=== PATIENT | male | born 1955 | race Caucasian/White ===

== ENCOUNTER 2017-01-08 21:55 | Emergency (ER) | payer OTHER ==
[~2017-01-08] VITALS: Ht 162.6 cm; Wt 147.4 kg
[~2017-01-08 21:55] MED LIST: ARMO150T4 PO; CITA20TA4 PO; ERGO500037 PO; IBUP-1277 PO; LSXUNK PO; MELO7.5T5 PO; METF500T5 PO; MULT-190 PO
[2017-01-08 22:05] VITALS: TEMP 36.7; Ht 162.6 cm; Wt 147.4 kg
[2017-01-08 22:54] LABS: BASO % 0.3 %; BASO ABS # 0.02 K/uL (0-0.2); COMPLETE YES; EOS % 2.8 %; HEMATOCRIT 41.1 % (42-52); IG% 0.1 %; LYMPH % 20.3 %; LYMPH ABS # 1.54 K/uL (1.2-3.4); MEAN CELL VOLUME 88.6 fL (80-100); MEAN CORPUSCULAR HEMOGLOBIN 29.3 pg (25-34); MEAN CORPUSCULAR HGB CONC 33.1 g/dl (32-36); MONO % 8.9 %; NEUT % 67.6 %; PLATELET COUNT 238 K/uL (130-400); RED BLOOD COUNT 4.64 M/uL (4.7-6.1); WHITE BLOOD COUNT 7.57 K/uL (4.8-10.8)
[2017-01-08] MEDS ORDERED: LISI-461 PO (23:10)
[2017-01-08] MEDS ORDERED: CLN200 PO (23:11)
[2017-01-08 23:13] LABS: BUN/CREATININE RATIO 22.4 (10-20); CALCIUM 8.8 mg/dl (8.5-10.1); POTASSIUM 3.9 mmol/L (3.5-5.1)
[2017-01-08] MEDS ORDERED: ASPI81TA28 PO (23:13)
[2017-01-08] MEDS ORDERED: ATOR-24 PO (23:13)
[2017-01-08] MEDS ORDERED: ERGO500037 PO (23:14)
[2017-01-08] MEDS ORDERED: NAPR-1169 PO (23:16)
[2017-01-08] MEDS ORDERED: PRLSR20 PO (23:17)
[2017-01-08 23:24] LABS: THYROID STIMULATING HORMONE 2.39 uIu/ml (0.300-4.500)
--- NOTE | 2017-01-09 01:29 | EMERGENCY ROOM VISIT NOTE ---
History Report prepared by Fady: Be Lang Under the Supervision of: Dr. Trell Landers M.D. First contact with patient: 22:38 Chief Complaint: MENTAL HEALTH EVALUATION Stated Complaint: MENTAL HEALTH EVALUATION History of Present Illness The patient is a 61 year old male who presents to the Emergency Room with complaints of suicidal ideation beginning yesterday. There is a 302 warrant for the patient. Per graphic pre press trades worker, the patient's a few weeks ago from chronic illnesses and the patient has been experiencing depression and "erratic behavior" ever since. He was the primary caregiver for the patient for many years. The graphic pre press trades worker states that police was called on the patient and had to barricade his car with their cars in order to stop him from driving away. Shes states that they ultimately had to threaten to use a taser on the patient before he would cooperate and go with them. Per son, the patient has no history of similar symptoms. He states that the patient is on an antidepressant, but is not diagnosed with depression. He states that the patient left an message on his daughters that eluded to a suicide attempt. The patient denies any actual attempt to harm herself. He has no history of drug or alcohol use. He denies any recent chest pain. Source of History: patient Onset: Yesterday Quality: other (suicidal ideation) Associated Symptoms: No chest pain Review of Systems See HPI for pertinent positives & negatives. A total of 10 systems reviewed and were otherwise negative. Past Medical & Surgical Medical Problems: (1) Diabetes (2) SCOTT (generalized anxiety disorder) (3) GERD (gastroesophageal reflux disease) (4) HLD (hyperlipidemia) (5) Obesity (6) KAYLEEN (obstructive sleep apnea) (7) Venous stasis Surgical Problems: (1) H/O esophagogastroduodenoscopy (2) H/O hernia repair (3) H/O knee surgery Family History Cancer FHx: lung disease Social History Smoking Status: Never Smoker Alcohol Use: none Marital Status: Housing Status: lives with family Current/Historical Medications Scheduled Armodafinil (Nuvigil), 150 MG PO DAILY Aspirin (Aspirin Ec), 81 MG PO DAILY Atorvastatin (Lipitor), 40 MG PO DAILY Citalopram Hydrobromide (Citalopram Hydrobromide), 20 MG PO DAILY Ergocalciferol (Vitamin D 12151 Unit), 50,000 UNIT PO UD Ergocalciferol (Vitamin D 95214 Unit), 50,000 UNIT PO 3XWK Lisinopril (Zestril), 10 MG PO DAILY Metformin Hcl Er (Glucophage Er), 500 MG PO BID Omeprazole (Prilosec), 20 MG PO DAILY Sulindac (Sulindac), 200 MG PO BIDM Scheduled PRN Furosemide (Lasix Unknown Dose), 40 MG PO QAM PRN for PRN Naproxen (Naprosyn), 500 MG PO DIRECTED PRN for Pain Allergies Coded Allergies: No Known Allergies (Unverified , 01/08/17) Physical Exam Vital Signs Date Time Temp Pulse Resp B/P (MAP) Pulse Ox O2 Delivery O2 Flow Rate FiO2 01/09/17 04:30 71 20 139/71 98 Room Air 01/08/17 22:05 36.7 74 18 145/79 95 Room Air Physical Exam PSYCH: Denies suicidal or homicidal ideation. Admits depression. Crying with sad affect. Depressed mood. GENERAL: Patient is in minimal distress, sad appearing. HEENT: No acute trauma, normocephalic atraumatic, mucous membranes moist, no nasal congestion, no scleral icterus. NECK: No stridor, no adenopathy, no meningismus, trachea is midline. LUNGS: No dyspnea. Clear to auscultation and equal bilaterally. No wheeze, no rhonchi. HEART: Regular rate and rhythm. No murmurs, rubs, gallops appreciated. ABDOMEN: Soft, nontender, bowel sounds positive, no masses appreciated, no peritonitis. BACK: No midline tenderness, no CVA tenderness EXTREMITIES: Normal motion all extremities, no cyanosis, no edema. NEUROLOGIC: Alert and oriented, no acute motor or sensory deficits, no focal weakness, cranial nerves grossly intact. SKIN: No rash, no jaundice, no diaphoresis. Medical Decision & Procedures Laboratory Results 01/08/17 22:40 Red Blood Count 4.64, Mean Corpuscular Volume 88.6, Mean Corpuscular Hemoglobin 29.3, Mean Corpuscular Hemoglobin Concent 33.1, Mean Platelet Volume 9.0, Neutrophils (%) (Auto) 67.6, Lymphocytes (%) (Auto) 20.3, Monocytes (%) (Auto) 8.9, Eosinophils (%) (Auto) 2.8, Basophils (%) (Auto) 0.3, Neutrophils # (Auto) 5.12, Lymphocytes # (Auto) 1.54, Monocytes # (Auto) 0.67, Eosinophils # (Auto) 0.21, Basophils # (Auto) 0.02 01/08/17 22:40 Test 01/08/17 22:40 01/09/17 06:52 White Blood Count 7.57 K/uL (4.8-10.8) Red Blood Count 4.64 M/uL (4.7-6.1) Hemoglobin 13.6 g/dL (14.0-18.0) Hematocrit 41.1 % (42-52) Mean Corpuscular Volume 88.6 fL (80-100) Mean Corpuscular Hemoglobin 29.3 pg (25-34) Mean Corpuscular Hemoglobin Concent 33.1 g/dl (32-36) Platelet Count 238 K/uL (130-400) Mean Platelet Volume 9.0 fL (7.4-10.4) Neutrophils (%) (Auto) 67.6 % Lymphocytes (%) (Auto) 20.3 % Monocytes (%) (Auto) 8.9 % Eosinophils (%) (Auto) 2.8 % Basophils (%) (Auto) 0.3 % Neutrophils # (Auto) 5.12 K/uL (1.4-6.5) Lymphocytes # (Auto) 1.54 K/uL (1.2-3.4) Monocytes # (Auto) 0.67 K/uL (0.11-0.59) Eosinophils # (Auto) 0.21 K/uL (0-0.5) Basophils # (Auto) 0.02 K/uL (0-0.2) RDW Standard Deviation 44.7 fL (36.4-46.3) RDW Coefficient of Variation 13.8 % (11.5-14.5) Immature Granulocyte % (Auto) 0.1 % Immature Granulocyte # (Auto) 0.01 K/uL (0.00-0.02) Anion Gap 8.0 mmol/L (3-11) Est Creatinine Clear Calc Drug Dose 106.3 ml/min Estimated GFR () 95.1 Estimated GFR (Non- 82.0 BUN/Creatinine Ratio 22.4 (10-20) Calcium Level 8.8 mg/dl (8.5-10.1) Total Bilirubin 0.6 mg/dl (0.2-1) Aspartate Amino Transf (AST/SGOT) 19 U/L (15-37) Alanine Aminotransferase (ALT/SGPT) 28 U/L (12-78) Alkaline Phosphatase 108 U/L (45-117) Total Protein 7.3 gm/dl (6.4-8.2) Albumin 3.7 gm/dl (3.4-5.0) Globulin 3.6 gm/dl (2.5-4.0) Albumin/Globulin Ratio 1.0 (0.9-2) Thyroid Stimulating Hormone (TSH) 2.390 uIu/ml (0.300-4.500) Ethyl Alcohol mg/dL < 3.0 mg/dl (0-3) Laboratory results as reviewed by me. ED Course 5: The patient was evaluated in room A8. A complete history and physical exam was performed. 5: The patient was accepted for transfer to the [facility]. 929: The patient was transferred to the [facility]. Medical Decision Differential: Mood Disorder, Overdose, Infectious, Electrolyte Abnormality, Cardiac, Hepatic, Endocrine, Toxicologic, Neurologic, amongst other pathologies entertained. 62 yr old male who over last few weeks with worsening depression. 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 Son notes worsening depression and then making suicidal statements his evening. Patient denies this is suicidal but he is sad, depressed and not willing to cooperate with mental health evaluation. Police were involved and there was brief stand off earlier when he almost crashed his car in to police in attempt to escape. Patient clearly at high risk of harm to self, not willing to be pro-active in his care and is medically clear. I feel inpatient psychiatric treatment required for this patient thus have signed 302 warrant as he is unwilling to participate voluntarily in his care. Patient stable throughout ED stay. Accepted to [facility] for further treatment and evaluation. Patient had morning meds ordered while awaiting transfer. Impression Primary Impression: Depression Additional Impression: suicidal threats Scribe Attestation The scribe's documentation has been prepared under my direction and personally reviewed by me in its entirety. I confirm that the note above accurately reflects all work, treatment, procedures, and medical decision making performed by me. Departure Information Dispostion [facility] ([place]) Referrals No Doctor, Assigned (PCP) Forms HOME CARE DOCUMENTATION FORM, IMPORTANT VISIT INFORMATION Patient Instructions My [facility] Health Problem Qualifiers
[2017-01-09 07:18] LABS: URINE APPEARANCE CLEAR (CLEAR); URINE BILIRUBIN NEG (NEG); URINE COLOR YELLOW; URINE SPECIFIC GRAVITY 1.024 (1.000-1.030); ZZUR CULT IF INDIC CLEAN CATCH NO
[2017-01-09 07:19] LABS: URINE NITRITE NEG (NEG); UROBILINOGEN NEG (NEG)
[2017-01-09 07:22] LABS: MANUAL MICROSCOPIC REQUIRED? NO; REVIEW REQ? NO
[2017-01-09 07:44] LABS: BENZODIAZEPINE, URINE NEG (NEG); COCAINE,URINE NEG (NEG); PHENCYCLIDINE, URINE NEG (NEG)
[2017-01-09] MEDS ORDERED: ATORVASTATIN 40 MG TAB PO SCH (09:00)
[2017-01-09] MEDS ORDERED: SULINDAC 200 MG TAB PO SCH (09:00)
[2017-01-09] MEDS ORDERED: ASPIRIN 81 MG CHEW PO SCH (09:00)
[2017-01-09] MEDS ORDERED: LISINOPRIL 10 MG TAB PO SCH (09:00)
[2017-01-09] MEDS ORDERED: METFORMIN HCL 500 MG TAB PO SCH (09:00)
[2017-01-09] MEDS ORDERED: CITALOPRAM 20 MG TAB PO SCH (09:00)
[2017-01-09] MEDS ORDERED: PANTOprazole SOD 40 MG TAB PO SCH (09:00)
[2017-01-09 09:06] VITALS: BP 142/84; PULSE 75; O2SAT 98
[2017-01-09] MEDS ORDERED: LORAZEPAM 1 MG TAB SL STA (09:13)
== END 2017-01-09 10:17 ==
LOC: C.EDB 21:57 → C.EDA 01-09 10:17
DX: F32.9 Major depressive disorder, single episode, unspecified (principal); R45.851 Suicidal ideations; E78.5 Hyperlipidemia, unspecified; E11.9 Type 2 diabetes mellitus without complications; K21.9 Gastro-esophageal reflux disease without esophagitis; F41.1 Generalized anxiety disorder; G47.33 Obstructive sleep apnea (adult) (pediatric); Z98.890 Other specified postprocedural states; Z79.82 Long term (current) use of aspirin; Z79.84 Long term (current) use of oral hypoglycemic drugs; Z79.899 Other long term (current) drug therapy; Z80.9 Family history of malignant neoplasm, unspecified

== ENCOUNTER 2019-12-24 22:54 | Observation (INO) ==
--- NOTE | 2019-12-24 23:34 | Emergency Department Note ---
History of Present Illness General Chief complaint: Fall Stated complaint: fall Source: patient and RN notes reviewed Mode of arrival: EMS Limitations: no limitations History of Present Illness Provider complaint: Frequent falls, generalized weakness, left arm weakness This patient is a 64-year-old male who presents emergency department after a fall earlier this evening. Patient apparently ambulated to the bathroom with his walker, "nearly fell off of the toilet" and finally fell over when attempting to pull up his pants. The patient states he has suffered frequent falls with increasing severity over the last several weeks. He generally calls EMS with his life alert button and requires assistance to get up. He states he has been using a walker recently which has helped somewhat. Patient states over the last couple of days he has even required his son to help him get up out of bed, which is new. He did call to make an appointment with his primary care physician regarding the weakness but is scheduled in about 10 days. Patient denies any other complaints, chest pain, shortness of breath or recent injury. He states his left arm weakness is "out of the blue." Patient states he feels he will need rehab services prior to going home. Home Medications Home Medications Medication Instructions Recorded Confirmed Type PreserVision AREDS 1 cap PO DAILY 11/29/18 12/24/19 History armodafinil 150 mg PO QAM 11/29/18 12/24/19 History aspirin 81 mg PO QAM 11/29/18 12/24/19 History atorvastatin 20 mg PO QAM 11/29/18 12/24/19 History bupropion HCl 150 mg PO BID 11/29/18 12/24/19 History cetirizine 10 mg PO QAM 11/29/18 12/24/19 History furosemide 40 mg PO QAM 11/29/18 12/24/19 History lisinopril 10 mg PO QAM 11/29/18 12/24/19 History metformin 750 mg PO BID 11/29/18 12/24/19 History mometasone 1 spray INTRANASAL HS 11/29/18 12/24/19 History naproxen 500 mg PO BIDM 11/29/18 12/24/19 History pregabalin [Lyrica] 100 mg PO BID 11/29/18 12/24/19 History cholecalciferol (vitamin D3) 2,000 unit PO QAM 06/17/19 12/24/19 History [Vitamin D3] ketoconazole 1 applic TOPICAL QAM 06/17/19 12/24/19 History halobetasol propionate 1 applic TOPICAL DIRECTED 12/24/19 12/24/19 History Allergies Allergy/AdvReac Type Severity Reaction Status Date / Time No Known Allergies Allergy Verified 12/24/19 23:06 Past Med/Surg History Medical History BPH (benign prostatic hyperplasia) Colon cancer screening Depression Diabetes (Inactive) Diabetes mellitus, type 2 SCOTT (generalized anxiety disorder) (Inactive) GERD (gastroesophageal reflux disease) (Inactive) Hearing loss in right ear History of anesthesia reaction had BP drop during one of his hernia sx---had surgery since then, no issues HLD (hyperlipidemia) (Inactive) Hypertension Morbid obesity with BMI of 50.0-59.9, adult KAYLEEN (obstructive sleep apnea) (Inactive) cpap Osteoarthritis Venous stasis (Inactive) Surgical History H/O esophagogastroduodenoscopy (Inactive) 2007 H/O hernia repair (Inactive) 3 hernia repairs, 2009, 2012 & 2013 History of arthroscopy of right knee meniscus repair History of colonoscopy History of wisdom tooth extraction Hx of vasectomy Status post trigger finger release right ring finger Family History Mother Lung cancer age 57 Father , cancer not sure what kind, age 90 No problems noted. Sister No problems noted. Sister No problems noted. Sister No problems noted. Son No problems noted. Daughter No problems noted. Other No family history of adverse response to anesthesia Social History Preferred Language: Croatian Communication Ability: Effective Tanning Wheel Filler Required: No Beliefs That Will Affect Care: None marital status: / Current Living Situation: Alone current occupation: retired, social security disability, [employer] worker Feels Safe at Home: Yes Smoking Status: Never smoker Second Hand Exposure: Yes (father smoked) ; Hx Alcohol Use: No Hx Substance Use: No Childhood Exposure to Second-Hand Smoke: Yes caffeine: Yes (one cup of tea) Dental Care, Regularly: Yes Review of Systems See HPI for pertinent positives & negatives. and A total of 10 systems reviewed and were otherwise negative Physical Exam Vital Signs Vital Signs - 24 hr 12/24/19 23:01 12/24/19 23:08 12/25/19 01:00 Temperature 37 C Temperature Source Oral Pulse Rate 114 H Respiratory Rate 16 16 Respiratory Effort / Characteristics Non-Labored Respiratory Depth Normal Blood Pressure 144/65 H Blood Pressure [Right Arm] 95/57 L Blood Pressure Mean 91 Blood Pressure Mean [Right Arm] 69 Pulse Oximetry 96 92 92 Oxygen Delivery Method Room Air Room Air Room Air Sepsis Recent Fever Within 48 Hours No Sepsis Action Taken by Nursing No Action Required Vital signs reviewed. General: Somewhat disheveled 64-year-old male, chronically ill-appearing,, in no significant distress. HEENT: No scleral icterus, PERRLA, neck supple. Atraumatic. Cardiovascular: Regular rate and rhythm, no extra sounds. Pulmonary: Clear to auscultation bilaterally, normal work of breathing. Abdomen: Soft, morbidly obese, nontender, nondistended, positive bowel sounds. Musculoskeletal: Atraumatic, no peripheral edema. Neurologic: Patient awake alert and oriented x 3. Cranial nerves 2 through 12 grossly intact. 3/5 strength of the left upper extremity, patient is unable to extend the arm up over his head. 5/5 right upper extremity. 4/5 strength of the bilateral lower extremities however mobility is severely limited by body habitus. Skin: Warm, dry, no rash Course Administered Medications Sodium Chloride (Nss 1000ml) 1,000 mls @ 100 mls/hr IV .Q10H NASIR Stop: 01/24/20 04:06 Last Admin: 12/25/19 05:20 Dose: 100 mls/hr Documented by: [id number] Discontinued Medications Sodium Chloride (Nss) 500 mls @ 500 mls/hr IV .Q1H NASIR Stop: 12/25/19 05:06 Last Infusion: 12/25/19 05:28 Dose: 0 mls/hr Documented by: [id number] Admin: 12/25/19 04:20 Dose: 500 mls/hr Documented by: [id number] Medical Decision Making Differential Diagnosis Differential includes acute coronary syndrome, myocardial infarction, CVA, TIA, anemia, infection, pneumonia, UTI, pyelonephritis, poor nutrition, dehydration, electrolyte disturbance,hypoglycemia. Medical Records Attestation: I reviewed the patient's medical records. Home Medications Current Medication List: was personally reviewed by me Laboratory Data Attestation: I reviewed the patient's lab results. Result diagrams: 12/24/19 23:33 12/24/19 23:33 Lab Results 12/24/19 12/24/19 Range/Units 23:33 23:33 WBC 10.21 (4.8-10.8) K/uL RBC 4.19 L (4.7-6.1) M/uL Hgb 12.7 L (14.0-18.0) g/dL Hct 39.0 L (42-52) % MCV 93.1 (80-100) fL MCH 30.3 (25-34) pg MCHC 32.6 (32-36) g/dL RDW Std Deviation 45.5 (36.4-46.3) fL RDW Coeff of Shanel 13.3 (11.5-14.5) % Plt Count 227 (130-400) K/uL MPV 9.4 (7.4-10.4) fL Immature Gran % (Auto) 0.2 % Neut % (Auto) 74.7 % Lymph % (Auto) 14.4 % [place] % (Auto) 7.7 % Eos % (Auto) 2.8 % Baso % (Auto) 0.2 % Immature Gran # (Auto) 0.02 (0.00-0.02) K/uL Neut # (Auto) 7.62 H (1.4-6.5) K/uL Lymph # (Auto) 1.47 (1.2-3.4) K/uL [place] # (Auto) 0.79 H (0.11-0.59) K/uL Eos # (Auto) 0.29 (0-0.5) K/uL Baso # (Auto) 0.02 (0-0.2) K/uL Sodium 140 (136-145) mmol/L Potassium 4.8 (3.5-5.1) mmol/L Chloride 107 (98-107) mmol/L Carbon Dioxide 27 (21-32) mmol/L Anion Gap 6.0 (3-11) BUN 49 H (7-18) mg/dl Creatinine 1.74 H (0.6-1.4) mg/dl Est Cr Clr Drug Dosing 57.2 ml/min Est GFR ( Amer) 47.6 Est GFR (Non-Af Amer) 41.1 BUN/Creatinine Ratio 28.0 H (10-20) Glucose 97 (70-99) mg/dl Calcium 8.6 (8.5-10.1) mg/dl Total Bilirubin 0.7 (0.2-1) mg/dl AST 13 L (15-37) U/L ALT 22 (12-78) U/L Alkaline Phosphatase 79 (45-117) U/L Troponin I < 0.015 (0-0.045) ng/ml Total Protein 7.2 (6.4-8.2) gm/dl Albumin 3.8 (3.4-5.0) gm/dl Globulin 3.4 (2.5-4.0) gm/dl Albumin/Globulin Ratio 1.1 (0.9-2) Imaging Data Radiologist's Impression: CT head: No hemorrhage, large territory infarct, mass-effect or edema. No fracture. Radiologist Monroe Orozco MD CT C-spine: No fracture. Moderate to severe degenerative disc disease. Intrinsic spinal canal stenosis. Bulky anterior osteophytes. Multilevel uncovertebral and facet hypertrophy. The degree of spinal canal stenosis would be best visualized by MRI, at least moderate at multiple levels. Multilevel moderate to severe foraminal stenosis. Radiologist Mnoroe Orozco MD ECG Data Attestation: I personally reviewed and interpreted this ECG as follows: Indication: + weakness Rate (beats per minute): 65 Rhythm: + normal sinus ECG Intervals/blocks: + Normal QT ECG ST segments: + Nonspecific ST abnormalities ECG Findings: no PACs and no PVCs Blood Pressure Blood Pressure Findings: Elevated blood pressure Blood Pressure Disposition: further management by hospitalist [facility] Narrative This patient was evaluated and appeared to be in no significant distress. An order for cardiac monitoring was placed and the patient is found to be in a normal sinus rhythm at 66 bpm. Chest x-ray was performed and reveals cardiomegaly and mild fluid overload but no focal lung consolidation. EKG was performed and reveals no evidence of acute ischemic change. Laboratory work is fairly reassuring. CT scan of the head reveals no hemorrhage or infarct. CT of the cervical spine is significant for multilevel stenosis, which I believe is likely contributing to his left upper extremity weakness and possibly frequent falls. The patient is morbidly obese with a BMI of 53 and mobility is largely limited. He will require evaluation by the hospitalist and likely spine and possibly inpatient rehab services. Patient is aware of this plan and agrees. Dr[facility]. Impression & Plan Spinal stenosis in cervical region, LUE weakness, Falls frequently Discharge Plan Visit Data *Final* Discharge Date/Time: 12/25/19 03:37 Chief Complaint: Fall Stated Complaint: fall ED Provider: Nancy Quintero Discharge Problem: Spinal stenosis in cervical region, LUE weakness, Falls frequently Patient Disposition: Admitted As Inpatient Discharge Instructions Interventions: ED Discharge Assessment Last Done: 12/25/19 03:37
[2019-12-25 00:09] LABS: Basophils # (auto) 0.02 K/uL (0-0.2); Basophils % (auto) 0.2 %; Eosinophils # (auto) 0.29 K/uL (0-0.5); Eosinophils % (auto) 2.8 %; Hemoglobin 12.7 g/dL (14.0-18.0); Immature Granulocytes # (auto) 0.02 K/uL (0.00-0.02); Immature Granulocytes % (auto) 0.2 %; Lymphocytes # (auto) 1.47 K/uL (1.2-3.4); Lymphocytes % (auto) 14.4 %; Mean Corpuscular Hemoglobin 30.3 pg (25-34); Mean Corpuscular Hgb Conc 32.6 g/dL (32-36); Mean Corpuscular Volume 93.1 fL (80-100); Mean Platelet Volume 9.4 fL (7.4-10.4); Monocytes # (auto) 0.79 K/uL (0.11-0.59); Monocytes % (auto) 7.7 %; Neutrophils # (auto) 7.62 K/uL (1.4-6.5); Neutrophils % (auto) 74.7 %; Platelet Count 227 K/uL (130-400); RDW Coefficient of Variation 13.3 % (11.5-14.5); RDW Standard Deviation 45.5 fL (36.4-46.3); Red Blood Count 4.19 M/uL (4.7-6.1); White Blood Count 10.21 K/uL (4.8-10.8)
[2019-12-25 00:26] LABS: Alanine Aminotransferase 22 U/L (12-78); Albumin Level 3.8 gm/dl (3.4-5.0); Aspartate Aminotransferase 13 U/L (15-37); Blood Urea Nitrogen 49 mg/dl (7-18); Calcium 8.6 mg/dl (8.5-10.1); Carbon Dioxide 27 mmol/L (21-32); Chloride 107 mmol/L (98-107); Creatinine Clr Calc Pharmacy 57.2 ml/min; Est GFR (African American) 47.6; Est GFR (Non-African American) 41.1; Glucose 97 mg/dl (70-99); Potassium 4.8 mmol/L (3.5-5.1); Sodium 140 mmol/L (136-145)
[2019-12-25 00:31] LABS: Albumin Globulin Ratio 1.1 (0.9-2); Alkaline Phosphatase 79 U/L (45-117); Bilirubin,Total 0.7 mg/dl (0.2-1); Globulin 3.4 gm/dl (2.5-4.0); Total Protein 7.2 gm/dl (6.4-8.2); Troponin I < 0.015 ng/ml (0-0.045)
--- NOTE | 2019-12-25 03:53 | History and Physical Report ---
DATE OF ADMISSION: 12/25/2019 CHIEF COMPLAINT: Frequent falls, ambulatory dysfunction and also weakness in the left upper extremity. HISTORY OF PRESENT ILLNESS: This is a 64-year-old male with past medical history significant for type 2 diabetes, hyperlipidemia, obstructive sleep apnea, treated with BiPAP, morbid obesity, GERD, prostate cancer, venous stasis dermatitis, osteoarthritis of both knees, depression, who lives at home alone, presents with frequent falls and also left upper extremity weakness. The patient since last one and a half years is falling frequently, uses walker at home.He has Life Alert and when he fall he presses life alert and EMS come and help him to get up. His son also live close by and this last few weeks his son is helping him to get up from the bed.Last 2 weeks he is having also weakness in his left upper extremity and also has limited range of motion in left shoulder that is the reason he came to the ER today. Denies any headache, no blurred vision, no earache, no runny nose, no sore throat, no difficulty swallowing. No cough, no fever, no chills, no chest pain or shortness of breath. No nausea, no vomiting, no abdominal pain. Normal bowel and bladder movements. No blood in the stools, no burning micturition, has some edema in the lower extremities. Currently resting comfortably, but blood pressure is running on the lower side. ALLERGIES: No known drug allergies. PAST MEDICAL HISTORY: As mentioned above. PAST SURGICAL HISTORY: Colonoscopy, EGDs, knee arthroscopy, repair of inguinal hernia, laparoscopic repair of right hernia with mesh reinforcement. MEDICATIONS: The patient is on armodafinil 150 mg p.o. a.m., aspirin 81 mg p.o. a.m., atorvastatin 20 mg p.o. a.m., bupropion 150 mg p.o. b.i.d., cetirizine 10 mg p.o. a.m., vitamin D 2000 units p.o. a.m., Lasix 40 mg p.o. a.m., halobetasol propionate 1 application topically as directed, ketaconazole 1 application topically a.m., lisinopril 10 mg p.o. a.m., metformin 750 mg p.o. b.i.d., mometasone 1 spray intranasally at bedtime, naproxen 500 mg p.o. b.i.d., Lyrica 100 mg p.o. b.i.d., PreserVision AREDS 1 capsule p.o. daily. FAMILY HISTORY: Significant for son has asthma, father has COPD. Mother had lung cancer. SOCIAL HISTORY: , lives alone. No smoking, no alcohol, no drug use. REVIEW OF SYMPTOMS: As per HPI. Rest of review of symptoms negative. PHYSICAL EXAMINATION: GENERAL: The patient is morbidly obese, not in acute distress. VITAL SIGNS: Temperature 37, pulse 110, respiratory rate 16, blood pressure 95/57, oxygen 92% on room air. HEENT: No pallor, no icterus. Extraocular muscles intact. NECK: Supple. Normal movements of the neck. No neck masses seen. CARDIOVASCULAR: S1, S2 heard, regular rate and rhythm, no murmur, no gallop. RESPIRATORY SYSTEM: Normal AP diameter. No accessory muscle use. No wheezing, no crackles. ABDOMEN: Soft, bowel sounds present, nontender. No distention. CENTRAL NERVOUS SYSTEM: Alert and oriented. Obeys simple commands. Moves extremities. Extremities has Power 4-5/5 in all extremities and 1/5 in left upper extremity. EXTREMITIES: Bilateral lower extremity chronic edema seen, no erythema seen. LABORATORY DATA: WBC 10.2, hemoglobin 12.7, hematocrit 39, platelets 227. Sodium 140, potassium 4.8, chloride 107, bicarbonate 27, BUN 49, creatinine 1.7, serum glucose 97, calcium 8.6, total bilirubin 0.7, AST 13, ALT 22, alkaline phosphatase 79, troponin I less than 0.015. Cervical spine CT, preliminary report, no fracture, moderate to severe degenerative disc disease, multilevel moderate to severe foraminal stenosis. CT of the head, preliminary report, no acute findings. ASSESSMENT AND PLAN: This is a 64-year-old male who presents with frequent falls and also weakness in the left upper extremity. 1. Frequent falls, weakness in left upper extremity, most likely from significant cervical stenosis. We will get MRI of the head and also MRI of the cervical spine, may need PT, OT, Ortho consult. Monitor in the Med/Surg tele for now, may need placement. 2. Hypotension: Blood pressure running on lower side. We will hold his lisinopril, hold his Lasix. We will give fluids and monitor. No signs of sepsis. 3. Morbid obesity, needs counseling. 4. Obstructive sleep apnea, on BiPAP at bedtime. 5. Type 2 diabetes. Hold metformin, place him on insulin sliding scale. Follow his blood sugars. 6. Hyperlipidemia. Continue his Lipitor. 7. Hypertension. Holding his lisinopril for hypotension. We will monitor. 8. History of prostate cancer: Slow growing, currently on active surveillance. 9. Depression. Continue Wellbutrin. 10. Deep venous thrombosis prophylaxis, sequential compression devices for now. If no plan for any procedures, we can start on heparin subQ. DISPOSITION: Admit to med/surg tele. Level 1 full code as per my discussion with the patient. PT and OT prior to discharge. Social Service to help with discharge planning. [facility]
[2019-12-25] MEDS ORDERED: POLYETHYLENE (MIRALAX) 17 GM PACK PO PRN (04:07)
[2019-12-25] MEDS ORDERED: SODIUM CHLORIDE 0.9% 500 ML IV SCH (04:07)
[2019-12-25] MEDS ORDERED: ONDANSETRON INJ 2 MG/ML 2 ML VIAL IV PRN (04:07)
[2019-12-25] MEDS ORDERED: NITROGLYCERIN SL 0.4 MG/TAB TAB SL PRN (04:07)
[2019-12-25] MEDS ORDERED: Nursing to Pharmacy Communication SCH ×2 (04:30→10:15)
[2019-12-25] MEDS ORDERED: GLUCOSE 10 TABS/TUBE PO PRN (04:45)
[2019-12-25] MEDS ORDERED: CARBOHYDRATES FOR HYPOGLYCEMIA PO PRN (04:45)
[2019-12-25] MEDS ORDERED: GLUCOSE 40% GEL 15 GM TUBE PO PRN (04:45)
[2019-12-25] MEDS ORDERED: DEXTROSE 50% 50 ML SYRINGE IV PRN (04:45)
[2019-12-25] MEDS ORDERED: GLUCAGON FOR INJ 1 MG VIAL SQ PRN (04:45)
[2019-12-25] MEDS: SODIUM CHLORIDE 0.9% 1000ML 1,000 ML IV SCH ×2 (05:20→18:00)
[2019-12-25] MEDS ORDERED: INSULIN ASPART 100 UNITS/ML 3 ML PEN SC SCH ×2 (06:00→07:30)
--- NOTE | 2019-12-25 06:47 | CT Scan Report ---
CT cervical spine wo con CT DOSE: 555.90 mGycm CLINICAL HISTORY: 64 years-old Male with R>L upper extremity weakness. Acute right greater than left upper extremity weakness. The patient was reportedly unable to move the left upper extremity. COMPARISON: Head CT of same day TECHNIQUE: Multiple axial CT images of the cervical spine were obtained without contrast. A dose low ering technique was utilized adhering to the principles of ALARA. FINDINGS: Moderate to severe multilevel disc space narrowing with advanced spondylitic spurring and facet arthr osis. Partially calcified pannus is noted posterior to the odontoid process. Posterior disc osteophyt e complex are noted at multiple levels with suggestion of multilevel central canal and foraminal narr owing. Evaluation of the central canal and neuroforamina is better assessed by MRI. Trace left mastoi d effusion. Soft tissues are unremarkable. No prevertebral soft tissue swelling. IMPRESSION: 1. No acute fracture or subluxation identified. 2. Advanced multilevel degenerative changes as detailed above with resultant multilevel foraminal morenita rowing and central canal stenosis. ACT 112: Negative or not required by law. The above report was generated using voice recognition software. It may contain grammatical, syntax o r spelling errors. Electronically signed by: Antoni Ellis M.D. 12/25/2019 6:46 AM
--- NOTE | 2019-12-25 06:55 | CT Scan Report ---
CT head/brain wo con CLINICAL HISTORY: 64 years-old Male with RUE weakness, gait difficulties, falls. Acute right upper e xtremity weakness with recent fall TECHNIQUE: Multiple axial CT images of the head were obtained without contrast. A dose lowering tech nique was utilized adhering to the principles of ALARA. CT DOSE: 994.86 mGycm COMPARISON: CT cervical spine of same day. FINDINGS: No acute intracranial hemorrhage, midline shift, intracranial mass, hydrocephalus, territorial ischem ia or abnormal extra-axial collection. The calvarium is intact. The paranasal sinuses, mastoid air cells, and middle ear cavities are clear . IMPRESSION: No acute intracranial abnormality. ACT 112: Negative or not required by law. The above report was generated using voice recognition software. It may contain grammatical, syntax o r spelling errors. Electronically signed by: Antoni Ellis M.D. 12/25/2019 6:53 AM
[2019-12-25] MEDS ORDERED: GADOBUTROL 65ML VIAL IV PRN (08:02)
[2019-12-25] MEDS: ASPIRIN 81 MG ECTAB PO SCH (08:19)
[2019-12-25] MEDS: [UNRECOGNIZED DRUG - OTHER] SCH ×3 (08:19→22:24)
[2019-12-25] MEDS: CHOLECALCIFEROL 1,000 UNITS 25 MCG TAB PO SCH (08:19)
[2019-12-25] MEDS: CEROVITE ADV FORMULA TAB PO SCH (08:19)
[2019-12-25] MEDS: CETIRIZINE HCL 10 MG TABLET PO SCH (08:19)
[2019-12-25] MEDS: ATORVASTATIN 20 MG TAB PO SCH (08:19)
[2019-12-25] MEDS: BuPROPion SR 150 MG TABCR PO SCH ×2 (08:19→22:16)
[2019-12-25] MEDS: KETOCONAZOLE 2% CR 15 GM TUBE EXT SCH (08:20)
--- NOTE | 2019-12-25 08:20 | Magnetic Resonance Report ---
Brain MRI WITH AND WITHOUT CONTRAST HISTORY: left upper extremity weakness TECHNIQUE: Multiplanar multisequence MRI of the brain was performed both before and after the intrave nous administration of contrast. COMPARISON STUDY: Head CT 12/25/2019. FINDINGS: There is no mass, hematoma, midline shift, or acute infarct. The paranasal sinuses are edgar r. The mastoid air cells are clear. The ventricles and sulci demonstrate mild age-related involutiona l changes. Scattered foci of T2 hyperintensity seen within the periventricular and subcortical white matter are nonspecific but suggestive of mild microvascular ischemic changes. The major vascular flow voids at the skull base are well-maintained. Mild motion artifact. Small retention cyst within the l eft sphenoid sinus and a few opacified left mastoid air cells. 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 No abnormal enhancement. IMPRESSION: 1. Mild motion artifact. No definite acute intracranial abnormality. 2. Scattered foci of T2 hyperintensity seen within the periventricular and subcortical white matter a re nonspecific but favor mild microvascular ischemic change. 3. 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 ACT 112: Negative or not required by law. Electronically signed by: Balta Morse M.D. 12/25/2019 8:19 AM
--- NOTE | 2019-12-25 08:23 | Magnetic Resonance Report ---
MR cervical spine wo/w con CLINICAL HISTORY: Bilateral upper extremity weakness. TECHNIQUE: Sagittal and axial T1, T2 and STIR images were obtained. COMPARISON STUDY: CT scan dated 12/25/2019 There are no suspicious areas of marrow replacement. There is abnormal cervical cord signal at the C3 and C4 levels, likely secondary to a compressive myelopathy. There is also a tiny focus of increased signal within the left hemicord at the C6-7 level. C2-3: There is a circumferential disc bulge. There is no significant spinal stenosis. There is minor bilateral foraminal narrowing C3-4: There is a circumferential disc bulge. There is severe spinal stenosis. There is moderate to se adelina bilateral foraminal stenosis. There is increased cervical cord signal, likely secondary to a com pressive myelopathy C4-5: There is a circumferential disc bulge. There is minor narrowing of the AP diameter of the spina l canal. There is mild bilateral foraminal narrowing C5-6 :There is a circumferential disc bulge and tiny central disc protrusion. There is mild spinal st enosis. There is bilateral foraminal narrowing C6-7: There is a small broad-based central disc protrusion. There is no significant spinal stenosis. There is mild bilateral foraminal narrowing. There is a tiny focus of increased T2 signal within the left cervical hemicord. C7-T1: There is no evidence of disc bulge or focal herniation. There is no evidence of spinal or fora abdoul stenosis. Postcontrast images reveal no pathologically enhancing lesions IMPRESSION: 1. Advanced multilevel spondylytic changes. 2. The study is most significant for severe spinal stenosis at the C3-4 level. There is increased cer vical cord signal at the C3 and C4 level, likely secondary to a compressive myelopathy 3. Multilevel foraminal stenosis 4. Tiny focus of increased T2 signal within the left cervical hemicord at the C5-C6 level of uncertai n etiology. ACT 112: Negative or not required by law. Electronically signed by: Jeramie Washington M.D. 12/25/2019 8:22 AM
[2019-12-25] MEDS: PREGABALIN 100 MG CAP PO SCH ×2 (08:25→22:16)
[2019-12-25] MEDS ORDERED: MICONAZOLE NITRATE POWDER 43 GM EXT PRN (08:27)
[2019-12-25 08:30] LABS: Basophils # (auto) 0.01 K/uL (0-0.2); Basophils % (auto) 0.1 %; Eosinophils # (auto) 0.28 K/uL (0-0.5); Eosinophils % (auto) 3.9 %; Hematocrit (blood only) 40.5 % (42-52); Hemoglobin 12.7 g/dL (14.0-18.0); Lymphocytes # (auto) 1.29 K/uL (1.2-3.4); Lymphocytes % (auto) 18.1 %; Mean Corpuscular Hemoglobin 29.5 pg (25-34); Mean Corpuscular Hgb Conc 31.4 g/dL (32-36); Mean Platelet Volume 9.3 fL (7.4-10.4); Monocytes # (auto) 0.61 K/uL (0.11-0.59); Monocytes % (auto) 8.5 %; Neutrophils # (auto) 4.95 K/uL (1.4-6.5); Neutrophils % (auto) 69.4 %; Platelet Count 221 K/uL (130-400); RDW Coefficient of Variation 13.2 % (11.5-14.5); RDW Standard Deviation 45.4 fL (36.4-46.3); Red Blood Count 4.31 M/uL (4.7-6.1); White Blood Count 7.14 K/uL (4.8-10.8)
[2019-12-25 08:41] LABS: Estimated Average Glucose 126 mg/dl
[2019-12-25 08:59] LABS: BUN Creatinine Ratio 26.6 (10-20); Creatinine Clr Calc Pharmacy 60.7 ml/min; Est GFR (African American) 51.2; Est GFR (Non-African American) 44.2; Magnesium 2.4 mg/dl (1.8-2.4); Potassium 4.8 mmol/L (3.5-5.1)
[2019-12-25] MEDS: INSULIN ASPART 100 UNITS/ML 3 ML PEN SC SCH ×3 (12:47→22:23)
--- NOTE | 2019-12-25 13:44 | Orthopedic Consultation ---
Date of Consultation December 25, 2019 Assessment & Plan (1) Myelopathy concurrent with and due to spinal stenosis of cervical region: I did review with the patient findings on his MRI. He has severe multilevel spinal stenosis most impressive at C3-C4. There is evidence of myelomalacia and cord contour change. Subsequently the patient would be a candidate for surgical intervention. He does have a significant list of medical problems. He is morbidly obese. Any surgical intervention be quite complex and with increased risk. I relayed this to the patient. Surgically he would require an anterior cervical corpectomy and fusion of C4. Present on Admission?: Yes History of Present Illness Reason for Consultation: Arm weakness Attending Physician: Facundo Emanuel MD History of Present Illness This is a 64-year-old male presents with complaints of left arm weakness and lower extremity weakness and subsequent falls. Patient states his symptoms have been progressive over the past several months. He states he began using a walker in July of this year. His left arm weakness was quite progressive over the past several weeks. He has noted several falls at home. He denies significant balance disturbances. Denies difficulty with fine motor skills. Allergies Allergy/AdvReac Type Severity Reaction Status Date / Time No Known Allergies Allergy Verified 12/24/19 23:06 Home Medications Home Medications Medication Instructions Recorded Confirmed Type PreserVision AREDS 1 cap PO DAILY 11/29/18 12/24/19 History armodafinil 150 mg PO QAM 11/29/18 12/24/19 History aspirin 81 mg PO QAM 11/29/18 12/24/19 History atorvastatin 20 mg PO QAM 11/29/18 12/24/19 History bupropion HCl 150 mg PO BID 11/29/18 12/24/19 History cetirizine 10 mg PO QAM 11/29/18 12/24/19 History furosemide 40 mg PO QAM 11/29/18 12/24/19 History lisinopril 10 mg PO QAM 11/29/18 12/24/19 History metformin 750 mg PO BID 11/29/18 12/24/19 History mometasone 1 spray INTRANASAL HS 11/29/18 12/24/19 History naproxen 500 mg PO BIDM 11/29/18 12/24/19 History pregabalin [Lyrica] 100 mg PO BID 11/29/18 12/24/19 History cholecalciferol (vitamin D3) 2,000 unit PO QAM 06/17/19 12/24/19 History [Vitamin D3] ketoconazole 1 applic TOPICAL QAM 06/17/19 12/24/19 History halobetasol propionate 1 applic TOPICAL DIRECTED 12/24/19 12/24/19 History Patient History Medical History BPH (benign prostatic hyperplasia) Colon cancer screening Depression Diabetes (Inactive) Diabetes mellitus, type 2 SCOTT (generalized anxiety disorder) (Inactive) GERD (gastroesophageal reflux disease) (Inactive) Hearing loss in right ear History of anesthesia reaction had BP drop during one of his hernia sx---had surgery since then, no issues HLD (hyperlipidemia) (Inactive) Hypertension Morbid obesity with BMI of 50.0-59.9, adult KAYLEEN (obstructive sleep apnea) (Inactive) cpap Osteoarthritis Venous stasis (Inactive) Surgical History H/O esophagogastroduodenoscopy (Inactive) 2007 H/O hernia repair (Inactive) 3 hernia repairs, 2009, 2011 & 2012 History of arthroscopy of right knee meniscus repair History of colonoscopy History of wisdom tooth extraction Hx of vasectomy Status post trigger finger release right ring finger Family History Mother Lung cancer age 57 Father , cancer not sure what kind, age 90 No problems noted. Sister No problems noted. Sister No problems noted. Sister No problems noted. Son No problems noted. Daughter No problems noted. Other No family history of adverse response to anesthesia Social History Preferred Language: Sammarinese Communication Ability: Effective Restaurant [employer] Person Required: No Beliefs That Will Affect Care: None marital status: / Current Living Situation: Alone current occupation: retired, social security disability, [employer] worker Feels Safe at Home: Yes Smoking Status: Never smoker Second Hand Exposure: Yes (father smoked) ; Hx Alcohol Use: No Hx Substance Use: No Childhood Exposure to Second-Hand Smoke: Yes caffeine: Yes (one cup of tea) Dental Care, Regularly: Yes Physical Exam Physical Exam: On exam he demonstrates significant weakness to testing to the left upper extremity compared to the right. His grasp is diminished his biceps deltoids and triceps are at best a 3+/5. He exhibits a bilateral Nathan sign. He does exhibit clonus to testing the bilateral lower extremity. Is brisk global reflexes. Results & Data ([facility]) Vital Signs (Past 12 Hours) Vital Signs Temp Pulse Pulse Resp BP BP Pulse Ox 12/25/19 13:19 64 16 94 12/25/19 11:21 36.8 C 57 L 18 114/75 94 12/25/19 08:51 36.5 C 62 20 133/81 94 12/25/19 08:00 63 12/25/19 05:30 66 12/25/19 04:00 36.9 C 64 16 147/81 H 94 12/25/19 03:37 61 17 122/72 94 12/25/19 03:00 61 16 122/72 94
--- NOTE | 2019-12-25 14:43 | XRay Report ---
XR chest 1V portable HISTORY: pre-op COMPARISON: Chest 09/15/2015. FINDINGS: There are low lung volumes. Cardiac silhouette remains mildly enlarged. This remains unchan ged and could be accentuated by the low lung volumes. No new focal lung consolidations to suggest pne umonia. No evidence for pulmonary edema. No pleural effusions. No pneumothorax. IMPRESSION: Stable mild cardiomegaly and low lung volumes. ACT 112: Negative or not required by law. Electronically signed by: Balta Morse M.D. 12/25/2019 2:42 PM
[2019-12-25] MEDS ORDERED: PERFLUTREN LIPID MICROSPHERE (DEFINITY) IV ONE (15:06)
--- NOTE | 2019-12-25 16:27 | Hospitalist Progress Note ---
Date of Service December 26, 2019. Assessment & Plan (1) Myelopathy concurrent with and due to spinal stenosis of cervical region: Has been complaining of left upper extremity weakness with left shoulder pain and neck pain for some time MRI did show significant cervical stenosis Appreciate Ortho input and recommendation Possible surgery on Sunday Discussed with the patient in detail about the proposed surgery, risk and benefit. He wanted to go for it Medical clearance for surgery No cardiac history in the chart, no ischemic heart disease, no heart failure, no EKG changes, no CVD, has diabetes but not taking insulin and creatinine is less than 2 Denies any chest pain and/or palpitation or shortness of breath with usual activities Will get EKG and echocardiogram to evaluate LV function prior to surgery Chest x-ray seems to be unremarkable except cardiomegaly Carries more than usual risk given comorbid conditions Echo of the heart showed: The study was technically difficult, it was done with the patient on BiPAP and sitting up, LV size normal, moderate concentric LV hypertrophy, wall motion is normal, EF 70%, grade 1 diastolic dysfunction and there is no significant valvular disease. Will need BiPAP support following surgery and may need pulmonary evaluation (2) LUE weakness: Due to cervical stenosis (3) Falls frequently: History of frequent falls at home Because of fall is multifactorial including morbid obesity with limitation of movement, osteoarthritis, cervical stenosis with left upper extremity weakness. We will get PT and OT evaluation Likely to need rehab and/or skilled care facility placement (4) Diabetes mellitus, type 2: Check hemoglobin A1c We will put him on sliding scale insulin coverage (5) KAYLEEN (obstructive sleep apnea): Uses CPAP at home By history use his own CPAP while in the hospital (6) Hypertension: Seems to be controlled Continue current medications (7) Prostate cancer: No further history We will check PSA CODE STATUS Full DVT prophylaxis Subcu heparin We will communicate with the family members Admission and Anticipated Discharge Date Admission Date: December 25, 2019 Subjective The patient was seen and examined in medical telemetry unit He complains to have left shoulder pain and left upper extremity weakness Denies any chest pain and/or palpitation or shortness of breath, denies any abdominal pain nausea and or vomiting 12/26/2019 Patient is seen and examined in medical telemetry unit He complains today of neck pain and weakness involving the left upper extremity Denies any other significant symptoms He wants to go through the surgery to get better Review of Systems Review of Systems: All systems reviewed and are unremarkable except as noted below Respiratory: no dyspnea Cardiovascular: no chest pain and no palpitations Musculoskeletal: Left shoulder pain on movement, neck pain with radiation to the left arm Neurologic: Has left upper extremity weakness and tingling Physical Exam Physical Exam: Morbidly obese lying in bed without any significant symptoms Constitutional: well developed, well nourished, + acute distress (Due to pain in the left shoulder and weakness involving left upper extremity), + ill appearing and + morbidly obese Eyes: PERRL, conjunctivae normal, anicteric sclerae ENMT: external ear and nose normal, oropharynx normal Neck: trachea midline, no thyromegaly Respiratory: normal respiratory effort Auscultation: + diminished lung sounds (Bilaterally likely secondary to thick body wall) and + crackles (Minimal crackles at the bases) Cardiovascular: Rate/Rhythm: regular rate and regular rhythm Heart Sounds: no murmur Gastrointestinal (Abdomen): Inspection/Auscultation: abdomen normal to inspection and + abdomen distended Percussion/Palpation: abdomen soft; abdomen nontender Musculoskeletal: Left shoulder movement is restricted specially in elevation and left upper extremity is weak Neurologic: moves all extremities and + focal motor deficit (Minimal weakness involving left upper extremity) Lymphatic: no cervical or axillary lymphadenopathy Results & Data Results & Data ([facility]) Vital Signs (Past 12 Hours) Vital Signs Temp Pulse Pulse Resp BP Pulse Ox 12/25/19 15:23 37.2 C 59 L 20 118/78 95 12/25/19 13:19 64 16 94 12/25/19 11:21 36.8 C 57 L 18 114/75 94 12/25/19 08:51 36.5 C 62 20 133/81 94 12/25/19 08:00 63 12/25/19 05:30 66 Laboratory Results Short CBC 12/24/19 12/25/19 Range/Units 23:33 08:16 WBC 10.21 7.14 (4.8-10.8) K/uL Hgb 12.7 L 12.7 L (14.0-18.0) g/dL Hct 39.0 L 40.5 L (42-52) % Plt Count 227 221 (130-400) K/uL BMP 12/24/19 12/25/19 23:33 08:16 Sodium 140 140 Potassium 4.8 4.8 Chloride 107 109 H Carbon Dioxide 27 25 BUN 49 H 44 H Creatinine 1.74 H 1.64 H Glucose 97 96 Calcium 8.6 9.0 Cardiac Enzymes 12/24/19 Range/Units 23:33 Troponin I < 0.015 (0-0.045) ng/ml Liver Function 12/24/19 Range/Units 23:33 Total Bilirubin 0.7 (0.2-1) mg/dl AST 13 L (15-37) U/L ALT 22 (12-78) U/L Alkaline Phosphatase 79 (45-117) U/L Albumin 3.8 (3.4-5.0) gm/dl Medications Administered Current Inpatient Medications Acetaminophen (Tylenol) 650 mg PO Q4H PRN PRN Reason: Pain or Fever Stop: 01/24/20 04:06 Aspirin (Ecotrin Ectab) [facility] [place] Stop: 01/24/20 08:59 Last Admin: 12/25/19 08:19 Dose: 81 mg Documented by: Atorvastatin Calcium (Lipitor) 20 [facility] [place] Stop: 01/24/20 08:59 Last Admin: 12/25/19 08:19 Dose: 20 mg Documented by: Bupropion HCl (Wellbutrin-Sr) 150 mg PO BID [facility] Stop: 01/24/20 08:59 Last Admin: 12/25/19 08:19 Dose: 150 mg Documented by: Cetirizine HCl (Zyrtec) 10 mg PO QAM [facility] Stop: 01/24/20 08:59 Last Admin: 12/25/19 08:19 Dose: 10 mg Documented by: Dextrose (Dextrose 50%) 25 - 50 ml IV UD PRN; Protocol PRN Reason: Hypoglycemia Protocol Stop: 01/24/20 04:44 Fluticasone Propionate (Flonase) 1 sprays NA [facility] Stop: 01/24/20 20:59 Gadobutrol (Gadavist 65ml) 14 ml IV ONCE PRN PRN Reason: Interaction Checking Stop: 12/29/19 08:01 Last Admin: 12/25/19 08:02 Dose: 1 ml Documented by: Glucagon (Glucagen) 1 mg SQ UD PRN; Protocol PRN Reason: Hypoglycemia Protocol Stop: 01/24/20 04:44 Glucose (Glucose 40%) 15 - 30 gm PO UD PRN; Protocol PRN Reason: Hypoglycemia Protocol Stop: 01/24/20 04:44 Glucose (Dex4 Glucose) 4 - 8 tabs PO UD PRN; Protocol PRN Reason: Hypoglycemia Protocol Stop: 01/24/20 04:44 Sodium Chloride (Nss 1000ml) 1,000 mls @ 100 mls/hr IV .Q10H [facility] Stop: 01/24/20 04:06 Last Infusion: 12/25/19 08:20 Dose: 100 mls/hr Documented by: Insulin Aspart (Novolog Flexpen) 0 units SC ACHS [facility] Stop: 01/24/20 11:29 Last Admin: 12/25/19 12:47 Dose: 2 units Documented by: Ketoconazole (Nizoral 2%) 1 appln EXT QAM [facility] Stop: 01/04/20 08:59 Last Admin: 12/25/19 08:20 Dose: Not Given Documented by: Miconazole Nitrate (Desenex) 1 appln EXT PRN PRN PRN Reason: Affected Skin Folds Stop: 01/24/20 08:26 Last Admin: 12/25/19 12:48 Dose: 1 appln Documented by: Miscellaneous (Order Awaiting Action) 1 ea N/A QS [facility] Stop: 01/24/20 07:59 Last Admin: 12/25/19 08:19 Dose: Not Given Documented by: Miscellaneous (Order Awaiting Action) 1 ea N/A QS [facility] Stop: 01/24/20 07:59 Last Admin: 12/25/19 08:19 Dose: Not Given Documented by: Miscellaneous (Carbohydrates For Hypoglycemia) 15 - 30 gm PO UD PRN PRN Reason: Hypoglycemia Treatment Stop: 01/24/20 04:44 Multivitamins/Minerals (Multivitamin W/ Minerals Tab) 1 tab PO DAILY [facility] Stop: 01/24/20 08:59 Last Admin: 12/25/19 08:19 Dose: 1 tab Documented by: Nitroglycerin (Nitrostat) 0.4 mg SL UD PRN PRN Reason: Chest Pain Stop: 01/24/20 04:06 Ondansetron HCl (Zofran) 4 mg IV Q6H PRN PRN Reason: Nausea Stop: 01/24/20 04:06 Polyethylene Glycol (Miralax Powder Packet) 17 gm PO DAILY PRN PRN Reason: Constipation Stop: 07/11/20 04:06 Pregabalin (Lyrica) 100 mg PO BID [facility] Stop: 01/24/20 08:59 Last Admin: 12/25/19 08:25 Dose: 100 mg Documented by: Vitamin D (Vitamin D3) 2,000 units PO [facility] [place] Stop: 01/24/20 08:59 Last Admin: 12/25/19 08:19 Dose: 2,000 units Documented by:
[2019-12-25] MEDS: FLUTICASONE PROPIONATE NA SPR 16 GM BTL SCH (22:16)
--- NOTE | 2019-12-25 22:44 | Electrocardiogram Report ---
Test Reason : Blood Pressure : / mmHG Vent. Rate : 065 BPM Atrial Rate : 065 BPM P-R Int : 166 ms QRS Dur : 096 ms QT Int : 362 ms P-R-T Axes : 052 -07 030 degrees QTc Int : 376 ms Normal sinus rhythm Normal ECG When compared with ECG of 15-SEP-2015 19:24, No significant change was found Confirmed by Ross Avila ([id number]) on 12/25/2019 10:44:34 PM Referred By: REFERRED SELF Confirmed By:Ross Avila
[2019-12-26 02:05] LABS: Appearance Urine Clear (Clear); Bacteria Urine Automated Negative (Negative); Bilirubin Urine Negative (Negative); Blood Urine 3+ (Negative); Color Urine Yellow; Glucose Urine UA Negative (Negative); Ketones Urine Negative (Negative); Leukocyte Esterase Urine Trace (Negative); Nitrite Urine Negative (Negative); Protein Urine Trace (Negative); RBC Urine Automated >30 /hpf (0-4); Specific Gravity Urine 1.014 (1.000-1.030); Urobilinogen Urine Negative (Negative)
[2019-12-26] MEDS: SODIUM CHLORIDE 0.9% 1000ML 1,000 ML IV SCH ×3 (04:31→21:13)
[2019-12-26 07:09] LABS: Basophils # (auto) 0.01 K/uL (0-0.2); Basophils % (auto) 0.1 %; Eosinophils # (auto) 0.22 K/uL (0-0.5); Eosinophils % (auto) 2.7 %; Hematocrit (blood only) 38.6 % (42-52); Hemoglobin 12.5 g/dL (14.0-18.0); Immature Granulocytes # (auto) 0.01 K/uL (0.00-0.02); Immature Granulocytes % (auto) 0.1 %; Lymphocytes # (auto) 1.23 K/uL (1.2-3.4); Mean Corpuscular Hemoglobin 30.8 pg (25-34); Mean Corpuscular Hgb Conc 32.4 g/dL (32-36); Mean Corpuscular Volume 95.1 fL (80-100); Mean Platelet Volume 9.4 fL (7.4-10.4); Monocytes # (auto) 0.74 K/uL (0.11-0.59); Neutrophils # (auto) 5.97 K/uL (1.4-6.5); Neutrophils % (auto) 73.1 %; Platelet Count 185 K/uL (130-400); RDW Coefficient of Variation 13.4 % (11.5-14.5); RDW Standard Deviation 46.7 fL (36.4-46.3); Red Blood Count 4.06 M/uL (4.7-6.1); White Blood Count 8.18 K/uL (4.8-10.8)
[2019-12-26 07:43] LABS: BUN Creatinine Ratio 26.1 (10-20); Calcium 8.7 mg/dl (8.5-10.1); Creatinine Clr Calc Pharmacy 55.3 ml/min; Est GFR (African American) 46.7; Est GFR (Non-African American) 40.3; Magnesium 2.3 mg/dl (1.8-2.4); Phosphorus 3.6 mg/dl (2.5-4.9); Potassium 4.9 mmol/L (3.5-5.1)
[2019-12-26] MEDS: [UNRECOGNIZED DRUG - OTHER] SCH ×2 (07:55→15:38)
[2019-12-26] MEDS: KETOCONAZOLE 2% CR 15 GM TUBE EXT SCH (07:56)
[2019-12-26] MEDS: ASPIRIN 81 MG ECTAB PO SCH (07:56)
[2019-12-26] MEDS: ATORVASTATIN 20 MG TAB PO SCH (07:56)
[2019-12-26] MEDS: CHOLECALCIFEROL 1,000 UNITS 25 MCG TAB PO SCH (07:56)
[2019-12-26] MEDS: BuPROPion SR 150 MG TABCR PO SCH ×2 (07:56→21:15)
[2019-12-26] MEDS: CETIRIZINE HCL 10 MG TABLET PO SCH (07:56)
[2019-12-26] MEDS: CEROVITE ADV FORMULA TAB PO SCH (07:57)
[2019-12-26] MEDS: INSULIN ASPART 100 UNITS/ML 3 ML PEN SC SCH ×4 (08:00→20:52)
[2019-12-26] MEDS: PREGABALIN 100 MG CAP PO SCH ×2 (08:02→21:13)
[2019-12-26] MEDS: ACETAMINOPHEN 325 MG TAB PO PRN (18:46)
[2019-12-26] MEDS: FLUTICASONE PROPIONATE NA SPR 16 GM BTL SCH (21:14)
[2019-12-27] MEDS: [UNRECOGNIZED DRUG - OTHER] SCH ×4 (02:01→23:07)
[2019-12-27] MEDS: BuPROPion SR 150 MG TABCR PO SCH ×2 (08:14→20:23)
[2019-12-27] MEDS: CETIRIZINE HCL 10 MG TABLET PO SCH (08:14)
[2019-12-27] MEDS: CEROVITE ADV FORMULA TAB PO SCH (08:14)
[2019-12-27] MEDS: INSULIN ASPART 100 UNITS/ML 3 ML PEN SC SCH ×4 (08:14→20:23)
[2019-12-27] MEDS: KETOCONAZOLE 2% CR 15 GM TUBE EXT SCH (08:15)
[2019-12-27] MEDS: CHOLECALCIFEROL 1,000 UNITS 25 MCG TAB PO SCH (08:15)
[2019-12-27] MEDS: ATORVASTATIN 20 MG TAB PO SCH (08:15)
[2019-12-27] MEDS: ASPIRIN 81 MG ECTAB PO SCH (08:15)
[2019-12-27] MEDS: PREGABALIN 100 MG CAP PO SCH ×2 (08:18→20:22)
[2019-12-27] MEDS: SODIUM CHLORIDE 0.9% 1000ML 1,000 ML IV SCH ×2 (10:50→19:16)
--- NOTE | 2019-12-27 13:41 | Hospitalist Progress Note ---
Date of Service December 27, 2019 Assessment & Plan (1) Myelopathy concurrent with and due to spinal stenosis of cervical region: Has been complaining of left upper extremity weakness with left shoulder pain and neck pain for some time MRI did show significant cervical stenosis Appreciate Ortho input and recommendation Possible surgery on Sunday Discussed with the patient in detail about the proposed surgery, risk and benefit. He wanted to go for it Remains stable and awaiting surgery Medical clearance for surgery No cardiac history in the chart, no ischemic heart disease, no heart failure, no EKG changes, no CVD, has diabetes but not taking insulin and creatinine is less than 2 Denies any chest pain and/or palpitation or shortness of breath with usual activities Will get EKG and echocardiogram to evaluate LV function prior to surgery Chest x-ray seems to be unremarkable except cardiomegaly Carries more than usual risk given comorbid conditions Echo of the heart showed: The study was technically difficult, it was done with the patient on BiPAP and sitting up, LV size normal, moderate concentric LV hypertrophy, wall motion is normal, EF 70%, grade 1 diastolic dysfunction and there is no significant valvular disease. Will need BiPAP support following surgery and may need intubation and pulmonary evaluation (2) LUE weakness: Due to cervical stenosis (3) Falls frequently: History of frequent falls at home Because of fall is multifactorial including morbid obesity with limitation of movement, osteoarthritis, cervical stenosis with left upper extremity weakness. We will get PT and OT evaluation Likely to need rehab and/or skilled care facility placement (4) Diabetes mellitus, type 2: Check hemoglobin A1c We will put him on sliding scale insulin coverage (5) KAYLEEN (obstructive sleep apnea): Uses CPAP at home By history use his own CPAP while in the hospital (6) Hypertension: Seems to be controlled Continue current medications (7) Prostate cancer: No further history We will check PSA CODE STATUS Full DVT prophylaxis Subcu heparin We will communicate with the family members-discussed with the son and daughter Admission and Anticipated Discharge Date Admission Date: December 25, 2019 Subjective The patient was seen and examined in medical telemetry unit He complains to have left shoulder pain and left upper extremity weakness Denies any chest pain and/or palpitation or shortness of breath, denies any abdominal pain nausea and or vomiting 12/26/2019 Patient is seen and examined in medical telemetry unit He complains today of neck pain and weakness involving the left upper extremity Denies any other significant symptoms He wants to go through the surgery to get better 12/27/2019 The patient was seen and examined in medical telemetry unit He complains to have left shoulder and left upper extremity pain with weakness involving left upper extremity His neck pain remains stable Denies any chest pain, shortness of breath, abdominal pain, nausea and or vomiting Review of Systems Review of Systems: All systems reviewed and are unremarkable except as noted below Musculoskeletal: Left shoulder pain on movement, neck pain with radiation to the left arm Neurologic: Has left upper extremity weakness and tingling Physical Exam 2 Physical Exam: Morbidly obese lying in bed without any significant symptoms Constitutional: well developed, well nourished, + acute distress (Due to pain in the left shoulder and weakness involving left upper extremity), + ill appearing and + morbidly obese Eyes: PERRL, conjunctivae normal, anicteric sclerae ENMT: external ear and nose normal, oropharynx normal Neck: trachea midline, no thyromegaly Respiratory: normal respiratory effort Auscultation: + diminished lung sounds (Bilaterally likely secondary to thick body wall) and + crackles (Minimal crackles at the bases) Cardiovascular: Rate/Rhythm: regular rate and regular rhythm Heart Sounds: no murmur Gastrointestinal (Abdomen): Inspection/Auscultation: abdomen normal to inspection and + abdomen distended Percussion/Palpation: abdomen soft; abdomen nontender Musculoskeletal: Decreased range of motion left shoulder with pain in shoulder joint with movement Neurologic: moves all extremities and + focal motor deficit (Minimal weakness involving left upper extremity) Psychiatric: Orientation: oriented x 3 Insight: good insight Judgement: good judgement Lymphatic: no cervical or axillary lymphadenopathy Results & Data Results & Data ([facility]) Vital Signs (Past 12 Hours) Vital Signs Temp Pulse Pulse Resp BP Pulse Ox 12/27/19 11:39 36.6 C 60 20 151/73 H 96 12/27/19 07:33 36.4 C L 63 20 137/78 96 12/27/19 07:30 54 L 12/27/19 03:56 36.8 C 64 20 131/77 95 12/27/19 03:14 56 L 14 95
[2019-12-27] MEDS: FLUTICASONE PROPIONATE NA SPR 16 GM BTL SCH (20:22)
[2019-12-28] MEDS: SODIUM CHLORIDE 0.9% 1000ML 1,000 ML IV SCH ×3 (05:03→23:18)
[2019-12-28 07:29] LABS: Basophils # (auto) 0.02 K/uL (0-0.2); Basophils % (auto) 0.3 %; Eosinophils # (auto) 0.27 K/uL (0-0.5); Eosinophils % (auto) 4.3 %; Hematocrit (blood only) 37.2 % (42-52); Hemoglobin 11.6 g/dL (14.0-18.0); Immature Granulocytes # (auto) 0.01 K/uL (0.00-0.02); Immature Granulocytes % (auto) 0.2 %; Lymphocytes # (auto) 1.52 K/uL (1.2-3.4); Mean Corpuscular Hemoglobin 29.9 pg (25-34); Mean Corpuscular Hgb Conc 31.2 g/dL (32-36); Mean Corpuscular Volume 95.9 fL (80-100); Mean Platelet Volume 9.6 fL (7.4-10.4); Monocytes % (auto) 11.1 %; Neutrophils # (auto) 3.81 K/uL (1.4-6.5); Neutrophils % (auto) 60.1 %; Platelet Count 165 K/uL (130-400); RDW Coefficient of Variation 13.4 % (11.5-14.5); RDW Standard Deviation 46.7 fL (36.4-46.3); Red Blood Count 3.88 M/uL (4.7-6.1); White Blood Count 6.33 K/uL (4.8-10.8)
[2019-12-28 08:12] LABS: Calcium 8.9 mg/dl (8.5-10.1); Creatinine Clr Calc Pharmacy 89.6 ml/min; Est GFR (African American) 82.9; Est GFR (Non-African American) 71.6
[2019-12-28] MEDS: INSULIN ASPART 100 UNITS/ML 3 ML PEN SC SCH ×4 (08:26→21:04)
[2019-12-28] MEDS: CEROVITE ADV FORMULA TAB PO SCH (08:26)
[2019-12-28] MEDS: CHOLECALCIFEROL 1,000 UNITS 25 MCG TAB PO SCH (08:26)
[2019-12-28] MEDS: BuPROPion SR 150 MG TABCR PO SCH ×2 (08:26→20:15)
[2019-12-28] MEDS: ATORVASTATIN 20 MG TAB PO SCH (08:27)
[2019-12-28] MEDS: [UNRECOGNIZED DRUG - OTHER] SCH ×3 (08:27→23:18)
[2019-12-28] MEDS: ASPIRIN 81 MG ECTAB PO SCH (08:27)
[2019-12-28] MEDS: KETOCONAZOLE 2% CR 15 GM TUBE EXT SCH (08:27)
[2019-12-28] MEDS: CETIRIZINE HCL 10 MG TABLET PO SCH (08:27)
[2019-12-28] MEDS: PREGABALIN 100 MG CAP PO SCH ×2 (08:31→20:14)
--- NOTE | 2019-12-28 11:04 | Hospitalist Progress Note ---
Date of Service December 28, 2019 Assessment & Plan (1) Myelopathy concurrent with and due to spinal stenosis of cervical region: Has been complaining of left upper extremity weakness with left shoulder pain and neck pain for some time MRI did show significant cervical stenosis Appreciate Ortho input and recommendation Possible surgery on Sunday Discussed with the patient in detail about the proposed surgery, risk and benefit. Denies any symptoms and remains stable He is ready for surgery tomorrow Medical clearance for surgery No cardiac history in the chart, no ischemic heart disease, no heart failure, no EKG changes, no CVD, has diabetes but not taking insulin and creatinine is less than 2 Denies any chest pain and/or palpitation or shortness of breath with usual activities Will get EKG and echocardiogram to evaluate LV function prior to surgery Chest x-ray seems to be unremarkable except cardiomegaly Carries more than usual risk given comorbid conditions Echo of the heart showed: The study was technically difficult, it was done with the patient on BiPAP and sitting up, LV size normal, moderate concentric LV hypertrophy, wall motion is normal, EF 70%, grade 1 diastolic dysfunction and there is no significant valvular disease. Will need BiPAP support following surgery and may need intubation and pulmonary evaluation (2) LUE weakness: Due to cervical stenosis (3) Falls frequently: History of frequent falls at home Because of fall is multifactorial including morbid obesity with limitation of movement, osteoarthritis, cervical stenosis with left upper extremity weakness. We will get PT and OT evaluation Likely to need rehab and/or skilled care facility placement (4) Diabetes mellitus, type 2: Check hemoglobin A1c We will put him on sliding scale insulin coverage (5) KAYLEEN (obstructive sleep apnea): Uses CPAP at home By history use his own CPAP while in the hospital Denies any shortness of breath and saturating more than 90% on room air (6) Hypertension: Seems to be controlled Continue current medications (7) Prostate cancer: No further history We will check PSA CODE STATUS Full DVT prophylaxis Subcu heparin We will communicate with the family members-discussed with the son and daughter Admission and Anticipated Discharge Date Admission Date: December 25, 2019 Subjective The patient was seen and examined in medical telemetry unit He complains to have left shoulder pain and left upper extremity weakness Denies any chest pain and/or palpitation or shortness of breath, denies any abdominal pain nausea and or vomiting 12/26/2019 Patient is seen and examined in medical telemetry unit He complains today of neck pain and weakness involving the left upper extremity Denies any other significant symptoms He wants to go through the surgery to get better 12/27/2019 The patient was seen and examined in medical telemetry unit He complains to have left shoulder and left upper extremity pain with weakness involving left upper extremity His neck pain remains stable Denies any chest pain, shortness of breath, abdominal pain, nausea and or vomiting 12/28/2019 The patient was seen and examined in medical telemetry unit He complains to have back pain likely secondary to posturing in bed Denies any chest pain, shortness of breath, palpitation, any abdominal pain nausea and or vomiting Review of Systems Review of Systems: All systems reviewed and are unremarkable except as noted below Cardiovascular: no chest pain, no dyspnea, no orthopnea and no palpitations Musculoskeletal: Left shoulder pain on movement, neck pain with radiation to the left arm Neurologic: Has left upper extremity weakness and tingling Physical Exam Physical Exam: Morbidly obese lying in bed without any significant symptoms Constitutional: well developed, well nourished, + acute distress (Due to pain in the left shoulder and weakness involving left upper extremity), + ill appearing and + morbidly obese Eyes: PERRL, conjunctivae normal, anicteric sclerae ENMT: external ear and nose normal, oropharynx normal Neck: trachea midline, no thyromegaly Respiratory: normal respiratory effort Auscultation: + diminished lung sounds (Bilaterally likely secondary to thick body wall) and + crackles (Minimal crackles at the bases) Cardiovascular: Rate/Rhythm: regular rate and regular rhythm Heart Sounds: no murmur Gastrointestinal (Abdomen): Inspection/Auscultation: abdomen normal to inspection and + abdomen distended Percussion/Palpation: abdomen soft; abdomen nontender Neurologic: moves all extremities and + focal motor deficit (Minimal weakness involving left upper extremity) Psychiatric: Orientation: oriented x 3 Insight: good insight Judgement: good judgement Lymphatic: no cervical or axillary lymphadenopathy Results & Data Results & Data ([facility]) Vital Signs (Past 12 Hours) Vital Signs Temp Pulse Pulse Resp BP Pulse Ox 12/28/19 07:50 36.8 C 53 L 18 144/92 H 97 12/28/19 07:34 52 L 12/28/19 03:33 58 L 19 96 12/28/19 00:25 59 L 12/28/19 00:01 68 20 96 12/27/19 23:51 37.7 C H 59 L 19 133/83 96 Laboratory Results Short CBC 12/28/19 Range/Units 06:56 WBC 6.33 (4.8-10.8) K/uL Hgb 11.6 L (14.0-18.0) g/dL Hct 37.2 L (42-52) % Plt Count 165 (130-400) K/uL BMP 12/28/19 12/28/19 06:56 08:34 Sodium 142 Potassium 4.7 Chloride 112 H Carbon Dioxide 26 BUN 22 H Creatinine 1.10 Glucose 85 Calcium 8.9 Medications Administered Current Inpatient Medications Acetaminophen (Tylenol) 650 mg PO Q4H PRN PRN Reason: Pain or Fever Stop: 01/24/20 04:06 Last Admin: 12/26/19 18:46 Dose: 650 mg Documented by: Aspirin (Ecotrin Ectab) [facility] [place] Stop: 01/24/20 08:59 Last Admin: 12/28/19 08:27 Dose: 81 mg Documented by: Atorvastatin Calcium (Lipitor) 20 mg PO [facility]AJD [facility] [place] Stop: 01/24/20 08:59 Last Admin: 12/28/19 08:27 Dose: 20 mg Documented by: Bupropion HCl (Wellbutrin-Sr) 150 mg PO BID [facility] Stop: 01/24/20 08:59 Last Admin: 12/28/19 08:26 Dose: 150 mg Documented by: Cetirizine HCl (Zyrtec) 10 [facility] [place] Stop: 01/24/20 08:59 Last Admin: 12/28/19 08:27 Dose: 10 mg Documented by: Dextrose (Dextrose 50%) 25 - 50 ml IV UD PRN; Protocol PRN Reason: Hypoglycemia Protocol Stop: 01/24/20 04:44 Fluticasone Propionate (Flonase) 1 sprays NA [facility] Stop: 01/24/20 20:59 Last Admin: 12/27/19 20:22 Dose: 1 sprays Documented by: Gadobutrol (Gadavist 65ml) 14 ml IV ONCE PRN PRN Reason: Interaction Checking Stop: 12/29/19 08:01 Last Admin: 12/25/19 08:02 Dose: 1 ml Documented by: Glucagon (Glucagen) 1 mg SQ UD PRN; Protocol PRN Reason: Hypoglycemia Protocol Stop: 01/24/20 04:44 Glucose (Glucose 40%) 15 - 30 gm PO UD PRN; Protocol PRN Reason: Hypoglycemia Protocol Stop: 01/24/20 04:44 Glucose (Dex4 Glucose) 4 - 8 tabs PO UD PRN; Protocol PRN Reason: Hypoglycemia Protocol Stop: 01/24/20 04:44 Sodium Chloride (Nss 1000ml) 1,000 mls @ 100 mls/hr IV .Q10H [facility] Stop: 01/24/20 04:06 Last Admin: 12/28/19 05:03 Dose: 100 mls/hr Documented by: Insulin Aspart (Novolog Flexpen) 0 units SC ACHS [facility] Stop: 01/24/20 11:29 Last Admin: 12/28/19 08:26 Dose: 4 units Documented by: Ketoconazole (Nizoral 2%) 1 appln EXT QAM [facility] Stop: 01/04/20 08:59 Last Admin: 12/28/19 08:27 Dose: 1 appln Documented by: Miconazole Nitrate (Desenex) 1 appln EXT PRN PRN PRN Reason: Affected Skin Folds Stop: 01/24/20 08:26 Last Admin: 12/25/19 12:48 Dose: 1 appln Documented by: Miscellaneous (Order Awaiting Action) 1 ea N/A QS [facility] Stop: 01/24/20 07:59 Last Admin: 12/28/19 08:27 Dose: Not Given Documented by: Miscellaneous (Order Awaiting Action) 1 ea N/A QS [facility] Stop: 01/24/20 07:59 Last Admin: 12/28/19 08:27 Dose: Not Given Documented by: Miscellaneous (Carbohydrates For Hypoglycemia) 15 - 30 gm PO UD PRN PRN Reason: Hypoglycemia Treatment Stop: 01/24/20 04:44 Multivitamins/Minerals (Multivitamin W/ Minerals Tab) 1 tab PO DAILY [facility] Stop: 01/24/20 08:59 Last Admin: 12/28/19 08:26 Dose: 1 tab Documented by: Nitroglycerin (Nitrostat) 0.4 mg SL UD PRN PRN Reason: Chest Pain Stop: 01/24/20 04:06 Ondansetron HCl (Zofran) 4 mg IV Q6H PRN PRN Reason: Nausea Stop: 01/24/20 04:06 Polyethylene Glycol (Miralax Powder Packet) 17 gm PO DAILY PRN PRN Reason: Constipation Stop: 01/24/20 04:06 Pregabalin (Lyrica) 100 mg PO BID [facility] Stop: 01/24/20 08:59 Last Admin: 12/28/19 08:31 Dose: 100 mg Documented by: Vitamin D (Vitamin D3) 2,000 units PO QAM [facility] Stop: 01/24/20 08:59 Last Admin: 12/28/19 08:26 Dose: 2,000 units Documented by:
[2019-12-28] MEDS: FLUTICASONE PROPIONATE NA SPR 16 GM BTL SCH (20:15)
[2019-12-29] MEDS: [UNRECOGNIZED DRUG - OTHER] SCH ×2 (08:16→16:05)
[2019-12-29] MEDS: CEROVITE ADV FORMULA TAB PO SCH (08:18)
[2019-12-29] MEDS: BuPROPion SR 150 MG TABCR PO SCH ×2 (08:18→20:43)
[2019-12-29] MEDS: PREGABALIN 100 MG CAP PO SCH ×2 (08:18→20:42)
[2019-12-29] MEDS: CHOLECALCIFEROL 1,000 UNITS 25 MCG TAB PO SCH (08:18)
[2019-12-29] MEDS: ASPIRIN 81 MG ECTAB PO SCH (08:18)
[2019-12-29] MEDS: CETIRIZINE HCL 10 MG TABLET PO SCH (08:18)
[2019-12-29] MEDS: ATORVASTATIN 20 MG TAB PO SCH (08:18)
[2019-12-29] MEDS: KETOCONAZOLE 2% CR 15 GM TUBE EXT SCH (08:19)
[2019-12-29] MEDS: INSULIN ASPART 100 UNITS/ML 3 ML PEN SC SCH ×4 (08:20→20:45)
[2019-12-29] MEDS: SODIUM CHLORIDE 0.9% 1000ML 1,000 ML IV SCH ×2 (08:22→17:31)
--- NOTE | 2019-12-29 12:24 | Anesthesiology Consultation ---
Date of Service December 29, 2019 Assessment & Plan Chart Review Chart Review: Acceptable Risk for Surgery rapid covid test pending consider possible difficult AW with reproduction of cervical radic with maximal extension. Does look easily maskable and advised to shave facial hair Consults Requested none ASA ASA3 Proposed Anesthesia Anesthesia Type: General History Surgery Operation Date: 12/30/19 07:45 Proposed Procedures p C4 Cervical Corpectomy, Spinal Cord Monitoring - Francesco Peña, Height/Weight Height: 5 ft 4 in Weight: 137.8 kg Allergies Allergy/AdvReac Type Severity Reaction Status Date / Time No Known Allergies Allergy Verified 12/24/19 23:06 Medications Home Medications Medication Instructions Recorded Confirmed Last Taken PreserVision AREDS 1 cap PO DAILY 11/29/18 12/24/19 06/23/19 20:00 armodafinil 150 mg PO QAM 11/29/18 12/24/19 06/23/19 aspirin 81 mg PO QAM 11/29/18 12/24/19 06/23/19 atorvastatin 20 mg PO QAM 11/29/18 12/24/19 06/23/19 bupropion HCl 150 mg PO BID 11/29/18 12/24/19 06/23/19 20:00 cetirizine 10 mg PO QAM 11/29/18 12/24/19 06/23/19 furosemide 40 mg PO QAM 11/29/18 12/24/19 06/23/19 lisinopril 10 mg PO QAM 11/29/18 12/24/19 06/23/19 metformin 750 mg PO BID 11/29/18 12/24/19 06/23/19 20:00 mometasone 1 spray INTRANASAL HS 11/29/18 12/24/19 06/22/19 naproxen 500 mg PO BIDM 11/29/18 12/24/19 06/23/19 20:00 pregabalin [Lyrica] 100 mg PO BID 11/29/18 12/24/19 06/23/19 20:00 cholecalciferol (vitamin D3) 2,000 unit PO QAM 06/17/19 12/24/19 06/23/19 [Vitamin D3] ketoconazole 1 applic TOPICAL QAM 06/17/19 12/24/19 06/21/19 halobetasol propionate 1 applic TOPICAL DIRECTED 12/24/19 12/24/19 Unknown Active Medications Generic Name Dose Route Start Last Admin Trade Name Freq PRN Reason Stop Dose Admin Acetaminophen 650 mg 12/25/19 04:07 12/26/19 18:46 Tylenol PO 01/24/20 04:06 650 mg Q4H PRN Administration Pain or Fever Aspirin 81 mg 12/25/19 09:00 12/29/19 08:18 Ecotrin Ectab PO 01/24/20 08:59 Not Given QAM NASIR Atorvastatin Calcium 20 mg 12/25/19 09:00 12/29/19 08:18 Lipitor PO 01/24/20 08:59 Not Given QAM NASIR Bupropion HCl 150 mg 12/25/19 09:00 12/29/19 08:18 Wellbutrin-Sr PO 01/24/20 08:59 Not Given BID NASIR Cetirizine HCl 10 mg 12/25/19 09:00 12/29/19 08:18 Zyrtec PO 01/24/20 08:59 Not Given QAM NASIR Fluticasone Propionate 1 sprays 12/25/19 21:00 12/28/19 20:15 Flonase NA 01/24/20 20:59 1 sprays HS NASIR Administration Sodium Chloride 1,000 mls @ 100 mls/hr 12/25/19 04:07 12/29/19 08:22 Nss 1000ml IV 01/24/20 04:06 100 mls/hr .Q10H NASIR Administration Insulin Aspart 0 units 12/25/19 11:30 12/29/19 12:38 Novolog Flexpen SC 01/24/20 11:29 2 units ACHS NASIR Administration Ketoconazole 1 appln 12/25/19 09:00 12/29/19 08:19 Nizoral 2% EXT 01/04/20 08:59 1 appln QAM NASIR Administration Miconazole Nitrate 1 appln 12/25/19 08:27 12/25/19 12:48 Desenex EXT 01/24/20 08:26 1 appln PRN PRN Administration Affected Skin Folds Miscellaneous 1 ea 12/25/19 08:00 12/29/19 08:16 Order Awaiting Action N/A 01/24/20 07:59 Not Given QS NASIR Miscellaneous 1 ea 12/25/19 08:00 12/29/19 08:16 Order Awaiting Action N/A 01/24/20 07:59 Not Given QS NASIR Multivitamins/Minerals 1 tab 12/25/19 09:00 12/29/19 08:18 Multivitamin W/ Minerals Tab PO 01/24/20 08:59 Not Given DAILY NASIR Pregabalin 100 mg 12/25/19 09:00 12/29/19 08:18 Lyrica PO 01/24/20 08:59 Not Given BID NASIR Vitamin D 2,000 units 12/25/19 09:00 12/29/19 08:18 Vitamin D3 PO 01/24/20 08:59 Not Given QAM NASIR NPO Date Last Intake of Fluids: 12/28/19 Time Last Intake of Fluids: 21:00 Date Last Intake of Solids: 12/28/19 Time Last Intake of Solids: 18:00 Past Medical History Medical History (Updated 12/29/19 @ 13:09 by Fior Wade DO) BPH (benign prostatic hyperplasia) Colon cancer screening Depression Diabetes (Inactive) Diabetes mellitus, type 2 SCOTT (generalized anxiety disorder) (Inactive) GERD (gastroesophageal reflux disease) (Inactive) Hearing loss in right ear History of anesthesia reaction had BP drop during one of his hernia sx---had surgery since then, no issues HLD (hyperlipidemia) Hypertension Morbid obesity with BMI of 50.0-59.9, adult KAYLEEN (obstructive sleep apnea) bipap HS x25yrs settings 05/03 Osteoarthritis Prostate cancer (Chronic) 08/04/2019 Venous stasis (Inactive) Venous stasis dermatitis Exercise / Class Metabolic Activity III < 4 Walking/Shop/Light housework can walk 50ft on a flat surface w/o CP/SOB 1month ago, now not able to ambulate 2/2 cervical myelopathy Past Family History Family History Mother Lung cancer age 57 Father , cancer not sure what kind, age 90 No problems noted. Sister No problems noted. Sister No problems noted. Sister No problems noted. Son No problems noted. Daughter No problems noted. Other No family history of adverse response to anesthesia Past Surgical History Surgical History H/O esophagogastroduodenoscopy (Inactive) 2007 H/O hernia repair (Inactive) 3 hernia repairs, 2009, 2012 & 2013 History of arthroscopy of right knee meniscus repair History of colonoscopy History of wisdom tooth extraction Hx of vasectomy Status post trigger finger release right ring finger Past Anesthesia History No Hx of Anesthesia Complications and No Family Hx of Anesthesia Complications History of PONV No Hx of PONV and No Hx of Motion Sickness Social History Smoking Status: Never smoker Hx Alcohol Use: No Hx Substance Use: No substance use type: does not use Physical Exam Vital Signs Last Vital Signs Temp 37.0 C 12/29/19 11:23 Pulse 64 12/29/19 11:23 Resp 20 12/29/19 11:23 BP 125/78 12/29/19 11:23 Pulse Ox 95 12/29/19 11:23 Constitutional + morbidly obese ENMT Mouth: no TMJ abnormality Thyromental Distance: > or= 3.5 Finger Breadths Mallampati Class: IV Neck normal visual inspection, trachea midline, + short neck, + thick neck, + limited neck extension and + facial hair reproduction of cervical radiculopathy sxs with full neck extension Respiratory normal respiratory effort Auscultation: + diminished lung sounds and + wheezes Cardiovascular Rate/Rhythm: regular rate and regular rhythm Heart Sounds: no murmur Musculoskeletal Spine: + limited cervical ROM and + pain with cervical ROM Extremities: + limited ROM of extremities RUE 4=/5 global strength LUE 2+/5 strength worst with delt/bicep RLE 4+/5 strength LLE dorsi/plantar flexion 5/5, 4+/5 gastroc/ant tibalis, 3/5 quad/hamstrings Neurologic + does not move all extremities Psychiatric Orientation: alert and oriented x 3 Testing Laboratory Results 12/28/19 06:56 12/28/19 08:34 Hemoglobin A1c 6.0 % (4.5-5.6) H 12/25/19 08:16 Urine Color Yellow 12/26/19 01:20 Urine Appearance Clear (Clear) 12/26/19 01:20 Urine pH 5.0 (4.5-7.5) 12/26/19 01:20 Ur Specific [place] 1.014 (1.000-1.030) 12/26/19 01:20 Urine Protein Trace (Negative) H 12/26/19 01:20 Urine Glucose (UA) Negative (Negative) 12/26/19 01:20 Urine Ketones Negative (Negative) 12/26/19 01:20 Urine Nitrite Negative (Negative) 12/26/19 01:20 Ur Leukocyte Esterase Trace (Negative) H 12/26/19 01:20 Urine WBC (Auto) 5-10 /hpf (0-5) H 12/26/19 01:20 Urine RBC (Auto) >30 /hpf (0-4) H 12/26/19 01:20 U Hyaline Cast (Auto) 1-5 /lpf (0-5) 12/26/19 01:20 U Epithel Cells (Auto) 10-20 /lpf (0-5) H 12/26/19 01:20 Urine Bacteria (Auto) Negative (Negative) 12/26/19 01:20 12/29/19 12/29/19 11:40 07:48 POC Glucose 142 H 103 H 12/28/19 K 4.7 BUN 22 Creat 1.1 gluc 85 HgbA1c and Rapid Covid pending Electrocardiogram Date: 12/24/19 Findings: + NSR @ (65 bpm) Chest X-Ray Date: 12/25/19 Findings: + NAD and + cardiomegaly (mild) low lung volumes Echocardiogram Date: 12/25/19 EF: >70% LV Function: normal RWMA: + none Valvular Disease: + no significant valvular disease mod concentric LVH study performed on BIPAP Cervical Spine Date: 12/25/19 Cspine MRI shows compressive myelopathy at C3-4 with severe spinal stenosis Other Testing Brain MRI 12/25/19 shows 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
--- NOTE | 2019-12-29 13:01 | Orthopedic Progress Note ---
Date of Service December 29, 2019 Assessment & Plan (1) Myelopathy concurrent with and due to spinal stenosis of cervical region: At this time we are planning for a C4 corpectomy hopefully in the a.m. Unfortunately, insurance has not approved his procedure despite MRI evidence of cord myelomalacia and compression. On physical exam he has significant motor deficits and evidence of upper tract signs. He clearly is a urgent surgical candidate. Hopefully he will be approved and we we will to proceed as soon as possible. Present on Admission?: Yes Admission and Anticipated Discharge Date Admission Date: December 25, 2019 Subjective Patient continues to have inability to ambulate and use his left upper extremity. Physical Exam Physical Exam: On exam he has significant weakness affecting left upper extremity more and to a moderate degree the right upper extremity. He has bilateral lower extremity weakness. Results & Data ([facility]) Vital Signs (Past 12 Hours) Vital Signs Temp Pulse Pulse Resp BP Pulse Ox 12/29/19 11:23 37.0 C 64 20 125/78 95 12/29/19 07:48 64 12/29/19 07:35 37.2 C 64 20 126/77 95 12/29/19 02:30 67
--- NOTE | 2019-12-29 13:40 | Hospitalist Progress Note ---
Date of Service December 29, 2019 Assessment & Plan (1) Myelopathy concurrent with and due to spinal stenosis of cervical region: Has been complaining of left upper extremity weakness with left shoulder pain and neck pain for some time MRI did show significant cervical stenosis Appreciate Ortho input and recommendation Possible surgery on Sunday Discussed with the patient in detail about the proposed surgery, risk and benefit. Denies any symptoms and remains stable Awaiting insurance approval for the proposed surgery Surgery is scheduled for tomorrow COVID-19 test has been sent Medical clearance for surgery No cardiac history in the chart, no ischemic heart disease, no heart failure, no EKG changes, no CVD, has diabetes but not taking insulin and creatinine is less than 2 Denies any chest pain and/or palpitation or shortness of breath with usual activities Will get EKG and echocardiogram to evaluate LV function prior to surgery Chest x-ray seems to be unremarkable except cardiomegaly Carries more than usual risk given comorbid conditions Echo of the heart showed: The study was technically difficult, it was done with the patient on BiPAP and sitting up, LV size normal, moderate concentric LV hypertrophy, wall motion is normal, EF 70%, grade 1 diastolic dysfunction and there is no significant valvular disease. Will need BiPAP support following surgery and may need intubation and pulmonary evaluation (2) LUE weakness: Due to cervical stenosis (3) Falls frequently: History of frequent falls at home Because of fall is multifactorial including morbid obesity with limitation of movement, osteoarthritis, cervical stenosis with left upper extremity weakness. We will get PT and OT evaluation Likely to need rehab and/or skilled care facility placement (4) Diabetes mellitus, type 2: Check hemoglobin A1c We will put him on sliding scale insulin coverage (5) KAYLEEN (obstructive sleep apnea): Uses CPAP at home By history use his own CPAP while in the hospital Denies any shortness of breath and saturating more than 90% on room air (6) Hypertension: Seems to be controlled Continue current medications (7) Prostate cancer: No further history We will check PSA CODE STATUS Full DVT prophylaxis Subcu heparin We will communicate with the family members-discussed with the son and daughter Discussed with the daughter and the son Admission and Anticipated Discharge Date Admission Date: December 25, 2019 Subjective The patient was seen and examined in medical telemetry unit He complains to have left shoulder pain and left upper extremity weakness Denies any chest pain and/or palpitation or shortness of breath, denies any abdominal pain nausea and or vomiting 12/26/2019 Patient is seen and examined in medical telemetry unit He complains today of neck pain and weakness involving the left upper extremity Denies any other significant symptoms He wants to go through the surgery to get better 12/27/2019 The patient was seen and examined in medical telemetry unit He complains to have left shoulder and left upper extremity pain with weakness involving left upper extremity His neck pain remains stable Denies any chest pain, shortness of breath, abdominal pain, nausea and or vomiting 12/28/2019 The patient was seen and examined in medical telemetry unit He complains to have back pain likely secondary to posturing in bed Denies any chest pain, shortness of breath, palpitation, any abdominal pain nausea and or vomiting 12/29/2019 The patient was seen and examined in medical telemetry unit He complains to have some back pain secondary to posturing in bed Denies any chest pain, shortness of breath or palpitation Still complains to have left upper extremity weakness with Review of Systems Review of Systems: All systems reviewed and are unremarkable except as noted below Musculoskeletal: Left shoulder pain on movement, neck pain with radiation to the left arm Neurologic: Has left upper extremity weakness and tingling Physical Exam Physical Exam: Morbidly obese lying in bed without any significant symptoms Constitutional: well developed, well nourished, + acute distress (Due to pain in the left shoulder and weakness involving left upper extremity), + ill appearing and + morbidly obese Eyes: PERRL, conjunctivae normal, anicteric sclerae ENMT: external ear and nose normal, oropharynx normal Neck: trachea midline, no thyromegaly Respiratory: normal respiratory effort Auscultation: + diminished lung sounds (Bilaterally likely secondary to thick body wall) and + crackles (Minimal crackles at the bases) Cardiovascular: Rate/Rhythm: regular rate and regular rhythm Heart Sounds: no murmur Gastrointestinal (Abdomen): Inspection/Auscultation: abdomen normal to inspection and + abdomen distended Percussion/Palpation: abdomen soft; abdomen nontender Musculoskeletal: Left shoulder movement is restricted and painful Neurologic: moves all extremities (Weakness in the left upper extremity) and + focal motor deficit (Minimal weakness involving left upper extremity) Psychiatric: Orientation: oriented x 3 Insight: good insight Judgement: good judgement Lymphatic: no cervical or axillary lymphadenopathy Results & Data Results & Data ([facility]) Vital Signs (Past 12 Hours) Vital Signs Temp Pulse Pulse Resp BP Pulse Ox 12/29/19 11:23 37.0 C 64 20 125/78 95 12/29/19 07:48 64 12/29/19 07:35 37.2 C 64 20 126/77 95 12/29/19 02:30 67 Medications Administered Current Inpatient Medications Acetaminophen (Tylenol) 650 mg PO Q4H PRN PRN Reason: Pain or Fever Stop: 01/24/20 04:06 Last Admin: 12/26/19 18:46 Dose: 650 mg Documented by: Albuterol (Duoneb) 3 ml INH NOW ONE Stop: 12/30/19 09:01 Aspirin (Ecotrin Ectab) 81 mg PO [facility] Stop: 01/24/20 08:59 Last Admin: 12/29/19 08:18 Dose: Not Given Documented by: Atorvastatin Calcium (Lipitor) 20 mg PO [facility] Stop: 01/24/20 08:59 Last Admin: 12/29/19 08:18 Dose: Not Given Documented by: Bupropion HCl (Wellbutrin-Sr) 150 mg PO BID [facility] Stop: 01/24/20 08:59 Last Admin: 12/29/19 08:18 Dose: Not Given Documented by: Cetirizine [facility] (Zyrtec) [facility] Stop: 01/24/20 08:59 Last Admin: 12/29/19 08:18 Dose: Not Given Documented by: Dextrose (Dextrose 50%) 25 - 50 ml IV UD PRN; Protocol PRN Reason: Hypoglycemia Protocol Stop: 01/24/20 04:44 Fluticasone Propionate (Flonase) 1 sprays NA [facility] Stop: 01/24/20 20:59 Last Admin: 12/28/19 20:15 Dose: 1 sprays Documented by: Glucagon (Glucagen) 1 mg SQ UD PRN; Protocol PRN Reason: Hypoglycemia Protocol Stop: 01/24/20 04:44 Glucose (Glucose 40%) 15 - 30 gm PO UD PRN; Protocol PRN Reason: Hypoglycemia Protocol Stop: 01/24/20 04:44 Glucose (Dex4 Glucose) 4 - 8 tabs PO UD PRN; Protocol PRN Reason: Hypoglycemia Protocol Stop: 01/24/20 04:44 Sodium Chloride (Nss 1000ml) 1,000 mls @ 100 mls/hr IV .Q10H [facility] Stop: 01/24/20 04:06 Last Admin: 12/29/19 08:22 Dose: 100 mls/hr Documented by: Insulin Aspart (Novolog Flexpen) 0 units SC ACHS [facility] Stop: 01/24/20 11:29 Last Admin: 12/29/19 12:38 Dose: 2 units Documented by: Ketoconazole (Nizoral 2%) 1 appln EXT QAM [facility] Stop: 01/04/20 08:59 Last Admin: 12/29/19 08:19 Dose: 1 appln Documented by: Miconazole Nitrate (Desenex) 1 appln EXT PRN PRN PRN Reason: Affected Skin Folds Stop: 01/24/20 08:26 Last Admin: 12/25/19 12:48 Dose: 1 appln Documented by: Miscellaneous (Order Awaiting Action) 1 ea N/A QS [facility] Stop: 01/24/20 07:59 Last Admin: 12/29/19 08:16 Dose: Not Given Documented by: Miscellaneous (Order Awaiting Action) 1 ea N/A QS [facility] Stop: 01/24/20 07:59 Last Admin: 12/29/19 08:16 Dose: Not Given Documented by: Miscellaneous (Carbohydrates For Hypoglycemia) 15 - 30 gm PO UD PRN PRN Reason: Hypoglycemia Treatment Stop: 01/24/20 04:44 Multivitamins/Minerals (Multivitamin W/ Minerals Tab) 1 tab PO DAILY [facility] Stop: 01/24/20 08:59 Last Admin: 12/29/19 08:18 Dose: Not Given Documented by: Nitroglycerin (Nitrostat) 0.4 mg SL UD PRN PRN Reason: Chest Pain Stop: 01/24/20 04:06 Ondansetron HCl (Zofran) 4 mg IV Q6H PRN PRN Reason: Nausea Stop: 01/24/20 04:06 Polyethylene Glycol (Miralax Powder Packet) 17 gm PO DAILY PRN PRN Reason: Constipation Stop: 01/24/20 04:06 Pregabalin (Lyrica) 100 mg PO BID [facility] Stop: 01/24/20 08:59 Last Admin: 12/29/19 08:18 Dose: Not Given Documented by: Vitamin D (Vitamin D3) 2,000 units PO QAM [facility] Stop: 01/24/20 08:59 Last Admin: 12/29/19 08:18 Dose: Not Given Documented by:
[2019-12-29] MEDS: FLUTICASONE PROPIONATE NA SPR 16 GM BTL SCH (20:42)
[2019-12-30] MEDS: ACETAMINOPHEN 325 MG TAB PO PRN (00:15)
[2019-12-30] MEDS: [UNRECOGNIZED DRUG - OTHER] SCH ×3 (00:30→17:02)
[2019-12-30] MEDS: SODIUM CHLORIDE 0.9% 1000ML 1,000 ML IV SCH ×3 (03:09→22:54)
[2019-12-30] MEDS ORDERED: PROPOFOL IV EMULSION 10 MG/ML 100 ML VIAL IV ONE (07:03)
[2019-12-30] MEDS: INSULIN ASPART 100 UNITS/ML 3 ML PEN SC SCH ×4 (08:12→21:10)
[2019-12-30] MEDS: BuPROPion SR 150 MG TABCR PO SCH ×2 (08:14→21:00)
[2019-12-30] MEDS: CHOLECALCIFEROL 1,000 UNITS 25 MCG TAB PO SCH (08:14)
[2019-12-30] MEDS: KETOCONAZOLE 2% CR 15 GM TUBE EXT SCH (08:14)
[2019-12-30] MEDS: ATORVASTATIN 20 MG TAB PO SCH (08:14)
[2019-12-30] MEDS: ASPIRIN 81 MG ECTAB PO SCH (08:14)
[2019-12-30] MEDS: CEROVITE ADV FORMULA TAB PO SCH (08:14)
[2019-12-30] MEDS: PREGABALIN 100 MG CAP PO SCH ×2 (08:14→21:00)
[2019-12-30] MEDS: CETIRIZINE HCL 10 MG TABLET PO SCH (08:14)
[2019-12-30] MEDS ORDERED: ALBUT/IPRATROP 3MG/0.5MG NEB 3 ML VIAL INH ONE (09:00)
[2019-12-30] MEDS: MoRPHine SULFATE 4 MG/ML 1 ML CARP\\VIAL IV PRN ×2 (13:14→21:04)
--- NOTE | 2019-12-30 14:02 | Hospitalist Progress Note ---
Date of Service December 30, 2019 Assessment & Plan (1) Myelopathy concurrent with and due to spinal stenosis of cervical region: Has been complaining of left upper extremity weakness with left shoulder pain and neck pain for some time MRI did show significant cervical stenosis Appreciate Ortho input and recommendation Possible surgery on Sunday Discussed with the patient in detail about the proposed surgery, risk and benefit. Denies any symptoms and remains stable Awaiting insurance approval for the proposed surgery COVID-19 test has been sent-results pending Complaining of more pain involving the left shoulder and more weakness No pain is going to the right upper extremity as well Medical clearance for surgery No cardiac history in the chart, no ischemic heart disease, no heart failure, no EKG changes, no CVD, has diabetes but not taking insulin and creatinine is less than 2 Denies any chest pain and/or palpitation or shortness of breath with usual activities Will get EKG and echocardiogram to evaluate LV function prior to surgery Chest x-ray seems to be unremarkable except cardiomegaly Carries more than usual risk given comorbid conditions Echo of the heart showed: The study was technically difficult, it was done with the patient on BiPAP and sitting up, LV size normal, moderate concentric LV hypertrophy, wall motion is normal, EF 70%, grade 1 diastolic dysfunction and there is no significant valvular disease. Will need BiPAP support following surgery and may need intubation and pulmonary evaluation Insurance authorization for surgery Talk to the insurance company They were asking about CPT code Discussed with Dr. Peña who will talk to the insurance company tomorrow morning We will continue current management (2) LUE weakness: Due to cervical stenosis Left upper extremity has been getting weaker (3) Falls frequently: History of frequent falls at home Because of fall is multifactorial including morbid obesity with limitation of movement, osteoarthritis, cervical stenosis with left upper extremity weakness. We will get PT and OT evaluation Likely to need rehab and/or skilled care facility placement Ongoing PT and OT (4) Diabetes mellitus, type 2: Check hemoglobin A1c We will put him on sliding scale insulin coverage (5) KAYLEEN (obstructive sleep apnea): Uses CPAP at home By history use his own CPAP while in the hospital Denies any shortness of breath and saturating more than 90% on room air (6) Hypertension: Seems to be controlled Continue current medications (7) Prostate cancer: No further history We will check PSA CODE STATUS Full DVT prophylaxis Subcu heparin We will communicate with the family members-discussed with the son and daughter Discussed with the daughter and the son in detail on 12/30/2019 Admission and Anticipated Discharge Date Admission Date: December 25, 2019 Subjective The patient was seen and examined in medical telemetry unit He complains to have left shoulder pain and left upper extremity weakness Denies any chest pain and/or palpitation or shortness of breath, denies any abdominal pain nausea and or vomiting 12/26/2019 Patient is seen and examined in medical telemetry unit He complains today of neck pain and weakness involving the left upper extremity Denies any other significant symptoms He wants to go through the surgery to get better 12/27/2019 The patient was seen and examined in medical telemetry unit He complains to have left shoulder and left upper extremity pain with weakness involving left upper extremity His neck pain remains stable Denies any chest pain, shortness of breath, abdominal pain, nausea and or vomiting 12/28/2019 The patient was seen and examined in medical telemetry unit He complains to have back pain likely secondary to posturing in bed Denies any chest pain, shortness of breath, palpitation, any abdominal pain nausea and or vomiting 12/29/2019 The patient was seen and examined in medical telemetry unit He complains to have some back pain secondary to posturing in bed Denies any chest pain, shortness of breath or palpitation Still complains to have left upper extremity weakness with 12/30/2019 The patient was seen and examined in medical telemetry unit in presence of the son and the daughter He has been complaining of more pain in the left shoulder and more weakness involving the left upper extremity Also complains to have pain in the right shoulder as well and back pain He has been getting frustrated and wants to have his symptoms resolved Review of Systems Review of Systems: All systems reviewed and are unremarkable except as noted below Musculoskeletal: Left shoulder pain on movement, neck pain with radiation to the left arm Neurologic: Has left upper extremity weakness and tingling Physical Exam Physical Exam: Morbidly obese lying in bed without any significant symptoms Constitutional: well developed, well nourished, + acute distress (Due to pain in the left shoulder and weakness involving left upper extremity), + ill appearing and + morbidly obese Eyes: PERRL, conjunctivae normal, anicteric sclerae ENMT: external ear and nose normal, oropharynx normal Neck: trachea midline, no thyromegaly Respiratory: normal respiratory effort Auscultation: + diminished lung sounds (Bilaterally likely secondary to thick body wall) and + crackles (Minimal crackles at the bases) Cardiovascular: Rate/Rhythm: regular rate and regular rhythm Heart Sounds: no murmur Gastrointestinal (Abdomen): Inspection/Auscultation: abdomen normal to inspection and + abdomen distended Percussion/Palpation: abdomen soft; abdomen nontender Musculoskeletal: Left shoulder movement is restricted and painful Neurologic: moves all extremities (Weakness in the left upper extremity) and + focal motor deficit (Minimal weakness involving left upper extremity) Left upper extremity is weaker than right Psychiatric: Orientation: oriented x 3 Insight: good insight Judgement: good judgement Lymphatic: no cervical or axillary lymphadenopathy Results & Data Results & Data ([facility]) Vital Signs (Past 12 Hours) Vital Signs Temp Pulse Pulse Resp BP Pulse Ox 12/30/19 12:07 36.6 C 68 18 145/79 H 92 12/30/19 07:39 36.9 C 57 L 18 144/73 H 96 12/30/19 07:30 51 L 12/30/19 04:50 36.9 C 56 L 20 129/68 94 12/30/19 02:33 60 19 95 Medications Administered Current Inpatient Medications Acetaminophen (Tylenol) 650 mg PO Q4H PRN PRN Reason: Pain or Fever Stop: 01/24/20 04:06 Last Admin: 12/30/19 00:15 Dose: 650 mg Documented by: Aspirin ([facility]rin [facility]ctab) [facility] Stop: 01/24/20 08:59 Last Admin: 12/30/19 08:14 Dose: Not Given Documented by: Atorvastatin Calcium (Lipitor) 20 mg PO [facility] Stop: 01/24/20 08:59 Last Admin: 12/30/19 08:14 Dose: Not Given Documented by: Bupropion HCl (Wellbutrin-Sr) 150 mg PO BID [facility] Stop: 01/24/20 08:59 Last Admin: 12/30/19 08:14 Dose: Not Given Documented by: Cetirizine HCl (Zyrtec) 10 mg PO QAM [facility] Stop: 01/24/20 08:59 Last Admin: 12/30/19 08:14 Dose: Not Given Documented by: Dextrose (Dextrose 50%) 25 - 50 ml IV UD PRN; Protocol PRN Reason: Hypoglycemia Protocol Stop: 01/24/20 04:44 Fluticasone Propionate (Flonase) 1 sprays NA [facility] Stop: 01/24/20 20:59 Last Admin: 12/29/19 20:42 Dose: 1 sprays Documented by: Glucagon (Glucagen) 1 mg SQ UD PRN; Protocol PRN Reason: Hypoglycemia Protocol Stop: 01/24/20 04:44 Glucose (Glucose 40%) 15 - 30 gm PO UD PRN; Protocol PRN Reason: Hypoglycemia Protocol Stop: 01/24/20 04:44 Glucose (Dex4 Glucose) 4 - 8 tabs PO UD PRN; Protocol PRN Reason: Hypoglycemia Protocol Stop: 01/24/20 04:44 Sodium Chloride (Nss 1000ml) 1,000 mls @ 100 mls/hr IV .Q10H [facility] Stop: 01/24/20 04:06 Last Admin: 12/30/19 12:54 Dose: 100 mls/hr Documented by: Insulin Aspart (Novolog Flexpen) 0 units SC ACHS [facility] Stop: 01/24/20 11:29 Last Admin: 12/30/19 12:57 Dose: Not Given Documented by: Ketoconazole (Nizoral 2%) 1 appln EXT QAM [facility] Stop: 01/04/20 08:59 Last Admin: 12/30/19 08:14 Dose: 1 appln Documented by: Miconazole Nitrate (Desenex) 1 appln EXT PRN PRN PRN Reason: Affected Skin Folds Stop: 01/24/20 08:26 Last Admin: 12/25/19 12:48 Dose: 1 appln Documented by: Miscellaneous (Order Awaiting Action) 1 ea N/A QS [facility] Stop: 01/24/20 07:59 Last Admin: 12/30/19 08:13 Dose: Not Given Documented by: Miscellaneous (Order Awaiting Action) 1 ea N/A QS [facility] Stop: 01/24/20 07:59 Last Admin: 12/30/19 08:13 Dose: Not Given Documented by: Miscellaneous (Carbohydrates For Hypoglycemia) 15 - 30 gm PO UD PRN PRN Reason: Hypoglycemia Treatment Stop: 01/24/20 04:44 Morphine Sulfate (Morphine Sulfate) 3 mg IV Q4H PRN PRN Reason: Pain Stop: 01/13/20 00:33 Last Admin: 12/30/19 13:14 Dose: 3 mg Documented by: Multivitamins/Minerals (Multivitamin W/ Minerals Tab) 1 tab PO DAILY [facility] Stop: 01/24/20 08:59 Last Admin: 12/30/19 08:14 Dose: Not Given Documented by: Nitroglycerin (Nitrostat) 0.4 mg SL UD PRN PRN Reason: Chest Pain Stop: 01/24/20 04:06 Ondansetron HCl (Zofran) 4 mg IV Q6H PRN PRN Reason: Nausea Stop: 01/24/20 04:06 Polyethylene Glycol (Miralax Powder Packet) 17 gm PO DAILY PRN PRN Reason: Constipation Stop: 01/24/20 04:06 Pregabalin (Lyrica) 100 mg PO BID [facility] Stop: 01/24/20 08:59 Last Admin: 12/30/19 08:14 Dose: Not Given Documented by: Vitamin D (Vitamin D3) 2,000 units PO QAM [facility] Stop: 01/24/20 08:59 Last Admin: 12/30/19 08:14 Dose: Not Given Documented by:
[2019-12-30] MEDS: FLUTICASONE PROPIONATE NA SPR 16 GM BTL SCH (21:01)
[2019-12-31] MEDS: [UNRECOGNIZED DRUG - OTHER] SCH ×3 (00:18→15:58)
[2019-12-31] MEDS: MoRPHine SULFATE 4 MG/ML 1 ML CARP\\VIAL IV PRN ×3 (01:27→20:40)
[2019-12-31] MEDS: INSULIN ASPART 100 UNITS/ML 3 ML PEN SC SCH ×4 (08:02→20:29)
[2019-12-31] MEDS: SODIUM CHLORIDE 0.9% 1000ML 1,000 ML IV SCH ×2 (08:05→17:34)
[2019-12-31] MEDS: KETOCONAZOLE 2% CR 15 GM TUBE EXT SCH (12:23)
[2019-12-31] MEDS: ATORVASTATIN 20 MG TAB PO SCH (12:23)
[2019-12-31] MEDS: ASPIRIN 81 MG ECTAB PO SCH (12:23)
[2019-12-31] MEDS: CEROVITE ADV FORMULA TAB PO SCH (12:23)
[2019-12-31] MEDS: PREGABALIN 100 MG CAP PO SCH ×2 (12:23→20:28)
[2019-12-31] MEDS: CETIRIZINE HCL 10 MG TABLET PO SCH (12:24)
[2019-12-31] MEDS: CHOLECALCIFEROL 1,000 UNITS 25 MCG TAB PO SCH (12:24)
[2019-12-31] MEDS: BuPROPion SR 150 MG TABCR PO SCH ×2 (12:24→20:29)
--- NOTE | 2019-12-31 16:52 | Hospitalist Progress Note ---
Date of Service December 31, 2019 Assessment & Plan (1) Myelopathy concurrent with and due to spinal stenosis of cervical region: Has been complaining of left upper extremity weakness with left shoulder pain and neck pain for some time MRI did show significant cervical stenosis Appreciate Ortho input and recommendation Possible surgery on Sunday Discussed with the patient in detail about the proposed surgery, risk and benefit. Denies any symptoms and remains stable Awaiting insurance approval for the proposed surgery COVID-19 test (12/28) - negative Complaining of more pain and stiffness involving the left shoulder and more weakness pain and stiffness also in right upper extremity Per previous hospitalist, Dr. Emanuel Medical clearance for surgery No cardiac history in the chart, no ischemic heart disease, no heart failure, no EKG changes, no CVD, has diabetes but not taking insulin and creatinine is less than 2 Denies any chest pain and/or palpitation or shortness of breath with usual activities Chest x-ray seems to be unremarkable except cardiomegaly Carries more than usual risk given comorbid conditions Echo of the heart showed: The study was technically difficult, it was done with the patient on BiPAP and sitting up, LV size normal, moderate concentric LV hypertrophy, wall motion is normal, EF 70%, grade 1 diastolic dysfunction and there is no significant valvular disease. Will need BiPAP support following surgery and may need intubation and pulmonary evaluation Insurance authorization for surgery Discussed with Dr. Peña who will discuss with insurance further We will continue current management (2) LUE weakness: Due to cervical stenosis Left upper extremity has been getting weaker (3) Falls frequently: History of frequent falls at home Because of fall is multifactorial including morbid obesity with limitation of movement, osteoarthritis, cervical stenosis with left upper extremity weakness. We will get PT and OT evaluation Likely to need rehab and/or skilled care facility placement Ongoing PT and OT (4) Diabetes mellitus, type 2: Current hemoglobin A1c 6.0% We will put him on sliding scale insulin coverage (5) KAYLEEN (obstructive sleep apnea): Uses CPAP at home By history use his own CPAP while in the hospital Denies any shortness of breath and saturating more than 90% on room air (6) Hypertension: Seems to be controlled Continue current medications (7) Prostate cancer: No further history CODE STATUS Full DVT prophylaxis Subcu heparin Dr. Emanuel discussed with the daughter and the son in detail on 12/30/2019 Admission and Anticipated Discharge Date Admission Date: December 25, 2019 Subjective No acute events overnight. Patient is lying in bed, in no acute distress. Patient is frustrated as he has difficulty moving, says that his extremities are very stiff, and he did not get much relief while being in the hospital yet. Denies any fevers, chills, chest pain, shortness of breath, abdominal pain, nausea or vomiting. Per Dr. Peña, surgery planned for Sunday. Review of Systems Review of Systems: All systems reviewed & are unremarkable except as noted in HPI & below All systems reviewed and are unremarkable except as noted below Constitutional: no fever and no chills Respiratory: no cough and no dyspnea Cardiovascular: no chest pain and no palpitations Gastrointestinal: no abdominal pain, no nausea and no vomiting Musculoskeletal: Left shoulder pain on movement, neck pain with radiation to the left arm Neurologic: Has left upper extremity weakness and tingling Physical Exam Physical Exam: Physical Exam: Morbidly obese male lying in bed, in in some distress Constitutional: well developed, well nourished, + acute distress (Due to pain in the left shoulder and weakness involving left upper extremity), + ill appearing and + morbidly obese Eyes: PERRL, EOMI, conjunctivae normal, anicteric sclerae ENMT: external ear and nose normal, oropharynx normal Neck: trachea midline, no thyromegaly Respiratory: normal respiratory effort Auscultation: + diminished lung sounds (Bilaterally likely secondary to thick body wall), no wheezing, rhonchi or crackles noted Cardiovascular: Rate/Rhythm: regular rate and regular rhythm Heart Sounds: no murmur Gastrointestinal (Abdomen): Inspection/Auscultation: abdomen normal to inspection, obese, + abdomen mildly distended Percussion/Palpation: abdomen soft; abdomen nontender Musculoskeletal: Left shoulder movement is restricted and painful Neurologic: moves all extremities (Weakness in the left upper extremity) and + focal motor deficit, Left upper extremity is weaker than right Psychiatric: Orientation: oriented x 3 Insight: good insight Judgement: good judgement Results & Data Results & Data ([facility]) Vital Signs (Past 12 Hours) Vital Signs Temp Pulse Pulse Resp BP Pulse Ox 12/31/19 16:00 36.5 C 61 18 117/73 95 12/31/19 15:10 62 12/31/19 11:42 36.5 C 59 L 18 128/71 97 12/31/19 07:32 55 L 12/31/19 07:24 36.4 C L 58 L 18 137/78 95
[2019-12-31] MEDS: FLUTICASONE PROPIONATE NA SPR 16 GM BTL SCH (20:28)
[2020-01-01] MEDS: [UNRECOGNIZED DRUG - OTHER] SCH ×2 (00:13→07:15)
[2020-01-01] MEDS: SODIUM CHLORIDE 0.9% 1000ML 1,000 ML IV SCH (03:34)
[2020-01-01] MEDS: MoRPHine SULFATE 4 MG/ML 1 ML CARP\\VIAL IV PRN ×2 (04:41→11:39)
[2020-01-01] MEDS: KETOCONAZOLE 2% CR 15 GM TUBE EXT SCH (07:49)
[2020-01-01] MEDS: CETIRIZINE HCL 10 MG TABLET PO SCH (07:49)
[2020-01-01] MEDS: ATORVASTATIN 20 MG TAB PO SCH (07:49)
[2020-01-01] MEDS: CHOLECALCIFEROL 1,000 UNITS 25 MCG TAB PO SCH (07:49)
[2020-01-01] MEDS: BuPROPion SR 150 MG TABCR PO SCH (07:49)
[2020-01-01] MEDS: ASPIRIN 81 MG ECTAB PO SCH (07:49)
[2020-01-01] MEDS: PREGABALIN 100 MG CAP PO SCH (07:49)
[2020-01-01] MEDS: CEROVITE ADV FORMULA TAB PO SCH (07:49)
[2020-01-01] MEDS: INSULIN ASPART 100 UNITS/ML 3 ML PEN SC SCH ×2 (07:58→12:47)
--- NOTE | 2020-01-01 08:52 | Discharge Summary ---
Date of Service January 01, 2020 Admission HPI Per Admitting Provider This is a 64-year-old male with past medical history significant for type 2 diabetes, hyperlipidemia, obstructive sleep apnea, treated with BiPAP, morbid obesity, GERD, prostate cancer, venous stasis dermatitis, osteoarthritis of both knees, depression, who lives at home alone, presents with frequent falls and also left upper extremity weakness. The patient since last one and a half years is falling frequently, uses walker at home.He has Life Alert and when he fall he presses life alert and EMS come and help him to get up. His son also live close by and this last few weeks his son is helping him to get up from the bed.Last 2 weeks he is having also weakness in his left upper extremity and also has limited range of motion in left shoulder that is the reason he came to the ER today. Denies any headache, no blurred vision, no earache, no runny nose, no sore throat, no difficulty swallowing. No cough, no fever, no chills, no chest pain or shortness of breath. No nausea, no vomiting, no abdominal pain. Normal bowel and bladder movements. No blood in the stools, no burning micturition, has some edema in the lower extremities. Currently resting comfortably, but blood pressure is running on the lower side. Admission Exam Per Admitting Provider GENERAL: The patient is morbidly obese, not in acute distress. VITAL SIGNS: Temperature 37, pulse 110, respiratory rate 16, blood pressure 95/57, oxygen 92% on room air. HEENT: No pallor, no icterus. Extraocular muscles intact. NECK: Supple. Normal movements of the neck. No neck masses seen. CARDIOVASCULAR: S1, S2 heard, regular rate and rhythm, no murmur, no gallop. RESPIRATORY SYSTEM: Normal AP diameter. No accessory muscle use. No wheezing, no crackles. ABDOMEN: Soft, bowel sounds present, nontender. No distention. CENTRAL NERVOUS SYSTEM: Alert and oriented. Obeys simple commands. Moves extremities. Extremities has Power 4-5/5 in all extremities and 1/5 in left upper extremity. EXTREMITIES: Bilateral lower extremity chronic edema seen, no erythema seen. Principal Diagnosis Myelopathy secondary to cervical spinal stenosis Discharge Exam Physical Exam: Morbidly obese male lying in bed, in in some distress Constitutional: well developed, well nourished, + some acute distress (Due to pain in the left shoulder and weakness involving left upper extremity), + ill appearing and + morbidly obese Eyes: PERRL, EOMI, conjunctivae normal, anicteric sclerae ENMT: external ear and nose normal, oropharynx normal Neck: trachea midline, no thyromegaly Respiratory: normal respiratory effort Auscultation: + diminished lung sounds (Bilaterally likely secondary to thick body wall), no wheezing, rhonchi or crackles noted Cardiovascular: Rate/Rhythm: regular rate and regular rhythm Heart Sounds: no murmur Gastrointestinal (Abdomen): Inspection/Auscultation: abdomen normal to inspection, obese, + abdomen mildly distended Percussion/Palpation: abdomen soft; abdomen nontender Musculoskeletal: Left shoulder movement is restricted and painful Neurologic: moves all extremities (Weakness in the left upper extremity) and + focal motor deficit, Left upper extremity is weaker than right Psychiatric: Orientation: oriented x 3 Insight: good insight Judgement: good judgement Discharge Data Allergies Allergy/AdvReac Type Severity Reaction Status Date / Time No Known Allergies Allergy Verified 12/24/19 23:06 Consultations 12/25/19 02:12 ED Decision to Admit Stat 12/25/19 04:07 Consult Case Management - Discharge Planning Routine 12/25/19 08:00 Consult Orthopedic Surgery Routine Procedures Performed Operation Date: 01/02/20 07:45 <No data on this case meets the specified criteria> Ordered Studies 12/24/19 23:08 CT cervical spine wo con Urgent 12/24/19 23:13 CT head/brain wo con Urgent 12/25/19 04:07 MR brain wo/w con Urgent MR cervical spine wo/w con Urgent Hospital Course (1) Myelopathy concurrent with and due to spinal stenosis of cervical region: Has been complaining of left upper extremity weakness with left shoulder pain and neck pain for some time MRI did show significant cervical stenosis Appreciate Ortho input and recommendation Possible surgery on Sunday Discussed with the patient in detail about the proposed surgery, risk and benefit. Denies any symptoms and remains stable Awaiting insurance approval for the proposed surgery COVID-19 test (12/28) - negative Complaining of more pain and stiffness involving the left shoulder and more weakness pain and stiffness also in right upper extremity Per previous hospitalist, Dr. Emanuel Medical clearance for surgery No cardiac history in the chart, no ischemic heart disease, no heart failure, no EKG changes, no CVD, has diabetes but not taking insulin and creatinine is less than 2 Denies any chest pain and/or palpitation or shortness of breath with usual activities Chest x-ray seems to be unremarkable except cardiomegaly Carries more than usual risk given comorbid conditions Echo of the heart showed: The study was technically difficult, it was done with the patient on BiPAP and sitting up, LV size normal, moderate concentric LV hypertrophy, wall motion is normal, EF 70%, grade 1 diastolic dysfunction and there is no significant valvular disease. Will need BiPAP support following surgery and may need intubation and pulmonary evaluation Insurance authorization for surgery Discussed with Dr. Peña who will discuss with insurance further Plan for surgical intervention, likely on SundayJanuary 01 (2) LUE weakness: Due to cervical stenosis Left upper extremity has been getting weaker (3) Falls frequently: History of frequent falls at home Because of fall is multifactorial including morbid obesity with limitation of movement, osteoarthritis, cervical stenosis with left upper extremity weakness. We will get PT and OT evaluation Likely to need rehab and/or skilled care facility placement Ongoing PT and OT Plan for surgical intervention first, then PT OT (4) Diabetes mellitus, type 2: Current hemoglobin A1c 6.0% sliding scale insulin coverage while inpt (5) KAYLEEN (obstructive sleep apnea): Uses CPAP at home By history use his own CPAP while in the hospital Denies any shortness of breath and saturating more than 90% on room air (6) Hypertension: Seems to be controlled Continue current medications Furosemide and lisinopril held during this admission, may restart as outpatient (7) Prostate cancer: No further history Total Time Total Time Spent Total Time Spent (In Minutes): 25 Total Time Includes: Examination of the Patient, Discharge Planning, Medication Reconciliation and Communication With Other Providers Discharge Plan Discharge Items Patient Disposition: Transfer Acute Care Hospital Reason For Visit: [place] Discharge Diagnosis: Myelopathy secondary to cervical spinal stenosis Activity: Per Instructions section Non-emergency contact: Primary Care Provider and Surgeon Call non-emergency contact if: you have any medication questions Follow-up/Referrals: Ana Iglesias DO [Primary Care Provider] - Diet: Carb Consistent or DM2 Addtl Attending Provider Instructions: Patient evaluated by Dr. Peña, from orthopedic spine surgery. Plan for surgical intervention, likely on January 01. Pending Studies at Discharge: No Stand-Alone Forms: [employer] Skilled Items Patient informed of condition?: Yes DNR: No Discharge Level of Care: Other Communicable Disease: No Discharge Prognosis: Other Lines: Peripheral IV Urinary Catheter: No Medications and DC Order Prescriptions: Continued cholecalciferol (vitamin D3) [Vitamin D3] 2,000 unit Tablet 2,000 unit PO QAM RF: 0 ketoconazole 2 % Cream 1 applic TOPICAL QAM RF: 0 halobetasol propionate 0.05 % Ointment 1 applic TOPICAL DIRECTED RF: 0 furosemide 40 mg tablet 40 mg PO QAM RF: 0 bupropion HCl 150 mg tablet sustained-release 12 hr 150 mg PO BID RF: 0 atorvastatin 20 mg tablet 20 mg PO QAM RF: 0 cetirizine 10 mg tablet 10 mg PO QAM RF: 0 aspirin 81 mg tablet,delayed release (DR/EC) 81 mg PO QAM RF: 0 mometasone 50 mcg/actuation spray,non-aerosol 1 spray intranasal HS RF: 0 metformin 750 mg tablet extended release 24 hr 750 mg PO BID RF: 0 pregabalin [Lyrica] 100 mg capsule 100 mg PO BID RF: 0 PreserVision AREDS [id number] Capsule 1 cap PO DAILY RF: 0 armodafinil 150 mg tablet 150 mg PO QAM RF: 0 lisinopril 10 mg tablet 10 mg PO QAM RF: 0 Discontinued naproxen 500 mg tablet 500 mg PO BIDM RF: 0 Discharge Orders: Discharge Order (Routine); Ordered 01/01/20 Ordered By: Erickson Bettencourt Admission Data Admit Date/Time: 12/25/19 02:42 Attending Provider: Erickson Bettencourt Admit Provider: Simone Post Primary Care Provider: Ana Iglesias Other Providers: Simone Post ; Francesco Peña ; [facility] ; [facility] ; Facundo Emanuel
[2020-01-02] MEDS ORDERED: CEFAZOLIN 3000MG/72.5 ML BAG IV ONE (07:30)
[2020-01-02] MEDS ORDERED: ATROPINE SULFATE 0.1 MG/ML 10ML SYR IV PRN (07:32)
[2020-01-02] MEDS ORDERED: METOCLOPRAMIDE HCL INJ 5 MG/ML 2 ML VIAL IV PRN (07:32)
[2020-01-02] MEDS ORDERED: HYDROmorphone INJ 2 MG/ML SYR/VIAL IV PRN (07:32)
[2020-01-02] MEDS ORDERED: PROMETHAZINE HCL 12.5 MG in SODIUM CHLORIDE 0.9% 50 ML IV PRN (07:32)
[2020-01-02] MEDS ORDERED: ePHEDrine sulfate 50 MG/ML AMP IV PRN (07:32)
[2020-01-02] MEDS ORDERED: ONDANSETRON INJ 2 MG/ML 2 ML VIAL IV PRN (07:32)
[2020-01-02] MEDS ORDERED: CEFAZOLIN 3000MG 72.5 ML IV ONE (07:34)
[2020-01-02] MEDS ORDERED: FLOSEAL HEMOSTATIC MATRIX 10ML TOP ONE (09:09)
[2020-01-02] MEDS ORDERED: BACITRACIN INJ 50,000 UNIT VIAL IR ONE (10:07)
--- NOTE | 2020-01-02 10:18 | Operative Report ---
Post Operative Report Pre & Post Diagnosis Operation Date: 01/02/20 07:45 Pre-Op Diagnosis: Myelopathy concurrent with and due to spinal stenosis of cervical region Morbid obesity Post-Op Diagnosis: Myelopathy concurrent with and due to spinal stenosis of cervical region Morbid obesity I identified the patient and participated in the time-out.: Yes Procedure Operation Date: 01/02/20 07:45 Actual Procedures 1 anterior cervical corpectomy with bilateral foraminotomies C4. #2 anterior cervical arthrodesis C3-C5. #3 placement of 25 mm peek cage filled with locally harvested morselized autograft and DBM. #4 application of 5 complete and screws from C3-C5. Surgeon Francesco Peña, DO [place] Clifford Nava Estimated Blood Loss 25 Findings See Below Patient is 5 foot 4 inches tall weighing over 141 kg with a BMI in excess of 53. The patient's body habitus did add significant technical difficulty from patient positioning through exposure and actual procedure itself and at least 50% increase in operative time. To also require additional postoperative management. Specimens None Indications This is a 64-year-old male that presents with severe cervical spinal stenosis with myelopathy and advanced neurologic decline subsequently he underwent urgent decompression and fusion. Description of Procedure Patient was met with preoperatively case discussed all questions addressed. At that point patient was taken to the operative suite underwent intubation placed in supine position on the Rigo table with the head Bruno waiter/waitress head. All bony prominences well-padded eyes inspected to ensure no external pressure placed upon the. This point the anterior cervical spine was prepped and draped in normal sterile fashion. With assistance of fluoroscopy identified the C4 vertebral body a transverse incision was placed on the right anterior aspect of the cervical spine overlying his region. Sharp dissection with the assistance of bipolar electrocautery was performed down to and exposing the anterior cervical spine from C3-C5. A self-retaining retractor was placed. Informed complete corpectomy of C4 including removal of all posterior annular fibers longitudinal ligament and bilateral foraminotomies addressing severe stenosis. Endplates were then burred to subcortical bleeding bone and a 25 mm peek cage filled with locally harvested morselized autograft and DBM tapped in position. Distracting apparatus was removed and a 5 complete and screws applied with the assistance of fluoroscopy. Incision was then copiously irrigated explored to ensure no damage to surrounding structures or remaining bleeding. 10 round SERGIO drain was then inserted. Incision was closed with 2 Vicryl in a fashion of 4 Monocryl for final skin closure. Steri-Strip sterile dressing was placed. Patient waken taken PACU stable condition. Please note spinal cord monitoring was utilized that the procedure and improvement in signals did occur throughout the decompression. Lastly Clifford record was present at the entire procedure involved the patient positioning complex portions of the surgery and final skin closure. I attest to the content of the Intraoperative Record and any orders documented therein. Any exceptions are noted below.
[2020-01-02] MEDS: fentaNYL citrate 100 MCG/2 ML VIAL IV PRN ×2 (11:05→11:10)
--- NOTE | 2020-01-02 11:11 | Fluoroscopy Report ---
FL cervical 2-3V CLINICAL HISTORY: C4 CORPECTOMY COMPARISON STUDY: MRI of the cervical spine December 25, 2019. FLUOROSCOPY TIME: 11.1 seconds. FLUOROSCOPIC IMAGES: 2. FINDINGS: These images demonstrate a C5 corpectomy. Anterior fusion from C3 through C5 is noted. The hardware is intact. IMPRESSION: Fluoroscopy provided for C4 corpectomy and C3-C5 anterior fusion. ACT 112: Negative or not required by law. Electronically signed by: Joesph Hawkins M.D. 01/02/2020 11:10 AM
--- NOTE | 2020-01-02 12:06 | Anesthesiology Progress Note ---
Date of Service January 02, 2020 Anesthesia Post Procedure Vital Signs Vital Signs: Temp Pulse Pulse Resp BP Pulse Ox 01/02/20 11:55 65 16 152/71 H 95 01/02/20 11:40 36.7 C 76 17 158/85 H 96 01/02/20 11:20 66 16 150/73 H 96 01/02/20 11:10 73 18 150/64 H 93 01/02/20 11:00 67 21 152/93 H 95 01/02/20 10:50 65 18 162/72 H 99 01/02/20 10:40 64 20 157/82 H 99 01/02/20 10:34 36.2 C L 68 16 162/78 H 97 01/02/20 07:31 36.8 C 63 20 141/76 H 93 Pain Intensity Neck: Pain Intensity: 5 Transfer of Care Handoff Completed per policy Notes Mental Status: alert / awake / arousable and participated in evaluation Patient Amnestic to Procedure: Yes Nausea / Vomiting: adequately controlled Pain: adequately controlled Airway Patency, RR, SpO2: stable & adequate BP & HR: stable & adequate Hydration State: stable & adequate Anesthetic Complications: no major complications apparent
== END 2020-01-01 10:00 | disposition home or self-care (01) | DRG 454 ==
LOC: ED 22:54 → 2N 12-25 02:42 → SUATTDRO 12-25 02:42 → INTOOBSV 12-25 02:42 → 2N 12-25 03:37

== ENCOUNTER 2020-01-01 15:42 | Inpatient (IN) ==
[2020-01-01] MEDS ORDERED: HYDROmorphone INJ 1 MG/ML SYRINGE IV PRN (15:47)
[2020-01-01] MEDS ORDERED: HYDROmorphone INJ 0.5 MG/0.5 ML SYR IV PRN (15:47)
[2020-01-01] MEDS ORDERED: ONDANSETRON 4 MG OD TAB PO PRN (15:47)
[2020-01-01] MEDS ORDERED: METOCLOPRAMIDE HCL INJ 5 MG/ML 2 ML VIAL IV PRN (15:47)
[2020-01-01] MEDS ORDERED: LORazepam 1 MG/2 ML VIAL IV PRN (15:47)
[2020-01-01] MEDS ORDERED: PROMETHAZINE HCL 12.5 MG in SODIUM CHLORIDE 0.9% 50 ML IV PRN (15:47)
[2020-01-01] MEDS ORDERED: ONDANSETRON INJ 2 MG/ML 2 ML VIAL IV PRN (15:47)
[2020-01-01] MEDS ORDERED: ACETAMINOPHEN 500 MG TAB PO PRN (15:47)
[2020-01-01] MEDS ORDERED: OXYCODONE HCL IR 5 MG TAB (IMMEDIATE RELEASE) PO PRN (15:47)
--- NOTE | 2020-01-01 19:11 | Hospitalist Consultation ---
Date of Consultation January 01, 2020 Assessment & Plan (1) Myelopathy concurrent with and due to spinal stenosis of cervical region: This is a 64yo M with a PMH of DM II, KAYLEEN on bipap, morbid obesity, HLD, venous stasis dermatitis and cervical spine stenosis who presents with ongoing LUE weakness. -Has been awaiting surgery on cervical spine for one week. Now admitted by Dr. Peña with plans for surgical intervention, likely on SundayJanuary 01 -Per previous hospitalist, Dr. Emanuel, "no cardiac history in the chart, no ischemic heart disease, no heart failure, no EKG changes, no CVD, has diabetes but not taking insulin and creatinine is less than 2" -Denies any chest pain and/or palpitation or shortness of breath with usual activities -Echo from last week: study was technically difficult, done with the patient on BiPAP and sitting up, LV size normal, mod concentric LVH, wall motion is normal, EF 70%, grade 1 diastolic dysfunction and no significant valvular disease -Carries more than usual risk given comorbid conditions -Repeat CXR to assess for need for pre-op diuretics. Has not been receiving them during previous admission. Pro-op EKG in AM as well -Will need BiPAP support following surgery and may need intubation and pulmonary evaluation -Per ortho for pain control, wound care, anticoagulation and activities -Monitor H&H, continue incentive spirometry, PT/OT when appropriate (2) Morbid obesity with BMI of 50.0-59.9, adult: (3) KAYLEEN (obstructive sleep apnea): Bipap HS. Monitor closely post-operatively for respiratory support (4) Diabetes mellitus, type 2: Hold home agents. SSI while in-patient. BSG AC HS (5) Hypertension: Hold preoperative lisinopril tomorrow (6) Depression: Continue bupropion PCP: [facility] Dispo: Per primary service Patient seen in collaboration with Dr. Bates. Please see addendum. Supervising Physician Co-Signing Physician Notes Patient is a 64-year-old male with history of cervical spinal stenosis, morbid obesity, diabetes mellitus, hypertension, depression obstructive sleep apnea and other medical problems was consulted for medical management. Patient complains of left upper extremity weakness, decreased range of movement, shoulder pain, history of multiple falls. Patient had MRI of his neck suggestive of severe spinal stenosis at C3-4 level. There is also increased cervical cord signal likely secondary to compressive myelopathy. Multilevel foraminal stenosis. Patient is admitted under orthopedics for cervical surgery tomorrow. Currently he denies any chest pain, shortness of breath, dizziness, nausea, abdominal pain. On exam he is morbidly obese, no apparent distress, normocephalic atraumatic, lungs are clear to auscultation, S1-S2, no murmur, abdomen soft, nontender, obese, left upper extremity weakness 1/5, decreased ROM, normal sensation. Patient is consulted for medical management. Severe spinal stenosis C3-C4 level. Plan for for surgery by Dr. Peña tomorrow. Will get chest x-ray and EKG. Will resume his home diuretics if chest x-ray suggestive of congestion. He recently had echo which was reviewed. Continue bowel regimen to prevent constipation. PT OT eval when appropriate. DM II: Last HbA1C:6.0. Hold PO meds. Continue insulin sliding scale while hospitalized. Monitor BGs. I personally reviewed the record. Patient is interviewed and examined at bedside. Patient's care is coordinated with Caren Galvan PA-C. Please refer to the documentation above for details of patient's presentation and for discussion of other issues. History of Present Illness Reason for Consultation: medical mgmt Attending Physician: Francesco Peña, DO History of Present Illness This is a 64yo M with a PMH of DM II, KAYLEEN on bipap, morbid obesity, HLD, venous stasis dermatitis and cervical spine stenosis who presents with ongoing LUE weakness. Was recently admitted for a week for this LUE weakness and shoulder pain with MRI demonstrating significant cervical stenosis and was awaiting insurance approval for the proposed surgery. Planning for surgery with Dr. Peña tomorrow. Has been experiencing shoulder stiffness and worsening weakness in LUE. Pre-operative COVID-19 test negative as of 12/29/19. Denies fever, chills, headache, lightheadedness, visual changes, cough, chest pain, palpitations, shortness of breath, abdominal pain, nausea, vomiting, dysuria or diarrhea. Last had a small bowel movement yesterday. Allergies Allergy/AdvReac Type Severity Reaction Status Date / Time No Known Allergies Allergy Verified 12/24/19 23:06 Home Medications Home Medications Medication Instructions Recorded Confirmed Type PreserVision AREDS 1 cap PO DAILY 11/29/18 01/01/20 History armodafinil 150 mg PO QAM 11/29/18 01/01/20 History aspirin 81 mg PO QAM 11/29/18 01/01/20 History atorvastatin 20 mg PO QAM 11/29/18 01/01/20 History bupropion HCl 150 mg PO BID 11/29/18 01/01/20 History cetirizine 10 mg PO QAM 11/29/18 01/01/20 History furosemide 40 mg PO QAM 11/29/18 01/01/20 History lisinopril 10 mg PO QAM 11/29/18 01/01/20 History metformin 750 mg PO BID 11/29/18 01/01/20 History mometasone 1 spray INTRANASAL HS 11/29/18 01/01/20 History pregabalin [Lyrica] 100 mg PO BID 11/29/18 01/01/20 History cholecalciferol (vitamin D3) 2,000 unit PO QAM 06/17/19 01/01/20 History [Vitamin D3] ketoconazole 1 applic TOPICAL QAM 06/17/19 01/01/20 History halobetasol propionate 1 applic TOPICAL DIRECTED 12/24/19 01/01/20 History Patient History Medical History BPH (benign prostatic hyperplasia) Colon cancer screening Depression Diabetes (Inactive) Diabetes mellitus, type 2 SCOTT (generalized anxiety disorder) (Inactive) GERD (gastroesophageal reflux disease) (Inactive) Hearing loss in right ear History of anesthesia reaction had BP drop during one of his hernia sx---had surgery since then, no issues HLD (hyperlipidemia) Hypertension Morbid obesity with BMI of 50.0-59.9, adult KAYLEEN (obstructive sleep apnea) bipap HS x25yrs settings 05/03 Osteoarthritis Prostate cancer (Chronic) 08/04/2019 Venous stasis (Inactive) Venous stasis dermatitis Surgical History H/O esophagogastroduodenoscopy (Inactive) 2007 H/O hernia repair (Inactive) 3 hernia repairs, 2009, 2011 & 2012 History of arthroscopy of right knee meniscus repair History of colonoscopy History of wisdom tooth extraction Hx of vasectomy Status post trigger finger release right ring finger Family History Mother Lung cancer age 57 Father , cancer not sure what kind, age 90 No problems noted. Sister No problems noted. Sister No problems noted. Sister No problems noted. Son No problems noted. Daughter No problems noted. 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 Beliefs That Will Affect Care: None marital status: / Current Living Situation: Alone current occupation: retired, social security disability, [employer] worker Other Information That Helps Us Care for You: No Feels Safe at Home: Yes Safety Concerns: Feels Safe At This Time Smoking Status: Never smoker Do You Dip or Chew Tobacco: No ; Second Hand Exposure: Yes (father smoked) ; Hx Alcohol Use: No Hx Substance Use: No Childhood Exposure to Second-Hand Smoke: Yes caffeine: Yes (one cup of tea) Dental Care, Regularly: Yes Review of Systems Review of Systems: At least ten systems reviewed and negative except as noted in the HPI. Physical Exam Physical Exam: General Appearance: WD/WN, vitals as above, morbidly obese, pleasant, conversing easily Head: normocephalic, atraumatic Eyes: normal inspection, PERRL, conjunctivae normal, anicteric sclerae ENT: external ear and nose normal, oropharynx normal Neck: trachea midline, no thyromegaly, normal visual inspection Respiratory: normal respiratory effort, lungs clear to auscultation Cardiovascular: regular rate, rhythm, no murmur appreciated Abdomen/GI: normal bowel sounds, soft, nontender, no hepatosplenomegaly Extremities/Musculoskeletal: no cyanosis or clubbing, LUE 1/5 strength with reduced ROM. RUE 5/5 strengh and full ROM. BLE strength intact. Trace edema of extremities Neurologic: PERRL, EOMI, accommodation nl, no face palsy, no dysarthria, CN's II-XI intact bilaterally Psychiatric: A+Ox3, euthymic affect Skin: no rashes, normal color, warm/dry Results & Data Results & Data ([facility]) Vital Signs (Past 12 Hours) Vital Signs Temp Pulse Resp BP Pulse Ox 01/01/20 17:41 37 C 63 15 136/71 96 01/01/20 16:00 36.6 C 65 18 128/76 93
[2020-01-01] MEDS ORDERED: GLUCOSE 40% GEL 15 GM TUBE PO PRN (20:02)
[2020-01-01] MEDS ORDERED: CARBOHYDRATES FOR HYPOGLYCEMIA PO PRN (20:02)
[2020-01-01] MEDS ORDERED: GLUCOSE 10 TABS/TUBE PO PRN (20:02)
[2020-01-01] MEDS ORDERED: GLUCAGON FOR INJ 1 MG VIAL SQ PRN (20:02)
[2020-01-01] MEDS ORDERED: DEXTROSE 50% 50 ML SYRINGE IV PRN (20:02)
[2020-01-01] MEDS: FLUTICASONE PROPIONATE NA SPR 16 GM BTL SCH (20:30)
[2020-01-01] MEDS: BuPROPion SR 150 MG TABCR PO SCH (20:30)
[2020-01-01] MEDS: PREGABALIN 100 MG CAP PO SCH (20:31)
--- NOTE | 2020-01-01 20:36 | XRay Report ---
XR chest 1V portable CLINICAL HISTORY: pre-op preoperative evaluation COMPARISON STUDY: 12/25/2019 FINDINGS: Chronic parenchymal changes left lung base. Lungs otherwise are clear. No acute infiltrate. Moderate stable cardiomegaly. IMPRESSION: Moderate stable cardiomegaly. No acute process. ACT 112: Negative or not required by law. The above report was generated using voice recognition software. It may contain grammatical, syntax or spelling errors. Electronically signed by: Saul Ga M.D. 01/01/2020 8:34 PM
[2020-01-01] MEDS ORDERED: INSULIN ASPART 100 UNITS/ML 3 ML PEN SC SCH (21:00)
[2020-01-01] MEDS ORDERED: POLYETHYLENE (MIRALAX) 17 GM PACK PO PRN (21:32)
[2020-01-01] MEDS ORDERED: Nursing to Pharmacy Communication SCH (22:45)
[2020-01-02] MEDS: INSULIN ASPART 100 UNITS/ML 3 ML PEN SC SCH ×5 (00:21→22:02)
[2020-01-02] MEDS ORDERED: CEFAZOLIN 3000MG 65 ML IV SCH (06:00)
[2020-01-02] MEDS ORDERED: MIDAZOLAM HCL 1 MG/ML 2ML VIAL ONE (06:33)
[2020-01-02] MEDS ORDERED: HYDROmorphone INJ 2 MG/ML SYR/VIAL ONE (06:33)
[2020-01-02] MEDS ORDERED: fentaNYL citrate 100 MCG/2 ML VIAL ONE ×2 (06:33→11:03)
[2020-01-02 06:39] LABS: Hemoglobin 12.8 g/dL (14.0-18.0); Mean Corpuscular Hemoglobin 30.1 pg (25-34); Mean Corpuscular Hgb Conc 32.8 g/dL (32-36); Mean Corpuscular Volume 91.8 fL (80-100); Mean Platelet Volume 9.2 fL (7.4-10.4); Platelet Count 160 K/uL (130-400); RDW Coefficient of Variation 13.2 % (11.5-14.5); RDW Standard Deviation 43.9 fL (36.4-46.3); Red Blood Count 4.25 M/uL (4.7-6.1); White Blood Count 6.34 K/uL (4.8-10.8)
[2020-01-02] MEDS ORDERED: REMIFENTANIL HCL 1 MG VIAL ONE (06:40)
[2020-01-02 07:07] LABS: BUN Creatinine Ratio 15.8 (10-20); Calcium 9.1 mg/dl (8.5-10.1); Creatinine Clr Calc Pharmacy 92.2 ml/min; Est GFR (African American) 84.8; Est GFR (Non-African American) 73.2; Potassium 4.1 mmol/L (3.5-5.1)
[2020-01-02] MEDS ORDERED: BACITRACIN INJ 50,000 UNIT VIAL ONE (07:10)
--- NOTE | 2020-01-02 07:24 | History & Physical Report ---
Date of Service January 02, 2020 Assessment & Plan (1) Myelopathy concurrent with and due to spinal stenosis of cervical region: C4 corpectomy Present on Admission?: Yes History of Present Illness Chief Complaint: Bilateral arm weakness severe on the left with decreased ability to ambulate Primary Care Provider: Ana Iglesias DO This is a 64-year-old male known to me that presents with marked decline in neurologic function vertically involving left upper extremity. He is noted changes over the past several weeks but now presents with almost a flaccid left arm. Allergies Allergy/AdvReac Type Severity Reaction Status Date / Time No Known Allergies Allergy Verified 12/24/19 23:06 Home Medications Home Medications Medication Instructions Recorded Confirmed Type PreserVision AREDS 1 cap PO DAILY 11/29/18 01/01/20 History armodafinil 150 mg PO QAM 11/29/18 01/01/20 History aspirin 81 mg PO QAM 11/29/18 01/01/20 History atorvastatin 20 mg PO QAM 11/29/18 01/01/20 History bupropion HCl 150 mg PO BID 11/29/18 01/01/20 History cetirizine 10 mg PO QAM 11/29/18 01/01/20 History furosemide 40 mg PO QAM 11/29/18 01/01/20 History lisinopril 10 mg PO QAM 11/29/18 01/01/20 History metformin 750 mg PO BID 11/29/18 01/01/20 History mometasone 1 spray INTRANASAL HS 11/29/18 01/01/20 History pregabalin [Lyrica] 100 mg PO BID 11/29/18 01/01/20 History cholecalciferol (vitamin D3) 2,000 unit PO QAM 06/17/19 01/01/20 History [Vitamin D3] ketoconazole 1 applic TOPICAL QAM 06/17/19 01/01/20 History halobetasol propionate 1 applic TOPICAL DIRECTED 12/24/19 01/01/20 History Past Med/Surg History Medical History BPH (benign prostatic hyperplasia) Colon cancer screening Depression Diabetes (Inactive) Diabetes mellitus, type 2 SCOTT (generalized anxiety disorder) (Inactive) GERD (gastroesophageal reflux disease) (Inactive) Hearing loss in right ear History of anesthesia reaction had BP drop during one of his hernia sx---had surgery since then, no issues HLD (hyperlipidemia) Hypertension Morbid obesity with BMI of 50.0-59.9, adult KAYLEEN (obstructive sleep apnea) bipap HS x25yrs settings 05/03 Osteoarthritis Prostate cancer (Chronic) 08/04/2019 Venous stasis (Inactive) Venous stasis dermatitis Surgical History H/O esophagogastroduodenoscopy (Inactive) 2007 H/O hernia repair (Inactive) 3 hernia repairs, 2009, 2011 & 2012 History of arthroscopy of right knee meniscus repair History of colonoscopy History of wisdom tooth extraction Hx of vasectomy Status post trigger finger release right ring finger Family History Mother Lung cancer age 57 Father , cancer not sure what kind, age 90 No problems noted. Sister No problems noted. Sister No problems noted. Sister No problems noted. Son No problems noted. Daughter No problems noted. Other No family history of adverse response to anesthesia Social History Preferred Language: Thai Communication Ability: Effective Manager Oncology Required: No Beliefs That Will Affect Care: None marital status: / Current Living Situation: Alone current occupation: retired, social security disability, [employer] worker Other Information That Helps Us Care for You: No Feels Safe at Home: Yes Safety Concerns: Feels Safe At This Time Smoking Status: Never smoker Do You Dip or Chew Tobacco: No ; Second Hand Exposure: Yes (father smoked) ; Hx Alcohol Use: No Hx Substance Use: No Childhood Exposure to Second-Hand Smoke: Yes caffeine: Yes (one cup of tea) Dental Care, Regularly: Yes Physical Exam Physical Exam: On exam the patient is alert and oriented Neurologically his left upper extremity has absence of the deltoids biceps triceps chromium plater strength is a 3/5 on the left. His right upper extremity demonstrates a 4/5 the detailed testing. He has no gross Lhermitte's phenomenon today. He exhibits sustained clonus bilateral lower extremities. Heart is regular in rhythm Lungs clear to auscultation Results & Data Vital Signs (Past 12 Hours) Vital Signs Temp Pulse Pulse Resp BP Pulse Ox 01/02/20 06:39 36.8 C 65 20 131/77 94 01/02/20 02:15 63 28 H 95 01/01/20 23:46 37.5 C 62 18 146/79 H 96 01/01/20 21:18 70 21 95 Code Status & VTE Plan VTE Prophylaxis Plan VTE Prophylaxis will be ordered: Yes
[2020-01-02] MEDS ORDERED: PROPOFOL IV EMULSION 10 MG/ML 20 ML VIAL IV ONE (09:09)
[2020-01-02] MEDS ORDERED: GLYCOPYRROLATE 0.2 MG/ML VIAL ONE (09:09)
[2020-01-02] MEDS ORDERED: LIDOCAINE HCL 2% 2 ML VIAL/AMP(20MG/ML) INFIL ONE (09:09)
[2020-01-02] MEDS ORDERED: SUCCINYLCHOLINE CHLORIDE 20 MG/ML 10 ML VIAL IV ONE (09:09)
[2020-01-02] MEDS ORDERED: DEXAMETHASONE SOD INJ 4 MG/ML VIAL ONE (09:09)
[2020-01-02] MEDS ORDERED: NEOSTIGMINE METHYLSULFATE 5 MG/5 ML SYR ONE (09:09)
[2020-01-02] MEDS ORDERED: ROCURONIUM BROMIDE 10 MG/ML 5 ML VIAL IV ONE (09:09)
[2020-01-02] MEDS ORDERED: ONDANSETRON INJ 2 MG/ML 2 ML VIAL ONE (09:09)
[2020-01-02] MEDS ORDERED: LORazepam 0.5 MG TAB PO PRN (13:00)
[2020-01-02] MEDS ORDERED: ACETAMINOPHEN 500 MG TAB PO PRN (13:00)
[2020-01-02] MEDS ORDERED: ALUMINUM/MAGNESIUM SUSP 30 ML UDC PO PRN (13:00)
[2020-01-02] MEDS ORDERED: LORazepam 0.5 MG/1 ML VIAL IV PRN (13:00)
[2020-01-02] MEDS ORDERED: MAGNESIUM HYDROXIDE SUSP 30 ML UDC PO PRN (13:00)
[2020-01-02] MEDS ORDERED: ONDANSETRON 4 MG OD TAB PO PRN (13:00)
[2020-01-02] MEDS ORDERED: PROMETHAZINE HCL 12.5 MG in SODIUM CHLORIDE 0.9% 50 ML IV PRN (13:00)
[2020-01-02] MEDS ORDERED: TRAMADOL HCL 50 MG TABLET PO PRN (13:00)
[2020-01-02] MEDS ORDERED: DO NOT ADMINISTER FLU VACCINE PRN (13:00)
[2020-01-02] MEDS ORDERED: NALOXONE HCL 0.4 MG/1 ML VIAL/CARP IV PRN (13:00)
[2020-01-02] MEDS ORDERED: RACEPINEPHRINE 2.25% NEBU SOLN 0.5 ML VIAL INH PRN (13:00)
[2020-01-02] MEDS ORDERED: DO NOT ADMINISTER PNEUMOCOCCAL VACCINE PRN (13:00)
[2020-01-02] MEDS ORDERED: METOCLOPRAMIDE HCL INJ 5 MG/ML 2 ML VIAL IV PRN (13:00)
[2020-01-02] MEDS ORDERED: FAMOTIDINE 20 MG TAB PO PRN (13:00)
[2020-01-02] MEDS ORDERED: SOD PHOSPHATE/SOD BIPHOSPHATE ENEMA 132 ML BTL PR PRN (13:00)
[2020-01-02] MEDS ORDERED: ACETAMINOPHEN 1,000 MG/100 ML VIAL IV PRN (13:00)
[2020-01-02] MEDS ORDERED: DEXAMETHASONE SOD PHOSPHATE 8 MG in SYRINGE 0 ML IV PRN (13:00)
[2020-01-02] MEDS ORDERED: ONDANSETRON INJ 2 MG/ML 2 ML VIAL IV PRN (13:00)
[2020-01-02] MEDS: ASPIRIN 81 MG ECTAB PO SCH (13:06)
[2020-01-02] MEDS: ATORVASTATIN 20 MG TAB PO SCH (13:06)
[2020-01-02] MEDS: PREGABALIN 100 MG CAP PO SCH ×2 (13:06→22:02)
[2020-01-02] MEDS: CHOLECALCIFEROL 1,000 UNITS 25 MCG TAB PO SCH (13:07)
[2020-01-02] MEDS: CETIRIZINE HCL 10 MG TABLET PO SCH (13:07)
[2020-01-02] MEDS: CEROVITE ADV FORMULA TAB PO SCH (13:07)
[2020-01-02] MEDS: BuPROPion SR 150 MG TABCR PO SCH ×2 (13:09→21:59)
[2020-01-02] MEDS: SODIUM CHLORIDE 0.9% 1000ML 1,000 ML IV SCH (14:25)
[2020-01-02] MEDS: OXYCODONE HCL IR 5 MG TAB (IMMEDIATE RELEASE) PO PRN ×2 (15:11→19:35)
[2020-01-02] MEDS: CEFAZOLIN 2000MG 2,000 MG/15 ML SYR IV SCH ×2 (15:12→22:03)
[2020-01-02] MEDS ORDERED: Nursing to Pharmacy Communication SCH (15:15)
--- NOTE | 2020-01-02 18:29 | Hospitalist Progress Note ---
Date of Service January 02, 2020 Assessment & Plan (1) Myelopathy concurrent with and due to spinal stenosis of cervical region: This is a 64yo M with a PMH of DM II, KAYLEEN on bipap, morbid obesity, HLD, venous stasis dermatitis and cervical spine stenosis who presents with ongoing LUE weakness. -Now s/p anterior cervical corpectomy with bilateral foraminotomies C4, by Dr. Peña (January 01) -Patient tolerated procedure well -Continues to have weakness and numbness in upper extremities, no sensory was noted -Pre-op eval - no cardiac history in the chart, no ischemic heart disease, no heart failure, no EKG changes, no CVD, has diabetes but not taking insulin and creatinine is less than 2 - Pt denied any chest pain and/or palpitation or shortness of breath with usual activities - Echo from last week: study was technically difficult, done with the patient on BiPAP and sitting up, LV size normal, mod concentric LVH, wall motion is normal, EF 70%, grade 1 diastolic dysfunction and no significant valvular disease -Carries more than usual risk given comorbid conditions -EKG and CXR obtained prior to surgery -Will need BiPAP support following surgery and may need intubation and pulmonary evaluation -Per ortho for pain control, wound care, anticoagulation and activities -Monitor H&H, continue incentive spirometry, PT/OT when appropriate -Current hemoglobin stable and unchanged prior to surgery (2) Morbid obesity with BMI of 50.0-59.9, adult: (3) KAYLEEN (obstructive sleep apnea): Bipap HS. Monitor closely post-operatively for respiratory support (4) Diabetes mellitus, type 2: A1c 6.0% Hold home agents. SSI while in-patient. BSG AC HS (5) Hypertension: At home on lisinopril and furosemide - plan to restart prior to discharge (6) Depression: Continue bupropion PCP: [facility] Dispo: Per primary service Admission and Anticipated Discharge Date Admission Date: January 01, 2020 Subjective Patient is lying in bed, status post surgical procedure with Dr. Peña, anterior cervical corpectomy with bilateral foraminotomies C4. Patient tolerated procedure well, currently has no complaints. Denies any fevers, chills, chest pain, shortness of breath, abdominal pain nausea or vomiting. Review of Systems Review of Systems: All systems reviewed & are unremarkable except as noted in HPI & below Constitutional: no fever and no chills Respiratory: no cough and no dyspnea Cardiovascular: no chest pain and no palpitations Gastrointestinal: no abdominal pain, no nausea and no vomiting Physical Exam Physical Exam: Physical Exam: Morbidly obese male lying in bed, in NAD Constitutional: well developed, well nourished, + morbidly obese Eyes: PERRL, EOMI, conjunctivae normal, anicteric sclerae ENMT: external ear and nose normal Neck: Dressings applied over anterior neck surgical incision Respiratory: normal respiratory effort Auscultation: + diminished lung sounds (Bilaterally likely secondary to thick body wall), no wheezing, rhonchi or crackles noted Cardiovascular: Rate/Rhythm: regular rate and regular rhythm Heart Sounds: no murmur Gastrointestinal (Abdomen): abdomen normal to inspection, bowel sounds present, obese, + abdomen mildly distended, soft, nontender Musculoskeletal: Left shoulder movement is restricted and painful, no sensory loss noted Neurologic: moves all extremities (Weakness in the left upper extremity) and + focal motor deficit, Left upper extremity is weaker than right Psychiatric: Orientation: oriented x 3 Insight: good insight Judgement: good judgement Results & Data Results & Data ([facility]) Vital Signs (Past 12 Hours) Vital Signs Temp Pulse Pulse Resp BP Pulse Ox Pulse Ox 01/02/20 15:03 37.1 C 73 16 149/83 H 92 01/02/20 14:00 36.9 C 74 16 153/84 H 92 01/02/20 13:30 37.0 C 71 16 161/87 H 94 01/02/20 13:22 37.1 C 67 16 153/83 H 94 94 01/02/20 13:14 67 16 95 01/02/20 11:20 66 16 150/73 H 96 01/02/20 11:10 73 18 150/64 H 93 01/02/20 11:00 67 21 152/93 H 95 01/02/20 10:50 65 18 162/72 H 99 01/02/20 10:40 64 20 157/82 H 99 01/02/20 10:34 36.2 C L 68 16 162/78 H 97 01/02/20 06:39 36.8 C 65 20 131/77 94 Laboratory Results 01/02/20 01/02/20 01/02/20 Range/Units 17:05 13:20 10:39 WBC (4.8-10.8) K/uL RBC (4.7-6.1) M/uL Hgb (14.0-18.0) g/dL Hct (42-52) % MCV (80-100) fL MCH (25-34) pg MCHC (32-36) g/dL RDW Std Deviation (36.4-46.3) fL RDW Coeff of Shanel (11.5-14.5) % Plt Count (130-400) K/uL MPV (7.4-10.4) fL Sodium (136-145) mmol/L Potassium (3.5-5.1) mmol/L Chloride (98-107) mmol/L Carbon Dioxide (21-32) mmol/L Anion Gap (3-11) BUN (7-18) mg/dl Creatinine (0.6-1.4) mg/dl Est Cr Clr Drug Dosing ml/min Est GFR ( Amer) Est GFR (Non-Af Amer) BUN/Creatinine Ratio (10-20) Glucose (70-99) mg/dl POC Glucose 147 H 141 H 116 H (70-99) mg/dl Calcium (8.5-10.1) mg/dl 01/02/20 01/02/20 01/02/20 Range/Units 06:23 06:23 05:38 WBC 6.34 (4.8-10.8) K/uL RBC 4.25 L (4.7-6.1) M/uL Hgb 12.8 L (14.0-18.0) g/dL Hct 39.0 L (42-52) % MCV 91.8 (80-100) fL MCH 30.1 (25-34) pg MCHC 32.8 (32-36) g/dL RDW Std Deviation 43.9 (36.4-46.3) fL RDW Coeff of Shanel 13.2 (11.5-14.5) % Plt Count 160 (130-400) K/uL MPV 9.2 (7.4-10.4) fL Sodium 141 (136-145) mmol/L Potassium 4.1 (3.5-5.1) mmol/L Chloride 110 H (98-107) mmol/L Carbon Dioxide 26 (21-32) mmol/L Anion Gap 5.0 (3-11) BUN 17 (7-18) mg/dl Creatinine 1.08 (0.6-1.4) mg/dl Est Cr Clr Drug Dosing 92.2 ml/min Est GFR ( Amer) 84.8 Est GFR (Non-Af Amer) 73.2 BUN/Creatinine Ratio 15.8 (10-20) Glucose 98 (70-99) mg/dl POC Glucose 103 H (70-99) mg/dl Calcium 9.1 (8.5-10.1) mg/dl 01/02/20 01/01/20 Range/Units 00:06 20:39 WBC (4.8-10.8) K/uL RBC (4.7-6.1) M/uL Hgb (14.0-18.0) g/dL Hct (42-52) % MCV (80-100) fL MCH (25-34) pg MCHC (32-36) g/dL RDW Std Deviation (36.4-46.3) fL RDW Coeff of Shanel (11.5-14.5) % Plt Count (130-400) K/uL MPV (7.4-10.4) fL Sodium (136-145) mmol/L Potassium (3.5-5.1) mmol/L Chloride (98-107) mmol/L Carbon Dioxide (21-32) mmol/L Anion Gap (3-11) BUN (7-18) mg/dl Creatinine (0.6-1.4) mg/dl Est Cr Clr Drug Dosing ml/min Est GFR ( Amer) Est GFR (Non-Af Amer) BUN/Creatinine Ratio (10-20) Glucose (70-99) mg/dl POC Glucose 94 122 H (70-99) mg/dl Calcium (8.5-10.1) mg/dl Medications Administered Current Inpatient Medications Acetaminophen (Tylenol) 1,000 mg PO Q8H PRN PRN Reason: MILD Pain Scale 1,2,3 & Pre PT Stop: 02/01/20 12:59 Al Hydrox/Mg Hydrox/Simethicone (Maalox) 30 ml PO Q6H PRN PRN Reason: Dyspepsia Stop: 02/01/20 12:59 Aspirin (Ecotrin Ectab) 81 mg PO QAM [facility] Stop: 02/01/20 08:59 Last Admin: 01/02/20 13:06 Dose: Not Given Documented by: Atorvastatin Calcium (Lipitor) 20 mg PO QAM [facility] Stop: 02/01/20 08:59 Last Admin: 01/02/20 13:06 Dose: Not Given Documented by: Bisacodyl (Dulcolax) 10 mg OK DAILY PRN PRN Reason: Constipation Stop: 02/03/20 12:15 Bupropion HCl (Wellbutrin-Sr) 150 mg PO BID [facility] Stop: 01/31/20 20:59 Last Admin: 01/02/20 13:09 Dose: Not Given Documented by: Cetirizine HCl (Zyrtec) 10 mg PO QAM [facility] Stop: 02/01/20 08:59 Last Admin: 01/02/20 13:07 Dose: Not Given Documented by: Dextrose (Dextrose 50%) 25 - 50 ml IV UD PRN; Protocol PRN Reason: Hypoglycemia Protocol Stop: 01/31/20 20:01 Diphenhydramine HCl (Benadryl Capsule) 25 mg PO Q6H PRN PRN Reason: Allergic Rhinitis/Insomnia Stop: 02/01/20 12:59 Epinephrine (Raccemic Epinephrine 2.25% 0.5ml) 0.5 ml INH NOW PRN PRN Reason: if stridor present Stop: 02/01/20 12:59 Famotidine (Pepcid) 20 mg PO Q12H PRN PRN Reason: Dyspepsia Stop: 02/01/20 12:59 Fluticasone Propionate (Flonase) 1 sprays NA [facility] Stop: 01/31/20 20:59 Last Admin: 01/01/20 20:30 Dose: 1 sprays Documented by: Furosemide (Lasix) 40 mg PO QAM [facility] Stop: 02/02/20 08:59 Glucagon (Glucagen) 1 mg SQ UD PRN; Protocol PRN Reason: Hypoglycemia Protocol Stop: 01/31/20 20:01 Glucose (Dex4 Glucose) 4 - 8 tabs PO UD PRN; Protocol PRN Reason: Hypoglycemia Protocol Stop: 01/31/20 20:01 Glucose (Glucose 40%) 15 - 30 gm PO UD PRN; Protocol PRN Reason: Hypoglycemia Protocol Stop: 01/31/20 20:01 Hydromorphone HCl (Dilaudid) 0.5 mg IV Q3H PRN PRN Reason: MOD pain (scale 4-6) & Pre PT Stop: 01/16/20 12:59 Hydromorphone HCl (Dilaudid) 1 mg IV Q3H PRN PRN Reason: severe pain (scale 7-10) Stop: 01/16/20 12:59 Hydroxyzine HCl (Vistaril) 25 mg PO Q8H PRN PRN Reason: Anxiety Stop: 02/01/20 12:59 Lorazepam (Ativan) 1 mg in 2 mls @ 2 mls/min IV Q6H PRN PRN Reason: Anxiety/Spasms Stop: 01/31/20 15:46 Dexamethasone Sodium Phosphate (8 mg/ Syringe) 2 mls @ 1 mls/min IV NOW PRN PRN Reason: stridor Stop: 02/01/20 12:59 Lorazepam (Ativan) 0.5 mg in 1 mls @ 1 mls/min IV Q8H PRN PRN Reason: Sedation/Anxiety Stop: 02/01/20 12:59 Sodium Chloride (Nss 1000ml) 1,000 mls @ 100 mls/hr IV .Q10H NASIR Stop: 02/01/20 12:59 Last Admin: 01/02/20 14:25 Dose: 100 mls/hr Documented by: Promethazine HCl 12.5 mg/ (Sodium Chloride) 50.5 mls @ 202 mls/hr IV Q6H PRN PRN Reason: Nausea &/or Vomiting Stop: 02/01/20 12:59 Acetaminophen (Ofirmev) 1,000 mg in 100 mls @ 400 mls/hr IV Q8H PRN PRN Reason: Pain Rating 1-3 & Pre PT Stop: 01/03/20 12:17 Cefazolin Sodium (Ancef 2000mg) 2,000 mg in 15 mls @ 3.75 mls/min IV Q8H NASIR; Protocol Stop: 01/02/20 23:03 Last Admin: 01/02/20 15:12 Dose: 3.75 mls/min Documented by: Influenza Virus Vaccine Quadrival (Flu Vaccine, Do Not Administer) 1 ea N/A PRN PRN PRN Reason: Notification Stop: 02/01/20 12:59 Insulin Aspart (Novolog Flexpen) 0 units SC ACHS NASIR Stop: 02/01/20 16:29 Last Admin: 01/02/20 18:16 Dose: 9 units Documented by: Ketoconazole (Nizoral 2%) [facility] Stop: 01/13/20 08:59 Lisinopril (Zestril) 10 mg PO QAM [facility] Stop: 02/02/20 08:59 Lorazepam (Ativan) 1 mg PO Q6H PRN PRN Reason: Anxiety/spasms Stop: 01/31/20 15:46 Lorazepam (Ativan) 0.5 mg PO Q8H PRN PRN Reason: sedation/anxiety Stop: 02/01/20 12:59 Magnesium Hydroxide (Milk Of Magnesia) 30 ml PO Q24H PRN PRN Reason: Constipation Stop: 02/01/20 12:59 Metoclopramide HCl (Reglan) 10 mg IV Q6H PRN PRN Reason: Nausea &/or Vomiting Stop: 02/01/20 12:59 Miscellaneous (Order Awaiting Action) 1 ea N/A QS [facility] Stop: 02/01/20 00:00 Last Admin: 01/02/20 15:12 Dose: Not Given Documented by: Miscellaneous (Carbohydrates For Hypoglycemia) 15 - 30 gm PO UD PRN PRN Reason: Hypoglycemia Protocol Stop: 01/31/20 20:01 Miscellaneous (Order Awaiting Action) 1 ea N/A QS [facility] Stop: 02/01/20 00:00 Last Admin: 01/02/20 15:12 Dose: Not Given Documented by: Multivitamins/Minerals (Multivitamin W/ Minerals Tab) 1 tab PO DAILY [facility] Stop: 02/01/20 08:59 Last Admin: 01/02/20 13:07 Dose: Not Given Documented by: Naloxone HCl (Narcan) 0.1 mg IV Q5M PRN PRN Reason: Oversedation/respiratory dep Stop: 02/01/20 12:59 Ondansetron HCl (Zofran) 4 mg IV Q6H PRN PRN Reason: Nausea &/or Vomiting Stop: 02/01/20 12:59 Ondansetron HCl (Zofran Odt) 4 mg PO Q6H PRN PRN Reason: Nausea Stop: 02/01/20 12:59 Oxycodone HCl (Roxicodone Immediate Rel) 5 - 10 mg PO Q4H PRN PRN Reason: Pain & Pre PT Stop: 01/16/20 12:59 Last Admin: 01/02/20 15:11 Dose: 10 mg Documented by: Pneumococcal Polyvalent Vaccine (Pneumococcal Vacc, Do Not Administer) 1 ea N/A PRN PRN PRN Reason: Notification Stop: 02/01/20 12:59 Polyethylene Glycol (Miralax Powder Packet) 17 gm PO DAILY PRN PRN Reason: Constipation Stop: 01/31/20 21:31 Polyethylene Glycol (Miralax Powder Packet) 17 gm PO Q6 [facility] Stop: 02/02/20 11:59 Pregabalin (Lyrica) 100 mg PO BID [facility] Stop: 01/31/20 20:59 Last Admin: 01/02/20 13:06 Dose: Not Given Documented by: Senna/Docusate Sodium (Senokot S) 2 tab PO HS [facility] Stop: 02/01/20 20:59 Sodium Biphosphate/Sodium Phosphate (Fleet Enema) 132 ml OK ONE PRN PRN Reason: Constipation Stop: 02/01/20 12:59 Tramadol HCl (Ultram) 50 - 100 mg PO Q4H PRN PRN Reason: Moderate-Severe pain & Pre PT Stop: 02/01/20 12:59 Vitamin D (Vitamin D3) 2,000 units PO QAM [facility] Stop: 02/01/20 08:59 Last Admin: 01/02/20 13:07 Dose: Not Given Documented by:
--- NOTE | 2020-01-02 19:17 | Electrocardiogram Report ---
Test Reason : Blood Pressure : / mmHG Vent. Rate : 064 BPM Atrial Rate : 064 BPM P-R Int : 164 ms QRS Dur : 092 ms QT Int : 374 ms P-R-T Axes : 059 011 056 degrees QTc Int : 385 ms Normal sinus rhythm Normal ECG When compared with ECG of 25-DEC-2019 00:18, No significant change was found Confirmed by Ferny Villatoro ([id number]) on 01/02/2020 7:17:15 PM Referred By: Francesco Peña Confirmed By:Jairo Villatoro
[2020-01-02] MEDS: FLUTICASONE PROPIONATE NA SPR 16 GM BTL SCH (21:59)
[2020-01-02] MEDS: DOCUSATE SODIUM/SENNA 50/8.6MG TAB PO SCH (22:00)
[2020-01-03] MEDS: SODIUM CHLORIDE 0.9% 1000ML 1,000 ML IV SCH ×2 (00:47→09:47)
[2020-01-03 08:09] LABS: Basophils # (auto) 0.01 K/uL (0-0.2); Basophils % (auto) 0.1 %; Eosinophils % (auto) 1.4 %; Hematocrit (blood only) 37.6 % (42-52); Hemoglobin 12.4 g/dL (14.0-18.0); Immature Granulocytes # (auto) 0.01 K/uL (0.00-0.02); Immature Granulocytes % (auto) 0.1 %; Lymphocytes % (auto) 13.9 %; Mean Corpuscular Hemoglobin 30.2 pg (25-34); Mean Corpuscular Volume 91.5 fL (80-100); Mean Platelet Volume 9.4 fL (7.4-10.4); Monocytes # (auto) 0.83 K/uL (0.11-0.59); Monocytes % (auto) 11.5 %; Neutrophils # (auto) 5.24 K/uL (1.4-6.5); Platelet Count 177 K/uL (130-400); RDW Standard Deviation 43.2 fL (36.4-46.3); Red Blood Count 4.11 M/uL (4.7-6.1); White Blood Count 7.19 K/uL (4.8-10.8)
[2020-01-03 08:47] LABS: BUN Creatinine Ratio 14.9 (10-20); Calcium 9.2 mg/dl (8.5-10.1); Creatinine Clr Calc Pharmacy 91.4 ml/min; Est GFR (African American) 83.9; Est GFR (Non-African American) 72.4
--- NOTE | 2020-01-03 09:31 | Hospitalist Progress Note ---
Date of Service January 03, 2020 Assessment & Plan (1) Myelopathy concurrent with and due to spinal stenosis of cervical region: This is a 64yo M with a PMH of DM II, KAYLEEN on bipap, morbid obesity, HLD, venous stasis dermatitis and cervical spine stenosis who presents with ongoing LUE weakness. -Now s/p anterior cervical corpectomy with bilateral foraminotomies C4, by Dr. Peña (January 01) -Patient tolerated procedure well -Continues to have weakness and numbness in upper extremities, no sensory was noted -Pre-op eval - no cardiac history in the chart, no ischemic heart disease, no heart failure, no EKG changes, no CVD, has diabetes but not taking insulin and creatinine is less than 2 - Pt denied any chest pain and/or palpitation or shortness of breath with usual activities - Echo from last week: study was technically difficult, done with the patient on BiPAP and sitting up, LV size normal, mod concentric LVH, wall motion is normal, EF 70%, grade 1 diastolic dysfunction and no significant valvular disease -Carries more than usual risk given comorbid conditions -EKG and CXR obtained prior to surgery -Will need BiPAP support following surgery and may need intubation and pulmonary evaluation -Per ortho for pain control, wound care, anticoagulation and activities -Monitor H&H, continue incentive spirometry, PT/OT when appropriate -Current hemoglobin stable and unchanged prior to surgery -Patient hypoxic with repositioning, then recovered quickly after repositioning again. Recommended BiPAP received 20 IV Lasix (2) Morbid obesity with BMI of 50.0-59.9, adult: (3) KAYLEEN (obstructive sleep apnea): Bipap HS. Monitor closely post-operatively for respiratory support (4) Diabetes mellitus, type 2: A1c 6.0% Hold home agents. SSI while in-patient. BSG AC HS (5) Hypertension: At home on lisinopril and furosemide - cont. while inpt (6) Depression: Continue bupropion PCP: [facility] Dispo: Per primary service Admission and Anticipated Discharge Date Admission Date: January 01, 2020 Subjective No acute events overnight. However reported by nursing staff that after positioning patient was hypoxic, when repositioned back saturations came back immediately. Recommended to place on BiPAP. Also patient received 20 IV Lasix. Currently patient is lying in bed, in no acute distress. Complains of constipation. Received stool softeners. Patient denies any fevers, chills, chest pain, increased shortness of breath, abdominal pain, nausea or vomiting. Review of Systems Review of Systems: All systems reviewed & are unremarkable except as noted in HPI & below Constitutional: no fever and no chills Respiratory: + cough and + dyspnea (limited, when repositioned) Cardiovascular: no chest pain and no palpitations Gastrointestinal: + constipation; no abdominal pain, no nausea and no vomiting Physical Exam Physical Exam: Physical Exam: Morbidly obese male lying in bed, in NAD Constitutional: well developed, well nourished, + morbidly obese Eyes: PERRL, EOMI, conjunctivae normal, anicteric sclerae ENMT: external ear and nose normal Neck: Dressings applied over anterior neck surgical incision Respiratory: normal respiratory effort Auscultation: + diminished lung sounds (Bilaterally likely secondary to thick body wall), no wheezing, rhonchi or crackles noted Cardiovascular: Rate/Rhythm: regular rate and regular rhythm Heart Sounds: no murmur Gastrointestinal (Abdomen): abdomen normal to inspection, bowel sounds present, obese, + abdomen mildly distended, soft, nontender Musculoskeletal: Left shoulder movement is restricted and painful, no sensory loss noted Neurologic: moves all extremities (Weakness in the left upper extremity) and + focal motor deficit, Left upper extremity is weaker than right Psychiatric: Orientation: oriented x 3 Insight: good insight Judgement: good judgement Results & Data Results & Data ([facility]) Vital Signs (Past 12 Hours) Vital Signs Temp Pulse Pulse Pulse Resp BP BP 01/03/20 09:00 69 16 142/82 H 01/03/20 07:42 56 L 16 153/84 H 01/03/20 07:37 80 20 01/03/20 07:36 80 20 01/03/20 05:30 37 C 61 18 145/85 H 01/03/20 05:19 59 L 18 01/03/20 03:10 37.0 C 66 18 158/81 H 01/03/20 01:08 63 63 20 01/03/20 01:00 37.1 C 70 18 162/89 H 01/02/20 23:08 37.6 C H 70 18 144/83 H 01/02/20 22:58 81 81 16 Pulse Ox 01/03/20 09:00 92 01/03/20 07:42 100 01/03/20 07:37 96 01/03/20 07:36 99 01/03/20 05:30 95 01/03/20 05:19 97 01/03/20 03:10 93 01/03/20 01:08 93 01/03/20 01:00 95 01/02/20 23:08 94 01/02/20 22:58 93
[2020-01-03] MEDS: INSULIN ASPART 100 UNITS/ML 3 ML PEN SC SCH ×4 (09:37→21:13)
[2020-01-03] MEDS: BuPROPion SR 150 MG TABCR PO SCH ×2 (09:38→20:55)
[2020-01-03] MEDS: ASPIRIN 81 MG ECTAB PO SCH (09:39)
[2020-01-03] MEDS: lisinopriL 10 MG TAB PO SCH (09:39)
[2020-01-03] MEDS: ATORVASTATIN 20 MG TAB PO SCH (09:39)
[2020-01-03] MEDS: FUROSEMIDE 40 MG TAB PO SCH (09:39)
[2020-01-03] MEDS: CEROVITE ADV FORMULA TAB PO SCH (09:40)
[2020-01-03] MEDS: CETIRIZINE HCL 10 MG TABLET PO SCH (09:40)
[2020-01-03] MEDS: CHOLECALCIFEROL 1,000 UNITS 25 MCG TAB PO SCH (09:40)
[2020-01-03] MEDS: KETOCONAZOLE 2% CR 15 GM TUBE EXT SCH (09:41)
[2020-01-03] MEDS: PREGABALIN 100 MG CAP PO SCH ×2 (09:47→20:55)
--- NOTE | 2020-01-03 10:02 | Orthopedic Progress Note ---
Date of Service January 03, 2020 Assessment & Plan (1) Myelopathy concurrent with and due to spinal stenosis of cervical region: This time will initiate physical therapy occupational therapy hope for rehab placement early next week. Present on Admission?: Yes Admission and Anticipated Discharge Date Admission Date: January 01, 2020 Subjective Patient is swallowing well and tolerating fluids. No hoarseness. Physical Exam Physical Exam: On exam he is sitting up at the bedside. He does have more spontaneous motion of left upper extremity compared to his preoperative status. Results & Data ([facility]) Vital Signs (Past 12 Hours) Vital Signs Temp Pulse Pulse Pulse Resp BP BP 01/03/20 09:00 69 16 142/82 H 01/03/20 07:42 56 L 16 153/84 H 01/03/20 07:37 80 20 01/03/20 07:36 80 20 01/03/20 05:30 37 C 61 18 145/85 H 01/03/20 05:19 59 L 18 01/03/20 03:10 37.0 C 66 18 158/81 H 01/03/20 01:08 63 63 20 01/03/20 01:00 37.1 C 70 18 162/89 H 01/02/20 23:08 37.6 C H 70 18 144/83 H 01/02/20 22:58 81 81 16 Pulse Ox 01/03/20 09:00 92 01/03/20 07:42 100 01/03/20 07:37 96 01/03/20 07:36 99 01/03/20 05:30 95 01/03/20 05:19 97 01/03/20 03:10 93 01/03/20 01:08 93 01/03/20 01:00 95 01/02/20 23:08 94 01/02/20 22:58 93
[2020-01-03] MEDS: DEXAMETHASONE SOD PHOSPHATE 8 MG in SYRINGE 0 ML IV SCH ×2 (13:42→20:12)
[2020-01-03] MEDS: POLYETHYLENE (MIRALAX) 17 GM PACK PO SCH ×3 (13:42→23:27)
[2020-01-03] MEDS ORDERED: FUROSEMIDE 20 MG in SYRINGE 0 ML IV ONE (15:30)
[2020-01-03] MEDS: DOCUSATE SODIUM/SENNA 50/8.6MG TAB PO SCH (20:55)
[2020-01-03] MEDS: FLUTICASONE PROPIONATE NA SPR 16 GM BTL SCH (20:56)
[2020-01-04] MEDS: DEXAMETHASONE SOD PHOSPHATE 8 MG in SYRINGE 0 ML IV SCH ×3 (03:23→20:34)
[2020-01-04] MEDS: POLYETHYLENE (MIRALAX) 17 GM PACK PO SCH ×4 (03:24→23:48)
[2020-01-04 06:36] LABS: Hematocrit (blood only) 38.4 % (42-52); Hemoglobin 12.4 g/dL (14.0-18.0); Mean Corpuscular Hemoglobin 29.6 pg (25-34); Mean Corpuscular Hgb Conc 32.3 g/dL (32-36); Mean Corpuscular Volume 91.6 fL (80-100); Mean Platelet Volume 9.5 fL (7.4-10.4); Platelet Count 216 K/uL (130-400); RDW Standard Deviation 43.7 fL (36.4-46.3); Red Blood Count 4.19 M/uL (4.7-6.1); White Blood Count 7.39 K/uL (4.8-10.8)
[2020-01-04 07:06] LABS: BUN Creatinine Ratio 20.8 (10-20); Calcium 9.7 mg/dl (8.5-10.1); Creatinine Clr Calc Pharmacy 115.8 ml/min; Est GFR (African American) 107.7; Est GFR (Non-African American) 92.9; Potassium 4.2 mmol/L (3.5-5.1)
--- NOTE | 2020-01-04 07:30 | Hospitalist Progress Note ---
Date of Service January 04, 2020 Assessment & Plan (1) Myelopathy concurrent with and due to spinal stenosis of cervical region: This is a 64yo M with a PMH of DM II, KAYLEEN on bipap, morbid obesity, HLD, venous stasis dermatitis and cervical spine stenosis who presents with ongoing LUE weakness. -Now s/p anterior cervical corpectomy with bilateral foraminotomies C4, by Dr. Peña (January 01) -Patient tolerated procedure well -Continues to have weakness and numbness in upper extremities, no sensory was noted -Pre-op eval - no cardiac history in the chart, no ischemic heart disease, no heart failure, no EKG changes, no CVD, has diabetes but not taking insulin and creatinine is less than 2 - Pt denied any chest pain and/or palpitation or shortness of breath with usual activities - Echo from last week: study was technically difficult, done with the patient on BiPAP and sitting up, LV size normal, mod concentric LVH, wall motion is normal, EF 70%, grade 1 diastolic dysfunction and no significant valvular disease -Carries more than usual risk given comorbid conditions -EKG and CXR obtained prior to surgery -Will need BiPAP support following surgery and may need intubation and pulmonary evaluation -Per ortho for pain control, wound care, anticoagulation and activities -Monitor H&H, continue incentive spirometry, PT/OT when appropriate -Current hemoglobin remains stable and unchanged prior to surgery -Patient hypoxic with repositioning yesterday, then recovered quickly after repositioning again. Recommended BiPAP received 20 IV Lasix -Currently patient is lying down breathing comfortably on room air (2) Morbid obesity with BMI of 50.0-59.9, adult: (3) KAYLEEN (obstructive sleep apnea): Bipap HS. Monitor closely post-operatively for respiratory support (4) Diabetes mellitus, type 2: A1c 6.0% Hold home agents. SSI while in-patient. BSG AC HS (5) Hypertension: At home on lisinopril and furosemide - cont. while inpt (6) Depression: Continue bupropion PCP: Harris Dispo: Per primary service Admission and Anticipated Discharge Date Admission Date: January 01, 2020 Subjective No acute events overnight. Patient is lying in bed, in no acute distress. Still did not have a bowel movement. However he is passing gas and getting stool softeners. Per nursing staff, patient requires braces for his legs, his son is supposed to bring those to the hospital. Neck pain is controlled pt feels his arm symptoms are improving. He is not yet ambulating. Denies any fevers, chills, chest pain, shortness of breath , abdominal pain, nausea or vomiting. Review of Systems Review of Systems: All systems reviewed & are unremarkable except as noted in HPI & below Constitutional: no fever and no chills Respiratory: no cough and no dyspnea Cardiovascular: no chest pain and no palpitations Gastrointestinal: + constipation; no abdominal pain, no nausea and no vomiting Physical Exam Physical Exam: Physical Exam: Morbidly obese male lying in bed, in NAD Constitutional: well developed, well nourished, + morbidly obese Eyes: PERRL, EOMI, conjunctivae normal, anicteric sclerae ENMT: external ear and nose normal Neck: Dressings applied over anterior neck surgical incision Respiratory: normal respiratory effort Auscultation: + diminished lung sounds (Bilaterally likely secondary to thick body wall), no wheezing, rhonchi or crackles noted Cardiovascular: Rate/Rhythm: regular rate and regular rhythm Heart Sounds: no murmur Gastrointestinal (Abdomen): abdomen normal to inspection, bowel sounds present, obese, + abdomen mildly distended, soft, nontender Musculoskeletal: Left shoulder movement is restricted and painful, no sensory loss noted Neurologic: moves all extremities (Weakness in the left upper extremity) and + focal motor deficit, Left upper extremity is weaker than right (but improving in strength) Psychiatric: Orientation: oriented x 3 Insight: good insight Judgement: good judgement Results & Data Results & Data ([facility]) Vital Signs (Past 12 Hours) Vital Signs Temp Pulse Pulse Pulse Resp BP BP 01/04/20 07:12 37.0 C 67 22 139/75 01/04/20 07:10 80 20 01/04/20 07:09 80 20 01/04/20 03:00 60 60 18 01/03/20 23:25 36.8 C 62 16 142/83 H 01/03/20 23:20 73 16 01/03/20 23:15 73 16 01/03/20 20:45 61 61 16 Pulse Ox Pulse Ox 01/04/20 07:12 94 01/04/20 07:10 95 01/04/20 07:09 95 01/04/20 03:00 94 01/03/20 23:25 95 01/03/20 23:20 93 01/03/20 23:15 93 95 01/03/20 20:45 95 Laboratory Results 01/04/20 01/04/20 01/03/20 Range/Units 06:06 06:06 20:23 WBC 7.39 (4.8-10.8) K/uL RBC 4.19 L (4.7-6.1) M/uL Hgb 12.4 L (14.0-18.0) g/dL Hct 38.4 L (42-52) % MCV 91.6 (80-100) fL MCH 29.6 (25-34) pg MCHC 32.3 (32-36) g/dL RDW Std Deviation 43.7 (36.4-46.3) fL RDW Coeff of Shanel 13.0 (11.5-14.5) % Plt Count 216 (130-400) K/uL MPV 9.5 (7.4-10.4) fL Immature Gran % (Auto) % Neut % (Auto) % Lymph % (Auto) % Dorado % (Auto) % Eos % (Auto) % Baso % (Auto) % Immature Gran # (Auto) (0.00-0.02) K/uL Neut # (Auto) (1.4-6.5) K/uL Lymph # (Auto) (1.2-3.4) K/uL Dorado # (Auto) (0.11-0.59) K/uL Eos # (Auto) (0-0.5) K/uL Baso # (Auto) (0-0.2) K/uL Sodium 139 (136-145) mmol/L Potassium 4.2 (3.5-5.1) mmol/L Chloride 105 (98-107) mmol/L Carbon Dioxide 27 (21-32) mmol/L Anion Gap 6.0 (3-11) BUN 18 (7-18) mg/dl Creatinine 0.86 (0.6-1.4) mg/dl Est Cr Clr Drug Dosing 115.8 ml/min Est GFR ( Amer) 107.7 Est GFR (Non-Af Amer) 92.9 BUN/Creatinine Ratio 20.8 H (10-20) Glucose 131 H (70-99) mg/dl POC Glucose 158 H (70-99) mg/dl Calcium 9.7 (8.5-10.1) mg/dl 01/03/20 01/03/20 01/03/20 Range/Units 17:17 12:09 08:50 WBC (4.8-10.8) K/uL RBC (4.7-6.1) M/uL Hgb (14.0-18.0) g/dL Hct (42-52) % MCV (80-100) fL MCH (25-34) pg MCHC (32-36) g/dL RDW Std Deviation (36.4-46.3) fL RDW Coeff of Shanel (11.5-14.5) % Plt Count (130-400) K/uL MPV (7.4-10.4) fL Immature Gran % (Auto) % Neut % (Auto) % Lymph % (Auto) % Dorado % (Auto) % Eos % (Auto) % Baso % (Auto) % Immature Gran # (Auto) (0.00-0.02) K/uL Neut # (Auto) (1.4-6.5) K/uL Lymph # (Auto) (1.2-3.4) K/uL Dorado # (Auto) (0.11-0.59) K/uL Eos # (Auto) (0-0.5) K/uL Baso # (Auto) (0-0.2) K/uL Sodium (136-145) mmol/L Potassium 4.0 (3.5-5.1) mmol/L Chloride (98-107) mmol/L Carbon Dioxide (21-32) mmol/L Anion Gap (3-11) BUN (7-18) mg/dl Creatinine (0.6-1.4) mg/dl Est Cr Clr Drug Dosing ml/min Est GFR ( Amer) Est GFR (Non-Af Amer) BUN/Creatinine Ratio (10-20) Glucose (70-99) mg/dl POC Glucose 138 H 111 H (70-99) mg/dl Calcium (8.5-10.1) mg/dl 01/03/20 01/03/20 01/03/20 Range/Units 08:18 07:34 07:34 WBC 7.19 (4.8-10.8) K/uL RBC 4.11 L (4.7-6.1) M/uL Hgb 12.4 L (14.0-18.0) g/dL Hct 37.6 L (42-52) % MCV 91.5 (80-100) fL MCH 30.2 (25-34) pg MCHC 33.0 (32-36) g/dL RDW Std Deviation 43.2 (36.4-46.3) fL RDW Coeff of Shanel 13.0 (11.5-14.5) % Plt Count 177 (130-400) K/uL MPV 9.4 (7.4-10.4) fL Immature Gran % (Auto) 0.1 % Neut % (Auto) 73.0 % Lymph % (Auto) 13.9 % Dorado % (Auto) 11.5 % Eos % (Auto) 1.4 % Baso % (Auto) 0.1 % Immature Gran # (Auto) 0.01 (0.00-0.02) K/uL Neut # (Auto) 5.24 (1.4-6.5) K/uL Lymph # (Auto) 1.00 L (1.2-3.4) K/uL Dorado # (Auto) 0.83 H (0.11-0.59) K/uL Eos # (Auto) 0.10 (0-0.5) K/uL Baso # (Auto) 0.01 (0-0.2) K/uL Sodium 139 (136-145) mmol/L Potassium (3.5-5.1) mmol/L Chloride 109 H (98-107) mmol/L Carbon Dioxide 26 (21-32) mmol/L Anion Gap 5.0 (3-11) BUN 16 (7-18) mg/dl Creatinine 1.09 (0.6-1.4) mg/dl Est Cr Clr Drug Dosing 91.4 ml/min Est GFR ( Amer) 83.9 Est GFR (Non-Af Amer) 72.4 BUN/Creatinine Ratio 14.9 (10-20) Glucose 111 H (70-99) mg/dl POC Glucose 108 H (70-99) mg/dl Calcium 9.2 (8.5-10.1) mg/dl Medications Administered Current Inpatient Medications Acetaminophen (Tylenol) 1,000 mg PO Q8H PRN PRN Reason: MILD Pain Scale 1,2,3 & Pre PT Stop: 02/01/20 12:59 Al Hydrox/Mg Hydrox/Simethicone (Maalox) 30 ml PO Q6H PRN PRN Reason: Dyspepsia Stop: 02/01/20 12:59 Aspirin (Ecotrin Ectab) 81 mg PO [facility] Stop: 02/01/20 08:59 Last Admin: 01/03/20 09:39 Dose: 81 mg Documented by: Atorvastatin Calcium (Lipitor) 20 mg PO [facility] Stop: 02/01/20 08:59 Last Admin: 01/03/20 09:39 Dose: 20 mg Documented by: Bisacodyl (Dulcolax) 10 mg MS DAILY PRN PRN Reason: Constipation Stop: 02/03/20 12:15 Bupropion HCl (Wellbutrin-Sr) 150 mg PO BID [facility] Stop: 01/31/20 20:59 Last Admin: 01/03/20 20:55 Dose: 150 mg Documented by: Cetirizine HCl (Zyrtec) 10 mg PO [facility] Stop: 02/01/20 08:59 Last Admin: 01/03/20 09:40 Dose: 10 mg Documented by: Dextrose (Dextrose 50%) 25 - 50 ml IV UD PRN; Protocol PRN Reason: Hypoglycemia Protocol Stop: 01/31/20 20:01 Diphenhydramine HCl (Benadryl Capsule) 25 mg PO Q6H PRN PRN Reason: Allergic Rhinitis/Insomnia Stop: 02/01/20 12:59 Epinephrine (Raccemic Epinephrine 2.25% 0.5ml) 0.5 ml INH NOW PRN PRN Reason: if stridor present Stop: 02/01/20 12:59 Famotidine (Pepcid) 20 mg PO Q12H PRN PRN Reason: Dyspepsia Stop: 02/01/20 12:59 Fluticasone Propionate (Flonase) 1 sprays NA [facility] Stop: 01/31/20 20:59 Last Admin: 01/03/20 20:56 Dose: 1 sprays Documented by: Furosemide (Lasix) 40 mg PO [facility] Stop: 02/02/20 08:59 Last Admin: 01/03/20 09:39 Dose: 40 mg Documented by: Glucagon (Glucagen) 1 mg SQ UD PRN; Protocol PRN Reason: Hypoglycemia Protocol Stop: 01/31/20 20:01 Glucose (Dex4 Glucose) 4 - 8 tabs PO UD PRN; Protocol PRN Reason: Hypoglycemia Protocol Stop: 01/31/20 20:01 Glucose (Glucose 40%) 15 - 30 gm PO UD PRN; Protocol PRN Reason: Hypoglycemia Protocol Stop: 01/31/20 20:01 Hydromorphone HCl (Dilaudid) 0.5 mg IV Q3H PRN PRN Reason: MOD pain (scale 4-6) & Pre PT Stop: 01/16/20 12:59 Hydromorphone HCl (Dilaudid) 1 mg IV Q3H PRN PRN Reason: severe pain (scale 7-10) Stop: 01/16/20 12:59 Hydroxyzine HCl (Vistaril) 25 mg PO Q8H PRN PRN Reason: Anxiety Stop: 02/01/20 12:59 Lorazepam (Ativan) 1 mg in 2 mls @ 2 mls/min IV Q6H PRN PRN Reason: Anxiety/Spasms Stop: 01/31/20 15:46 Dexamethasone Sodium Phosphate (8 mg/ Syringe) 2 mls @ 1 mls/min IV NOW PRN PRN Reason: stridor Stop: 02/01/20 12:59 Lorazepam (Ativan) 0.5 mg in 1 mls @ 1 mls/min IV Q8H PRN PRN Reason: Sedation/Anxiety Stop: 02/01/20 12:59 Promethazine HCl 12.5 mg/ (Sodium Chloride) 50.5 mls @ 202 mls/hr IV Q6H PRN PRN Reason: Nausea &/or Vomiting Stop: 02/01/20 12:59 Dexamethasone Sodium Phosphate (8 mg/ Syringe) 2 mls @ 1 mls/min IV Q8H NASIR Stop: 02/02/20 11:59 Last Admin: 01/04/20 03:23 Dose: 1 mls/min Documented by: Influenza Virus Vaccine Quadrival (Flu Vaccine, Do Not Administer) 1 ea N/A PRN PRN PRN Reason: Notification Stop: 02/01/20 12:59 Insulin Aspart (Novolog Flexpen) 0 units SC ACHS NASIR Stop: 02/01/20 16:29 Last Admin: 01/03/20 21:13 Dose: Not Given Documented by: Ketoconazole (Nizoral 2%) 1 appln EXT QAM [facility] Stop: 01/13/20 08:59 Last Admin: 01/03/20 09:41 Dose: 1 appln Documented by: Lisinopril (Zestril) 10 mg PO QAM [facility] Stop: 02/02/20 08:59 Last Admin: 01/03/20 09:39 Dose: 10 mg Documented by: Lorazepam (Ativan) 1 mg PO Q6H PRN PRN Reason: Anxiety/spasms Stop: 01/31/20 15:46 Lorazepam (Ativan) 0.5 mg PO Q8H PRN PRN Reason: sedation/anxiety Stop: 02/01/20 12:59 Magnesium Hydroxide (Milk Of Magnesia) 30 ml PO Q24H PRN PRN Reason: Constipation Stop: 02/01/20 12:59 Metoclopramide HCl (Reglan) 10 mg IV Q6H PRN PRN Reason: Nausea &/or Vomiting Stop: 02/01/20 12:59 Miscellaneous (Order Awaiting Action) 1 ea N/A [facility] Stop: 02/01/20 00:00 Last Admin: 01/03/20 23:28 Dose: Not Given Documented by: Miscellaneous (Carbohydrates For Hypoglycemia) 15 - 30 gm PO UD PRN PRN Reason: Hypoglycemia Protocol Stop: 01/31/20 20:01 Miscellaneous (Order Awaiting Action) 1 ea N/A QS [facility] Stop: 02/01/20 00:00 Last Admin: 01/03/20 23:28 Dose: Not Given Documented by: Multivitamins/Minerals (Multivitamin W/ Minerals Tab) 1 tab PO DAILY [facility] Stop: 02/01/20 08:59 Last Admin: 01/03/20 09:40 Dose: 1 tab Documented by: Naloxone HCl (Narcan) 0.1 mg IV Q5M PRN PRN Reason: Oversedation/respiratory dep Stop: 02/01/20 12:59 Ondansetron HCl (Zofran) 4 mg IV Q6H PRN PRN Reason: Nausea &/or Vomiting Stop: 02/01/20 12:59 Ondansetron HCl (Zofran Odt) 4 mg PO Q6H PRN PRN Reason: Nausea Stop: 02/01/20 12:59 Oxycodone HCl (Roxicodone Immediate Rel) 5 - 10 mg PO Q4H PRN PRN Reason: Pain & Pre PT Stop: 01/16/20 12:59 Last Admin: 01/02/20 19:35 Dose: 10 mg Documented by: Pneumococcal Polyvalent Vaccine (Pneumococcal Vacc, Do Not Administer) 1 ea N/A PRN PRN PRN Reason: Notification Stop: 02/01/20 12:59 Polyethylene Glycol (Miralax Powder Packet) 17 gm PO DAILY PRN PRN Reason: Constipation Stop: 01/31/20 21:31 Polyethylene Glycol (Miralax Powder Packet) 17 gm PO Q6 NASIR Stop: 02/02/20 11:59 Last Admin: 01/04/20 03:24 Dose: Not Given Documented by: Pregabalin (Lyrica) 100 mg PO BID [facility] Stop: 01/31/20 20:59 Last Admin: 01/03/20 20:55 Dose: 100 mg Documented by: Senna/Docusate Sodium (Senokot S) 2 tab PO HS NASIR Stop: 02/01/20 20:59 Last Admin: 01/03/20 20:55 Dose: 2 tab Documented by: Sodium Biphosphate/Sodium Phosphate (Fleet Enema) 132 ml MS ONE PRN PRN Reason: Constipation Stop: 02/01/20 12:59 Tramadol HCl (Ultram) 50 - 100 mg PO Q4H PRN PRN Reason: Moderate-Severe pain & Pre PT Stop: 02/01/20 12:59 Vitamin D (Vitamin D3) 2,000 units PO QAM NASIR Stop: 02/01/20 08:59 Last Admin: 01/03/20 09:40 Dose: 2,000 units Documented by:
[2020-01-04] MEDS: CEROVITE ADV FORMULA TAB PO SCH (08:49)
[2020-01-04] MEDS: ATORVASTATIN 20 MG TAB PO SCH (08:49)
[2020-01-04] MEDS: ASPIRIN 81 MG ECTAB PO SCH (08:49)
[2020-01-04] MEDS: lisinopriL 10 MG TAB PO SCH (08:49)
[2020-01-04] MEDS: CHOLECALCIFEROL 1,000 UNITS 25 MCG TAB PO SCH (08:49)
[2020-01-04] MEDS: BuPROPion SR 150 MG TABCR PO SCH ×2 (08:50→20:37)
[2020-01-04] MEDS: FUROSEMIDE 40 MG TAB PO SCH (08:50)
[2020-01-04] MEDS: CETIRIZINE HCL 10 MG TABLET PO SCH (08:50)
[2020-01-04] MEDS: KETOCONAZOLE 2% CR 15 GM TUBE EXT SCH (08:50)
[2020-01-04] MEDS: INSULIN ASPART 100 UNITS/ML 3 ML PEN SC SCH ×4 (08:51→21:23)
[2020-01-04] MEDS: PREGABALIN 100 MG CAP PO SCH ×2 (08:53→20:34)
--- NOTE | 2020-01-04 10:55 | Orthopedic Progress Note ---
Date of Service January 04, 2020 Assessment & Plan (1) Myelopathy concurrent with and due to spinal stenosis of cervical region: At this time we will continue physical therapy occupational therapy and begin process for rehab placement next week Present on Admission?: Yes Admission and Anticipated Discharge Date Admission Date: January 01, 2020 Subjective Neck pain is controlled he feels his arm symptoms are improving. He is not yet ambulating secondary to knee pain. Physical Exam Physical Exam: Patient is in a chair at the bedside. He does demonstrate some increased motion of the left upper extremity and increased grasp. Results & Data ([facility]) Vital Signs (Past 12 Hours) Vital Signs Temp Pulse Pulse Pulse Resp BP BP 01/04/20 07:12 37.0 C 67 22 139/75 01/04/20 07:10 80 20 01/04/20 07:09 80 20 01/04/20 03:00 60 60 18 01/03/20 23:25 36.8 C 62 16 142/83 H 01/03/20 23:20 73 16 01/03/20 23:15 73 16 Pulse Ox Pulse Ox 01/04/20 07:12 94 01/04/20 07:10 95 01/04/20 07:09 95 01/04/20 03:00 94 01/03/20 23:25 95 01/03/20 23:20 93 01/03/20 23:15 93 95
[2020-01-04] MEDS ORDERED: bisacodyL 10 MG SUPP PR PRN (12:16)
[2020-01-04] MEDS: FLUTICASONE PROPIONATE NA SPR 16 GM BTL SCH (20:36)
[2020-01-04] MEDS: DOCUSATE SODIUM/SENNA 50/8.6MG TAB PO SCH (20:37)
[2020-01-05] MEDS: DEXAMETHASONE SOD PHOSPHATE 8 MG in SYRINGE 0 ML IV SCH ×3 (04:52→19:32)
[2020-01-05 05:25] LABS: Hematocrit (blood only) 40.4 % (42-52); Hemoglobin 13.3 g/dL (14.0-18.0); Mean Corpuscular Hemoglobin 29.8 pg (25-34); Mean Corpuscular Hgb Conc 32.9 g/dL (32-36); Mean Corpuscular Volume 90.6 fL (80-100); Mean Platelet Volume 9.6 fL (7.4-10.4); Platelet Count 249 K/uL (130-400); RDW Coefficient of Variation 12.9 % (11.5-14.5); RDW Standard Deviation 42.5 fL (36.4-46.3); Red Blood Count 4.46 M/uL (4.7-6.1); White Blood Count 8.38 K/uL (4.8-10.8)
[2020-01-05] MEDS: POLYETHYLENE (MIRALAX) 17 GM PACK PO SCH ×3 (05:30→17:59)
[2020-01-05 05:55] LABS: BUN Creatinine Ratio 27.6 (10-20); Calcium 9.4 mg/dl (8.5-10.1); Creatinine Clr Calc Pharmacy 105.9 ml/min; Est GFR (African American) 100.3; Est GFR (Non-African American) 86.5; Magnesium 2.1 mg/dl (1.8-2.4); Phosphorus 3.4 mg/dl (2.5-4.9); Potassium 3.9 mmol/L (3.5-5.1)
--- NOTE | 2020-01-05 08:35 | Hospitalist Progress Note ---
Date of Service January 05, 2020 Assessment & Plan (1) Myelopathy concurrent with and due to spinal stenosis of cervical region: This is a 64yo M with a PMH of DM II, KAYLEEN on bipap, morbid obesity, HLD, venous stasis dermatitis and cervical spine stenosis who presents with ongoing LUE weakness. -Now s/p anterior cervical corpectomy with bilateral foraminotomies C4, by Dr. Peña (January 01) -Patient tolerated procedure well -Continues to have weakness and numbness in upper extremities, no sensory was noted -Pre-op eval - no cardiac history in the chart, no ischemic heart disease, no heart failure, no EKG changes, no CVD, has diabetes but not taking insulin and creatinine is less than 2 - Pt denied any chest pain and/or palpitation or shortness of breath with usual activities - Echo from last week: study was technically difficult, done with the patient on BiPAP and sitting up, LV size normal, mod concentric LVH, wall motion is normal, EF 70%, grade 1 diastolic dysfunction and no significant valvular disease -Carries more than usual risk given comorbid conditions -EKG and CXR obtained prior to surgery -Will need BiPAP support following surgery and may need intubation and pulmonary evaluation -Per ortho for pain control, wound care, anticoagulation and activities -Monitor H&H, continue incentive spirometry, PT/OT when appropriate -Current hemoglobin remains stable and unchanged prior to surgery -Patient hypoxic with repositioning, then recovered quickly after repositioning again. Recommended BiPAP received 20 IV Lasix -Currently patient is sitting up in a chair, breathing comfortably on room air, however has some occasional cough, and complains of occasional shortness of breath, his weight seems to be higher than on days of previous admission, however not sure if there was change in scale, will give an additional 20 IV Lasix monitor, and also start guaifenesin (2) Morbid obesity with BMI of 50.0-59.9, adult: (3) KAYLEEN (obstructive sleep apnea): Bipap HS. Monitor closely post-operatively for respiratory support (4) Diabetes mellitus, type 2: A1c 6.0% Hold home agents. SSI while in-patient. BSG AC HS (5) Hypertension: At home on lisinopril and furosemide - cont. while inpt (6) Depression: Continue bupropion PCP: Harris Dispo: Per primary service Admission and Anticipated Discharge Date Admission Date: January 01, 2020 Subjective No acute events overnight. Patient is currently sitting up in the chair. Says that he was working with physical therapist and was able to stand up for few minutes. Neck pain controlled. Denies any numbness or tingling in the upper extremities. Denies any fevers, chills, chest pain, abdominal pain, nausea or vomiting. Occasionally he has some difficulty breathing, using BiPAP. Currently he is sitting in the chair comfortable, speaking in full sentences. Review of Systems Review of Systems: All systems reviewed & are unremarkable except as noted in HPI & below Constitutional: no fever and no chills Respiratory: + cough (Occasional) and + dyspnea (Occasional) Cardiovascular: no chest pain and no palpitations Gastrointestinal: no abdominal pain, no nausea and no vomiting Physical Exam Physical Exam: Physical Exam: Morbidly obese male lying in bed, in NAD Constitutional: well developed, well nourished, + morbidly obese Eyes: PERRL, EOMI, conjunctivae normal, anicteric sclerae ENMT: external ear and nose normal Neck: Dressings applied over anterior neck surgical incision Respiratory: normal respiratory effort Auscultation: + diminished lung sounds (Bilaterally likely secondary to thick body wall), no wheezing, rhonchi or crackles noted Cardiovascular: Rate/Rhythm: regular rate and regular rhythm Heart Sounds: no murmur Gastrointestinal (Abdomen): abdomen normal to inspection, bowel sounds present, obese, + abdomen mildly distended, soft, nontender Musculoskeletal: Left shoulder movement is restricted and painful, no sensory loss noted Neurologic: moves all extremities (Weakness in the left upper extremity) and + focal motor deficit, Left upper extremity is weaker than right (but improving in strength) Psychiatric: Orientation: oriented x 3 Insight: good insight Judgement: good judgement Results & Data Results & Data ([facility]) Vital Signs (Past 12 Hours) Vital Signs Temp Pulse Pulse Pulse Resp BP BP 01/05/20 07:18 36.6 C 58 L 16 138/76 01/05/20 07:15 64 17 01/05/20 07:13 64 17 01/05/20 03:16 20 01/05/20 03:15 54 L 20 01/05/20 00:22 54 L 16 01/04/20 23:29 36.8 C 54 L 16 153/90 H 01/04/20 22:00 80 20 Pulse Ox 06/22/20 07:18 95 01/05/20 07:15 96 01/05/20 07:13 96 01/05/20 03:16 92 01/05/20 03:15 92 01/05/20 00:22 92 01/04/20 23:29 94 01/04/20 22:00 94 Laboratory Results 01/05/20 01/05/20 01/05/20 Range/Units 08:11 05:00 05:00 WBC 8.38 (4.8-10.8) K/uL RBC 4.46 L (4.7-6.1) M/uL Hgb 13.3 L (14.0-18.0) g/dL Hct 40.4 L (42-52) % MCV 90.6 (80-100) fL MCH 29.8 (25-34) pg MCHC 32.9 (32-36) g/dL RDW Std Deviation 42.5 (36.4-46.3) fL RDW Coeff of Shanel 12.9 (11.5-14.5) % Plt Count 249 (130-400) K/uL MPV 9.6 (7.4-10.4) fL Sodium 140 (136-145) mmol/L Potassium 3.9 (3.5-5.1) mmol/L Chloride 106 (98-107) mmol/L Carbon Dioxide 28 (21-32) mmol/L Anion Gap 6.0 (3-11) BUN 26 H (7-18) mg/dl Creatinine 0.94 (0.6-1.4) mg/dl Est Cr Clr Drug Dosing 105.9 ml/min Est GFR ( Amer) 100.3 Est GFR (Non-Af Amer) 86.5 BUN/Creatinine Ratio 27.6 H (10-20) Glucose 131 H (70-99) mg/dl POC Glucose 136 H (70-99) mg/dl Calcium 9.4 (8.5-10.1) mg/dl Phosphorus 3.4 (2.5-4.9) mg/dl Magnesium 2.1 (1.8-2.4) mg/dl 01/04/20 01/04/20 01/04/20 Range/Units 20:29 17:20 12:15 WBC (4.8-10.8) K/uL RBC (4.7-6.1) M/uL Hgb (14.0-18.0) g/dL Hct (42-52) % MCV (80-100) fL MCH (25-34) pg MCHC (32-36) g/dL RDW Std Deviation (36.4-46.3) fL RDW Coeff of Shanel (11.5-14.5) % Plt Count (130-400) K/uL MPV (7.4-10.4) fL Sodium (136-145) mmol/L Potassium (3.5-5.1) mmol/L Chloride (98-107) mmol/L Carbon Dioxide (21-32) mmol/L Anion Gap (3-11) BUN (7-18) mg/dl Creatinine (0.6-1.4) mg/dl Est Cr Clr Drug Dosing ml/min Est GFR ( Amer) Est GFR (Non-Af Amer) BUN/Creatinine Ratio (10-20) Glucose (70-99) mg/dl POC Glucose 145 H 128 H 142 H (70-99) mg/dl Calcium (8.5-10.1) mg/dl Phosphorus (2.5-4.9) mg/dl Magnesium (1.8-2.4) mg/dl Medications Administered Current Inpatient Medications Acetaminophen (Tylenol) 1,000 mg PO Q8H PRN PRN Reason: MILD Pain Scale 1,2,3 & Pre PT Stop: 02/01/20 12:59 Al Hydrox/Mg Hydrox/Simethicone (Maalox) 30 ml PO Q6H PRN PRN Reason: Dyspepsia Stop: 02/01/20 12:59 Aspirin (Ecotrin Ectab) [address] [facility] [place] [facility]: 02/01/20 08:59 Last Admin: 01/04/20 08:49 Dose: 81 mg Documented by: Atorvastatin Calcium (Lipitor) 20 mg PO QAM [facility] Stop: 02/01/20 08:59 Last Admin: 01/04/20 08:49 Dose: 20 mg Documented by: Bisacodyl (Dulcolax) 10 mg MS DAILY PRN PRN Reason: Constipation Stop: 02/03/20 12:15 Bupropion HCl (Wellbutrin-Sr) 150 mg PO BID [facility] Stop: 01/31/20 20:59 Last Admin: 01/04/20 20:37 Dose: 150 mg Documented by: Cetirizine HCl (Zyrtec) 10 mg PO QAM [facility] Stop: 02/01/20 08:59 Last Admin: 01/04/20 08:50 Dose: 10 mg Documented by: Dextrose (Dextrose 50%) 25 - 50 ml IV UD PRN; Protocol PRN Reason: Hypoglycemia Protocol Stop: 01/31/20 20:01 Diphenhydramine HCl (Benadryl Capsule) 25 mg PO Q6H PRN PRN Reason: Allergic Rhinitis/Insomnia Stop: 02/01/20 12:59 Epinephrine (Raccemic Epinephrine 2.25% 0.5ml) 0.5 ml INH NOW PRN PRN Reason: if stridor present Stop: 02/01/20 12:59 Famotidine (Pepcid) 20 mg PO Q12H PRN PRN Reason: Dyspepsia Stop: 02/01/20 12:59 Fluticasone Propionate (Flonase) [address] [facility] Stop: 01/31/20 20:59 Last Admin: 01/04/20 20:36 Dose: 1 sprays Documented by: Furosemide (Lasix) 40 mg PO QAM [facility] Stop: 02/02/20 08:59 Last Admin: 01/04/20 08:50 Dose: 40 mg Documented by: Glucagon (Glucagen) 1 mg SQ UD PRN; Protocol PRN Reason: Hypoglycemia Protocol Stop: 01/31/20 20:01 Glucose (Dex4 Glucose) 4 - 8 tabs PO UD PRN; Protocol PRN Reason: Hypoglycemia Protocol Stop: 01/31/20 20:01 Glucose (Glucose 40%) 15 - 30 gm PO UD PRN; Protocol PRN Reason: Hypoglycemia Protocol Stop: 01/31/20 20:01 Hydromorphone HCl (Dilaudid) 0.5 mg IV Q3H PRN PRN Reason: MOD pain (scale 4-6) & Pre PT Stop: 01/16/20 12:59 Hydromorphone HCl (Dilaudid) 1 mg IV Q3H PRN PRN Reason: severe pain (scale 7-10) Stop: 01/16/20 12:59 Hydroxyzine HCl (Vistaril) 25 mg PO Q8H PRN PRN Reason: Anxiety Stop: 02/01/20 12:59 Lorazepam (Ativan) 1 mg in 2 mls @ 2 mls/min IV Q6H PRN PRN Reason: Anxiety/Spasms Stop: 01/31/20 15:46 Dexamethasone Sodium Phosphate (8 mg/ Syringe) 2 mls @ 1 mls/min IV NOW PRN PRN Reason: stridor Stop: 02/01/20 12:59 Lorazepam (Ativan) 0.5 mg in 1 mls @ 1 mls/min IV Q8H PRN PRN Reason: Sedation/Anxiety Stop: 02/01/20 12:59 Promethazine HCl 12.5 mg/ (Sodium Chloride) 50.5 mls @ 202 mls/hr IV Q6H PRN PRN Reason: Nausea &/or Vomiting Stop: 02/01/20 12:59 Dexamethasone Sodium Phosphate (8 mg/ Syringe) 2 mls @ 1 mls/min IV Q8H [facility] Stop: 02/02/20 11:59 Last Admin: 01/05/20 04:52 Dose: 1 mls/min Documented by: Influenza Virus Vaccine Quadrival (Flu Vaccine, Do Not Administer) 1 ea N/A PRN PRN PRN Reason: Notification Stop: 02/01/20 12:59 Insulin Aspart (Novolog Flexpen) 0 units SC [facility] Stop: 02/01/20 16:29 Last Admin: 01/04/20 21:23 Dose: Not Given Documented by: Ketoconazole (Nizoral 2%) 1 appln EXT [facility] Stop: 01/13/20 08:59 Last Admin: 01/04/20 08:50 Dose: 1 appln Documented by: Lisinopril (Zestril) 10 mg PO QAM [facility] Stop: 02/02/20 08:59 Last Admin: 01/04/20 08:49 Dose: 10 mg Documented by: Lorazepam (Ativan) 1 mg PO Q6H PRN PRN Reason: Anxiety/spasms Stop: 01/31/20 15:46 Lorazepam (Ativan) 0.5 mg PO Q8H PRN PRN Reason: sedation/anxiety Stop: 02/01/20 12:59 Magnesium Hydroxide (Milk Of Magnesia) 30 ml PO Q24H PRN PRN Reason: Constipation Stop: 02/01/20 12:59 Metoclopramide HCl (Reglan) 10 mg IV Q6H PRN PRN Reason: Nausea &/or Vomiting Stop: 02/01/20 12:59 Miscellaneous (Order Awaiting Action) 1 ea N/A QS [facility] Stop: 02/01/20 00:00 Last Admin: 01/04/20 23:48 Dose: Not Given Documented by: Miscellaneous (Carbohydrates For Hypoglycemia) 15 - 30 gm PO UD PRN PRN Reason: Hypoglycemia Protocol Stop: 01/31/20 20:01 Miscellaneous (Order Awaiting Action) 1 ea N/A QS [facility] Stop: 02/01/20 00:00 Last Admin: 01/04/20 23:48 Dose: Not Given Documented by: Multivitamins/Minerals (Multivitamin W/ Minerals Tab) 1 tab PO DAILY [facility] Stop: 02/01/20 08:59 Last Admin: 01/04/20 08:49 Dose: 1 tab Documented by: Naloxone HCl (Narcan) 0.1 mg IV Q5M PRN PRN Reason: Oversedation/respiratory dep Stop: 02/01/20 12:59 Ondansetron HCl (Zofran) 4 mg IV Q6H PRN PRN Reason: Nausea &/or Vomiting Stop: 02/01/20 12:59 Ondansetron HCl (Zofran Odt) 4 mg PO Q6H PRN PRN Reason: Nausea Stop: 02/01/20 12:59 Oxycodone HCl (Roxicodone Immediate Rel) 5 - 10 mg PO Q4H PRN PRN Reason: Pain & Pre PT Stop: 01/16/20 12:59 Last Admin: 01/02/20 19:35 Dose: 10 mg Documented by: Pneumococcal Polyvalent Vaccine (Pneumococcal Vacc, Do Not Administer) 1 ea N/A PRN PRN PRN Reason: Notification Stop: 02/01/20 12:59 Polyethylene Glycol (Miralax Powder Packet) 17 gm PO DAILY PRN PRN Reason: Constipation Stop: 01/31/20 21:31 Polyethylene Glycol (Miralax Powder Packet) 17 gm PO Q6 [facility] Stop: 02/02/20 11:59 Last Admin: 01/05/20 05:30 Dose: Not Given Documented by: Pregabalin (Lyrica) 100 mg PO BID [facility] Stop: 01/31/20 20:59 Last Admin: 01/04/20 20:34 Dose: 100 mg Documented by: Senna/Docusate Sodium (Senokot S) 2 tab PO HS [facility] Stop: 02/01/20 20:59 Last Admin: 01/04/20 20:37 Dose: Not Given Documented by: Sodium Biphosphate/Sodium Phosphate (Fleet Enema) 132 ml MS ONE PRN PRN Reason: Constipation Stop: 02/01/20 12:59 Tramadol HCl (Ultram) 50 - 100 mg PO Q4H PRN PRN Reason: Moderate-Severe pain & Pre PT Stop: 02/01/20 12:59 Vitamin D (Vitamin D3) 2,000 units PO QAM [facility] Stop: 02/01/20 08:59 Last Admin: 01/04/20 08:49 Dose: 2,000 units Documented by:
[2020-01-05] MEDS: BuPROPion SR 150 MG TABCR PO SCH ×2 (09:26→20:06)
[2020-01-05] MEDS: CETIRIZINE HCL 10 MG TABLET PO SCH (09:26)
[2020-01-05] MEDS: ATORVASTATIN 20 MG TAB PO SCH (09:26)
[2020-01-05] MEDS: CHOLECALCIFEROL 1,000 UNITS 25 MCG TAB PO SCH (09:26)
[2020-01-05] MEDS: FUROSEMIDE 40 MG TAB PO SCH (09:26)
[2020-01-05] MEDS: CEROVITE ADV FORMULA TAB PO SCH (09:26)
[2020-01-05] MEDS: ASPIRIN 81 MG ECTAB PO SCH (09:26)
[2020-01-05] MEDS: KETOCONAZOLE 2% CR 15 GM TUBE EXT SCH (09:26)
[2020-01-05] MEDS: lisinopriL 10 MG TAB PO SCH (09:26)
[2020-01-05] MEDS: INSULIN ASPART 100 UNITS/ML 3 ML PEN SC SCH ×4 (09:28→20:54)
[2020-01-05] MEDS: PREGABALIN 100 MG CAP PO SCH ×2 (09:32→20:06)
--- NOTE | 2020-01-05 09:56 | Orthopedic Progress Note ---
Date of Service January 05, 2020 Assessment & Plan (1) Myelopathy concurrent with and due to spinal stenosis of cervical region: At this time we will continue occupational therapy and physical therapy. He clearly requires professional rehabilitation. He is markedly obese struggles with severe osteoarthropathy of the knees and has myelopathy affecting his gait as well as paralysis to the left upper extremity. Anything short of a professional facility with the appropriate apparatus and trained personnel would be considered neglect and denial of appropriate care. Present on Admission?: Yes Admission and Anticipated Discharge Date Admission Date: January 01, 2020 Subjective Neck pain controlled. Denies any numbness or tingling in the upper extremities. He is noting some modest improvement of left upper extremity. He is struggling significant with ambulation secondary to knee pain and coordination deficits. Physical Exam Physical Exam: Patient is in a chair at the bedside. He has had a having some increased in grasp over the past few days. Still marked deficits with biceps triceps and deltoids on the left. Results & Data ([facility]) Vital Signs (Past 12 Hours) Vital Signs Temp Pulse Pulse Pulse Resp BP BP 01/05/20 07:18 36.6 C 58 L 16 138/76 01/05/20 07:15 64 17 01/05/20 07:13 64 17 01/05/20 03:16 20 01/05/20 03:15 54 L 20 01/05/20 00:22 54 L 16 01/04/20 23:29 36.8 C 54 L 16 153/90 H 01/04/20 22:00 80 20 Pulse Ox 01/05/20 07:18 95 01/05/20 07:15 96 01/05/20 07:13 96 01/05/20 03:16 92 01/05/20 03:15 92 01/05/20 00:22 92 01/04/20 23:29 94 01/04/20 22:00 94
[2020-01-05] MEDS ORDERED: FUROSEMIDE 20 MG in SYRINGE 0 ML IV ONE (13:45)
[2020-01-05] MEDS: guaiFENesin SUGAR FREE 200 MG/10 ML UDC PO SCH ×4 (14:09→23:41)
[2020-01-05] MEDS: DOCUSATE SODIUM/SENNA 50/8.6MG TAB PO SCH (20:05)
[2020-01-05] MEDS: FLUTICASONE PROPIONATE NA SPR 16 GM BTL SCH (20:06)
[2020-01-06] MEDS: DEXAMETHASONE SOD PHOSPHATE 8 MG in SYRINGE 0 ML IV SCH (04:12)
[2020-01-06] MEDS: guaiFENesin SUGAR FREE 200 MG/10 ML UDC PO SCH ×6 (04:13→23:27)
[2020-01-06 06:43] LABS: Hematocrit (blood only) 41.2 % (42-52); Hemoglobin 13.6 g/dL (14.0-18.0); Mean Corpuscular Hemoglobin 30.2 pg (25-34); Mean Corpuscular Volume 91.4 fL (80-100); Mean Platelet Volume 9.5 fL (7.4-10.4); Platelet Count 254 K/uL (130-400); RDW Coefficient of Variation 13.1 % (11.5-14.5); RDW Standard Deviation 43.6 fL (36.4-46.3); Red Blood Count 4.51 M/uL (4.7-6.1); White Blood Count 10.65 K/uL (4.8-10.8)
[2020-01-06 07:21] LABS: BUN Creatinine Ratio 28.6 (10-20); Calcium 9.3 mg/dl (8.5-10.1); Creatinine Clr Calc Pharmacy 91.4 ml/min; Est GFR (African American) 83.9; Est GFR (Non-African American) 72.4
--- NOTE | 2020-01-06 07:27 | Hospitalist Progress Note ---
Date of Service January 06, 2020 Assessment & Plan (1) Myelopathy concurrent with and due to spinal stenosis of cervical region: This is a 64yo M with a PMH of DM II, KAYLEEN on bipap, morbid obesity, HLD, venous stasis dermatitis and cervical spine stenosis who presents with ongoing LUE weakness. -Now s/p anterior cervical corpectomy with bilateral foraminotomies C4, by Dr. Peña (January 01) -Patient tolerated procedure well -Continues to have weakness and numbness in upper extremities, he is making mild improvements in his strength/movement -Pre-op eval - no cardiac history in the chart, no ischemic heart disease, no heart failure, no EKG changes, no CVD, has diabetes but not taking insulin and creatinine is less than 2 - Pt denied any chest pain and/or palpitation or shortness of breath with usual activities - Echo from last week: study was technically difficult, done with the patient on BiPAP and sitting up, LV size normal, mod concentric LVH, wall motion is normal, EF 70%, grade 1 diastolic dysfunction and no significant valvular disease -Carries more than usual risk given comorbid conditions -EKG and CXR obtained prior to surgery -Will need BiPAP support following surgery and may need intubation and pulmonary evaluation -Per ortho for pain control, wound care, anticoagulation and activities -Monitor H&H, continue incentive spirometry, PT/OT when appropriate -Current hemoglobin remains stable and unchanged prior to surgery -Patient hypoxic with repositioning, then recovered quickly after repositioning again. Recommended BiPAP received 20 IV Lasix -Currently patient is sitting up in a chair, breathing comfortably on room air, however has some occasional cough, and complains of occasional shortness of breath, obtain chest x-ray, discussed with nursing staff more frequent secretion clearance/suctioning, DuoNeb ordered (2) Morbid obesity with BMI of 50.0-59.9, adult: (3) KAYLEEN (obstructive sleep apnea): Bipap HS. Monitor closely post-operatively for respiratory support (4) Diabetes mellitus, type 2: A1c 6.0% Hold home agents. SSI while in-patient. BSG AC HS (5) Hypertension: At home on lisinopril and furosemide - cont. while inpt (6) Depression: Continue bupropion PCP: Harris Dispo: Per primary service Admission and Anticipated Discharge Date Admission Date: January 01, 2020 Subjective Patient sitting up in a chair, in no acute distress. Eating. Breathing currently on room air comfortably. Occasionally continues to have upper respiratory sounds, says that he has trouble clearing secretions, cannot blow his nose and he gets secretions when using CPAP. Communicated with nursing staff, to try to clear secretions. Also will obtain a chest x-ray to check for any worsening pulmonary status. Patient denies any fevers, chills, chest pain, abdominal pain, nausea or vomiting. Still is having quite difficulty moving. He said he was standing for couple of minutes today. He is also able to move his upper arms but with significant limitations. Review of Systems Review of Systems: All systems reviewed & are unremarkable except as noted in HPI & below At least ten systems reviewed and negative except as noted in the HPI. Constitutional: no fever and no chills Respiratory: + cough (Occasional) and + dyspnea (Occasional) Cardiovascular: no chest pain and no palpitations Gastrointestinal: no abdominal pain, no nausea and no vomiting Physical Exam Physical Exam: Physical Exam: Morbidly obese male sitting up in the chair, in NAD, on room air Constitutional: well developed, well nourished, + morbidly obese Eyes: PERRL, EOMI, conjunctivae normal, anicteric sclerae ENMT: external ear and nose normal Neck: Dressings applied over anterior neck surgical incision Respiratory: normal respiratory effort Auscultation: + diminished lung sounds (Bilaterally likely secondary to thick body wall), no wheezing, rhonchi or crackles noted Cardiovascular: Rate/Rhythm: regular rate and regular rhythm Heart Sounds: no murmur Gastrointestinal (Abdomen): abdomen normal to inspection, bowel sounds present, obese, + abdomen mildly distended, soft, nontender Musculoskeletal: Left shoulder movement is restricted and painful (making mild improvement since surgery) Neuro/Psych: Alert and oriented x3, answers questions appropriately, no facial asymmetry, moves all extremities (Weakness in the left upper extremity) and + focal motor deficit, Left upper extremity is weaker than right (but improving in strength) Results & Data Results & Data ([facility]) Vital Signs (Past 12 Hours) Vital Signs Temp Pulse Pulse Pulse Resp BP Pulse Ox 01/06/20 07:27 81 18 96 01/06/20 04:12 36.6 C 62 18 139/89 93 01/06/20 03:18 68 68 14 91 01/05/20 23:26 68 68 18 92 01/05/20 23:17 36.5 C 63 18 147/90 H 92 Laboratory Results 01/06/20 01/06/20 01/06/20 Range/Units 17:07 14:02 12:15 WBC (4.8-10.8) K/uL RBC (4.7-6.1) M/uL Hgb (14.0-18.0) g/dL Hct (42-52) % MCV (80-100) fL MCH (25-34) pg MCHC (32-36) g/dL RDW Std Deviation (36.4-46.3) fL RDW Coeff of Shanel (11.5-14.5) % Plt Count (130-400) K/uL MPV (7.4-10.4) fL Sodium (136-145) mmol/L Potassium (3.5-5.1) mmol/L Chloride (98-107) mmol/L Carbon Dioxide (21-32) mmol/L Anion Gap (3-11) BUN (7-18) mg/dl Creatinine (0.6-1.4) mg/dl Est Cr Clr Drug Dosing ml/min Est GFR ( Amer) Est GFR (Non-Af Amer) BUN/Creatinine Ratio (10-20) Glucose (70-99) mg/dl POC Glucose 108 H 122 H (70-99) mg/dl Calcium (8.5-10.1) mg/dl Procalcitonin 0.07 (0-0.5) ng/ml 01/06/20 01/06/20 01/06/20 Range/Units 08:28 06:32 06:32 WBC 10.65 (4.8-10.8) K/uL RBC 4.51 L (4.7-6.1) M/uL Hgb 13.6 L (14.0-18.0) g/dL Hct 41.2 L (42-52) % MCV 91.4 (80-100) fL MCH 30.2 (25-34) pg MCHC 33.0 (32-36) g/dL RDW Std Deviation 43.6 (36.4-46.3) fL RDW Coeff of Shanel 13.1 (11.5-14.5) % Plt Count 254 (130-400) K/uL MPV 9.5 (7.4-10.4) fL Sodium 139 (136-145) mmol/L Potassium (3.5-5.1) mmol/L Chloride 104 (98-107) mmol/L Carbon Dioxide 31 (21-32) mmol/L Anion Gap 4.0 (3-11) BUN 31 H (7-18) mg/dl Creatinine 1.09 (0.6-1.4) mg/dl Est Cr Clr Drug Dosing 91.4 ml/min Est GFR ( Amer) 83.9 Est GFR (Non-Af Amer) 72.4 BUN/Creatinine Ratio 28.6 H (10-20) Glucose 129 H (70-99) mg/dl POC Glucose 133 H (70-99) mg/dl Calcium 9.3 (8.5-10.1) mg/dl Procalcitonin (0-0.5) ng/ml 01/05/20 Range/Units 20:48 WBC (4.8-10.8) K/uL RBC (4.7-6.1) M/uL Hgb (14.0-18.0) g/dL Hct (42-52) % MCV (80-100) fL MCH (25-34) pg MCHC (32-36) g/dL RDW Std Deviation (36.4-46.3) fL RDW Coeff of Shanel (11.5-14.5) % Plt Count (130-400) K/uL MPV (7.4-10.4) fL Sodium (136-145) mmol/L Potassium (3.5-5.1) mmol/L Chloride (98-107) mmol/L Carbon Dioxide (21-32) mmol/L Anion Gap (3-11) BUN (7-18) mg/dl Creatinine (0.6-1.4) mg/dl Est Cr Clr Drug Dosing ml/min Est GFR ( Amer) Est GFR (Non-Af Amer) BUN/Creatinine Ratio (10-20) Glucose (70-99) mg/dl POC Glucose 140 H (70-99) mg/dl Calcium (8.5-10.1) mg/dl Procalcitonin (0-0.5) ng/ml Medications Administered Current Inpatient Medications Acetaminophen (Tylenol) 1,000 mg PO Q8H PRN PRN Reason: MILD Pain Scale 1,2,3 & Pre PT Stop: 02/01/20 12:59 Al Hydrox/Mg Hydrox/Simethicone (Maalox) 30 ml PO Q6H PRN PRN Reason: Dyspepsia Stop: 02/01/20 12:59 Albuterol (Duoneb) 3 ml NEB Q4R NASIR Stop: 02/05/20 18:59 Aspirin (Ecotrin Ectab) [facility] Stop: 02/01/20 08:59 Last Admin: 01/06/20 08:43 Dose: 81 mg Documented by: Atorvastatin Calcium (Lipitor) [facility] Stop: 02/01/20 08:59 Last Admin: 01/06/20 08:42 Dose: 20 mg Documented by: Bisacodyl (Dulcolax) 10 mg MT DAILY PRN PRN Reason: Constipation Stop: 02/03/20 12:15 Bupropion HCl (Wellbutrin-Sr) 150 mg PO BID [facility] Stop: 01/31/20 20:59 Last Admin: 01/06/20 08:43 Dose: 150 mg Documented by: Cetirizine HCl (Zyrtec) [facility] Stop: 02/01/20 08:59 Last Admin: 01/06/20 08:44 Dose: 10 mg Documented by: Dextrose (Dextrose 50%) 25 - 50 ml IV UD PRN; Protocol PRN Reason: Hypoglycemia Protocol Stop: 01/31/20 20:01 Diphenhydramine HCl (Benadryl Capsule) 25 mg PO Q6H PRN PRN Reason: Allergic Rhinitis/Insomnia Stop: 02/01/20 12:59 Epinephrine (Raccemic Epinephrine 2.25% 0.5ml) 0.5 ml INH NOW PRN PRN Reason: if stridor present Stop: 02/01/20 12:59 Famotidine (Pepcid) 20 mg PO Q12H PRN PRN Reason: Dyspepsia Stop: 02/01/20 12:59 Fluticasone Propionate (Flonase) 1 sprays NA [facility] Stop: 01/31/20 20:59 Last Admin: 01/05/20 20:06 Dose: 1 sprays Documented by: Furosemide (Lasix) 40 mg PO QAM [facility] Stop: 02/02/20 08:59 Last Admin: 01/06/20 08:43 Dose: 40 mg Documented by: Glucagon (Glucagen) 1 mg SQ UD PRN; Protocol PRN Reason: Hypoglycemia Protocol Stop: 01/31/20 20:01 Glucose (Dex4 Glucose) 4 - 8 tabs PO UD PRN; Protocol PRN Reason: Hypoglycemia Protocol Stop: 01/31/20 20:01 Glucose (Glucose 40%) 15 - 30 gm PO UD PRN; Protocol PRN Reason: Hypoglycemia Protocol Stop: 01/31/20 20:01 Guaifenesin (Robitussin Sugar Free) 200 mg PO Q4 NASIR Stop: 02/04/20 13:44 Last Admin: 01/06/20 16:33 Dose: 200 mg Documented by: Hydromorphone HCl (Dilaudid) 0.5 mg IV Q3H PRN PRN Reason: MOD pain (scale 4-6) & Pre PT Stop: 01/16/20 12:59 Hydromorphone HCl (Dilaudid) 1 mg IV Q3H PRN PRN Reason: severe pain (scale 7-10) Stop: 01/16/20 12:59 Hydroxyzine HCl (Vistaril) 25 mg PO Q8H PRN PRN Reason: Anxiety Stop: 02/01/20 12:59 Lorazepam (Ativan) 1 mg in 2 mls @ 2 mls/min IV Q6H PRN PRN Reason: Anxiety/Spasms Stop: 01/31/20 15:46 Dexamethasone Sodium Phosphate (8 mg/ Syringe) 2 mls @ 1 mls/min IV NOW PRN PRN Reason: stridor Stop: 02/01/20 12:59 Lorazepam (Ativan) 0.5 mg in 1 mls @ 1 mls/min IV Q8H PRN PRN Reason: Sedation/Anxiety Stop: 02/01/20 12:59 Promethazine HCl 12.5 mg/ (Sodium Chloride) 50.5 mls @ 202 mls/hr IV Q6H PRN PRN Reason: Nausea &/or Vomiting Stop: 02/01/20 12:59 Dexamethasone Sodium Phosphate (8 mg/ Syringe) 2 mls @ 1 mls/min IV DAILY NASIR Stop: 02/06/20 08:59 Influenza Virus Vaccine Quadrival (Flu Vaccine, Do Not Administer) 1 ea N/A PRN PRN PRN Reason: Notification Stop: 02/01/20 12:59 Insulin Aspart (Novolog Flexpen) 0 units SC ACHS [facility] Stop: 02/01/20 16:29 Last Admin: 01/06/20 17:59 Dose: 5 units Documented by: Ketoconazole (Nizoral 2%) 1 appln EXT QAM [facility] Stop: 01/13/20 08:59 Last Admin: 01/06/20 08:45 Dose: 1 appln Documented by: Lisinopril (Zestril) 10 mg PO QAM NASIR Stop: 02/02/20 08:59 Last Admin: 01/06/20 08:44 Dose: 10 mg Documented by: Lorazepam (Ativan) 1 mg PO Q6H PRN PRN Reason: Anxiety/spasms Stop: 01/31/20 15:46 Lorazepam (Ativan) 0.5 mg PO Q8H PRN PRN Reason: sedation/anxiety Stop: 02/01/20 12:59 Magnesium Hydroxide (Milk Of Magnesia) 30 ml PO Q24H PRN PRN Reason: Constipation Stop: 02/01/20 12:59 Metoclopramide HCl (Reglan) 10 mg IV Q6H PRN PRN Reason: Nausea &/or Vomiting Stop: 02/01/20 12:59 Miscellaneous (Order Awaiting Action) 1 ea N/A QS [facility] Stop: 02/01/20 00:00 Last Admin: 01/06/20 17:35 Dose: Not Given Documented by: Miscellaneous (Carbohydrates For Hypoglycemia) 15 - 30 gm PO UD PRN PRN Reason: Hypoglycemia Protocol Stop: 01/31/20 20:01 Miscellaneous (Order Awaiting Action) 1 ea N/A QS [facility] Stop: 02/01/20 00:00 Last Admin: 01/06/20 08:42 Dose: Not Given Documented by: Modafinil (Provigil) 200 mg PO DAILY [facility] Stop: 02/05/20 08:59 Last Admin: 01/06/20 08:48 Dose: 200 mg Documented by: Multivitamins/Minerals (Multivitamin W/ Minerals Tab) 1 tab PO DAILY NASIR Stop: 02/01/20 08:59 Last Admin: 01/06/20 08:43 Dose: 1 tab Documented by: Naloxone HCl (Narcan) 0.1 mg IV Q5M PRN PRN Reason: Oversedation/respiratory dep Stop: 02/01/20 12:59 Ondansetron HCl (Zofran) 4 mg IV Q6H PRN PRN Reason: Nausea &/or Vomiting Stop: 02/01/20 12:59 Ondansetron HCl (Zofran Odt) 4 mg PO Q6H PRN PRN Reason: Nausea Stop: 02/01/20 12:59 Oxycodone HCl (Roxicodone Immediate Rel) 5 - 10 mg PO Q4H PRN PRN Reason: Pain & Pre PT Stop: 01/16/20 12:59 Last Admin: 01/02/20 19:35 Dose: 10 mg Documented by: Pneumococcal Polyvalent Vaccine (Pneumococcal Vacc, Do Not Administer) 1 ea N/A PRN PRN PRN Reason: Notification Stop: 02/01/20 12:59 Polyethylene Glycol (Miralax Powder Packet) 17 gm PO DAILY PRN PRN Reason: Constipation Stop: 01/31/20 21:31 Pregabalin (Lyrica) 100 mg PO BID [facility] Stop: 01/31/20 20:59 Last Admin: 01/06/20 08:42 Dose: 100 mg Documented by: Senna/Docusate Sodium (Senokot S) 2 tab PO HS [facility] Stop: 02/01/20 20:59 Last Admin: 01/05/20 20:05 Dose: Not Given Documented by: Sodium Biphosphate/Sodium Phosphate (Fleet Enema) 132 ml MT ONE PRN PRN Reason: Constipation Stop: 02/01/20 12:59 Tramadol HCl (Ultram) 50 - 100 mg PO Q4H PRN PRN Reason: Moderate-Severe pain & Pre PT Stop: 02/01/20 12:59 Last Admin: 01/06/20 16:39 Dose: 50 mg Documented by: Vitamin D (Vitamin D3) 2,000 units PO QAM NASIR Stop: 02/01/20 08:59 Last Admin: 01/06/20 08:44 Dose: 2,000 units Documented by:
[2020-01-06] MEDS: PREGABALIN 100 MG CAP PO SCH ×2 (08:42→20:56)
[2020-01-06] MEDS: ATORVASTATIN 20 MG TAB PO SCH (08:42)
[2020-01-06] MEDS: FUROSEMIDE 40 MG TAB PO SCH (08:43)
[2020-01-06] MEDS: CEROVITE ADV FORMULA TAB PO SCH (08:43)
[2020-01-06] MEDS: BuPROPion SR 150 MG TABCR PO SCH ×2 (08:43→20:56)
[2020-01-06] MEDS: ASPIRIN 81 MG ECTAB PO SCH (08:43)
[2020-01-06] MEDS: CETIRIZINE HCL 10 MG TABLET PO SCH (08:44)
[2020-01-06] MEDS: CHOLECALCIFEROL 1,000 UNITS 25 MCG TAB PO SCH (08:44)
[2020-01-06] MEDS: lisinopriL 10 MG TAB PO SCH (08:44)
[2020-01-06] MEDS: KETOCONAZOLE 2% CR 15 GM TUBE EXT SCH (08:45)
[2020-01-06] MEDS: modafiniL 100 MG TAB PO SCH (08:48)
[2020-01-06] MEDS: INSULIN ASPART 100 UNITS/ML 3 ML PEN SC SCH ×4 (08:50→21:35)
--- NOTE | 2020-01-06 10:47 | Orthopedic Progress Note ---
Date of Service January 06, 2020 Assessment & Plan (1) Myelopathy concurrent with and due to spinal stenosis of cervical region: This time we will continue occupational physical therapy as tolerated. Again he is a excellent candidate for acute rehab as he will require skilled personnel to assist in his recovery. Otherwise I am concerned he will never become independent. Present on Admission?: Yes Admission and Anticipated Discharge Date Admission Date: January 01, 2020 Subjective Patient denies any neck pain still struggles with neck pain prickly with activity. He is noting very modest improvement in the function of his left upper extremity. Physical Exam Physical Exam: Patient is in the chair at the bedside. Incision is clean dry and tract. He is exhibits grasp of the left upper extremity some modest ability to elevate his left arm but overall this severe weakness to the biceps triceps and deltoid on the left. Results & Data ([facility]) Vital Signs (Past 12 Hours) Vital Signs Temp Pulse Pulse Pulse Resp BP BP 01/06/20 07:59 36.7 C 67 16 159/97 H 01/06/20 07:27 81 18 01/06/20 04:12 36.6 C 62 18 139/89 01/06/20 03:18 68 68 14 01/05/20 23:26 68 68 18 01/05/20 23:17 36.5 C 63 18 147/90 H Pulse Ox 01/06/20 07:59 95 01/06/20 07:27 96 01/06/20 04:12 93 01/06/20 03:18 91 01/05/20 23:26 92 01/05/20 23:17 92
--- NOTE | 2020-01-06 17:26 | XRay Report ---
XR chest 1V portable CLINICAL HISTORY: Cough COMPARISON STUDY: 01/01/2020 FINDINGS: The heart is enlarged. There is no lobar consolidation. There is an unusual lucency at the right lung base. While likely secondary to fluid tracking into the minor fissure, one cannot with cer tainty exclude free air beneath an elevated right hemidiaphragm. This is not felt unlikely as there i s no evidence for diaphragmatic elevation on a study performed just 5 days prior. There are linear op acities the left lung base, likely atelectatic. If the patient has abdominal symptoms, an abdominal s eries including decubitus views are recommended in follow-up.[ IMPRESSION: 1. Unusual appearance of the right lung base, likely secondary to fluid tracking into the minor fissu re although free air beneath an elevated right hemidiaphragm cannot be excluded with certainty. 2. Minor left basilar atelectasis 3. If the patient has abdominal symptoms, an abdominal series to include decubitus views are recommen ded ACT 112: Negative or not required by law. Electronically signed by: Jeramie Washington M.D. 01/06/2020 5:25 PM
[2020-01-06] MEDS: ALBUT/IPRATROP 3MG/0.5MG NEB 3 ML VIAL NEB SCH ×2 (18:51→22:48)
[2020-01-06] MEDS: DOCUSATE SODIUM/SENNA 50/8.6MG TAB PO SCH (20:56)
[2020-01-06] MEDS: FLUTICASONE PROPIONATE NA SPR 16 GM BTL SCH (20:57)
[2020-01-06] MEDS: HYDROmorphone INJ 1 MG/ML SYRINGE IV PRN (23:27)
[2020-01-07] MEDS: ALBUT/IPRATROP 3MG/0.5MG NEB 3 ML VIAL NEB SCH ×6 (03:18→23:04)
[2020-01-07] MEDS: guaiFENesin SUGAR FREE 200 MG/10 ML UDC PO SCH ×5 (03:36→22:17)
[2020-01-07 07:12] LABS: Hematocrit (blood only) 41.1 % (42-52); Hemoglobin 13.4 g/dL (14.0-18.0); Mean Corpuscular Hemoglobin 29.8 pg (25-34); Mean Corpuscular Hgb Conc 32.6 g/dL (32-36); Mean Corpuscular Volume 91.3 fL (80-100); Mean Platelet Volume 9.8 fL (7.4-10.4); Platelet Count 250 K/uL (130-400); RDW Coefficient of Variation 13.1 % (11.5-14.5); RDW Standard Deviation 43.4 fL (36.4-46.3); White Blood Count 9.32 K/uL (4.8-10.8)
[2020-01-07 07:44] LABS: BUN Creatinine Ratio 40.2 (10-20); Creatinine Clr Calc Pharmacy 89.7 ml/min; Est GFR (Non-African American) 70.8; Potassium 3.5 mmol/L (3.5-5.1)
[2020-01-07] MEDS: KETOCONAZOLE 2% CR 15 GM TUBE EXT SCH (08:58)
[2020-01-07] MEDS: CEROVITE ADV FORMULA TAB PO SCH (08:58)
[2020-01-07] MEDS: DEXAMETHASONE SOD PHOSPHATE 8 MG in SYRINGE 0 ML IV SCH (08:58)
[2020-01-07] MEDS: CHOLECALCIFEROL 1,000 UNITS 25 MCG TAB PO SCH (08:59)
[2020-01-07] MEDS: lisinopriL 10 MG TAB PO SCH (08:59)
[2020-01-07] MEDS: BuPROPion SR 150 MG TABCR PO SCH ×2 (08:59→22:17)
[2020-01-07] MEDS: CETIRIZINE HCL 10 MG TABLET PO SCH (08:59)
[2020-01-07] MEDS: ATORVASTATIN 20 MG TAB PO SCH (08:59)
[2020-01-07] MEDS: FUROSEMIDE 40 MG TAB PO SCH (09:00)
[2020-01-07] MEDS: ASPIRIN 81 MG ECTAB PO SCH (09:00)
[2020-01-07] MEDS: modafiniL 100 MG TAB PO SCH (09:05)
[2020-01-07] MEDS: OXYCODONE HCL IR 5 MG TAB (IMMEDIATE RELEASE) PO PRN (09:05)
[2020-01-07] MEDS: PREGABALIN 100 MG CAP PO SCH ×2 (09:05→22:17)
--- NOTE | 2020-01-07 09:09 | Hospitalist Progress Note ---
Date of Service January 07, 2020 Assessment & Plan (1) Myelopathy concurrent with and due to spinal stenosis of cervical region: -POD# 5anterior cervical corpectomy with bilateral foraminotomies C4, by Dr. Peña -Continues to have weakness and numbness in upper extremities, however is making mild improvements in his strength/movement -activity and wound care orders as per ortho -pain control with bowel regimen -PT/OT -monitor H/H for acute blood loss anemia and transfuse blood products PRN -EBL 25cc, hgb remains stable (2) Cough: (3) Hypoxia: -developed moist cough yesterday, CXR without focal infiltrate -hypoxic on room air this morning 89%, now on 2L -concern for possible aspiration, will have speech evaluate -repeat CXR today (4) KAYLEEN (obstructive sleep apnea): -BiPap HS (5) Diabetes mellitus, type 2: -hgb a1c 6.0 -Hold home agents and utilize NovoLog protocol while hospitalized (6) Hypertension: -BP controlled, continue lisinopril and furosemide (7) Depression: -Continue bupropion (8) Morbid obesity with BMI of 50.0-59.9, adult: (9) DVT prophylaxis: -Teds/SCDs as per spine orthopedics Thank you for this consultation. We will follow the patient with you during their hospital stay. You can reach a member of the [facility] Hospitalist Team 05/02 via pager @ [phone]. Admission and Anticipated Discharge Date Admission Date: January 01, 2020 Supervising Physician Co-Signing Physician Notes Attending addendum The patient is seen and examined in the medical floor He is a status post C4 cervical corpectomy with spinal cord monitoring on of this month Has been recovering well from the surgery and has had some chest pressure last night Noted to be stable this morning but chest x-ray did show air under diaphragm He denies any significant abdominal symptoms On examination Mild short of breath at rest Hemodynamically stable Chest-decreased breath sounds at the bases Heart-S1-S2, regular Abdomen-distended, soft, nontender and bowel sounds present Extremities 1+ edema bilaterally- His labs and imaging studies reviewed Has significant intraperitoneal air of unknown etiology Surgery consulted Reviewed assessment and plan as outlined above by Jordyn burger Subjective Patient seen and examined. Sitting up in the chair. Reports pain is well controlled. Upper extremity weakness continues to improve. Moist cough present since yesterday. Denies shortness of breath and chest pain. No abdominal pain, nausea. Denies lightheadedness and dizziness. Physical Exam Constitutional: no acute distress sitting up in the chair Neck: steristrips in place to anterior neck incision, no surrounding erythema or drainage Respiratory: normal respiratory effort; no respiratory distress Auscultation: + diminished lung sounds (BL) Cardiovascular: Rate/Rhythm: regular rate and regular rhythm Musculoskeletal: upper extremity weakness, L > R Psychiatric: Orientation: alert and oriented x 3 Results & Data Results & Data ([facility]) Vital Signs (Past 12 Hours) Vital Signs Temp Pulse Pulse Pulse Resp BP Pulse Ox 01/07/20 07:58 37 C 95 H 20 119/72 95 01/07/20 07:40 75 18 96 01/07/20 06:02 96 01/07/20 06:00 89 L 01/07/20 03:22 55 L 15 94 01/07/20 03:20 55 L 14 94 01/07/20 03:19 58 L 16 93 01/06/20 23:17 36.7 C 78 18 122/75 97 01/06/20 22:53 67 27 H 97 01/06/20 22:51 71 27 H 97 01/06/20 22:50 70 27 H 96 Laboratory Results Short CBC 01/07/20 Range/Units 06:58 WBC 9.32 (4.8-10.8) K/uL Hgb 13.4 L (14.0-18.0) g/dL Hct 41.1 L (42-52) % Plt Count 250 (130-400) K/uL BMP 01/07/20 06:58 Sodium 139 Potassium 3.5 Chloride 105 Carbon Dioxide 28 BUN 45 H Creatinine 1.11 Glucose 102 H Calcium 9.0
[2020-01-07] MEDS: INSULIN ASPART 100 UNITS/ML 3 ML PEN SC SCH ×5 (09:11→22:17)
--- NOTE | 2020-01-07 09:42 | XRay Report ---
XR chest 1V portable CLINICAL HISTORY: hypoxia COMPARISON STUDY: 01/06/2020 FINDINGS: There is free intraperitoneal air. The heart is enlarged. There is no focal pulmonary conso lidation. There are no significant pleural effusions. There is minor basilar atelectasis.[ IMPRESSION: 1. Unexplained free intraperitoneal air. This finding will be called to the referring clinician. ACT 112: Negative or not required by law. Electronically signed by: Jeramie Washington M.D. 01/07/2020 9:41 AM
--- NOTE | 2020-01-07 10:03 | Orthopedic Progress Note ---
Date of Service January 07, 2020 Assessment & Plan (1) Myelopathy concurrent with and due to spinal stenosis of cervical region: At this time he is scheduled for rehab placement most likely tomorrow. He is going to undergo us speech eval today. Present on Admission?: Yes Admission and Anticipated Discharge Date Admission Date: January 01, 2020 Subjective Patient is comfortable at this time. He is noticing some modest improvement of his left hand function. Physical Exam Physical Exam: On exam incision is intact and clean. He has increased strength testing left grasp. Results & Data ([facility]) Vital Signs (Past 12 Hours) Vital Signs Temp Pulse Pulse Pulse Resp BP Pulse Ox 01/07/20 07:58 37 C 95 H 20 119/72 95 01/07/20 07:40 75 18 96 01/07/20 06:02 96 01/07/20 06:00 89 L 01/07/20 03:22 55 L 15 94 01/07/20 03:20 55 L 14 94 01/07/20 03:19 58 L 16 93 01/06/20 23:17 36.7 C 78 18 122/75 97 01/06/20 22:53 67 27 H 97 01/06/20 22:51 71 27 H 97 01/06/20 22:50 70 27 H 96
--- NOTE | 2020-01-07 12:11 | CT Scan Report ---
CT chest wo con CT DOSE: 3302.29 mGy.cm HISTORY: Free air. Pain. Nausea. eval for free air TECHNIQUE: Multiaxial CT images of the chest were performed without contrast. A dose lowering techni que was utilized adhering to the principles of ALARA. COMPARISON: None. FINDINGS: Mild to moderate segmental atelectasis right base. Slight interstitial basilar prominence b ilaterally. Minimal lungs are clear. No significant mediastinal or hilar adenopathy. Subdiaphragmatic free intraperitoneal air IMPRESSION: 1. Free intraperitoneal air. 2. Segmental atelectasis right lung base. ACT 112: Negative or not required by law. The above report was generated using voice recognition software. It may contain grammatical, syntax or spelling errors. Electronically signed by: Saul Ga M.D. 01/07/2020 12:10 PM
--- NOTE | 2020-01-07 12:15 | CT Scan Report ---
CT SCAN OF THE ABDOMEN AND PELVIS WITHOUT CONTRAST CLINICAL HISTORY: Abnormal chest x-ray. Free intraperitoneal air. COMPARISON STUDY: CT scan dated 09/16/2015, chest x-ray dated 01/07/2020 TECHNIQUE: CT scan of the abdomen and pelvis was performed from the lung bases to the proximal femurs . Images are reviewed in the axial, sagittal, and coronal planes. IV contrast was not administered fo r this examination. A dose lowering technique was utilized adhering to the principles of ALARA. CT DOSE: FINDINGS: Lower chest: There is right lower lobe atelectasis/consolidation with air bronchograms. There are min or left basilar atelectatic changes. Liver: The unenhanced liver is normal in size, contour, and attenuation. There is no intrahepatic andrew iary ductal dilatation. Gallbladder: Unremarkable. Spleen: Normal in size and attenuation. Pancreas: Unremarkable. Adrenal glands: Unremarkable. Kidneys: There is an 8 mm right renal calculus. There is no hydronephrosis. No ureteral or bladder ca lculi are visualized. There is a 26 mm left renal cyst. Bowel: There are no transition zones to indicate bowel obstruction. There is no evidence of acute div erticulitis. There are scattered colonic diverticula present. The appendix appears normal. Peritoneum: There is a large volume of free intraperitoneal air. The etiology of this free air is unc lear from the CT scan. Vasculature: The abdominal aorta is normal in course and caliber. Adenopathy: None. Pelvic viscera: There is an indwelling Hatch catheter. The prostate is enlarged. Skeletal structures: No destructive osseous lesions are seen. IMPRESSION: 1. Large volume of free intraperitoneal air, etiology of which is unclear 2. No evidence of bowel obstruction. 3. Right-sided nephrolithiasis. No evidence of hydronephrosis 4. Normal appendix. 5. No evidence of acute diverticulitis. 6. Prostatomegaly ACT 112: Negative or not required by law. Electronically signed by: Jeramie Washington M.D. 01/07/2020 12:14 PM
[2020-01-07] MEDS: HYDROmorphone INJ 0.5 MG/0.5 ML SYR IV PRN ×2 (13:08→18:58)
--- NOTE | 2020-01-07 15:16 | Surgery Consultation ---
Date of Consultation January 07, 2020 Assessment & Plan (1) Free intraperitoneal air: pt is a 64 year-old male who had C 4 cervical corpectomy on 01/02/20, pt had CXR, CT scan today finding intraperitoneal free air, pt denies any abdominal pain, no fever, IMP: intraperitoneal free air, I recommend to do po contrast CT scan abd + pelvic state to R/O bowel perforation, will F/U ,pt agrees with the CT scan, Supervising Physician Co-Signing Physician Notes Patient is a 64-year-old male with history of cervical spinal stenosis, morbid obesity, diabetes mellitus, hypertension, depression obstructive sleep apnea and other medical problems was consulted for medical management. Patient complains of left upper extremity weakness, decreased range of movement, shoulder pain, history of multiple falls. Patient had MRI of his neck suggestive of severe spinal stenosis at C3-4 level. There is also increased cervical cord signal likely secondary to compressive myelopathy. Multilevel foraminal stenosis. Patient is admitted under orthopedics for cervical surgery tomorrow. Currently he denies any chest pain, shortness of breath, dizziness, nausea, abdominal pain. On exam he is morbidly obese, no apparent distress, normocephalic atraumatic, lungs are clear to auscultation, S1-S2, no murmur, abdomen soft, nontender, obese, left upper extremity weakness 1/5, decreased ROM, normal sensation. Patient is consulted for medical management. Severe spinal stenosis C3-C4 level. Plan for for surgery by Dr. Peña tomorrow. Will get chest x-ray and EKG. Will resume his home diuretics if chest x-ray suggestive of congestion. He recently had echo which was reviewed. Continue bowel regimen to prevent constipation. PT OT eval when appropriate. DM II: Last HbA1C:6.0. Hold PO meds. Continue insulin sliding scale while hospitalized. Monitor BGs. I personally reviewed the record. Patient is interviewed and examined at bedside. Patient's care is coordinated with Caren Galvan PA-C. Please refer to the documentation above for details of patient's presentation and for discussion of other issues. History of Present Illness Attending Physician: Francesco Peña DO History of Present Illness Chief Complaint: Bilateral arm weakness severe on the left with decreased ability to ambulate Primary Care Provider: Ana Iglesias DO This is a 64-year-old male known to me that presents with marked decline in neurologic function vertically involving left upper extremity. He is noted changes over the past several weeks but now presents with almost a flaccid left arm. I got a call for consult intraperitoneal free air. I reviewed pt's H/P, labs, CT scan CXR with pt, pt had C4 cervical corpectomy with spinal cord monitoring on 01/02/2020. pt had CXR and CT scan today, finding- intraperitoneal free air, pt denies abdominal pain, no nausea, no vomiting, Allergies Allergy/AdvReac Type Severity Reaction Status Date / Time No Known Allergies Allergy Verified 12/24/19 23:06 Home Medications Home Medications Medication Instructions Recorded Confirmed Type PreserVision AREDS 1 cap PO DAILY 11/29/18 01/01/20 History armodafinil 150 mg PO QAM 11/29/18 01/01/20 History aspirin 81 mg PO QAM 11/29/18 01/01/20 History atorvastatin 20 mg PO QAM 11/29/18 01/01/20 History bupropion HCl 150 mg PO BID 11/29/18 01/01/20 History cetirizine 10 mg PO QAM 11/29/18 01/01/20 History furosemide 40 mg PO QAM 11/29/18 01/01/20 History lisinopril 10 mg PO QAM 11/29/18 01/01/20 History metformin 750 mg PO BID 11/29/18 01/01/20 History mometasone 1 spray INTRANASAL HS 11/29/18 01/01/20 History pregabalin [Lyrica] 100 mg PO BID 11/29/18 01/01/20 History cholecalciferol (vitamin D3) 2,000 unit PO QAM 06/17/19 01/01/20 History [Vitamin D3] ketoconazole 1 applic TOPICAL QAM 06/17/19 01/01/20 History halobetasol propionate 1 applic TOPICAL DIRECTED 12/24/19 01/01/20 History Past Med/Surg History Medical History BPH (benign prostatic hyperplasia) Colon cancer screening Depression Diabetes (Inactive) Diabetes mellitus, type 2 SCOTT (generalized anxiety disorder) (Inactive) GERD (gastroesophageal reflux disease) (Inactive) Hearing loss in right ear History of anesthesia reaction had BP drop during one of his hernia sx---had surgery since then, no issues HLD (hyperlipidemia) Hypertension Morbid obesity with BMI of 50.0-59.9, adult KAYLEEN (obstructive sleep apnea) bipap HS x25yrs settings 05/03 Osteoarthritis Prostate cancer (Chronic) 08/04/2019 Venous stasis (Inactive) Venous stasis dermatitis Surgical History H/O esophagogastroduodenoscopy (Inactive) 2007 H/O hernia repair (Inactive) 3 hernia repairs, 2009, 2011 & 2012 History of arthroscopy of right knee meniscus repair History of colonoscopy History of wisdom tooth extraction Hx of vasectomy Status post trigger finger release right ring finger Family History Mother Lung cancer age 57 Father , cancer not sure what kind, age 90 No problems noted. Sister No problems noted. Sister No problems noted. Sister No problems noted. Son No problems noted. Daughter No problems noted. Other No family history of adverse response to anesthesia Social History Preferred Language: Austrian Communication Ability: Effective Row Boss Hoeing Required: No Beliefs That Will Affect Care: None marital status: / Current Living Situation: Alone current occupation: retired, social security disability, [employer] worker Other Information That Helps Us Care for You: No Feels Safe at Home: Yes Safety Concerns: Feels Safe At This Time Smoking Status: Never smoker Do You Dip or Chew Tobacco: No ; Second Hand Exposure: Yes (father smoked) ; Hx Alcohol Use: No Hx Substance Use: No Childhood Exposure to Second-Hand Smoke: Yes caffeine: Yes (one cup of tea) Dental Care, Regularly: Yes Allergies Allergy/AdvReac Type Severity Reaction Status Date / Time No Known Allergies Allergy Verified 12/24/19 23:06 Home Medications Home Medications Medication Instructions Recorded Confirmed Type PreserVision AREDS 1 cap PO DAILY 11/29/18 01/01/20 History armodafinil 150 mg PO QAM 11/29/18 01/01/20 History aspirin 81 mg PO QAM 11/29/18 01/01/20 History atorvastatin 20 mg PO QAM 11/29/18 01/01/20 History bupropion HCl 150 mg PO BID 11/29/18 01/01/20 History cetirizine 10 mg PO QAM 11/29/18 01/01/20 History furosemide 40 mg PO QAM 11/29/18 01/01/20 History lisinopril 10 mg PO QAM 11/29/18 01/01/20 History metformin 750 mg PO BID 11/29/18 01/01/20 History mometasone 1 spray INTRANASAL HS 11/29/18 01/01/20 History pregabalin [Lyrica] 100 mg PO BID 11/29/18 01/01/20 History cholecalciferol (vitamin D3) 2,000 unit PO QAM 06/17/19 01/01/20 History [Vitamin D3] ketoconazole 1 applic TOPICAL QAM 06/17/19 01/01/20 History halobetasol propionate 1 applic TOPICAL DIRECTED 12/24/19 01/01/20 History tramadol 50 mg PO Q6H PRN #30 tab 01/06/20 Rx Patient History Medical History BPH (benign prostatic hyperplasia) Colon cancer screening Depression Diabetes (Inactive) Diabetes mellitus, type 2 SCOTT (generalized anxiety disorder) (Inactive) GERD (gastroesophageal reflux disease) (Inactive) Hearing loss in right ear History of anesthesia reaction had BP drop during one of his hernia sx---had surgery since then, no issues HLD (hyperlipidemia) Hypertension Morbid obesity with BMI of 50.0-59.9, adult KAYLEEN (obstructive sleep apnea) bipap HS x25yrs settings 05/03 Osteoarthritis Prostate cancer (Chronic) 08/04/2019 Venous stasis (Inactive) Venous stasis dermatitis Surgical History H/O esophagogastroduodenoscopy (Inactive) 2007 H/O hernia repair (Inactive) 3 hernia repairs, 2009, 2011 & 2012 History of arthroscopy of right knee meniscus repair History of colonoscopy History of wisdom tooth extraction Hx of vasectomy Status post trigger finger release right ring finger Family History Mother Lung cancer age 57 Father , cancer not sure what kind, age 90 No problems noted. Sister No problems noted. Sister No problems noted. Sister No problems noted. Son No problems noted. Daughter No problems noted. Other No family history of adverse response to anesthesia Social History Preferred Language: Austrian Communication Ability: Effective Row Boss Hoeing Required: No Beliefs That Will Affect Care: None marital status: / Current Living Situation: Alone current occupation: retired, social security disability, [employer] worker Feels Safe at Home: Yes Smoking Status: Never smoker Second Hand Exposure: Yes (father smoked) ; Hx Alcohol Use: No Hx Substance Use: No Childhood Exposure to Second-Hand Smoke: Yes caffeine: Yes (one cup of tea) Dental Care, Regularly: Yes Review of Systems Review of Systems: All systems reviewed & are unremarkable except as noted in HPI & below Constitutional: as per Subjective / HPI obesity Eyes: as per Subjective / HPI Ear, Nose, Mouth, Throat: as per Subjective / HPI Respiratory: as per Subjective / HPI cough Cardiovascular: as per Subjective / HPI Additional Comments: HLD, HTN Gastrointestinal: as per Subjective / HPI Genitourinary: + as per Subjective / HPI Musculoskeletal: spinal stenosis, myelopathy Integumentary: as per Subjective / HPI Neurologic: as per Subjective / HPI Psychiatric: depression Endocrine: DM Hematologic / Lymphatic: as per Subjective / HPI Physical Exam Constitutional: WD/WN, vitals as above well developed and well nourished obesity Eyes: PERRL, conjunctivae normal, anicteric sclerae ENMT: external ear and nose normal, oropharynx normal Neck: trachea midline, no thyromegaly Respiratory: normal respiratory effort, lungs clear to auscultation Cardiovascular: RRR, no murmur, no edema Rate/Rhythm: regular rate and regular rhythm Heart Sounds: normal S1 and normal S2 Gastrointestinal (Abdomen): normal bowel sounds, soft, nontender, no hepatosplenomegaly soft, NT, ND, BS + Musculoskeletal: Head/Neck/Chest: + limited ROM of neck Skin: no rashes, warm and dry Neurologic: patellar DTR's 2+ bilat, sensation intact Psychiatric: Orientation: alert and oriented x 3 Results & Data Vital Signs (Past 12 Hours) Vital Signs Temp Pulse Pulse Pulse Resp BP Pulse Ox 01/07/20 15:07 36.9 C 88 18 133/70 93 01/07/20 13:52 95 06/24/20 11:35 75 18 94 01/07/20 07:58 37 C 95 H 20 119/72 95 01/07/20 07:40 75 18 96 01/07/20 06:02 96 01/07/20 06:00 89 L 01/07/20 03:22 55 L 15 94 01/07/20 03:20 55 L 14 94 01/07/20 03:19 58 L 16 93 Laboratory Results Abnormal lab results 01/06/20 01/06/20 01/07/20 Range/Units 17:07 20:36 06:58 RBC 4.50 L (4.7-6.1) M/uL Hgb 13.4 L (14.0-18.0) g/dL Hct 41.1 L (42-52) % BUN (7-18) mg/dl BUN/Creatinine Ratio (10-20) Glucose (70-99) mg/dl POC Glucose 108 H 107 H (70-99) mg/dl 01/07/20 01/07/20 01/07/20 Range/Units 06:58 08:01 12:10 RBC (4.7-6.1) M/uL Hgb (14.0-18.0) g/dL Hct (42-52) % BUN 45 H (7-18) mg/dl BUN/Creatinine Ratio 40.2 H (10-20) Glucose 102 H (70-99) mg/dl POC Glucose 117 H 155 H (70-99) mg/dl Diagnostic Findings T SCAN OF THE ABDOMEN AND PELVIS WITHOUT CONTRAST CLINICAL HISTORY: Abnormal chest x-ray. Free intraperitoneal air. COMPARISON STUDY: CT scan dated 09/16/2015, chest x-ray dated 01/07/2020 TECHNIQUE: CT scan of the abdomen and pelvis was performed from the lung bases to the proximal femurs. Images are reviewed in the axial, sagittal, and coronal planes. IV contrast was not administered for this examination. A dose lowering technique was utilized adhering to the principles of ALARA. CT DOSE: FINDINGS: Lower chest: There is right lower lobe atelectasis/consolidation with air bronchograms. There are minor left basilar atelectatic changes. Liver: The unenhanced liver is normal in size, contour, and attenuation. There is no intrahepatic biliary ductal dilatation. Gallbladder: Unremarkable. Spleen: Normal in size and attenuation. Pancreas: Unremarkable. Adrenal glands: Unremarkable. Kidneys: There is an 8 mm right renal calculus. There is no hydronephrosis. No ureteral or bladder calculi are visualized. There is a 26 mm left renal cyst. Bowel: There are no transition zones to indicate bowel obstruction. There is no evidence of acute diverticulitis. There are scattered colonic diverticula present. The appendix appears normal. Peritoneum: There is a large volume of free intraperitoneal air. The etiology of this free air is unclear from the CT scan. Vasculature: The abdominal aorta is normal in course and caliber. Adenopathy: None. Pelvic viscera: There is an indwelling Hatch catheter. The prostate is enlarged. Skeletal structures: No destructive osseous lesions are seen. IMPRESSION: 1. Large volume of free intraperitoneal air, etiology of which is unclear 2. No evidence of bowel obstruction. 3. Right-sided nephrolithiasis. No evidence of hydronephrosis 4. Normal appendix. 5. No evidence of acute diverticulitis. 6. Prostatomegaly ACT 112: Negative or not required by law. XR chest 1V portable CLINICAL HISTORY: hypoxia COMPARISON STUDY: 01/06/2020 FINDINGS: There is free intraperitoneal air. The heart is enlarged. There is no focal pulmonary consolidation. There are no significant pleural effusions. There is minor basilar atelectasis.[ IMPRESSION: 1. Unexplained free intraperitoneal air. This finding will be called to the referring clinician.
--- NOTE | 2020-01-07 19:26 | CT Scan Report ---
CT SCAN OF THE ABDOMEN AND PELVIS WITHOUT IV CONTRAST CLINICAL HISTORY: Intraperitoneal free air. COMPARISON STUDY: Abdominal CT performed over the same day 01/07/2020. TECHNIQUE: CT scan of the abdomen and pelvis is performed from the lung bases to the proximal femora. Images are reviewed in the axial, sagittal, and coronal planes. IV contrast was not administered for this examination. Note that the examination is suboptimal without IV contrast. Oral contrast was uti lized for the repeat examination. A dose lowering technique was utilized adhering to the principles o f ALARA. The examination is degraded by streak artifact from the body wall abutting the CT gantry, as well as the arms which could not be elevated above the abdomen. CT DOSE: 2354.93 mGy.cm FINDINGS: Lung bases: The heart is top normal in size and without pericardial effusion. There is elevation of t he right hemidiaphragm with segmental atelectasis/consolidation at the right lung base. Dependent con solidation is also seen at the left lung base. Liver: The unenhanced liver is normal in size, contour, and attenuation. There is no intrahepatic andrew iary ductal dilatation. Gallbladder: Unremarkable. Spleen: Normal in size and attenuation. Pancreas: Unremarkable. Adrenal glands: Unremarkable. Kidneys: The unenhanced kidneys demonstrate cortical atrophy and are without hydronephrosis. A 6 mm n onobstructing calculus is seen in the right upper pole. No left renal calculi are identified a 2.6 cm cyst is noted in the left. Abdominal vasculature: The abdominal aorta is normal in course and caliber noting mild atheroscleroti c calcification. Bowel: There is no bowel obstruction. Enteric contrast reaches the distal small bowel. No extralumina l contrast is identified. The appendix is well-visualized and normal. Peritoneum: There a large volume of intraperitoneal free air is again seen. There is no abdominal asc ites. Lymphadenopathy: None. Pelvic viscera: The prostate gland is enlarged and heterogeneous measuring 6.4 cm in diameter. There is median lobe hypertrophy. A Hatch catheter is in place, and is inflated within the prostate gland a s seen on image #[id number]. There is evidence of previous TURP. The bladder is distended. Intraluminal gas is likely related to instrumentation. Thickening and trabeculation of the bladder wall indicate chron ic outlet obstruction. There is evidence of previous right inguinal herniorrhaphy. The skeletal struc tures are osteopenic. Skeletal structures: The skeletal structures are osteopenic. Mild to moderate lumbosacral spondylosis is observed. Degenerative change and partial fusion is noted in the sacroiliac joints. No lytic or b lastic lesions are seen. IMPRESSION: 1. A large volume of intraperitoneal free air is unchanged and strongly suggests visceral perforation . 2. The site of perforation cannot be delineated on this examination. 3. Enteric contrast reaches the distal small bowel. No extraluminal contrast is identified. 4. A Hatch catheter balloon is inflated within the prostate gland. Repositioning is indicated. 5. Right-sided nephrolithiasis. 6. There is bibasilar consolidation. The majority of this likely represents atelectasis. Correlate cl inically for evidence of a superimposed pneumonia/aspiration pneumonitis. 7. Additional findings as above. ACT 112: Negative or not required by law. Electronically signed by: Jono Cruz M.D. 01/07/2020 7:24 PM
--- NOTE | 2020-01-07 20:32 | Post Operative Brief Note ---
Immediate Post Op Note v1 Date of Surgery January 07, 2020 Pre & Post Diagnosis Operation Date: 01/02/20 07:45 pre-op diagnosis: acute appendicitis post-op diagnosis: acute appendicitis I identified the patient and participated in the time-out.: Yes Procedure Operation Date: 01/02/20 07:45 laparoscopic appendectomy Surgeon Felix Eli MD Consulting Intern rn neurosurgical Estimated Blood Loss 5 Findings Consistent with Post-Op Diagnosis Fluids 1000ml Specimens appendix Anesthesia Type General Complications none Disposition Accompanied Patient To Recovery: Yes Disposition: Recovery Room Overlapping Procedure I was immediately available: during the entire case.
--- NOTE | 2020-01-07 21:06 | Surgery Progress Note ---
Date of Service F/U CT scan- IMPRESSION: 1. A large volume of intraperitoneal free air is unchanged and strongly suggests visceral perforation. 2. The site of perforation cannot be delineated on this examination. 3. Enteric contrast reaches the distal small bowel. No extraluminal contrast is identified. 4. A Hatch catheter balloon is inflated within the prostate gland. Repositioning is indicated. 5. Right-sided nephrolithiasis. 6. There is bibasilar consolidation. The majority of this likely represents atelectasis. Correlate clinically for evidence of a superimposed pneumonia/aspiration pneumonitis. pt is still have no abdominal pain, no distend on abdomen, pt denies nausea, no vomiting, no fever, pt is comfortable on bed. January 07, 2020 Assessment & Plan (1) Free intraperitoneal air: pt is a 64 year-old male who had C 4 cervical corpectomy on 01/02/20, pt had CXR, CT scan today finding intraperitoneal free air, pt denies any abdominal pain, no fever, IMP: intraperitoneal free air, I recommend to do po contrast CT scan abd + pelvic state to R/O bowel perforation, will F/U ,pt agrees with the CT scan, 01/07/2020 9:09PM base on CT scan finding, D/W pt about CT scan finding, no emergent surgery indication now, conservative treatment, INV antibiotic, repeat labs in am, repeat KUB in am, will F/U, pt agrees with the plan, I answered all questions, Supervising Physician Co-Signing Physician Notes Attending addendum The patient is seen and examined in the medical floor He is a status post C4 cervical corpectomy with spinal cord monitoring on of this month Has been recovering well from the surgery and has had some chest pressure last night Noted to be stable this morning but chest x-ray did show air under diaphragm He denies any significant abdominal symptoms On examination Mild short of breath at rest Hemodynamically stable Chest-decreased breath sounds at the bases Heart-S1-S2, regular Abdomen-distended, soft, nontender and bowel sounds present Extremities 1+ edema bilaterally- His labs and imaging studies reviewed Has significant intraperitoneal air of unknown etiology Surgery consulted Reviewed assessment and plan as outlined above by Jordyn burger Subjective Patient is comfortable at this time. He is noticing some modest improvement of his left hand function. Review of Systems Constitutional: as per Subjective / HPI obesity Eyes: as per Subjective / HPI Ear, Nose, Mouth, Throat: as per Subjective / HPI Respiratory: as per Subjective / HPI cough Cardiovascular: as per Subjective / HPI Additional Comments: HLD, HTN Gastrointestinal: as per Subjective / HPI Genitourinary: + as per Subjective / HPI Musculoskeletal: spinal stenosis, myelopathy Integumentary: as per Subjective / HPI Neurologic: as per Subjective / HPI Psychiatric: depression Endocrine: DM Hematologic / Lymphatic: as per Subjective / HPI Physical Exam Constitutional: WD/WN, vitals as above well developed and well nourished Eyes: PERRL, conjunctivae normal, anicteric sclerae ENMT: external ear and nose normal, oropharynx normal Neck: trachea midline, no thyromegaly Respiratory: normal respiratory effort, lungs clear to auscultation Cardiovascular: RRR, no murmur, no edema Rate/Rhythm: regular rate and regular rhythm Heart Sounds: normal S1 and normal S2 Gastrointestinal (Abdomen): normal bowel sounds, soft, nontender, no hepatosplenomegaly soft, NT, ND, BS + Musculoskeletal: Head/Neck/Chest: + limited ROM of neck Skin: no rashes, warm and dry Neurologic: patellar DTR's 2+ bilat, sensation intact Psychiatric: Orientation: alert and oriented x 3 Results & Data Vital Signs (Past 12 Hours) Vital Signs Temp Pulse Pulse Resp BP Pulse Ox 01/07/20 19:11 79 18 92 01/07/20 19:07 81 22 92 01/07/20 15:14 93 H 18 94 01/07/20 15:07 36.9 C 88 18 133/70 93 01/07/20 13:52 95 01/07/20 11:35 75 18 94
[2020-01-07] MEDS: DOCUSATE SODIUM/SENNA 50/8.6MG TAB PO SCH (22:17)
[2020-01-07] MEDS: FLUTICASONE PROPIONATE NA SPR 16 GM BTL SCH (22:17)
[2020-01-08] MEDS: guaiFENesin SUGAR FREE 200 MG/10 ML UDC PO SCH ×7 (00:05→23:42)
[2020-01-08] MEDS: ALBUT/IPRATROP 3MG/0.5MG NEB 3 ML VIAL NEB SCH ×6 (03:01→23:51)
[2020-01-08] MEDS: HYDROmorphone INJ 1 MG/ML SYRINGE IV PRN ×2 (05:14→23:59)
[2020-01-08 06:33] LABS: Basophils # (auto) 0.01 K/uL (0-0.2); Basophils % (auto) 0.1 %; Eosinophils # (auto) 0.19 K/uL (0-0.5); Eosinophils % (auto) 1.8 %; Hematocrit (blood only) 39.4 % (42-52); Hemoglobin 12.8 g/dL (14.0-18.0); Immature Granulocytes # (auto) 0.01 K/uL (0.00-0.02); Immature Granulocytes % (auto) 0.1 %; Lymphocytes # (auto) 1.14 K/uL (1.2-3.4); Lymphocytes % (auto) 10.6 %; Mean Corpuscular Hemoglobin 29.8 pg (25-34); Mean Corpuscular Hgb Conc 32.5 g/dL (32-36); Mean Corpuscular Volume 91.6 fL (80-100); Mean Platelet Volume 9.6 fL (7.4-10.4); Monocytes % (auto) 12.1 %; Neutrophils # (auto) 8.12 K/uL (1.4-6.5); Neutrophils % (auto) 75.3 %; Platelet Count 252 K/uL (130-400); RDW Coefficient of Variation 13.3 % (11.5-14.5); RDW Standard Deviation 44.3 fL (36.4-46.3); White Blood Count 10.77 K/uL (4.8-10.8)
[2020-01-08 07:11] LABS: BUN Creatinine Ratio 41.1 (10-20); Calcium 9.1 mg/dl (8.5-10.1); Creatinine Clr Calc Pharmacy 95.8 ml/min; Est GFR (African American) 88.8; Est GFR (Non-African American) 76.6; Magnesium 2.3 mg/dl (1.8-2.4); Potassium 3.7 mmol/L (3.5-5.1)
--- NOTE | 2020-01-08 09:27 | Hospitalist Progress Note ---
Date of Service January 08, 2020 Assessment & Plan (1) Myelopathy concurrent with and due to spinal stenosis of cervical region: POD# 6 anterior cervical corpectomy with bilateral foraminotomies C4, by Dr. Peña EBL 5 ml continues to have weakness and today complaining of stiffness to upper ext Is feeling depressed because lack of progress he is making and less mobility activity and wound care orders as per ortho pain control with bowel regimen PT/OT monitor H/H for acute blood loss anemia and transfuse blood products PRN EBL 25cc, hgb remains stable 12.8 and 39.4 (2) Cough: (3) Hypoxia: developed moist cough 2 days ago, CXR without focal infiltrate CT scan revealing dependent consolidation b/l atelectasis vs infectious O2 sats on room air 88-91% ST evaled pt yesterday, asp precautions ordered Consider initiate IV antibiotics if persists - defer to Dr. Emanuel (4) Pneumoperitoneum of unknown etiology: surgery on board, appreciate recommendations conservative management for now repeat KUB, CT reviewed (5) KAYLEEN (obstructive sleep apnea): BiPap HS (6) Diabetes mellitus, type 2: hgb a1c 6.0 Hold home agents and utilize NovoLog protocol while hospitalized controlled bsg 112, 119 this a.m. (7) Hypertension: BP controlled, continue lisinopril and furosemide monitor renal function, BUN starting to trend up If continues reduce lasix (8) Depression: Continue bupropion pt very tearful and depressed due to current situation monitor (9) Morbid obesity with BMI of 50.0-59.9, adult: BMI 53.4 encourage lifestyle modifications (10) DVT prophylaxis: Teds/SCDs as per spine orthopedics Pt was seen and examined in collaboration with Dr. Emanuel, please see addendum Thank you for this consultation. We will follow the patient with you during their hospital stay. You can [facility] a [facility] via pager @ [phone]. Admission and Anticipated Discharge Date Admission Date: January 01, 2020 Supervising Physician Co-Signing Physician Notes Attending addendum Patient was seen and examined in medical floor He complains to have minimal shortness of breath at rest and remains on BiPAP with room air Denies any abdominal pain, nausea and/or vomiting On examination Mild shortness of breath at rest Hemodynamically stable Abdomen-slightly distended, nontender, no guarding and no rigidity, bowel sounds present Chest-decreased breath sounds right base without crackles and clear on left side Imaging studies and labs noted Case discussed with metabolic specialist Dr. Banks Advised to discuss with radiologist to find out possible source of pneumoperitoneum If there is any fever and worsening of the condition the patient will need to be transferred to tertiary care center Reviewed assessment plan as outlined above by BRYAN Vazquez Dr Subjective Pt seen and examined in room 319-1. Follow up C4 Cervical corpectomy by Dr. Peña POD #6. "I'm miserable." Pt is tearful during conversation. "I've been bed bound for 8 days and now I can't even move I am so stiff." Complains of b/l shoulder stiffness. Complains of difficulty taking deep breath and moist cough. Denies f/c/s, chest pain, hemopytsis, n/v/d, abdominal pain. He has randle cath in place. Last BM 2 days ago. Passing Flatus. CT abd/pelvis showed large amount of intraperitoneal free air. He was frustrated with all the tests he had yesterday. Review of Systems Review of Systems: All systems reviewed & are unremarkable except as noted in HPI & below Physical Exam Physical Exam: Gen: WD/WN, morbidly obese, very tearful and depressed, +pain to b/l shoulders, A&O x3 HEENT: Normocephalic, atraumatic, conjunctivae moist, sclerae anicteric, mucous membranes moist. Neck: Dressing CDI Lung: pt refused to let me auscultate to his posterior thorax, anteriorly Clear to Auscultation bilaterally but at bases from what I could appreciate, no wheezes/rales/rhonchi Heart: Regular rate, regular rhythm, no murmurs, rubs, or gallops Abdomen: obese abd, Soft, NT, ND +BS x 4 Extremities: No edema b/l SCD/TEDS in place Skin: Warm, no rash, negative turgor. Results & Data Results & Data ([facility]) Vital Signs (Past 12 Hours) Vital Signs Temp Pulse Pulse Pulse Resp BP Pulse Ox 01/08/20 07:24 37.1 C 67 20 121/77 95 01/08/20 07:00 60 18 95 06/25/20 06:59 60 18 95 01/08/20 06:58 60 18 95 01/08/20 03:01 64 64 18 95 01/07/20 23:25 36.9 C 74 18 138/74 94 01/07/20 23:04 74 74 18 93 Laboratory Results Short CBC 01/02/20 01/03/20 01/04/20 Range/Units 06:23 07:34 06:06 WBC (4.8-10.8) K/uL Hgb (14.0-18.0) g/dL Hct (42-52) % Plt Count (130-400) K/uL BUN 17 16 18 (7-18) mg/dl Creatinine 1.08 1.09 0.86 (0.6-1.4) mg/dl 01/05/20 01/06/20 01/07/20 Range/Units 05:00 06:32 06:58 WBC (4.8-10.8) K/uL Hgb (14.0-18.0) g/dL Hct (42-52) % Plt Count (130-400) K/uL BUN 26 H 31 H 45 H (7-18) mg/dl Creatinine 0.94 1.09 1.11 (0.6-1.4) mg/dl 01/08/20 01/08/20 Range/Units 06:21 06:21 WBC 10.77 (4.8-10.8) K/uL Hgb 12.8 L (14.0-18.0) g/dL Hct 39.4 L (42-52) % Plt Count 252 (130-400) K/uL BUN 43 H (7-18) mg/dl Creatinine 1.04 (0.6-1.4) mg/dl BMP 01/08/20 06:21 Sodium 140 Potassium 3.7 Chloride 105 Carbon Dioxide 29 BUN 43 H Creatinine 1.04 Glucose 112 H Calcium 9.[address] Abd/Pelvis w contrast: Lung bases: The heart is top normal in size and without pericardial effusion. There is elevation of the right hemidiaphragm with segmental atelectasis/consolidation at the right lung base. Dependent consolidation is a lso seen at the left lung base. Liver: The unenhanced liver is normal in size, contour, and attenuation. There is no intrahepatic biliary ductal dilatation. Gallbladder: Unremarkable. Spleen: Normal in size and attenuation. Pancreas: Unremarkable. Adrenal glands: Unremarkable. Kidneys: The unenhanced kidneys demonstrate cortical atrophy and are without hydronephrosis. A 6 mm nonobstructing calculus is seen in the right upper pole. No left renal calculi are identified a 2.6 cm cyst is noted in the left. Abdominal vasculature: The abdominal aorta is normal in course and caliber noting mild atherosclerotic calcification. Bowel: There is no bowel obstruction. Enteric contrast reaches the distal small bowel. No extraluminal contrast is identified. The appendix is well-visualized and normal. Peritoneum: There a large volume of intraperitoneal free air is again seen. There is no abdominal ascites. Lymphadenopathy: None. Pelvic viscera: The prostate gland is enlarged and heterogeneous measuring 6.4 cm in diameter. There is median lobe hypertrophy. A Randle catheter is in place, and is inflated within the prostate gland as seen on image #[id number]. There is evidence of previous TURP. The bladder is distended. Intraluminal gas is likely related to instrumentation. Thickening and trabeculation of the bladder wall indicate chronic outlet obstruction. There is evidence of previous right inguinal herniorrhaphy. The skeletal structures are osteopenic. Skeletal structures: The skeletal structures are osteopenic. Mild to moderate lumbosacral spondylosis is observed. Degenerative change and partial fusion is noted in the sacroiliac joints. No lytic or blastic lesions are seen. IMPRESSION: 1. A large volume of intraperitoneal free air is unchanged and strongly suggests visceral perforation. 2. The site of perforation cannot be delineated on this examination. 3. Enteric contrast reaches the distal small bowel. No extraluminal contrast is identified. 4. A Randle catheter balloon is inflated within the prostate gland. Repositioning is indicated. 5. Right-sided nephrolithiasis. 6. There is bibasilar consolidation. The majority of this likely represents atelectasis. Correlate clinically for evidence of a superimposed pneumonia/aspiration pneumonitis. 7. Additional findings as above. KUB: 1. Oral contrast is seen throughout the colon.. There is no oral contrast within the small bowel. 2. No evidence for bowel obstruction. 3. Lucency within the upper abdomen likely corresponds the patient's known pneumoperitoneum Medications Administered Albuterol (Duoneb) 3 ml NEB Q4R [facility] Stop: 02/05/20 18:59 Last Admin: 01/08/20 06:58 Dose: 3 ml Documented by: [id number] Admin: 01/08/20 03:01 Dose: 3 ml Documented by: [id number] Admin: 01/07/20 23:04 Dose: 3 ml Documented by: [id number] Admin: 01/07/20 19:10 Dose: 3 ml Documented by: [id number] Admin: 01/07/20 15:14 Dose: 3 ml Documented by: [id number] Admin: 01/07/20 11:35 Dose: 3 ml Documented by: [id number] Admin: 01/07/20 07:40 Dose: 3 ml Documented by: [id number] Admin: 01/07/20 03:18 Dose: 3 ml Documented by: [id number] Admin: 01/06/20 22:48 Dose: 3 ml Documented by: [id number] Admin: 01/06/20 18:51 Dose: 3 ml Documented by: [id number] Aspirin (Ecotrin Ectab) 81 mg PO [facility] Stop: 02/01/20 08:59 Last Admin: 01/07/20 09:00 Dose: 81 mg Documented by: [id number] Admin: 01/06/20 08:43 Dose: 81 mg Documented by: [id number] Admin: 01/05/20 09:26 Dose: 81 mg Documented by: [id number] Admin: 01/04/20 08:49 Dose: 81 mg Documented by: [id number] Admin: 01/03/20 09:39 Dose: 81 mg Documented by: [id number] Admin: 01/02/20 13:06 Dose: Not Given Documented by: [id number] Atorvastatin Calcium (Lipitor) 20 mg PO [facility] Stop: 02/01/20 08:59 Last Admin: 01/07/20 08:59 Dose: 20 mg Documented by: [id number] Admin: 01/06/20 08:42 Dose: 20 mg Documented by: [id number] Admin: 01/05/20 09:26 Dose: 20 mg Documented by: [id number] Admin: 01/04/20 08:49 Dose: 20 mg Documented by: [id number] Admin: 01/03/20 09:39 Dose: 20 mg Documented by: [id number] Admin: 01/02/20 13:06 Dose: Not Given Documented by: [id number] Bupropion HCl (Wellbutrin-Sr) 150 mg PO BID [facility] Stop: 01/31/20 20:59 Last Admin: 01/07/20 22:17 Dose: Not Given Documented by: [id number] Admin: 01/07/20 08:59 Dose: 150 mg Documented by: [id number] Admin: 01/06/20 20:56 Dose: Not Given Documented by: [id number] Admin: 01/06/20 08:43 Dose: 150 mg Documented by: [id number] Admin: 01/05/20 20:06 Dose: 150 mg Documented by: [id number] Admin: 01/05/20 09:26 Dose: 150 mg Documented by: [id number] Admin: 01/04/20 20:37 Dose: 150 mg Documented by: [id number] Admin: 01/04/20 08:50 Dose: 150 mg Documented by: [id number] Admin: 01/03/20 20:55 Dose: 150 mg Documented by: [id number] Admin: 01/03/20 09:38 Dose: 150 mg Documented by: [id number] Admin: 01/02/20 21:59 Dose: 150 mg Documented by: [id number] Admin: 01/02/20 13:09 Dose: Not Given Documented by: [id number] Admin: 01/01/20 20:30 Dose: 150 mg Documented by: [id number] [facility]) [facility] Stop: 02/01/20 08:59 Last Admin: 01/07/20 08:59 Dose: 10 mg Documented by: [id number] Admin: 01/06/20 08:44 Dose: 10 mg Documented by: [id number] Admin: 01/05/20 09:26 Dose: 10 mg Documented by: [id number] Admin: 01/04/20 08:50 Dose: 10 mg Documented by: [id number] Admin: 01/03/20 09:40 Dose: 10 mg Documented by: [id number] Admin: 01/02/20 13:07 Dose: Not Given Documented by: [id number] Fluticasone Propionate (Flonase) 1 sprays [facility] Stop: 01/31/20 20:59 Last Admin: 01/07/20 22:17 Dose: Not Given Documented by: [id number] Admin: 01/06/20 20:57 Dose: 1 sprays Documented by: [id number] Admin: 01/05/20 20:06 Dose: 1 sprays Documented by: [id number] Admin: 01/04/20 20:36 Dose: 1 sprays Documented by: [id number] Admin: 01/03/20 20:56 Dose: 1 sprays Documented by: [id number] Admin: 01/02/20 21:59 Dose: 1 sprays Documented by: [id number] Admin: 01/01/20 20:30 Dose: 1 sprays Documented by: [id number] Furosemide (Lasix) 40 mg PO QAM [facility] Stop: 02/02/20 08:59 Last Admin: 01/07/20 09:00 Dose: 40 mg Documented by: [id number] Admin: 01/06/20 08:43 Dose: 40 mg Documented by: [id number] Admin: 01/05/20 09:26 Dose: 40 mg Documented by: [id number] Admin: 01/04/20 08:50 Dose: 40 mg Documented by: [id number] Admin: 01/03/20 09:39 Dose: 40 mg Documented by: [id number] Guaifenesin (Robitussin Sugar Free) 200 mg PO Q4 [facility] Stop: 02/04/20 13:44 Last Admin: 01/08/20 04:53 Dose: 200 mg Documented by: [id number] Admin: 01/08/20 00:05 Dose: Not Given Documented by: [id number] Admin: 01/07/20 22:17 Dose: Not Given Documented by: [id number] Admin: 01/07/20 16:55 Dose: 200 mg Documented by: [id number] Admin: 01/07/20 12:56 Dose: Not Given Documented by: [id number] Admin: 01/07/20 08:57 Dose: 200 mg Documented by: [id number] Admin: 01/07/20 03:36 Dose: Not Given Documented by: [id number] Admin: 01/06/20 23:27 Dose: Not Given Documented by: [id number] Admin: 01/06/20 20:56 Dose: 200 mg Documented by: [id number] Admin: 01/06/20 16:33 Dose: 200 mg Documented by: [id number] Admin: 01/06/20 13:05 Dose: 200 mg Documented by: [id number] Admin: 01/06/20 08:44 Dose: 200 mg Documented by: [id number] Admin: 01/06/20 04:13 Dose: 200 mg Documented by: [id number] Admin: 01/05/20 23:41 Dose: Not Given Documented by: [id number] Admin: 01/05/20 19:32 Dose: 200 mg Documented by: [id number] Admin: 01/05/20 15:44 Dose: Not Given Documented by: [id number] Admin: 01/05/20 14:09 Dose: 200 mg Documented by: [id number] Hydromorphone HCl (Dilaudid) 0.5 mg IV Q3H PRN PRN Reason: MOD pain (scale 4-6) & Pre PT Stop: 01/16/20 12:59 Last Admin: 01/07/20 18:58 Dose: 0.5 mg Documented by: [id number] Admin: 01/07/20 13:08 Dose: 0.5 mg Documented by: [id number] Hydromorphone HCl (Dilaudid) 1 mg IV Q3H PRN PRN Reason: severe pain (scale 7-10) Stop: 01/16/20 12:59 Last Admin: 01/08/20 05:14 Dose: 1 mg Documented by: [id number] Admin: 01/06/20 23:27 Dose: 1 mg Documented by: [id number] Dexamethasone Sodium Phosphate (8 mg/ Syringe) 2 mls @ 1 mls/min IV DAILY [facility] Stop: 02/06/20 08:59 Last Admin: 01/07/20 08:58 Dose: 1 mls/min Documented by: [id number] Insulin Aspart (Novolog Flexpen) 0 units SC ACHS [facility] Stop: 02/01/20 16:29 Last Admin: 01/07/20 22:17 Dose: Not Given Documented by: [id number] Cosigned by: [id number] Admin: 01/07/20 17:59 Dose: 4 units Documented by: [id number] Cosigned by: [id number] Admin: 01/07/20 13:56 Dose: 5 units Documented by: [id number] Cosigned by: [id number] Admin: 01/07/20 13:10 Dose: Not Given Documented by: [id number] Admin: 01/07/20 09:11 Dose: 7 units Documented by: [id number] Cosigned by: [id number] Admin: 01/06/20 21:35 Dose: Not Given Documented by: [id number] Cosigned by: [id number] Admin: 01/06/20 17:59 Dose: 5 units Documented by: [id number] Cosigned by: [id number] Admin: 01/06/20 13:04 Dose: 11 units Documented by: [id number] Cosigned by: [id number] Admin: 01/06/20 08:50 Dose: 5 units Documented by: [id number] Cosigned by: [id number] Admin: 01/05/20 20:54 Dose: Not Given Documented by: [id number] Cosigned by: [id number] Admin: 01/05/20 18:01 Dose: 5 units Documented by: [id number] Cosigned by: [id number] Admin: 01/05/20 14:01 Dose: 4 units Documented by: [id number] Cosigned by: [id number] Admin: 01/05/20 09:28 Dose: 5 units Documented by: [id number] Cosigned by: [id number] Admin: 01/04/20 21:23 Dose: Not Given Documented by: [id number] Cosigned by: [id number] Admin: 01/04/20 17:34 Dose: 5 units Documented by: [id number] Cosigned by: [id number] Admin: 01/04/20 12:51 Dose: 10 units Documented by: [id number] Cosigned by: [id number] Admin: 01/04/20 08:51 Dose: 5 units Documented by: [id number] Cosigned by: [id number] Admin: 01/03/20 21:13 Dose: Not Given Documented by: [id number] Cosigned by: [id number] Admin: 01/03/20 18:27 Dose: Not Given Documented by: [id number] Cosigned by: [id number] Admin: 01/03/20 13:42 Dose: 9 units Documented by: [id number] Cosigned by: [id number] Admin: 01/03/20 09:37 Dose: Not Given Documented by: [id number] Admin: 01/02/20 22:02 Dose: 1 units Documented by: [id number] Cosigned by: [id number] Admin: 01/02/20 18:16 Dose: 9 units Documented by: [id number] Cosigned by: [id number] Ketoconazole (Nizoral 2%) 1 appln EXT QAM [facility] Stop: 01/13/20 08:59 Last Admin: 01/07/20 08:58 Dose: 1 appln Documented by: [id number] Admin: 01/06/20 08:45 Dose: 1 appln Documented by: [id number] Admin: 01/05/20 09:26 Dose: 1 appln Documented by: [id number] Admin: 01/04/20 08:50 Dose: 1 appln Documented by: [id number] Admin: 01/03/20 09:41 Dose: 1 appln Documented by: [id number] Lisinopril (Zestril) 10 mg PO QAM [facility] Stop: 02/02/20 08:59 Last Admin: 01/07/20 08:59 Dose: 10 mg Documented by: [id number] Admin: 01/06/20 08:44 Dose: 10 mg Documented by: [id number] Admin: 01/05/20 09:26 Dose: 10 mg Documented by: [id number] Admin: 01/04/20 08:49 Dose: 10 mg Documented by: [id number] Admin: 01/03/20 09:39 Dose: 10 mg Documented by: [id number] Miscellaneous (Order Awaiting Action) 1 ea N/A QS [facility] Stop: 02/01/20 00:00 Last Admin: 01/08/20 00:04 Dose: Not Given Documented by: [id number] Admin: 01/07/20 16:55 Dose: Not Given Documented by: [id number] Admin: 01/07/20 08:57 Dose: Not Given Documented by: [id number] Admin: 01/06/20 23:22 Dose: Not Given Documented by: [id number] Admin: 01/06/20 17:35 Dose: Not Given Documented by: [id number] Admin: 01/06/20 08:42 Dose: Not Given Documented by: [id number] Admin: 01/05/20 23:41 Dose: Not Given Documented by: [id number] Admin: 01/05/20 15:04 Dose: Not Given Documented by: [id number] Admin: 01/05/20 09:24 Dose: Not Given Documented by: [id number] Admin: 01/04/20 23:48 Dose: Not Given Documented by: [id number] Admin: 01/04/20 15:47 Dose: Not Given Documented by: [id number] Admin: 01/04/20 08:50 Dose: Not Given Documented by: [id number] Admin: 01/03/20 23:28 Dose: Not Given Documented by: [id number] Admin: 01/03/20 16:39 Dose: Not Given Documented by: [id number] Admin: 01/03/20 09:38 Dose: Not Given Documented by: [id number] Admin: 01/03/20 00:00 Dose: Not Given Documented by: [id number] Admin: 01/02/20 15:12 Dose: Not Given Documented by: [id number] Admin: 01/02/20 13:06 Dose: Not Given Documented by: [id number] Admin: 01/02/20 00:06 Dose: Not Given Documented by: [id number] Miscellaneous (Order Awaiting Action) 1 ea N/A QS [facility] Stop: 02/01/20 00:00 Last Admin: 01/08/20 00:03 Dose: Not Given Documented by: [id number] Admin: 01/07/20 16:56 Dose: Not Given Documented by: [id number] Admin: 01/07/20 08:57 Dose: Not Given Documented by: [id number] Admin: 01/06/20 23:22 Dose: Not Given Documented by: [id number] Admin: 01/06/20 20:57 Dose: Not Given Documented by: [id number] Admin: 01/06/20 08:42 Dose: Not Given Documented by: [id number] Admin: 01/05/20 23:41 Dose: Not Given Documented by: [id number] Admin: 01/05/20 15:04 Dose: Not Given Documented by: [id number] Admin: 01/05/20 09:23 Dose: Not Given Documented by: [id number] Admin: 01/04/20 23:48 Dose: Not Given Documented by: [id number] Admin: 01/04/20 15:47 Dose: Not Given Documented by: [id number] Admin: 01/04/20 08:50 Dose: Not Given Documented by: [id number] Admin: 01/03/20 23:28 Dose: Not Given Documented by: [id number] Admin: 01/03/20 16:39 Dose: Not Given Documented by: [id number] Admin: 01/03/20 09:36 Dose: Not Given Documented by: [id number] Admin: 01/03/20 00:00 Dose: Not Given Documented by: [id number] Admin: 01/02/20 15:12 Dose: Not Given Documented by: [id number] Admin: 01/02/20 13:06 Dose: Not Given Documented by: [id number] Admin: 01/02/20 00:07 Dose: Not Given Documented by: [id number] Modafinil (Provigil) 200 mg PO DAILY [facility] Stop: 02/05/20 08:59 Last Admin: 01/07/20 09:05 Dose: 200 mg Documented by: [id number] Admin: 01/06/20 08:48 Dose: 200 mg Documented by: [id number] Multivitamins/Minerals (Multivitamin W/ Minerals Tab) 1 tab PO DAILY [facility] Stop: 02/01/20 08:59 Last Admin: 01/07/20 08:58 Dose: 1 tab Documented by: [id number] Admin: 01/06/20 08:43 Dose: 1 tab Documented by: [id number] Admin: 01/05/20 09:26 Dose: 1 tab Documented by: [id number] Admin: 01/04/20 08:49 Dose: 1 tab Documented by: [id number] Admin: 01/03/20 09:40 Dose: 1 tab Documented by: [id number] Admin: 01/02/20 13:07 Dose: Not Given Documented by: [id number] Oxycodone HCl (Roxicodone Immediate Rel) 5 - 10 mg PO Q4H PRN PRN Reason: Pain & Pre PT Stop: 01/16/20 12:59 Last Admin: 01/07/20 09:05 Dose: 10 mg Documented by: [id number] Admin: 01/02/20 19:35 Dose: 10 mg Documented by: [id number] Admin: 01/02/20 15:11 Dose: 10 mg Documented by: [id number] Pregabalin (Lyrica) 100 mg PO BID [facility] Stop: 01/31/20 20:59 Last Admin: 01/07/20 22:17 Dose: Not Given Documented by: [id number] Admin: 01/07/20 09:05 Dose: 100 mg Documented by: [id number] Admin: 01/06/20 20:56 Dose: Not Given Documented by: [id number] Admin: 01/06/20 08:42 Dose: 100 mg Documented by: [id number] Admin: 01/05/20 20:06 Dose: 100 mg Documented by: [id number] Admin: 01/05/20 09:32 Dose: 100 mg Documented by: [id number] Admin: 01/04/20 20:34 Dose: 100 mg Documented by: [id number] Admin: 01/04/20 08:53 Dose: 100 mg Documented by: [id number] Admin: 01/03/20 20:55 Dose: 100 mg Documented by: [id number] Admin: 01/03/20 09:47 Dose: 100 mg Documented by: [id number] Admin: 01/02/20 22:02 Dose: 100 mg Documented by: [id number] Admin: 01/02/20 13:06 Dose: Not Given Documented by: [id number] Admin: 01/01/20 20:31 Dose: 100 mg Documented by: [id number] Senna/Docusate Sodium (Senokot S) 2 tab PO HS [facility] Stop: 02/01/20 20:59 Last Admin: 01/07/20 22:17 Dose: Not Given Documented by: [id number] Admin: 01/06/20 20:56 Dose: Not Given Documented by: [id number] Admin: 01/05/20 20:05 Dose: Not Given Documented by: [id number] Admin: 01/04/20 20:37 Dose: Not Given Documented by: [id number] Admin: 01/03/20 20:55 Dose: 2 tab Documented by: [id number] Admin: 01/02/20 22:00 Dose: 2 tab Documented by: [id number] Tramadol HCl (Ultram) 50 - 100 mg PO Q4H PRN PRN Reason: Moderate-Severe pain & Pre PT Stop: 02/01/20 12:59 Last Admin: 01/06/20 16:39 Dose: 50 mg Documented by: [id number] Vitamin D (Vitamin D3) 2,000 units PO QAM [facility] Stop: 02/01/20 08:59 Last Admin: 01/07/20 08:59 Dose: 2,000 units Documented by: [id number] Admin: 01/06/20 08:44 Dose: 2,000 units Documented by: [id number] Admin: 01/05/20 09:26 Dose: 2,000 units Documented by: [id number] Admin: 01/04/20 08:49 Dose: 2,000 units Documented by: [id number] Admin: 01/03/20 09:40 Dose: 2,000 units Documented by: [id number] Admin: 01/02/20 13:07 Dose: Not Given Documented by: [id number] Discontinued Medications Bacitracin (Bacitracin) Confirm Administered Dose 50,000 units .ROUTE .STK-MED ONE Stop: 01/02/20 07:11 Last Admin: 01/02/20 13:06 Dose: Not Given Documented by: [id number] Fentanyl Citrate (Fentanyl Citrate) Confirm Administered Dose 100 mcg .ROUTE .STK-MED ONE Stop: 01/02/20 11:04 Last Admin: 01/02/20 13:07 Dose: Not Given Documented by: [id number] Cefazolin Sodium (Ancef 3000mg) 65 mls @ 130 mls/hr IV PREOP NASIR; Protocol Stop: 01/02/20 18:00 Last Admin: 01/02/20 13:05 Dose: Not Given Documented by: [id number] Sodium Chloride (Nss 1000ml) 1,000 mls @ 100 mls/hr IV .Q10H [facility] Stop: 02/01/20 12:59 Last Admin: 01/03/20 09:47 Dose: Not Given Documented by: [id number] Infusion: 01/03/20 06:47 Dose: 0 mls/hr Documented by: [id number] Admin: 01/03/20 00:47 Dose: 100 mls/hr Documented by: [id number] Infusion: 01/03/20 00:41 Dose: 100 mls/hr Documented by: [id number] Infusion: 01/02/20 19:51 Dose: 100 mls/hr Documented by: [id number] Infusion: 01/02/20 19:36 Dose: 0 mls/hr Documented by: [id number] Admin: 01/02/20 14:25 Dose: 100 mls/hr Documented by: [id number] Acetaminophen (Ofirmev) 1,000 mg in 100 mls @ 400 mls/hr IV Q8H PRN PRN Reason: Pain Rating 1-3 & Pre PT Stop: 01/03/20 12:17 Last Infusion: 01/02/20 19:51 Dose: 0 mls/hr Documented by: [id number] Admin: 01/02/20 19:36 Dose: 400 mls/hr Documented by: [id number] Cefazolin Sodium (Ancef 2000mg) 2,000 mg in 15 mls @ 3.75 mls/min IV Q8H NASIR; Protocol Stop: 01/02/20 23:03 Last Admin: 01/02/20 22:03 Dose: 3.75 mls/min Documented by: [id number] Admin: 01/02/20 15:12 Dose: 3.75 mls/min Documented by: [id number] Dexamethasone Sodium Phosphate (8 mg/ Syringe) 2 mls @ 1 mls/min IV Q8H [facility] Stop: 02/02/20 11:59 Last Admin: 01/06/20 04:12 Dose: 1 mls/min Documented by: [id number] Admin: 01/05/20 19:32 Dose: 1 mls/min Documented by: [id number] Admin: 01/05/20 14:01 Dose: 1 mls/min Documented by: [id number] Admin: 01/05/20 04:52 Dose: 1 mls/min Documented by: [id number] Admin: 01/04/20 20:34 Dose: 1 mls/min Documented by: [id number] Admin: 01/04/20 12:49 Dose: 1 mls/min Documented by: [id number] Admin: 01/04/20 03:23 Dose: 1 mls/min Documented by: [id number] Admin: 01/03/20 20:12 Dose: 1 mls/min Documented by: [id number] Admin: 01/03/20 13:42 Dose: 1 mls/min Documented by: [id number] Furosemide 20 mg/ Syringe 2 mls @ 4 mls/min IV 1530 ONE Stop: 01/03/20 15:31 Last Admin: 01/03/20 14:32 Dose: 4 mls/min Documented by: [id number] Furosemide 20 mg/ Syringe 2 mls @ 4 mls/min IV ONE ONE Stop: 01/05/20 13:46 Last Admin: 01/05/20 14:09 Dose: 4 mls/min Documented by: [id number] Insulin Aspart (Novolog Flexpen) 0 units SC ACHS [facility] Stop: 01/31/20 20:59 Last Admin: 01/01/20 22:16 Dose: Not Given Documented by: [id number] Cosigned by: [id number] Insulin Aspart (Novolog Flexpen) 0 units SC Q6 NASIR Stop: 02/01/20 00:00 Last Admin: 01/02/20 14:35 Dose: Not Given Documented by: [id number] Cosigned by: [id number] Admin: 01/02/20 05:41 Dose: Not Given Documented by: [id number] Cosigned by: [id number] Admin: 01/02/20 00:21 Dose: Not Given Documented by: [id number] Cosigned by: [id number] Polyethylene Glycol (Miralax Powder Packet) 17 gm PO Q6 NASIR Stop: 02/02/20 11:59 Last Admin: 01/05/20 17:59 Dose: Not Given Documented by: [id number] Admin: 01/05/20 14:00 Dose: Not Given Documented by: [id number] Admin: 01/05/20 05:30 Dose: Not Given Documented by: [id number] Admin: 01/04/20 23:48 Dose: Not Given Documented by: [id number] Admin: 01/04/20 17:36 Dose: 17 gm Documented by: [id number] Admin: 01/04/20 12:49 Dose: 17 gm Documented by: [id number] Admin: 01/04/20 03:24 Dose: Not Given Documented by: [id number] Admin: 01/03/20 23:27 Dose: Not Given Documented by: [id number] Admin: 01/03/20 18:23 Dose: Not Given Documented by: [id number] Admin: 01/03/20 13:42 Dose: 17 gm Documented by: [id number]
--- NOTE | 2020-01-08 09:36 | XRay Report ---
KUB HISTORY: f/u CT, pneumoperitoneum, eval contrast in colon COMPARISON: Abdomen and pelvis CT 01/07/2020. FINDINGS: All of the oral contrast is seen throughout the colon. No dilated loops of small bowel to s uggest an obstruction. No renal calculi. No ureteral calculi. Lucency within the upper abdomen likel y corresponds to patient's known pneumoperitoneum. IMPRESSION: 1. Oral contrast is seen throughout the colon.. There is no oral contrast within the small bowel. 2. No evidence for bowel obstruction. 3. Lucency within the upper abdomen likely corresponds the patient's known pneumoperitoneum. ACT 112: Negative or not required by law. Electronically signed by: Balta Morse M.D. 01/08/2020 9:35 AM
[2020-01-08] MEDS: INSULIN ASPART 100 UNITS/ML 3 ML PEN SC SCH ×4 (09:46→21:57)
[2020-01-08] MEDS: DEXAMETHASONE SOD PHOSPHATE 8 MG in SYRINGE 0 ML IV SCH (09:48)
[2020-01-08] MEDS: CHOLECALCIFEROL 1,000 UNITS 25 MCG TAB PO SCH (09:49)
[2020-01-08] MEDS: CETIRIZINE HCL 10 MG TABLET PO SCH (09:49)
[2020-01-08] MEDS: ATORVASTATIN 20 MG TAB PO SCH (09:49)
[2020-01-08] MEDS: ASPIRIN 81 MG ECTAB PO SCH (09:50)
[2020-01-08] MEDS: lisinopriL 10 MG TAB PO SCH (09:50)
[2020-01-08] MEDS: CEROVITE ADV FORMULA TAB PO SCH (09:50)
[2020-01-08] MEDS: FUROSEMIDE 40 MG TAB PO SCH (09:50)
[2020-01-08] MEDS: BuPROPion SR 150 MG TABCR PO SCH ×2 (09:50→21:02)
[2020-01-08] MEDS: KETOCONAZOLE 2% CR 15 GM TUBE EXT SCH (09:51)
[2020-01-08] MEDS: PREGABALIN 100 MG CAP PO SCH ×2 (10:16→21:02)
[2020-01-08] MEDS: modafiniL 100 MG TAB PO SCH (10:16)
--- NOTE | 2020-01-08 11:36 | Orthopedic Progress Note ---
Date of Service January 08, 2020 Assessment & Plan (1) Myelopathy concurrent with and due to spinal stenosis of cervical region: At this time he is being followed by general surgery regarding free air in the abdomen. From orthopedic standpoint is stable and ready for rehab when cleared. Present on Admission?: Yes Admission and Anticipated Discharge Date Admission Date: January 01, 2020 Subjective Patient is in the chair at the bedside. Is swallowing well. No significant change in neuro function. He is undergoing work-up for free air in the abdomen. Physical Exam Physical Exam: On exam he does appear comfortable. He has grasp of the left wrist but still marked limitations with biceps and deltoids. Results & Data ([facility]) Vital Signs (Past 12 Hours) Vital Signs Temp Pulse Pulse Pulse Resp BP Pulse Ox 01/08/20 11:14 60 20 95 01/08/20 10:12 20 95 01/08/20 07:24 37.1 C 67 20 121/77 95 01/08/20 07:00 60 18 95 01/08/20 06:59 60 18 95 01/08/20 06:58 60 18 95 01/08/20 03:01 64 64 18 95
--- NOTE | 2020-01-08 12:29 | Surgery Progress Note ---
Date of Service F/U free air, pt is doing fine, no abdominal pain, he tolerated diet, no nausea, no vomiting, January 08, 2020 Assessment & Plan (1) Free intraperitoneal air: pt is a 64 year-old male who had C 4 cervical corpectomy on 01/02/20, pt had CXR, CT scan today finding intraperitoneal free air, pt denies any abdominal pain, no fever, IMP: intraperitoneal free air, I recommend to do po contrast CT scan abd + pelvic state to R/O bowel perforation, will F/U ,pt agrees with the CT scan, 01/07/2020 9:09PM base on CT scan finding, D/W pt about CT scan finding, no emergent surgery indication now, conservative treatment, INV antibiotic, repeat labs in am, repeat KUB in am, will F/U, pt agrees with the plan, I answered all questions 01/08/2020: KUB showing contrast in colon no extravasation of contrast, pneumoperitoneum persists completely benign abdomen on exam, asymptomatic vitals stable, no leukocytosis, afebrile Plan: No surgical intervention recommended at this time continue diet continue medical management Dr. Eli has seen and examined pt, agrees with above. 01/09/2020 10:55AM no surgical indication now, continue conservative treatment, completion manager surgeon will cover this weekend Subjective denies of any abdominal pain denies of nausea or vomiting tolerated DM diet for breakfast this morning only complaint is shortness of breath when lying flat Physical Exam Constitutional: + morbidly obese; no acute distress and not ill appearing currently has bipap on Eyes: PERRL, conjunctivae normal, anicteric sclerae ENMT: external ear and nose normal, oropharynx normal Neck: trachea midline, no thyromegaly Respiratory: normal respiratory effort, lungs clear to auscultation Cardiovascular: RRR, no murmur, no edema Rate/Rhythm: regular rate and regular rhythm Heart Sounds: normal S1 and normal S2 Gastrointestinal (Abdomen): normal bowel sounds, soft, nontender, no hepatosplenomegaly Inspection/Auscultation: abdomen normal to inspection; abdomen not distended Percussion/Palpation: abdomen soft; abdomen nontender, no guarding and abdomen not rigid Musculoskeletal: Head/Neck/Chest: + limited ROM of neck Skin: no rashes, warm and dry Neurologic: patellar DTR's 2+ bilat, sensation intact Psychiatric: Orientation: alert and oriented x 3 Results & Data Vital Signs (Past 12 Hours) Vital Signs Temp Pulse Pulse Pulse Resp BP Pulse Ox 01/08/20 11:14 60 20 95 01/08/20 10:12 20 95 01/08/20 07:24 37.1 C 67 20 121/77 95 01/08/20 07:00 60 18 95 01/08/20 06:59 60 18 95 01/08/20 06:58 60 18 95 01/08/20 03:01 64 64 18 95 Laboratory Results 01/08/20 01/08/20 01/08/20 Range/Units 12:13 08:21 06:21 WBC (4.8-10.8) K/uL RBC (4.7-6.1) M/uL Hgb (14.0-18.0) g/dL Hct (42-52) % MCV (80-100) fL MCH (25-34) pg MCHC (32-36) g/dL RDW Std Deviation (36.4-46.3) fL RDW Coeff of Shanel (11.5-14.5) % Plt Count (130-400) K/uL MPV (7.4-10.4) fL Immature Gran % (Auto) % Neut % (Auto) % Lymph % (Auto) % [place] % (Auto) % Eos % (Auto) % Baso % (Auto) % Neut # (Auto) (1.4-6.5) K/uL Lymph # (Auto) (1.2-3.4) K/uL [place]atte # (Auto) (0.11-0.59) K/uL Eos # (Auto) (0-0.5) K/uL Baso # (Auto) (0-0.2) K/uL Immature Gran # (Auto) (0.00-0.02) K/uL Sodium 140 (136-145) mmol/L Potassium 3.7 (3.5-5.1) mmol/L Chloride 105 (98-107) mmol/L Carbon Dioxide 29 (21-32) mmol/L Anion Gap 7.0 (3-11) BUN 43 H (7-18) mg/dl Creatinine 1.04 (0.6-1.4) mg/dl Est Cr Clr Drug Dosing 95.8 ml/min Est GFR ( Amer) 88.8 Est GFR (Non-Af Amer) 76.6 BUN/Creatinine Ratio 41.1 H (10-20) Glucose 112 H (70-99) mg/dl POC Glucose 217 H 119 H (70-99) mg/dl Calcium 9.1 (8.5-10.1) mg/dl Magnesium 2.3 (1.8-2.4) mg/dl 01/08/20 01/07/20 01/07/20 Range/Units 06:21 21:05 17:03 WBC 10.77 (4.8-10.8) K/uL RBC 4.30 L (4.7-6.1) M/uL Hgb 12.8 L (14.0-18.0) g/dL Hct 39.4 L (42-52) % MCV 91.6 (80-100) fL MCH 29.8 (25-34) pg MCHC 32.5 (32-36) g/dL RDW Std Deviation 44.3 (36.4-46.3) fL RDW Coeff of Shanel 13.3 (11.5-14.5) % Plt Count 252 (130-400) K/uL MPV 9.6 (7.4-10.4) fL Immature Gran % (Auto) 0.1 % Neut % (Auto) 75.3 % Lymph % (Auto) 10.6 % [place]atte % (Auto) 12.1 % Eos % (Auto) 1.8 % Baso % (Auto) 0.1 % Neut # (Auto) 8.12 H (1.4-6.5) K/uL Lymph # (Auto) 1.14 L (1.2-3.4) K/uL Platte # (Auto) 1.30 H (0.11-0.59) K/uL Eos # (Auto) 0.19 (0-0.5) K/uL Baso # (Auto) 0.01 (0-0.2) K/uL Immature Gran # (Auto) 0.01 (0.00-0.02) K/uL Sodium (136-145) mmol/L Potassium (3.5-5.1) mmol/L Chloride (98-107) mmol/L Carbon Dioxide (21-32) mmol/L Anion Gap (3-11) BUN (7-18) mg/dl Creatinine (0.6-1.4) mg/dl Est Cr Clr Drug Dosing ml/min Est GFR ( Amer) Est GFR (Non-Af Amer) BUN/Creatinine Ratio (10-20) Glucose (70-99) mg/dl POC Glucose 132 H 212 H (70-99) mg/dl Calcium (8.5-10.1) mg/dl Magnesium (1.8-2.4) mg/dl Diagnostic Findings KUB HISTORY: f/u CT, pneumoperitoneum, eval contrast in colon COMPARISON: Abdomen and pelvis CT 01/07/2020. FINDINGS: All of the oral contrast is seen throughout the colon. No dilated loops of small bowel to suggest an obstruction. No renal calculi. No ureteral calculi. Lucency within the upper abdomen likely corresponds to patient's known pneumoperitoneum. IMPRESSION: 1. Oral contrast is seen throughout the colon.. There is no oral contrast within the small bowel. 2. No evidence for bowel obstruction. 3. Lucency within the upper abdomen likely corresponds the patient's known pneumoperitoneum.
[2020-01-08] MEDS: FLUTICASONE PROPIONATE NA SPR 16 GM BTL SCH (21:02)
[2020-01-08] MEDS: DOCUSATE SODIUM/SENNA 50/8.6MG TAB PO SCH (21:02)
[2020-01-09] MEDS: guaiFENesin SUGAR FREE 200 MG/10 ML UDC PO SCH ×6 (03:12→19:50)
[2020-01-09] MEDS: ALBUT/IPRATROP 3MG/0.5MG NEB 3 ML VIAL NEB SCH ×6 (03:23→23:37)
[2020-01-09 08:38] LABS: Eosinophils % (auto) 2.6 %; Hemoglobin 13.4 g/dL (14.0-18.0); Immature Granulocytes # (auto) 0.03 K/uL (0.00-0.02); Immature Granulocytes % (auto) 0.3 %; Lymphocytes # (auto) 1.34 K/uL (1.2-3.4); Lymphocytes % (auto) 11.8 %; Mean Corpuscular Hemoglobin 30.2 pg (25-34); Mean Corpuscular Hgb Conc 32.7 g/dL (32-36); Mean Corpuscular Volume 92.3 fL (80-100); Mean Platelet Volume 9.6 fL (7.4-10.4); Monocytes % (auto) 9.7 %; Neutrophils # (auto) 8.61 K/uL (1.4-6.5); Neutrophils % (auto) 75.6 %; Platelet Count 255 K/uL (130-400); RDW Coefficient of Variation 13.2 % (11.5-14.5); RDW Standard Deviation 44.6 fL (36.4-46.3); Red Blood Count 4.44 M/uL (4.7-6.1); White Blood Count 11.38 K/uL (4.8-10.8)
[2020-01-09 09:15] LABS: BUN Creatinine Ratio 39.6 (10-20); Calcium 9.3 mg/dl (8.5-10.1); Creatinine Clr Calc Pharmacy 100.6 ml/min; Est GFR (African American) 94.2; Est GFR (Non-African American) 81.3
[2020-01-09] MEDS: CEROVITE ADV FORMULA TAB PO SCH (09:42)
[2020-01-09] MEDS: FUROSEMIDE 40 MG TAB PO SCH (09:42)
[2020-01-09] MEDS: DEXAMETHASONE SOD PHOSPHATE 8 MG in SYRINGE 0 ML IV SCH (09:42)
[2020-01-09] MEDS: lisinopriL 10 MG TAB PO SCH (09:43)
[2020-01-09] MEDS: ATORVASTATIN 20 MG TAB PO SCH (09:43)
[2020-01-09] MEDS: ASPIRIN 81 MG ECTAB PO SCH (09:43)
[2020-01-09] MEDS: CETIRIZINE HCL 10 MG TABLET PO SCH (09:43)
[2020-01-09] MEDS: BuPROPion SR 150 MG TABCR PO SCH ×2 (09:44→19:54)
[2020-01-09] MEDS: CHOLECALCIFEROL 1,000 UNITS 25 MCG TAB PO SCH (09:44)
[2020-01-09] MEDS: KETOCONAZOLE 2% CR 15 GM TUBE EXT SCH (09:45)
[2020-01-09] MEDS: INSULIN ASPART 100 UNITS/ML 3 ML PEN SC SCH ×4 (10:02→22:16)
[2020-01-09] MEDS: modafiniL 100 MG TAB PO SCH (10:14)
[2020-01-09] MEDS: PREGABALIN 100 MG CAP PO SCH ×2 (10:14→19:55)
--- NOTE | 2020-01-09 12:08 | Surgery Progress Note ---
Date of Service F/U intraperitoneal free air, pt is doing fine, no abdominal pain, he tolerated diet, no nausea, no vomiting, no fever, January 09, 2020 Assessment & Plan (1) Free intraperitoneal air: pt is a 64 year-old male who had C 4 cervical corpectomy on 01/02/20, pt had CXR, CT scan today finding intraperitoneal free air, pt denies any abdominal pain, no fever, IMP: intraperitoneal free air, I recommend to do po contrast CT scan abd + pelvic state to R/O bowel perforation, will F/U ,pt agrees with the CT scan, 01/07/2020 9:09PM base on CT scan finding, D/W pt about CT scan finding, no emergent surgery indication now, conservative treatment, INV antibiotic, repeat labs in am, repeat KUB in am, will F/U, pt agrees with the plan, I answered all questions 01/08/2020: KUB showing contrast in colon no extravasation of contrast, pneumoperitoneum persists completely benign abdomen on exam, asymptomatic vitals stable, no leukocytosis, afebrile Plan: No surgical intervention recommended at this time continue diet continue medical management Dr. Eli has seen and examined pt, agrees with above. 01/09/2020 10:55AM no surgical indication now, continue conservative treatment, police communications dispatcher surgeon will cover this weekend Supervising Physician Co-Signing Physician Notes Attending addendum Patient was seen and examined in medical floor He complains to have minimal shortness of breath at rest and remains on BiPAP with room air Denies any abdominal pain, nausea and/or vomiting On examination Mild shortness of breath at rest Hemodynamically stable Abdomen-slightly distended, nontender, no guarding and no rigidity, bowel sounds present Chest-decreased breath sounds right base without crackles and clear on left side Imaging studies and labs noted Case discussed with accounts receivable specialist Dr. Banks Advised to discuss with radiologist to find out possible source of pneumoperitoneum If there is any fever and worsening of the condition the patient will need to be transferred to tertiary care center Reviewed assessment plan as outlined above by BRYAN Vazquez Dr Subjective Patient is in the chair at the bedside. Is swallowing well. No significant change in neuro function. He is undergoing work-up for free air in the abdomen. Review of Systems Constitutional: as per Subjective / HPI obesity Eyes: as per Subjective / HPI Ear, Nose, Mouth, Throat: as per Subjective / HPI Respiratory: as per Subjective / HPI cough Cardiovascular: as per Subjective / HPI Additional Comments: HLD, HTN Gastrointestinal: as per Subjective / HPI Genitourinary: + as per Subjective / HPI Musculoskeletal: spinal stenosis, myelopathy Integumentary: as per Subjective / HPI Neurologic: as per Subjective / HPI Psychiatric: depression Endocrine: DM Hematologic / Lymphatic: as per Subjective / HPI Physical Exam Constitutional: WD/WN, vitals as above well developed and well nourished Eyes: PERRL, conjunctivae normal, anicteric sclerae ENMT: external ear and nose normal, oropharynx normal Neck: trachea midline, no thyromegaly Respiratory: normal respiratory effort, lungs clear to auscultation Cardiovascular: RRR, no murmur, no edema Rate/Rhythm: regular rate and regular rhythm Heart Sounds: normal S1 and normal S2 Gastrointestinal (Abdomen): normal bowel sounds, soft, nontender, no hepatosplenomegaly Inspection/Auscultation: abdomen normal to inspection; abdomen not distended Percussion/Palpation: abdomen soft; abdomen nontender, no guarding and abdomen not rigid Musculoskeletal: Head/Neck/Chest: + limited ROM of neck Skin: no rashes, warm and dry Neurologic: patellar DTR's 2+ bilat, sensation intact Psychiatric: Orientation: alert and oriented x 3 Results & Data Vital Signs (Past 12 Hours) Vital Signs Temp Pulse Pulse Pulse Resp BP Pulse Ox 01/09/20 11:34 76 18 90 01/09/20 09:26 37.1 C 72 18 128/72 93 01/09/20 07:37 64 18 95 01/09/20 07:36 64 18 95 01/09/20 03:23 71 71 18 96
--- NOTE | 2020-01-09 14:30 | Orthopedic Progress Note ---
Date of Service January 09, 2020 Assessment & Plan (1) Myelopathy concurrent with and due to spinal stenosis of cervical region: This time we are waiting placement for rehab. Will discharge when they are able to take the patient. Present on Admission?: Yes Admission and Anticipated Discharge Date Admission Date: January 01, 2020 Subjective Patient's pain is well controlled. Neurologically stable Physical Exam Physical Exam: Neurologically stable and unchanged. Results & Data ([facility]) Vital Signs (Past 12 Hours) Vital Signs Temp Pulse Pulse Pulse Resp BP Pulse Ox 01/09/20 12:30 93 01/09/20 12:29 88 L 01/09/20 11:34 76 18 90 01/09/20 09:26 37.1 C 72 18 128/72 93 01/09/20 07:37 64 18 95 01/09/20 07:36 64 18 95 01/09/20 03:23 71 71 18 96
--- NOTE | 2020-01-09 16:30 | Hospitalist Progress Note ---
Date of Service January 09, 2020 Assessment & Plan (1) Myelopathy concurrent with and due to spinal stenosis of cervical region: POD# 7 anterior cervical corpectomy with bilateral foraminotomies C4, by Dr. Mariana CALLAHAN 5 ml Management will be as per Ortho Pain control with bowel regimen PT/OT-will likely need placement (2) Cough: (3) Hypoxia: developed moist cough 2 days ago, CXR without focal infiltrate CT scan revealing dependent consolidation b/l atelectasis vs infectious O2 sats on room air 88-91% ST evaled pt yesterday, asp precautions ordered Consider initiate IV antibiotics if persists - defer to Dr. Emanuel No fever and/or chills and white count remains within normal range Will not put any antibiotic for now (4) Pneumoperitoneum of unknown etiology: Surgery on board, appreciate recommendations conservative management for now repeat KUB, CT reviewed Denies any acute symptoms from pneumoperitoneum-denies any abdominal pain, nausea and/or vomiting or distention Denies any chest pain and/or palpitation Is mildly short of breath which is typical of his baseline He denied to have any kind of repeat x-ray today there is 01/09/2020 (5) KAYLEEN (obstructive sleep apnea): BiPap HS (6) Diabetes mellitus, type 2: hgb a1c 6.0 Hold home agents and utilize NovoLog protocol while hospitalized controlled bsg 112, 119 this a.m. (7) Hypertension: BP controlled, continue lisinopril and furosemide monitor renal function, BUN starting to trend up If continues reduce lasix (8) Depression: Continue bupropion pt very tearful and depressed due to current situation monitor (9) Morbid obesity with BMI of 50.0-59.9, adult: BMI 53.4 encourage lifestyle modifications (10) DVT prophylaxis: Teds/SCDs as per spine orthopedics Pt was seen and examined in collaboration with Dr. Emanuel, please see addendum The case discussed with the daughter and the son yesterday and will try to talk to them today as well that is 01/09/2020 Thank you for this consultation. We will follow the patient with you during their hospital stay. You can reach a member of the [facility] Hospitalist Team 05/02 via pager @ [phone]. Admission and Anticipated Discharge Date Admission Date: January 01, 2020 Subjective 01/09/2020 The patient was seen and examined in medical floor He is a status post C4 cervical corpectomy on of this month He is recovering pretty well but noted to have pneumoperitoneum of unknown etiol ogy Remains very tired and lethargic and does not want to have any further test given x-ray of the chest today Denies any significant symptoms otherwise Review of Systems Review of Systems: At least ten systems reviewed and negative except as noted in the HPI. Respiratory: + cough (Occasional) and + dyspnea (Occasional) Physical Exam Physical Exam: Lying in bed with minimal shortness of breath and discomfort Constitutional: well developed, well nourished, + ill appearing and + morbidly obese; no acute distress (Minimal shortness of breath) Eyes: PERRL, conjunctivae normal, anicteric sclerae ENMT: external ear and nose normal, oropharynx normal Neck: trachea midline, no thyromegaly Respiratory: normal respiratory effort; no respiratory distress Auscultation: + diminished lung sounds (Mostly right lower lung. No crackles) Cardiovascular: Rate/Rhythm: regular rate and regular rhythm Heart Sounds: no murmur Gastrointestinal (Abdomen): Inspection/Auscultation: + abdomen distended and normal bowel sounds Percussion/Palpation: abdomen soft; abdomen nontender, no guarding and abdomen not rigid Musculoskeletal: No acute arthritis in any joints Neurologic: moves all extremities; no focal motor deficits Psychiatric: Orientation: alert and oriented x 3 Lymphatic: no cervical or axillary lymphadenopathy Results & Data Results & Data ([facility]) Vital Signs (Past 12 Hours) Vital Signs Temp Pulse Pulse Resp BP Pulse Ox 01/09/20 15:02 88 18 94 01/09/20 12:30 93 01/09/20 12:29 88 L 01/09/20 11:34 76 18 90 01/09/20 09:26 37.1 C 72 18 128/72 93 01/09/20 07:37 64 18 95 01/09/20 07:36 64 18 95 Laboratory Results Short CBC 01/09/20 Range/Units 08:21 WBC 11.38 H (4.8-10.8) K/uL Hgb 13.4 L (14.0-18.0) g/dL Hct 41.0 L (42-52) % Plt Count 255 (130-400) K/uL [facility] 06/26/20 08:21 Sodium 140 Potassium 4.0 Chloride 104 Carbon Dioxide 29 BUN 39 H Creatinine 0.99 Glucose 117 H Calcium 9.3 Medications Administered Current Inpatient Medications Acetaminophen (Tylenol) 1,000 mg PO Q8H PRN PRN Reason: MILD Pain Scale 1,2,3 & Pre PT Stop: 02/01/20 12:59 Al Hydrox/Mg Hydrox/Simethicone (Maalox) 30 ml PO Q6H PRN PRN Reason: Dyspepsia Stop: 02/01/20 12:59 Albuterol (Duoneb) 3 ml NEB Q4R [facility] Stop: 02/05/20 18:59 Last Admin: 01/09/20 15:01 Dose: 3 ml Documented by: Aspir[facility] ([facility]rin [facility]ab) [facility] [place] Stop: 02/01/20 08:59 Last Admin: 01/09/20 09:43 Dose: 81 mg Documented by: Atorvastatin Calcium (Lipitor) 20 mg PO QAM [facility] Stop: 02/01/20 08:59 Last Admin: 01/09/20 09:43 Dose: 20 mg Documented by: Bisacodyl (Dulcolax) 10 mg KS DAILY PRN PRN Reason: Constipation Stop: 02/03/20 12:15 Bupropion HCl (Wellbutrin-Sr) 150 mg PO BID [facility] Stop: 01/31/20 20:59 Last Admin: 01/09/20 09:44 Dose: 150 mg Documented by: Cetirizine HCl (Zyrtec) 10 mg PO QAM [facility] Stop: 02/01/20 08:59 Last Admin: 01/09/20 09:43 Dose: 10 mg Documented by: Dextrose (Dextrose 50%) 25 - 50 ml IV UD PRN; Protocol PRN Reason: Hypoglycemia Protocol Stop: 01/31/20 20:01 Diphenhydramine HCl (Benadryl Capsule) 25 mg PO Q6H PRN PRN Reason: Allergic Rhinitis/Insomnia Stop: 02/01/20 12:59 Epinephrine (Raccemic Epinephrine 2.25% 0.5ml) 0.5 ml INH NOW PRN PRN Reason: if stridor present Stop: 02/01/20 12:59 Famotidine (Pepcid) 20 mg PO Q12H PRN PRN Reason: Dyspepsia Stop: 02/01/20 12:59 Fluticasone Propionate (Flonase) 1 sprays NA HS NASIR Stop: 01/31/20 20:59 Last Admin: 01/08/20 21:02 Dose: Not Given Documented by: Furosemide (Lasix) 40 mg PO QAM NASIR Stop: 02/02/20 08:59 Last Admin: 01/09/20 09:42 Dose: 40 mg Documented by: Glucagon (Glucagen) 1 mg SQ UD PRN; Protocol PRN Reason: Hypoglycemia Protocol Stop: 01/31/20 20:01 Glucose (Dex4 Glucose) 4 - 8 tabs PO UD PRN; Protocol PRN Reason: Hypoglycemia Protocol Stop: 01/31/20 20:01 Glucose (Glucose 40%) 15 - 30 gm PO UD PRN; Protocol PRN Reason: Hypoglycemia Protocol Stop: 01/31/20 20:01 Guaifenesin (Robitussin Sugar Free) 200 mg PO Q4 NASIR Stop: 02/04/20 13:44 Last Admin: 01/09/20 16:24 Dose: 200 mg Documented by: Hydromorphone HCl (Dilaudid) 0.5 mg IV Q3H PRN PRN Reason: MOD pain (scale 4-6) & Pre PT Stop: 01/16/20 12:59 Last Admin: 01/07/20 18:58 Dose: 0.5 mg Documented by: Hydromorphone HCl (Dilaudid) 1 mg IV Q3H PRN PRN Reason: severe pain (scale 7-10) Stop: 01/16/20 12:59 Last Admin: 01/08/20 23:59 Dose: 1 mg Documented by: Hydroxyzine HCl (Vistaril) 25 mg PO Q8H PRN PRN Reason: Anxiety Stop: 02/01/20 12:59 Lorazepam (Ativan) 1 mg in 2 mls @ 2 mls/min IV Q6H PRN PRN Reason: Anxiety/Spasms Stop: 01/31/20 15:46 Dexamethasone Sodium Phosphate (8 mg/ Syringe) 2 mls @ 1 mls/min IV NOW PRN PRN Reason: stridor Stop: 02/01/20 12:59 Lorazepam (Ativan) 0.5 mg in 1 mls @ 1 mls/min IV Q8H PRN PRN Reason: Sedation/Anxiety Stop: 07/19/20 12:59 Last Admin: 01/09/20 13:20 Dose: 1 mls/min Documented by: Promethazine HCl 12.5 mg/ (Sodium Chloride) 50.5 mls @ 202 mls/hr IV Q6H PRN PRN Reason: Nausea &/or Vomiting Stop: 02/01/20 12:59 Dexamethasone Sodium Phosphate (8 mg/ Syringe) 2 mls @ 1 mls/min IV DAILY NASIR Stop: 02/06/20 08:59 Last Admin: 01/09/20 09:42 Dose: 1 mls/min Documented by: Influenza Virus Vaccine Quadrival (Flu Vaccine, Do Not Administer) 1 ea N/A PRN PRN PRN Reason: Notification Stop: 02/01/20 12:59 Insulin Aspart (Novolog Flexpen) 0 units SC ACHS [facility] Stop: 02/01/20 16:29 Last Admin: 01/09/20 13:35 Dose: Not Given Documented by: Ketoconazole (Nizoral 2%) 1 appln EXT QAM [facility] Stop: 01/13/20 08:59 Last Admin: 01/09/20 09:45 Dose: 1 appln Documented by: Lisinopril (Zestril) 10 mg PO QAM NASIR Stop: 02/02/20 08:59 Last Admin: 01/09/20 09:43 Dose: 10 mg Documented by: Lorazepam (Ativan) 1 mg PO Q6H PRN PRN Reason: Anxiety/spasms Stop: 01/31/20 15:46 Lorazepam (Ativan) 0.5 mg PO Q8H PRN PRN Reason: sedation/anxiety Stop: 02/01/20 12:59 Magnesium Hydroxide (Milk Of Magnesia) 30 ml PO Q24H PRN PRN Reason: Constipation Stop: 02/01/20 12:59 Metoclopramide HCl (Reglan) 10 mg IV Q6H PRN PRN Reason: Nausea &/or Vomiting Stop: 02/01/20 12:59 Miscellaneous (Order Awaiting Action) 1 ea N/A QS [facility] Stop: 02/01/20 00:00 Last Admin: 01/09/20 16:05 Dose: Not Given Documented by: Miscellaneous (Carbohydrates For Hypoglycemia) 15 - 30 gm PO UD PRN PRN Reason: Hypoglycemia Protocol Stop: 01/31/20 20:01 Miscellaneous (Order Awaiting Action) 1 ea N/A QS [facility] Stop: 02/01/20 00:00 Last Admin: 01/09/20 16:04 Dose: Not Given Documented by: Modafinil (Provigil) 200 mg PO DAILY [facility] Stop: 02/05/20 08:59 Last Admin: 01/09/20 10:14 Dose: 200 mg Documented by: Multivitamins/Minerals (Multivitamin W/ Minerals Tab) 1 tab PO DAILY [facility] Stop: 02/01/20 08:59 Last Admin: 01/09/20 09:42 Dose: 1 tab Documented by: Naloxone HCl (Narcan) 0.1 mg IV Q5M PRN PRN Reason: Oversedation/respiratory dep Stop: 02/01/20 12:59 Ondansetron HCl (Zofran) 4 mg IV Q6H PRN PRN Reason: Nausea &/or Vomiting Stop: 02/01/20 12:59 Ondansetron HCl (Zofran Odt) 4 mg PO Q6H PRN PRN Reason: Nausea Stop: 02/01/20 12:59 Oxycodone HCl (Roxicodone Immediate Rel) 5 - 10 mg PO Q4H PRN PRN Reason: Pain & Pre PT Stop: 01/16/20 12:59 Last Admin: 01/07/20 09:05 Dose: 10 mg Documented by: Pneumococcal Polyvalent Vaccine (Pneumococcal Vacc, Do Not Administer) 1 ea N/A PRN PRN PRN Reason: Notification Stop: 02/01/20 12:59 Polyethylene Glycol (Miralax Powder Packet) 17 gm PO DAILY PRN PRN Reason: Constipation Stop: 01/31/20 21:31 Pregabalin (Lyrica) 100 mg PO BID [facility] Stop: 01/31/20 20:59 Last Admin: 01/09/20 10:14 Dose: 100 mg Documented by: Senna/Docusate Sodium (Senokot S) 2 tab PO HS [facility] Stop: 02/01/20 20:59 Last Admin: 01/08/20 21:02 Dose: Not Given Documented by: Sodium Biphosphate/Sodium Phosphate (Fleet Enema) 132 ml KS ONE PRN PRN Reason: Constipation Stop: 02/01/20 12:59 Tramadol HCl (Ultram) 50 - 100 mg PO Q4H PRN PRN Reason: Moderate-Severe pain & Pre PT Stop: 02/01/20 12:59 Last Admin: 01/06/20 16:39 Dose: 50 mg Documented by: Vitamin D (Vitamin D3) 2,000 units PO QAM [facility] Stop: 02/01/20 08:59 Last Admin: 01/09/20 09:44 Dose: 2,000 units Documented by:
[2020-01-09] MEDS: FLUTICASONE PROPIONATE NA SPR 16 GM BTL SCH (19:52)
[2020-01-09] MEDS: DOCUSATE SODIUM/SENNA 50/8.6MG TAB PO SCH (19:53)
[2020-01-10] MEDS: guaiFENesin SUGAR FREE 200 MG/10 ML UDC PO SCH ×7 (00:41→23:24)
[2020-01-10] MEDS: ALBUT/IPRATROP 3MG/0.5MG NEB 3 ML VIAL NEB SCH ×2 (03:29→07:48)
[2020-01-10] MEDS: HYDROmorphone INJ 1 MG/ML SYRINGE IV PRN ×3 (03:44→15:04)
[2020-01-10 07:12] LABS: Basophils # (auto) 0.01 K/uL (0-0.2); Eosinophils # (auto) 0.16 K/uL (0-0.5); Eosinophils % (auto) 0.7 %; Hematocrit (blood only) 42.9 % (42-52); Hemoglobin 14.1 g/dL (14.0-18.0); Immature Granulocytes # (auto) 0.12 K/uL (0.00-0.02); Immature Granulocytes % (auto) 0.6 %; Lymphocytes % (auto) 3.7 %; Mean Corpuscular Hemoglobin 30.2 pg (25-34); Mean Corpuscular Hgb Conc 32.9 g/dL (32-36); Mean Corpuscular Volume 91.9 fL (80-100); Mean Platelet Volume 10.2 fL (7.4-10.4); Monocytes # (auto) 2.12 K/uL (0.11-0.59); Monocytes % (auto) 9.8 %; Neutrophils # (auto) 18.33 K/uL (1.4-6.5); Neutrophils % (auto) 85.2 %; Platelet Count 316 K/uL (130-400); RDW Coefficient of Variation 13.4 % (11.5-14.5); RDW Standard Deviation 44.3 fL (36.4-46.3); Red Blood Count 4.67 M/uL (4.7-6.1); White Blood Count 21.54 K/uL (4.8-10.8)
[2020-01-10 07:27] LABS: BUN Creatinine Ratio 34.4 (10-20); Calcium 9.7 mg/dl (8.5-10.1); Creatinine Clr Calc Pharmacy 69.7 ml/min; Est GFR (Non-African American) 52.6
[2020-01-10] MEDS ORDERED: PIPERACILL/TAZOBAC CONSULT ACTIVE PRN (08:36)
[2020-01-10] MEDS: ASPIRIN 81 MG ECTAB PO SCH (09:01)
[2020-01-10] MEDS ORDERED: PIPERACILLIN/TAZOBACTAM 4.5 GM in DEXTROSE 5% 100 ML IV STA (09:01)
[2020-01-10] MEDS: FUROSEMIDE 40 MG TAB PO SCH (09:02)
[2020-01-10] MEDS: CEROVITE ADV FORMULA TAB PO SCH (09:03)
[2020-01-10] MEDS: ATORVASTATIN 20 MG TAB PO SCH (09:03)
[2020-01-10] MEDS: PREGABALIN 100 MG CAP PO SCH ×2 (09:03→20:30)
[2020-01-10] MEDS: KETOCONAZOLE 2% CR 15 GM TUBE EXT SCH (09:04)
[2020-01-10] MEDS: CHOLECALCIFEROL 1,000 UNITS 25 MCG TAB PO SCH (09:05)
[2020-01-10] MEDS: BuPROPion SR 150 MG TABCR PO SCH ×2 (09:05→20:31)
[2020-01-10] MEDS: lisinopriL 10 MG TAB PO SCH (09:05)
[2020-01-10] MEDS: CETIRIZINE HCL 10 MG TABLET PO SCH (09:06)
--- NOTE | 2020-01-10 09:21 | Surgery Progress Note ---
Date of Service January 10, 2020 Assessment & Plan (1) Pneumoperitoneum of unknown etiology: exam benign WBC increased, afebrile cont Zosyn seen by Dr. Rodriguez Subjective tolerating diet, had BM Physical Exam Gastrointestinal (Abdomen): Percussion/Palpation: abdomen soft; abdomen nontender Results & Data Vital Signs (Past 12 Hours) Vital Signs Temp Pulse Pulse Resp BP Pulse Ox 01/10/20 07:51 93 H 18 93 01/10/20 07:50 93 H 18 93 01/10/20 07:23 36.5 C 91 H 18 92/63 L 96 01/10/20 04:34 82 16 96 01/10/20 03:30 97 H 18 99 01/10/20 00:30 36.8 C 86 20 144/82 H 96 01/09/20 23:39 99 H 20 95 PG Care Time/CCT Total # of Minutes Spent Total Time Spent with Patient: Total time spent is greater than 50% in coordination of care (as documented) at patient's floor/unit and/or counseling patient: Coding Level of Care Code 78635 Inpt Consult Level 1 Diagnoses Pneumoperitoneum of unknown etiology K66.8
[2020-01-10] MEDS: INSULIN ASPART 100 UNITS/ML 3 ML PEN SC SCH ×4 (09:37→21:25)
--- NOTE | 2020-01-10 09:49 | Orthopedic Progress Note ---
Date of Service January 10, 2020 Assessment & Plan (1) Myelopathy concurrent with and due to spinal stenosis of cervical region: At this time he will continue with physical therapy occupational therapy. We are awaiting safe placement to rehab. In light of his intraperitoneal free air he will be placed on antibiotics per medicine. We will transfer the patient to the medical service at this time. Present on Admission?: Yes Admission and Anticipated Discharge Date Admission Date: January 01, 2020 Subjective Patient's left arm symptoms are steadily improving. He denies any abdominal pain swallowing deficits or hoarseness. Physical Exam Physical Exam: On exam he is in the bed. He sitting up. He does have increased function of the left arm compared to yesterday. Results & Data ([facility]) Vital Signs (Past 12 Hours) Vital Signs Temp Pulse Pulse Resp BP Pulse Ox 01/10/20 07:51 93 H 18 93 01/10/20 07:50 93 H 18 93 01/10/20 07:23 36.5 C 91 H 18 92/63 L 96 01/10/20 04:34 82 16 96 01/10/20 03:30 97 H 18 99 01/10/20 00:30 36.8 C 86 20 144/82 H 96 01/09/20 23:39 99 H 20 95
[2020-01-10] MEDS: DEXAMETHASONE SOD PHOSPHATE 8 MG in SYRINGE 0 ML IV SCH (10:26)
[2020-01-10] MEDS: modafiniL 100 MG TAB PO SCH (12:43)
--- NOTE | 2020-01-10 13:01 | XRay Report ---
XR chest 1V portable CLINICAL HISTORY: pneumonia dyspnea COMPARISON STUDY: 01/07/2020 FINDINGS: Subdiaphragmatic free air is again noted. There are mildly progressive right basilar atelec tatic changes. A slightly progressive left basilar infiltrative changes. IMPRESSION: 1. Subdiaphragmatic free air. 2. This is unchanged from the prior study. 3. Slightly progressive compressive atelectasis right base. 4. Slightly progressive infiltrative change medial aspect left base. ACT 112: Negative or not required by law. The above report was generated using voice recognition software. It may contain grammatical, syntax or spelling errors. Electronically signed by: Saul Ga M.D. 01/10/2020 1:00 PM
[2020-01-10] MEDS: PIPERACILLIN/TAZOBACTAM 4.5 GM in DEXTROSE 5% 100 ML IV SCH ×2 (14:06→21:56)
--- NOTE | 2020-01-10 14:23 | Hospitalist Progress Note ---
Date of Service January 10, 2020 Assessment & Plan (1) Myelopathy concurrent with and due to spinal stenosis of cervical region: POD# 8 anterior cervical corpectomy with bilateral foraminotomies C4, by Dr. Mariana CALLAHAN 5 ml Management will be as per Ortho Pain control with bowel regimen PT/OT-will likely need placement The patient is ready to be discharged for rehab as per Ortho Medically not stable to go and will be transferred to medical service (2) Cough: (3) Hypoxia: developed moist cough 2 days ago, CXR without focal infiltrate CT scan revealing dependent consolidation b/l atelectasis vs infectious O2 sats on room air 88-91% ST evaled pt yesterday, asp precautions ordered Consider initiate IV antibiotics if persists - defer to Dr. Emanuel No fever and/or chills and white count remains within normal range Remains afebrile but white count went up to 21,000 Zosyn has been started following blood cultures Repeat chest x-ray do show improvement of pneumoperitoneum (4) Pneumoperitoneum of unknown etiology: Surgery on board, appreciate recommendations conservative management for now repeat KUB, CT reviewed Denies any acute symptoms from pneumoperitoneum-denies any abdominal pain, nause a and/or vomiting or distention Denies any chest pain and/or palpitation Is mildly short of breath which is typical of his baseline He denied to have any kind of repeat x-ray today there is 01/09/2020 Repeat chest x-ray did show improvement of pneumoperitoneum No signs in the abdomen and her symptoms of nausea vomiting We will continue antibiotic with Zosyn for now (5) KAYLEEN (obstructive sleep apnea): BiPap HS (6) Diabetes mellitus, type 2: hgb a1c 6.0 Hold home agents and utilize NovoLog protocol while hospitalized controlled bsg 112, 119 this a.m. (7) Hypertension: BP controlled, continue lisinopril and furosemide monitor renal function, BUN starting to trend up If continues reduce lasix (8) Depression: Continue bupropion pt very tearful and depressed due to current situation monitor (9) Morbid obesity with BMI of 50.0-59.9, adult: BMI 53.4 encourage lifestyle modifications (10) DVT prophylaxis: Teds/SCDs as per spine orthopedics Pt was seen and examined in collaboration with Dr. Emanuel, please see addendum The case discussed with the daughter and the son yesterday and will try to talk to them today as well that is 01/09/2020 Thank you for this consultation. We will follow the patient with you during their hospital stay. You can reach a member of the [place] Hospitalist Team 05/02 via pager @ [phone]. Admission and Anticipated Discharge Date Admission Date: January 01, 2020 Subjective 01/09/2020 The patient was seen and examined in medical floor He is a status post C4 cervical corpectomy on of this month He is recovering pretty well but noted to have pneumoperitoneum of unknown etiology Remains very tired and lethargic and does not want to have any further test given x-ray of the chest today Denies any significant symptoms otherwise 01/10/2020 The patient was seen and examined in medical floor He is he is negative for COVID-19 with history of recent exposure on 12/30 He has been improving Denies any significant shortness of breath and does not have any pain in the abdomen No fever and no chills Review of Systems Review of Systems: At least ten systems reviewed and negative except as noted in the HPI. Respiratory: + cough (Occasional) and + dyspnea (Occasional) Physical Exam Physical Exam: Lying in bed with minimal shortness of breath and discomfort Constitutional: well developed, well nourished, + ill appearing and + morbidly obese; no acute distress (Minimal shortness of breath) Eyes: PERRL, conjunctivae normal, anicteric sclerae ENMT: external ear and nose normal, oropharynx normal Neck: trachea midline, no thyromegaly Respiratory: normal respiratory effort; no respiratory distress Auscultation: + diminished lung sounds (Mostly right lower lung. No crackles) Cardiovascular: Rate/Rhythm: regular rate and regular rhythm Heart Sounds: no murmur Gastrointestinal (Abdomen): Inspection/Auscultation: normal bowel sounds; abdomen not distended Percussion/Palpation: abdomen soft; abdomen nontender, no guarding and abdomen not rigid Musculoskeletal: No acute arthritis involving any joints Neurologic: moves all extremities; no focal motor deficits Alert, awake and oriented x3 Psychiatric: Orientation: alert and oriented x 3 Lymphatic: no cervical or axillary lymphadenopathy Results & Data Results & Data ([facility]) Vital Signs (Past 12 Hours) Vital Signs Temp Pulse Pulse Resp BP Pulse Ox 01/10/20 11:09 97 H 18 91 01/10/20 07:51 93 H 18 93 01/10/20 07:50 93 H 18 93 01/10/20 07:23 36.5 C 91 H 18 92/63 L 96 01/10/20 04:34 82 16 96 01/10/20 03:30 97 H 18 99 Laboratory Results Short CBC 01/10/20 Range/Units 06:13 WBC 21.54 H D (4.8-10.8) K/uL Hgb 14.1 (14.0-18.0) g/dL Hct 42.9 (42-52) % Plt Count 316 (130-400) K/uL BMP 01/10/20 01/10/20 06:13 09:41 Sodium 138 Potassium 4.1 Chloride 101 Carbon Dioxide 30 BUN 49 H Creatinine 1.41 H D Glucose 120 H Calcium 9.7 Medications Administered Current Inpatient Medications Acetaminophen (Tylenol) 1,000 mg PO Q8H PRN PRN Reason: MILD Pain Scale 1,2,3 & Pre PT Stop: 02/01/20 12:59 Al Hydrox/Mg Hydrox/Simethicone (Maalox) 30 ml PO Q6H PRN PRN Reason: Dyspepsia Stop: 02/01/20 12:59 Aspirin (Ecotrin Ectab) 81 mg PO [facility] Stop: 02/01/20 08:59 Last Admin: 01/10/20 09:01 Dose: 81 mg Documented by: Atorvastatin Calcium (Lipitor) [facility] Stop: 02/01/20 08:59 Last Admin: 01/10/20 09:03 Dose: 20 mg Documented by: Bisacodyl (Dulcolax) 10 mg NJ DAILY PRN PRN Reason: Constipation Stop: 02/03/20 12:15 Bupropion HCl (Wellbutrin-Sr) 150 mg PO BID [facility] Stop: 01/31/20 20:59 Last Admin: 01/10/20 09:05 Dose: 150 mg Documented by: Cetirizine HCl (Zyrtec) 10 mg PO QAM [facility] Stop: 02/01/20 08:59 Last Admin: 01/10/20 09:06 Dose: 10 mg Documented by: Dextrose (Dextrose 50%) 25 - 50 ml IV UD PRN; Protocol PRN Reason: Hypoglycemia Protocol Stop: 01/31/20 20:01 Diphenhydramine HCl (Benadryl Capsule) 25 mg PO Q6H PRN PRN Reason: Allergic Rhinitis/Insomnia Stop: 02/01/20 12:59 Epinephrine (Raccemic Epinephrine 2.25% 0.5ml) 0.5 ml INH NOW PRN PRN Reason: if stridor present Stop: 02/01/20 12:59 Famotidine (Pepcid) 20 mg PO Q12H PRN PRN Reason: Dyspepsia Stop: 02/01/20 12:59 Fluticasone Propionate (Flonase) 1 sprays NA HS [facility] Stop: 01/31/20 20:59 Last Admin: 01/09/20 19:52 Dose: 1 sprays Documented by: Furosemide (Lasix) 40 mg PO QAM [facility] Stop: 02/02/20 08:59 Last Admin: 01/10/20 09:02 Dose: 40 mg Documented by: Glucagon (Glucagen) 1 mg SQ UD PRN; Protocol PRN Reason: Hypoglycemia Protocol Stop: 01/31/20 20:01 Glucose (Dex4 Glucose) 4 - 8 tabs PO UD PRN; Protocol PRN Reason: Hypoglycemia Protocol Stop: 01/31/20 20:01 Glucose (Glucose 40%) 15 - 30 gm PO UD PRN; Protocol PRN Reason: Hypoglycemia Protocol Stop: 01/31/20 20:01 Guaifenesin (Robitussin Sugar Free) 200 mg PO Q4 [facility] Stop: 02/04/20 13:44 Last Admin: 01/10/20 12:48 Dose: Not Given Documented by: Hydromorphone HCl (Dilaudid) 0.5 mg IV Q3H PRN PRN Reason: MOD pain (scale 4-6) & Pre PT Stop: 01/16/20 12:59 Last Admin: 01/07/20 18:58 Dose: 0.5 mg Documented by: Hydromorphone HCl (Dilaudid) 1 mg IV Q3H PRN PRN Reason: severe pain (scale 7-10) Stop: 01/16/20 12:59 Last Admin: 01/10/20 08:54 Dose: 1 mg Documented by: Hydroxyzine HCl (Vistaril) 25 mg PO Q8H PRN PRN Reason: Anxiety Stop: 02/01/20 12:59 Lorazepam (Ativan) 1 mg in 2 mls @ 2 mls/min IV Q6H PRN PRN Reason: Anxiety/Spasms Stop: 01/31/20 15:46 Dexamethasone Sodium Phosphate (8 mg/ Syringe) 2 mls @ 1 mls/min IV NOW PRN PRN Reason: stridor Stop: 02/01/20 12:59 Lorazepam (Ativan) 0.5 mg in 1 mls @ 1 mls/min IV Q8H PRN PRN Reason: Sedation/Anxiety Stop: 02/01/20 12:59 Last Admin: 01/09/20 13:20 Dose: 1 mls/min Documented by: Promethazine HCl 12.5 mg/ (Sodium Chloride) 50.5 mls @ 202 mls/hr IV Q6H PRN PRN Reason: Nausea &/or Vomiting Stop: 02/01/20 12:59 Piperacillin Sod/Tazobactam (Sod 4.5 gm/ Dextrose) 120 mls @ 30 mls/hr IV Q8H [facility]; Protocol Stop: 01/20/20 13:59 Last Admin: 01/10/20 14:06 Dose: 30 mls/hr Documented by: Influenza Virus Vaccine Quadrival (Flu Vaccine, Do Not Administer) 1 ea N/A PRN PRN PRN Reason: Notification Stop: 02/01/20 12:59 Insulin Aspart (Novolog Flexpen) 0 units SC [facility] Stop: 02/01/20 16:29 Last Admin: 01/10/20 12:51 Dose: 1 units Documented by: Ketoconazole (Nizoral 2%) 1 appln EXT [facility] Stop: 01/13/20 08:59 Last Admin: 01/10/20 09:04 Dose: 1 appln Documented by: Lisinopril (Zestril) 10 mg PO QAM [facility] Stop: 02/02/20 08:59 Last Admin: 01/10/20 09:05 Dose: 10 mg Documented by: Lorazepam (Ativan) 1 mg PO Q6H PRN PRN Reason: Anxiety/spasms Stop: 01/31/20 15:46 Lorazepam (Ativan) 0.5 mg PO Q8H PRN PRN Reason: sedation/anxiety Stop: 02/01/20 12:59 Magnesium Hydroxide (Milk Of Magnesia) 30 ml PO Q24H PRN PRN Reason: Constipation Stop: 02/01/20 12:59 Metoclopramide HCl (Reglan) 10 mg IV Q6H PRN PRN Reason: Nausea &/or Vomiting Stop: 02/01/20 12:59 Miscellaneous (Order Awaiting Action) 1 ea N/A QS NASIR Stop: 02/01/20 00:00 Last Admin: 01/10/20 09:00 Dose: Not Given Documented by: Miscellaneous (Carbohydrates For Hypoglycemia) 15 - 30 gm PO UD PRN PRN Reason: Hypoglycemia Protocol Stop: 01/31/20 20:01 Miscellaneous (Order Awaiting Action) 1 ea N/A QS NASIR Stop: 02/01/20 00:00 Last Admin: 01/10/20 09:00 Dose: Not Given Documented by: Miscellaneous Information (Consult) 1 ea N/A UD PRN PRN Reason: Consult Stop: 02/09/20 08:35 Modafinil (Provigil) 200 mg PO DAILY NASIR Stop: 02/05/20 08:59 Last Admin: 01/10/20 12:43 Dose: 200 mg Documented by: Multivitamins/Minerals (Multivitamin W/ Minerals Tab) 1 tab PO DAILY NASIR Stop: 02/01/20 08:59 Last Admin: 01/10/20 09:03 Dose: 1 tab Documented by: Naloxone HCl (Narcan) 0.1 mg IV Q5M PRN PRN Reason: Oversedation/respiratory dep Stop: 02/01/20 12:59 Ondansetron HCl (Zofran) 4 mg IV Q6H PRN PRN Reason: Nausea &/or Vomiting Stop: 02/01/20 12:59 Ondansetron HCl (Zofran Odt) 4 mg PO Q6H PRN PRN Reason: Nausea Stop: 02/01/20 12:59 Oxycodone HCl (Roxicodone Immediate Rel) 5 - 10 mg PO Q4H PRN PRN Reason: Pain & Pre PT Stop: 01/16/20 12:59 Last Admin: 01/07/20 09:05 Dose: 10 mg Documented by: Pneumococcal Polyvalent Vaccine (Pneumococcal Vacc, Do Not Administer) 1 ea N/A PRN PRN PRN Reason: Notification Stop: 02/01/20 12:59 Polyethylene Glycol (Miralax Powder Packet) 17 gm PO DAILY PRN PRN Reason: Constipation Stop: 01/31/20 21:31 Pregabalin (Lyrica) 100 mg PO BID [facility] Stop: 01/31/20 20:59 Last Admin: 01/10/20 09:03 Dose: 100 mg Documented by: Senna/Docusate Sodium (Senokot S) 2 tab PO HS [facility] Stop: 02/01/20 20:59 Last Admin: 01/09/20 19:53 Dose: Not Given Documented by: Sodium Biphosphate/Sodium Phosphate (Fleet Enema) 132 ml NJ ONE PRN PRN Reason: Constipation Stop: 02/01/20 12:59 Tramadol HCl (Ultram) 50 - 100 mg PO Q4H PRN PRN Reason: Moderate-Severe pain & Pre PT Stop: 02/01/20 12:59 Last Admin: 01/06/20 16:39 Dose: 50 mg Documented by: Vitamin D (Vitamin D3) 2,000 units PO QAM NASIR Stop: 02/01/20 08:59 Last Admin: 01/10/20 09:05 Dose: 2,000 units Documented by:
[2020-01-10] MEDS: FLUTICASONE PROPIONATE NA SPR 16 GM BTL SCH (20:30)
[2020-01-10] MEDS: DOCUSATE SODIUM/SENNA 50/8.6MG TAB PO SCH (20:30)
[2020-01-10] MEDS: LORazepam 1 MG TAB PO PRN (22:33)
[2020-01-11] MEDS: guaiFENesin SUGAR FREE 200 MG/10 ML UDC PO SCH ×5 (05:03→21:29)
[2020-01-11] MEDS: PIPERACILLIN/TAZOBACTAM 4.5 GM in DEXTROSE 5% 100 ML IV SCH ×3 (06:01→22:08)
[2020-01-11 06:02] LABS: Basophils # (auto) 0.01 K/uL (0-0.2); Eosinophils # (auto) 0.08 K/uL (0-0.5); Eosinophils % (auto) 0.4 %; Hematocrit (blood only) 39.7 % (42-52); Hemoglobin 12.9 g/dL (14.0-18.0); Immature Granulocytes # (auto) 0.09 K/uL (0.00-0.02); Immature Granulocytes % (auto) 0.4 %; Lymphocytes % (auto) 6.7 %; Mean Corpuscular Hemoglobin 29.5 pg (25-34); Mean Corpuscular Hgb Conc 32.5 g/dL (32-36); Mean Corpuscular Volume 90.8 fL (80-100); Mean Platelet Volume 10.3 fL (7.4-10.4); Neutrophils # (auto) 19.07 K/uL (1.4-6.5); Neutrophils % (auto) 84.5 %; Platelet Count 247 K/uL (130-400); RDW Coefficient of Variation 13.4 % (11.5-14.5); RDW Standard Deviation 44.4 fL (36.4-46.3); Red Blood Count 4.37 M/uL (4.7-6.1); White Blood Count 22.55 K/uL (4.8-10.8)
[2020-01-11 06:21] LABS: BUN Creatinine Ratio 25.5 (10-20); Creatinine Clr Calc Pharmacy 30.8 ml/min; Est GFR (African American) 22.7; Est GFR (Non-African American) 19.6; Magnesium 2.6 mg/dl (1.8-2.4); Potassium 4.3 mmol/L (3.5-5.1)
[2020-01-11] MEDS: HYDROmorphone INJ 1 MG/ML SYRINGE IV PRN ×2 (07:42→14:02)
[2020-01-11] MEDS: FUROSEMIDE 40 MG TAB PO SCH (09:06)
[2020-01-11] MEDS: ASPIRIN 81 MG ECTAB PO SCH (09:06)
[2020-01-11] MEDS: CEROVITE ADV FORMULA TAB PO SCH (09:07)
[2020-01-11] MEDS: ATORVASTATIN 20 MG TAB PO SCH (09:07)
[2020-01-11] MEDS: KETOCONAZOLE 2% CR 15 GM TUBE EXT SCH (09:07)
[2020-01-11] MEDS: modafiniL 100 MG TAB PO SCH (09:08)
[2020-01-11] MEDS: CHOLECALCIFEROL 1,000 UNITS 25 MCG TAB PO SCH (09:09)
[2020-01-11] MEDS: BuPROPion SR 150 MG TABCR PO SCH ×2 (09:10→21:29)
[2020-01-11] MEDS: lisinopriL 10 MG TAB PO SCH (09:10)
[2020-01-11] MEDS: CETIRIZINE HCL 10 MG TABLET PO SCH (09:10)
[2020-01-11] MEDS: PREGABALIN 100 MG CAP PO SCH ×2 (09:18→21:29)
[2020-01-11] MEDS: INSULIN ASPART 100 UNITS/ML 3 ML PEN SC SCH ×4 (09:20→22:07)
--- NOTE | 2020-01-11 09:41 | Surgery Progress Note ---
Date of Service January 11, 2020 Assessment & Plan (1) Pneumoperitoneum of unknown etiology: Patient with complaints of chest pain this AM. EKG obtained and hospitalists aware Denies abdominal pain, and exam continues to be benign Tolerated small amounts of diet yesterday WBC up to 22.5, ?steroid induced vs other? Could consider CT scan if think he can tolerate lying flat Remains on IV zosyn Pt seen and examined with Dr. Rodriguez We will order CT scan of the abdomen pelvis with and without contrast to rule out the possibility of possible abdominal or pelvic abscess developing with past finding of pneumoperitoneum with a CT scan done on 01/06 that showed no leakage of abdominal or pelvic contrast Supervising Physician Co-Signing Physician Notes Attending addendum Patient was seen and examined in medical floor He complains to have minimal shortness of breath at rest and remains on BiPAP with room air Denies any abdominal pain, nausea and/or vomiting On examination Mild shortness of breath at rest Hemodynamically stable Abdomen-slightly distended, nontender, no guarding and no rigidity, bowel sounds present Chest-decreased breath sounds right base without crackles and clear on left side Imaging studies and labs noted Case discussed with clerical support specialist Dr. Banks Advised to discuss with radiologist to find out possible source of pneumoperitoneum If there is any fever and worsening of the condition the patient will need to be transferred to tertiary care center Reviewed assessment plan as outlined above by BRYAN Vazquez Dr Subjective Patient sitting up in bed. Complaining of chest pain this morning. Denies abdominal pain. Physical Exam Physical Exam: appears short of breath, sitting up in chair Gastrointestinal (Abdomen): Percussion/Palpation: abdomen soft; abdomen nontender Results & Data Vital Signs (Past 12 Hours) Vital Signs Temp Pulse Pulse Resp BP Pulse Ox 01/11/20 07:43 36.9 C 91 H 20 107/69 92 01/11/20 07:01 79 18 98 01/11/20 03:13 84 18 94 01/10/20 23:34 86 20 91 01/10/20 22:56 36.8 C 86 18 94/66 L 91 PG Care Time/CCT Total # of Minutes Spent Total Time Spent with Patient: Total time spent is greater than 50% in co ordination of care (as documented) at patient's floor/unit and/or counseling patient: Coding Level of Care Code 51537 Subseq Hosp Care Lvl 1 Diagnoses Pneumoperitoneum of unknown etiology K66.8
--- NOTE | 2020-01-11 11:36 | CT Scan Report ---
ABDOMEN AND PELVIS CT WITHOUT CONTRAST CT DOSE: 2989.13 mGy.cm HISTORY: follow up pneumoperitoneum possible abscess TECHNIQUE: Multiaxial CT images of the abdomen and pelvis were performed without contrast. A dose lo wering technique was utilized adhering to the principles of ALARA. COMPARISON STUDY: Abdomen and pelvis CT 01/07/2020. FINDINGS: Progressive right lower lobe consolidation with volume loss. There is mucoid material withi n the right lower lobe bronchus. Therefore, this could be due to a mucous plug/aspiration. Large amou nt of pneumoperitoneum which is similar to the prior study. This strongly suggests visceral perforati on. However, the exact location for bowel perforation is not clearly identified on this study. The pr ostate gland remains enlarged. There is a Hatch catheter within the decompressed bladder. Mild bladde r wall thickening adjacent stranding is noted. Colonic diverticulosis. Motion artifact versus inflame d diverticulum within the proximal sigmoid colon best seen on image 353. This raises the possibility of mild acute diverticulitis. However, no perforation or abscess identified at this location. Normal appendix. No dilated loops of bowel to suggest an obstruction. Right-sided nephrolithiasis. No ureter al stones. No hydronephrosis. There is right greater the left perinephric edema, unchanged. No retrop eritoneal lymphadenopathy. Normal caliber abdominal aorta. The unenhanced liver, spleen, pancreas, an d adrenal glands are unremarkable. No gallbladder wall thickening. Contrast remains within the colon. No extraluminal contrast identified. Prostatomegaly. IMPRESSION: 1. No change in the large volume of intraperitoneal free air. This strongly suggests visceral perfora tion. However, the site of expected bowel perforation is not clearly identified on this examination. 2. Oral contrast is seen throughout the colon. No extraluminal contrast identified. 3. The bladder is decompressed by Hatch catheter. Bladder wall thickening and adjacent fat stranding is noted. Recommend correlation with urinalysis to exclude a cystitis. 4. The prostate gland remains enlarged. 5. Stable right-sided nephrolithiasis. No hydronephrosis. 6. Progressive right lower lobe consolidation with volume loss. There is mucoid material within the r ight lower lobe bronchus. Therefore, this could be due to a mucous plug/aspiration. Consider follow-u p bronchoscopy. ACT 112: Negative or not required by law. Electronically signed by: Balta Morse M.D. 01/11/2020 11:34 AM
--- NOTE | 2020-01-11 13:30 | Hospitalist Progress Note ---
Date of Service January 11, 2020 Assessment & Plan (1) Myelopathy concurrent with and due to spinal stenosis of cervical region: POD# 9 anterior cervical corpectomy with bilateral foraminotomies C4, by Dr. Mariana CALLAHAN 5 ml Management will be as per Ortho Pain control with bowel regimen PT/OT-will likely need placement The patient is ready to be discharged for rehab as per Ortho Medically not stable to go and will be transferred to medical service Will transfer the service to medicine as per request from Ortho (2) Cough: (3) Hypoxia: developed moist cough 2 days ago, CXR without focal infiltrate CT scan revealing dependent consolidation b/l atelectasis vs infectious O2 sats on room air 88-91% ST evaled pt yesterday, asp precautions ordered Consider initiate IV antibiotics if persists - defer to Dr. Emanuel No fever and/or chills and white count remains within normal range Remains afebrile but white count went up to 21,000 Zosyn has been started following blood cultures Repeat chest x-ray do show improvement of pneumoperitoneum (4) Pneumoperitoneum of unknown etiology: Surgery on board, appreciate recommendations conservative management for now repeat KUB, CT reviewed Denies any acute symptoms from pneumoperitoneum-denies any abdominal pain, nausea and/or vomiting or distention Denies any chest pain and/or palpitation Is mildly short of breath which is typical of his baseline He denied to have any kind of repeat x-ray today there is 01/09/2020 Repeat chest x-ray did show improvement of pneumoperitoneum No signs in the abdomen and her symptoms of nausea vomiting We will continue antibiotic with Zosyn for now Repeat CT of the abdomen and pelvis did confirm amount of free air but again no site of perforation but it did show possible sigmoid diverticulitis We will continue current antibiotic (5) KAYLEEN (obstructive sleep apnea): BiPap HS (6) Diabetes mellitus, type 2: hgb a1c 6.0 Hold home agents and utilize NovoLog protocol while hospitalized controlled bsg 112, 119 this a.m. (7) Hypertension: BP controlled, continue lisinopril and furosemide monitor renal function, BUN starting to trend up If continues reduce lasix (8) Depression: Continue bupropion pt very tearful and depressed due to current situation monitor (9) Morbid obesity with BMI of 50.0-59.9, adult: BMI 53.4 encourage lifestyle modifications (10) DVT prophylaxis: Teds/SCDs as per spine orthopedics We will put him on subcu heparin Pt was seen and examined in collaboration with Dr. Emanuel, please see addendum The case discussed with the daughter and the son yesterday and will try to talk to them today as well that is 01/09/2020 Thank you for this consultation. We will follow the patient with you during their hospital stay. You can reach a member of the [facility] Hospitalist Team 05/02 via pager @ [phone]. Admission and Anticipated Discharge Date Admission Date: January 01, 2020 Subjective 01/09/2020 The patient was seen and examined in medical floor He is a status post C4 cervical corpectomy on of this month He is recovering pretty well but noted to have pneumoperitoneum of unknown etiology Remains very tired and lethargic and does not want to have any further test given x-ray of the chest today Denies any significant symptoms otherwise 01/10/2020 The patient was seen and examined in medical floor He is he is negative for COVID-19 with history of recent exposure on 12/30 He has been improving Denies any significant shortness of breath and does not have any pain in the abdomen No fever and no chills 01/11/2020 The patient was seen and examined in medical floor He remains stable without any significant symptoms Specifically he denies any abdominal pain or more distention He has had some left-sided chest pain without any evidence of ACS Review of Systems Review of Systems: At least ten systems reviewed and negative except as noted in the HPI. Respiratory: + dyspnea (Occasional); no cough (Occasional) Gastrointestinal: no abdominal pain, no bloating, no nausea and no vomiting Physical Exam Physical Exam: Lying in bed with minimal shortness of breath and discomfort Constitutional: well developed, well nourished, + ill appearing and + morbidly obese; no acute distress (Minimal shortness of breath) Eyes: PERRL, conjunctivae normal, anicteric sclerae ENMT: external ear and nose normal, oropharynx normal Neck: trachea midline, no thyromegaly Respiratory: normal respiratory effort; no respiratory distress Auscultation: + diminished lung sounds (Mostly right lower lung with crackles) Cardiovascular: Rate/Rhythm: regular rate and regular rhythm Heart Sounds: no murmur Gastrointestinal (Abdomen): Inspection/Auscultation: normal bowel sounds; abdomen not distended Percussion/Palpation: abdomen soft; abdomen nontender, no guarding and abdomen not rigid Neurologic: moves all extremities; no focal motor deficits Psychiatric: Orientation: alert and oriented x 3 Lymphatic: no cervical or axillary lymphadenopathy Results & Data Results & Data ([facility]) Vital Signs (Past 12 Hours) Vital Signs Temp Pulse Pulse Resp BP Pulse Ox 01/11/20 12:00 93 H 18 91 01/11/20 07:43 36.9 C 91 H 20 107/69 92 01/11/20 07:01 79 18 98 01/11/20 03:13 84 18 94 Laboratory Results Short CBC 01/11/20 Range/Units 05:32 WBC 22.55 H (4.8-10.8) K/uL Hgb 12.9 L (14.0-18.0) g/dL Hct 39.7 L (42-52) % Plt Count 247 (130-400) K/uL BMP 01/11/20 05:32 Sodium 136 Potassium 4.3 Chloride 99 Carbon Dioxide 27 BUN 81 H D Creatinine 3.19 H D Glucose 125 H Calcium 9.0 Cardiac Enzymes 01/11/20 Range/Units 07:56 Troponin I < 0.015 (0-0.045) ng/ml Medications Administered Current Inpatient Medications Acetaminophen (Tylenol) 1,000 mg PO Q8H PRN PRN Reason: MILD Pain Scale 1,2,3 & Pre PT Stop: 02/01/20 12:59 Al Hydrox/Mg Hydrox/Simethicone (Maalox) 30 ml PO Q6H PRN PRN Reason: Dyspepsia Stop: 02/01/20 12:59 Aspirin (Ecotrin Ectab) 81 mg PO [facility] Stop: 02/01/20 08:59 Last Admin: 01/11/20 09:06 Dose: 81 mg Documented by: Atorvastatin Calcium (Lip[facility]) [facility] [place]: 02/01/20 08:59 Last Admin: 01/11/20 09:07 Dose: 20 mg Documented by: Bisacodyl (Dulcolax) 10 mg VT DAILY PRN PRN Reason: Constipation Stop: 02/03/20 12:15 Bupropion HCl (Wellbutrin-Sr) 150 mg PO BID [facility] Stop: 07/18/20 20:59 Last Admin: 01/11/20 09:10 Dose: 150 mg Documented by: Cetirizine HCl (Zyrtec) 10 mg PO QAM [facility] Stop: 02/01/20 08:59 Last Admin: 01/11/20 09:10 Dose: 10 mg Documented by: Dextrose (Dextrose 50%) 25 - 50 ml IV UD PRN; Protocol PRN Reason: Hypoglycemia Protocol Stop: 01/31/20 20:01 Diphenhydramine HCl (Benadryl Capsule) 25 mg PO Q6H PRN PRN Reason: Allergic Rhinitis/Insomnia Stop: 02/01/20 12:59 Last Admin: 01/10/20 23:24 Dose: 25 mg Documented by: Epinephrine (Raccemic Epinephrine 2.25% 0.5ml) 0.5 ml INH NOW PRN PRN Reason: if stridor present Stop: 02/01/20 12:59 Famotidine (Pepcid) 20 mg PO Q12H PRN PRN Reason: Dyspepsia Stop: 02/01/20 12:59 Fluticasone Propionate (Flonase) 1 sprays NA [facility] Stop: 01/31/20 20:59 Last Admin: 01/10/20 20:30 Dose: 1 sprays Documented by: Furosemide (Lasix) 40 mg PO QAM [facility] Stop: 02/02/20 08:59 Last Admin: 01/11/20 09:06 Dose: 40 mg Documented by: Glucagon (Glucagen) 1 mg SQ UD PRN; Protocol PRN Reason: Hypoglycemia Protocol Stop: 01/31/20 20:01 Glucose (Dex4 Glucose) 4 - 8 tabs PO UD PRN; Protocol PRN Reason: Hypoglycemia Protocol Stop: 01/31/20 20:01 Glucose (Glucose 40%) 15 - 30 gm PO UD PRN; Protocol PRN Reason: Hypoglycemia Protocol Stop: 01/31/20 20:01 Guaifenesin (Robitussin Sugar Free) 200 mg PO Q4 [facility] Stop: 02/04/20 13:44 Last Admin: 01/11/20 12:51 Dose: Not Given Documented by: Hydromorphone HCl (Dilaudid) 0.5 mg IV Q3H PRN PRN Reason: MOD pain (scale 4-6) & Pre PT Stop: 01/16/20 12:59 Last Admin: 01/07/20 18:58 Dose: 0.5 mg Documented by: Hydromorphone HCl (Dilaudid) 1 mg IV Q3H PRN PRN Reason: severe pain (scale 7-10) Stop: 01/16/20 12:59 Last Admin: 01/11/20 07:42 Dose: 1 mg Documented by: Hydroxyzine HCl (Vistaril) 25 mg PO Q8H PRN PRN Reason: Anxiety Stop: 02/01/20 12:59 Lorazepam (Ativan) 1 mg in 2 mls @ 2 mls/min IV Q6H PRN PRN Reason: Anxiety/Spasms Stop: 01/31/20 15:46 Dexamethasone Sodium Phosphate (8 mg/ Syringe) 2 mls @ 1 mls/min IV NOW PRN PRN Reason: stridor Stop: 02/01/20 12:59 Lorazepam (Ativan) 0.5 mg in 1 mls @ 1 mls/min IV Q8H PRN PRN Reason: Sedation/Anxiety Stop: 02/01/20 12:59 Last Admin: 01/09/20 13:20 Dose: 1 mls/min Documented by: Promethazine HCl 12.5 mg/ (Sodium Chloride) 50.5 mls @ 202 mls/hr IV Q6H PRN PRN Reason: Nausea &/or Vomiting Stop: 02/01/20 12:59 Piperacillin Sod/Tazobactam (Sod 4.5 gm/ Dextrose) 120 mls @ 30 mls/hr IV Q8H NASIR; Protocol Stop: 01/20/20 13:59 Last Admin: 01/11/20 13:19 Dose: 30 mls/hr Documented by: Influenza Virus Vaccine Quadrival (Flu Vaccine, Do Not Administer) 1 ea N/A PRN PRN PRN Reason: Notification Stop: 02/01/20 12:59 Insulin Aspart (Novolog Flexpen) 0 units SC ACHS [facility] Stop: 02/01/20 16:29 Last Admin: 01/11/20 12:52 Dose: 3 units Documented by: Ketoconazole (Nizoral 2%) 1 appln EXT QAM [facility] Stop: 01/13/20 08:59 Last Admin: 01/11/20 09:07 Dose: 1 appln Documented by: Lisinopril (Zestril) 10 mg PO QAM [facility] Stop: 02/02/20 08:59 Last Admin: 01/11/20 09:10 Dose: 10 mg Documented by: Lorazepam (Ativan) 1 mg PO Q6H PRN PRN Reason: Anxiety/spasms Stop: 01/31/20 15:46 Last Admin: 01/10/20 22:33 Dose: 1 mg Documented by: Lorazepam (Ativan) 0.5 mg PO Q8H PRN PRN Reason: sedation/anxiety Stop: 02/01/20 12:59 Magnesium Hydroxide (Milk Of Magnesia) 30 ml PO Q24H PRN PRN Reason: Constipation Stop: 02/01/20 12:59 Metoclopramide HCl (Reglan) 10 mg IV Q6H PRN PRN Reason: Nausea &/or Vomiting Stop: 02/01/20 12:59 Miscellaneous (Order Awaiting Action) 1 ea N/A QS [facility] Stop: 02/01/20 00:00 Last Admin: 01/11/20 09:05 Dose: Not Given Documented by: Miscellaneous (Carbohydrates For Hypoglycemia) 15 - 30 gm PO UD PRN PRN Reason: Hypoglycemia Protocol Stop: 01/31/20 20:01 Miscellaneous (Order Awaiting Action) 1 ea N/A QS [facility] Stop: 02/01/20 00:00 Last Admin: 01/11/20 09:05 Dose: Not Given Documented by: Miscellaneous Information (Consult) 1 ea N/A UD PRN PRN Reason: Consult Stop: 02/09/20 08:35 Modafinil (Provigil) 200 mg PO DAILY [facility] Stop: 02/05/20 08:59 Last Admin: 01/11/20 09:08 Dose: 200 mg Documented by: Multivitamins/Minerals (Multivitamin W/ Minerals Tab) 1 tab PO DAILY [facility] Stop: 02/01/20 08:59 Last Admin: 01/11/20 09:07 Dose: 1 tab Documented by: Naloxone HCl (Narcan) 0.1 mg IV Q5M PRN PRN Reason: Oversedation/respiratory dep Stop: 02/01/20 12:59 Ondansetron HCl (Zofran) 4 mg IV Q6H PRN PRN Reason: Nausea &/or Vomiting Stop: 02/01/20 12:59 Ondansetron HCl (Zofran Odt) 4 mg PO Q6H PRN PRN Reason: Nausea Stop: 02/01/20 12:59 Oxycodone HCl (Roxicodone Immediate Rel) 5 - 10 mg PO Q4H PRN PRN Reason: Pain & Pre PT Stop: 01/16/20 12:59 Last Admin: 01/07/20 09:05 Dose: 10 mg Documented by: Pneumococcal Polyvalent Vaccine (Pneumococcal Vacc, Do Not Administer) 1 ea N/A PRN PRN PRN Reason: Notification Stop: 02/01/20 12:59 Polyethylene Glycol (Miralax Powder Packet) 17 gm PO DAILY PRN PRN Reason: Constipation Stop: 01/31/20 21:31 Pregabalin (Lyrica) 100 mg PO BID [facility] Stop: 01/31/20 20:59 Last Admin: 01/11/20 09:18 Dose: 100 mg Documented by: Senna/Docusate Sodium (Senokot S) 2 tab PO HS [facility] Stop: 02/01/20 20:59 Last Admin: 01/10/20 20:30 Dose: 2 tab Documented by: Sodium Biphosphate/Sodium Phosphate (Fleet Enema) 132 ml VT ONE PRN PRN Reason: Constipation Stop: 02/01/20 12:59 Tramadol HCl (Ultram) 50 - 100 mg PO Q4H PRN PRN Reason: Moderate-Severe pain & Pre PT Stop: 02/01/20 12:59 Last Admin: 01/06/20 16:39 Dose: 50 mg Documented by: Vitamin D (Vitamin D3) 2,000 units PO QAM [facility] Stop: 02/01/20 08:59 Last Admin: 01/11/20 09:09 Dose: 2,000 units Documented by:
[2020-01-11] MEDS: HEPARIN SOD 5,000 UNIT/0.5 ML VIAL SQ SCH ×2 (14:09→22:08)
[2020-01-11] MEDS ORDERED: SODIUM CHLORIDE 0.9% 1000ML 1,000 ML IV SCH ×2 (15:25→17:15)
[2020-01-11] MEDS: LORazepam 1 MG TAB PO PRN (16:38)
--- NOTE | 2020-01-11 18:02 | XRay Report ---
XR chest 1V portable HISTORY: pneumonia COMPARISON: Abdomen and pelvis CT 01/03/2020. FINDINGS: Large amount of pneumoperitoneum persists. There is volume loss and near complete opacifica tion of the right lung which has progressed in the interval. This is concerning for complete atelecta sis likely secondary to a mucous plug. The left lung is essentially clear. The heart remains mildly e nlarged. Cervical spinal fusion hardware is noted. IMPRESSION: 1. Volume loss with near complete opacification of the right lung which has progressed in the interva l. This favors a mucous plug with near complete collapse of the right lung. The mucous plug is better appreciated on the same day abdomen and pelvis CT. Bronchoscopy is recommended for further evaluatio n. 2. No significant change in the large amount of pneumoperitoneum. 3. These findings were called/faxed to the referring physician following dictation. ACT 112: Negative or not required by law. Electronically signed by: Balta Morse M.D. 01/11/2020 6:00 PM
[2020-01-11] MEDS ORDERED: RAPID SEQUENCE INDUCTION BAG ONE (20:25)
[2020-01-11] MEDS ORDERED: GLYCOPYRROLATE 0.2 MG/ML VIAL ONE (20:27)
[2020-01-11] MEDS ORDERED: GLYCOPYRROLATE 0.2 MG/ML VIAL IV ONE (20:30)
[2020-01-11] MEDS ORDERED: STAT IV Infusion **Titration per Protocol STA ×2 (20:31→21:04)
[2020-01-11 20:38] LABS: iSTAT Allen Test Pass; iSTAT Arterial Blood Gas HCO3 25 meg/L (19-24); iSTAT Arterial Blood Gas pCO2 47 mmHg (35-46); iSTAT Arterial Blood Gas pH 7.34 (7.35-7.45); iSTAT Arterial Blood Gas pO2 59 mmHg (80-95); iSTAT Carbon Dioxide 27 mmol/L (24-31); iSTAT FiO2 100 %; iSTAT Site L Radial
[2020-01-11] MEDS ORDERED: NOREPINEPHRINE BIT INJ 8 MG in DEXTROSE 5% 500 ML IV SCH (20:45)
--- NOTE | 2020-01-11 20:48 | Critical Care Consultation ---
Date of Consultation January 11, 2020 Assessment & Plan (1) Admitted to intensive care unit: Reason Critically Ill: 65-year-old male postop day 9 status post anterior cervical corpectomy with bilateral foraminotomies of C4 with C3-5 anterior fusion. Patient with unexplained pneumoperitoneum with increasing respiratory distress and mucoid plugging requiring emergent endotracheal intubation with bronchoscopy. Change of shift, the patient presented to the ICU. Patient was noted to be increasingly short of breath. He was hypoxic on facemask. Patient was placed on his home settings of BiPAP with settings of 23/13. Patient was somnolent, but did answer questions appropriately. He is noticeably weak. Patient's blood pressures were noted to be in the 70s systolically. He did have a 22-gauge IV in the RIGHT hand. At this point, I did reach out to my attending physician and discussed management with the patient as well. Dr. Aguayo is in route to this facility at this time. I did discuss with the patient plan of action at this time. He verbally consents to procedures. Arterial line was placed as were orders for levo fed and fluid bolus. RSI medications as well as bronchoscopy equipment were set up. I did place an additional ultrasound-guided peripheral IV in the LEFT upper extremity for added access. Levophed was started and the patient was noted to have increase in blood pressure into the 1 teens. Patient successfully underwent fiberoptic intubation with subsequent bronchoscopy which was noted to have significant mucoid impaction from the RIGHT main extending to all lobes. This did seem to improve the patient's oxygenation significantly. Post chest film shows substantial improvement. Patient remained sedated with Versed drip and fentanyl PRN. Labs have been ordered by myself and demonstrated a slight elevation of procalcitonin. He does have increasing renal function as well. No other significant findings at this point. Lactic acid is within normal limits. At this point, with concerns for pneumoperitoneum without findings in the abdomen, concern arises for possible upper GI insult versus airway source of free air. We do not have thoracic surgery available at this institution any longer. Per prior documentation and notes from general surgery, it is recommended the patient be transferred if his condition were to worsen. Certainly I would argue that at this point, the patient's clinical situation has deteriorated and is now requiring tertiary care referral for ongoing management and possible source evaluation for intraperitoneal air. I did discuss the case with Dr. Garcia, on-call ivory carver at [facility]. She accepts the patient in transfer. At 2223, I discussed case with the patient's son, Ferny ([phone]). I provided him update and answered all questions. He is in agreement with transfer. I will contact him when the patient is actively transferred from this facility. I have personally spent 80 minutes of critical care time in the direct management of this patient. This is a life/limb threatening event. This includes time spent evaluating patient, direct bedside care, chart review, placing orders, interpretation of diagnostic studies, discussion with consultants, patient, and family members, as well as other required patient management activities. This time is exclusive of all separately billable procedures, and teaching time and separate from and in addition to any other critical care service time. Thank you for allowing us to participate in the care of this patient. Please refer to my attending physician's documentation for any further recommendations. (2) Pneumoperitoneum of unknown etiology: (3) Free intraperitoneal air: (4) Hypoxia: (5) Myelopathy concurrent with and due to spinal stenosis of cervical region: (6) Falls frequently: (7) Respiratory failure: (8) Mucoid impaction of bronchi: Supervising Physician Co-Signing Physician Notes I presented to the bedside for evaluation and management of this patient. Briefly he was decompensating with hypotension and acute hypoxic respiratory failure. He was intubated with a fiberoptic bronchoscope secondary to cervical collar and possible distorted airway. Utilizing approximately 100 mcg of fentanyl and 100 mg of ketamine and topical lidocaine adequate anesthesia was achieved to successfully intubate the patient. Subsequently he underwent bron choscopy for his near total collapse of the right lung. He has been placed on IV Zosyn for possible esophageal perforation, I also think that this would have coverage for possible aspiration pneumonia. There were small flecks of what appear to be foreign material which I suspect could be food either from oral secretion aspiration or possibly aspiration of gastric contents. Patient is morbidly obese. After intubation and 10 of PEEP there was no noticeable leak in the circuit, he was increased to 15 of PEEP and there was approximately 40 mL leak. I did not see an obvious tracheal wall injury, the leak at 15 mL's could have been from around the cuff, at this time I am not led to believe that the intraperitoneal air is from a respiratory system source. Of note the patient's home BiPAP settings were reportedly 23/13 it would be reasonable to suspect gastric insufflation given his significant settings. However given his rise in his white count and decompensation with presumptive sepsis I feel it is most appropriate to transfer the patient to a tertiary facility that has thoracic surgical capabilities. I have personally spent 35 minutes of critical care time in the direct manageme nt of this patient. This is a life/limb threatening event. This includes time spent evaluating patient, direct bedside care, chart review, placing orders, interpretation of diagnostic studies, discussion with consultants, patient, and/or family members regarding treatment decisions, as well as other required patient management activities. This time is exclusive of all separately billable procedures, and teaching time and separate from and in addition to any other critical care service time. History of Present Illness Attending Physician: Francesco Peña DO History of Present Illness Patient is a 65-year-old male with a significant past medical history of hypertension, obstructive sleep apnea, morbid obesity, prostate cancer, and osteoarthritis who was initially admitted this facility on 12/24/2019 secondary to falls and general weakness. Patient's ER note reports the patient sustained a fall and was having reported worsening weakness over the last few months requiring the use of walker with ambulation. In addition, the patient had an onset of LEFT upper extremity weakness. During evaluation, the patient was noted to have cervical stenosis with cord impingement. It was felt that the patient would benefit from cervical decompression surgery. Patient underwent anterior cervical corpectomy with bilateral foraminotomies of C4 on 01/01. Patient had an uneventful postoperative course up until 01/05, when chest x-ray demonstrated pneumoperitoneum of unknown source. The patient was evaluated by general surgery and has had [address] scans of the abdomen pelvis performed which demonstrated a possible mild acute proximal sigmoid colonic diverticulitis versus artifact. Patient has had persistent pneumoperitoneum since. Throughout the day, the patient was noted to have increasing O2 requirements. The patient does utilize BiPAP at night with settings of 23/13. He was subsequently transferred to the ICU for further evaluation and management. Upon my assessment in the ICU, the patient is somnolent but arouses to stimuli. Answer simple questions. Patient is requiring increasing amounts of oxygen in addition to his home settings of 23/13. On review of the patient's chest x-ray he is noted to have complete obstruction of the main bronchus with concerns for mucous plugging as well as what appears to be compressive pneumoperitoneum on the RIGHT. I did review the case my attending physician and discussed with the patient and it was felt the need for emergent endotracheal intubation for respiratory failure as well as need for emergent bronchoscopy. Patient was noted to be relatively hypotensive. Orders were placed for levo fed as well as ongoing fluid bolus. Patient unable to contribute to history of present illness secondary to current state of somnolence. Allergies Allergy/AdvReac Type Severity Reaction Status Date / Time No Known Allergies Allergy Verified 12/24/19 23:06 Home Medications Home Medications Medication Instructions Recorded Confirmed Type PreserVision AREDS 1 cap PO DAILY 11/29/18 01/01/20 History armodafinil 150 mg PO QAM 11/29/18 01/01/20 History aspirin 81 mg PO QAM 11/29/18 01/01/20 History atorvastatin 20 mg PO QAM 11/29/18 01/01/20 History bupropion HCl 150 mg PO BID 11/29/18 01/01/20 History cetirizine 10 mg PO QAM 11/29/18 01/01/20 History furosemide 40 mg PO QAM 11/29/18 01/01/20 History lisinopril 10 mg PO QAM 11/29/18 01/01/20 History metformin 750 mg PO BID 11/29/18 01/01/20 History mometasone 1 spray INTRANASAL HS 11/29/18 01/01/20 History pregabalin [Lyrica] 100 mg PO BID 11/29/18 01/01/20 History cholecalciferol (vitamin D3) 2,000 unit PO QAM 06/17/19 01/01/20 History [Vitamin D3] ketoconazole 1 applic TOPICAL QAM 06/17/19 01/01/20 History halobetasol propionate 1 applic TOPICAL DIRECTED 12/24/19 01/01/20 History tramadol 50 mg PO Q6H PRN #30 tab 01/06/20 Rx Patient History Medical History BPH (benign prostatic hyperplasia) Colon cancer screening Depression Diabetes (Inactive) Diabetes mellitus, type 2 SCOTT (generalized anxiety disorder) (Inactive) GERD (gastroesophageal reflux disease) (Inactive) Hearing loss in right ear History of anesthesia reaction had BP drop during one of his hernia sx---had surgery since then, no issues HLD (hyperlipidemia) Hypertension Morbid obesity with BMI of 50.0-59.9, adult KAYLEEN (obstructive sleep apnea) bipap HS x25yrs settings 05/03 Osteoarthritis Prostate cancer (Chronic) 08/04/2019 Venous stasis (Inactive) Venous stasis dermatitis Surgical History H/O esophagogastroduodenoscopy (Inactive) 2007 H/O hernia repair (Inactive) 3 hernia repairs, 2009, 2012 & 2013 History of arthroscopy of right knee meniscus repair History of colonoscopy History of wisdom tooth extraction Hx of vasectomy Status post trigger finger release right ring finger Family History Mother Lung cancer age 57 Father , cancer not sure what kind, age 90 No problems noted. Sister No problems noted. Sister No problems noted. Sister No problems noted. Son No problems noted. Daughter No problems noted. Other No family history of adverse response to anesthesia Social History Preferred Language: Sudanese Communication Ability: Effective Assistant Branch Operations Manager Required: No Beliefs That Will Affect Care: None marital status: / Current Living Situation: Alone current occupation: retired, social security disability, [employer] worker Feels Safe at Home: Yes Smoking Status: Never smoker Second Hand Exposure: Yes (father smoked) ; Hx Alcohol Use: No Hx Substance Use: No Childhood Exposure to Second-Hand Smoke: Yes caffeine: Yes (one cup of tea) Dental Care, Regularly: Yes Review of Systems Review of Systems: Unobtainable due to endotracheal tube and Unobtainable due to reduced consciousness Physical Exam Physical Exam: VITAL SIGNS - Vital signs and nursing notes were reviewed. GENERAL - 65-year-old male appearing his stated age who is in moderate respiratory distress. Somnolent SKIN - Without rashes. HEAD - NC/AT. EYES - PERRL with EOMI bilaterally. Sclera anicteric. EARS - No deformities of external structures noted on gross examination bilaterally. NOSE - Midline and without cyanosis. No epistaxis or purulent drainage noted. MOUTH/OROPHARYNX - Without perioral cyanosis. Buccal mucosa pink and moist and without leukoplakia. NECK -cervical collar in place. Anterior postoperative wound noted. LUNGS -tachypneic with decreased breath sounds on the RIGHT and coarse breath sounds to the LEFT lung rose. CARDIAC - RRR with S1/S2. No murmur, rubs, or gallops appreciated. ABDOMEN - Abdominal contour obese without pulsations or visible masses. BS hypoactive all four quadrants. No tenderness, palpable masses, hepatosplenomegaly, or ascites noted. EXTREMITIES - No clubbing or peripheral cyanosis. No pretibial edema present. +2 /5 radial pulses palpated throughout. NEUROLOGIC - Cranial nerves II through XII grossly intact. PSYCH -patient is awake and alert. Knows that he is in the hospital. Answers simple questions. Moves all extremities appropriately but is noticeably weak. Results & Data Results & Data ([facility]) Vital Signs (Past 12 Hours) Vital Signs Temp Pulse Pulse Resp BP BP BP 01/11/20 19:28 74 20 87/48 L 01/11/20 19:18 74 24 95/41 L 01/11/20 19:15 74 30 H 01/11/20 18:24 76 18 89/56 L 01/11/20 17:04 01/11/20 16:11 70 18 95/53 L 01/11/20 15:36 62 18 98/63 L 01/11/20 15:35 65 65 16 01/11/20 15:25 73/44 L 01/11/20 15:05 36.4 C L 65 18 72/49 L 01/11/20 12:00 93 H 18 Pulse Ox 01/11/20 19:28 90 01/11/20 19:18 91 01/11/20 19:15 94 01/11/20 18:24 94 01/11/20 17:04 96 01/11/20 16:11 95 01/11/20 15:36 90 01/11/20 15:35 90 01/11/20 15:25 90 01/11/20 15:05 90 01/11/20 12:00 91 Coding Level of Care Code Critical Care 1st 30-74 mins Diagnoses Admitted to intensive care unit Z78.9 Pneumoperitoneum of unknown etiology K66.8 Free intraperitoneal air K66.8 Hypoxia R09.02 Myelopathy concurrent with and due to spinal stenosis of cervical region M48.02; G99.2 Falls frequently R29.6 Respiratory failure J96.90 Mucoid impaction of bronchi J98.09 Time Spent (min) [address] Aguayo: 35; Chelsea Arboleda:55
--- NOTE | 2020-01-11 20:48 | Procedure Note ---
Procedure Note Date of Service January 11, 2020 Supervising Physician Co-Signing Physician Notes Procedure: Arterial Line Placement Attending: Dr. Aguayo APC: Ben Arboleda PA-C Indication: Monitoring on Pressors Anesthesia: Lidocaine 1% Verbal consent was implied in the setting of emergent need for hemodynamic monitoring in the hypotensive patient requiring emergent endotracheal intubation. A time-out was completed verifying correct patient, procedure, site, positioning, and implant(s) or special equipment if applicable. Allens test was performed to ensure adequate perfusion. Patients LEFT wrist was prepped and draped in the usual sterile fashion. Ultrasound guidance was used to aid needle placement. A 20g Arrow arterial line was introduced into the LEFT Radial artery. Catheter was threaded, and the needle was removed with appropriate blood return. Good waveform was observed. The patient tolerated the procedure well. Confirmation of placement with ultrasound. Blood Loss: Minimal Complications: None Procedural Ultrasound Guidance: Procedure Date: 01/11/2020 Indication: Pressors, ABGs, Frequent BPs. Attending: Dr. Aguayo APC: Ben Arboleda PA-C Artery Identified: YES Line confirmed in Artery with ultrasound: YES Complications: NONE Patient tolerated procedure: WELL I was physically present during this procedure. Coding CPT Codes Tubes, Drains, and Vasc Access - Tubes, Drains, and Vasc Access: [id number] Place Catheter In Artery ([id number]) [facility] Procedure Codes (Charges) Tubes, Drains, and Vasc Access Procedure 1: Tubes, Drains, and Vasc Access: [id number] Place Catheter In Artery
--- NOTE | 2020-01-11 20:48 | Procedure Note ---
Procedure Note Date of Service January 11, 2020 Supervising Physician Co-Signing Physician Notes Procedure: Chcf Indwelling Peripherally Inserted IV Catheter Placement Attending: Dr. Aguayo APC: Ben Arboleda PA-C Indication: Need for IV Access, Poor Vascular Access Anesthesia: None Verbal consent was obtained from patient prior to performing the procedure. A time-out was completed verifying correct patient, procedure, site, positioning, and implant(s) or special equipment if applicable. Utilizing bedside ultrasound, vascularity of the LEFT upper extremity was assessed. Vessel size was noted for appropriate catheter selection and skin was marked with gentle pressure. Patients LEFT upper extremity was prepped and draped in the usual sterile fashion utilizing chlorhexidine. Ultrasound guidance was used to aid needle placement. A 20 g Endurance Catheter was introduced into the LEFT Cephalic vein under direct ultrasound guidance. Guide wire was easily deployed without resistance. Catheter was threaded over the guide wire without resistance and the entire apparatus was removed intact. Good venous blood return was noted in the catheter. The IV catheter was easily flushed with sterile saline flush. Sterile clave was attached to the end of the catheter and good blood return was again noted. Tourniquet was released. StatLock device and sterile dressing were applied. The patient tolerated the procedure well. Blood Loss: Minimal Complications: None Procedural Ultrasound Guidance: Procedure Date: 01/11/2020 Indication: Poor Vascular Access Attending: Dr. Aguayo APC: Ben Arboleda PA-C Artery/Veins Identified: YES Access confirmed in Vein with ultrasound: YES Complications: NONE Patient tolerated procedure: WELL I was physically present and assisted during this procedure Coding CPT Codes Tubes, Drains, and Vasc Access - Tubes, Drains, and Vasc Access: [id number] Venipuncture, Age 5/>Req phys skill, (sep proc), Dx/Tx (not rtn) ([id number]) [facility] Procedure Codes (Charges) Tubes, Drains, and Vasc Access Procedure 2: Tubes, Drains, and Vasc Access: [id number] Venipuncture, Age 5/>Req phys skill, (sep proc), Dx/Tx (not rtn)
[2020-01-11 21:04] LABS: Basophils # (auto) 0.01 K/uL (0-0.2); Basophils % (auto) 0.1 %; Hematocrit (blood only) 35.8 % (42-52); Hemoglobin 11.3 g/dL (14.0-18.0); Immature Granulocytes # (auto) 0.06 K/uL (0.00-0.02); Immature Granulocytes % (auto) 0.3 %; Lymphocytes # (auto) 1.65 K/uL (1.2-3.4); Lymphocytes % (auto) 8.7 %; Mean Corpuscular Hemoglobin 29.7 pg (25-34); Monocytes # (auto) 1.72 K/uL (0.11-0.59); Neutrophils # (auto) 15.42 K/uL (1.4-6.5); Neutrophils % (auto) 80.9 %; Platelet Count 285 K/uL (130-400); RDW Coefficient of Variation 13.6 % (11.5-14.5); RDW Standard Deviation 46.7 fL (36.4-46.3); Red Blood Count 3.81 M/uL (4.7-6.1); White Blood Count 19.06 K/uL (4.8-10.8)
[2020-01-11] MEDS ORDERED: fentaNYL citrate 100 MCG/2 ML VIAL IV PRN (21:04)
[2020-01-11] MEDS ORDERED: MIDAZOLAM BOLUS FROM BAG IV PRN (21:04)
[2020-01-11] MEDS ORDERED: MIDAZOLAM HCL 125MG/250ML D5W ONE (21:05)
[2020-01-11] MEDS ORDERED: MIDAZOLAM HCL 125 MG/250 ML BAG IV SCH (21:15)
[2020-01-11 21:21] LABS: Albumin Level 2.1 gm/dl (3.4-5.0); BUN Creatinine Ratio 23.8 (10-20); Bilirubin Direct 0.3 mg/dl (0-0.2); Calcium 7.8 mg/dl (8.5-10.1); Creatinine Clr Calc Pharmacy 25.1 ml/min; Est GFR (African American) 17.8; Est GFR (Non-African American) 15.3; Magnesium 2.5 mg/dl (1.8-2.4); Potassium 4.2 mmol/L (3.5-5.1)
[2020-01-11 21:24] LABS: Bilirubin,Total 0.7 mg/dl (0.2-1); Phosphorus 8.3 mg/dl (2.5-4.9)
[2020-01-11] MEDS: FLUTICASONE PROPIONATE NA SPR 16 GM BTL SCH (21:29)
[2020-01-11] MEDS: DOCUSATE SODIUM/SENNA 50/8.6MG TAB PO SCH (21:29)
[2020-01-11] MEDS ORDERED: GLYCOPYRROLATE 0.2 MG/ML VIAL IV STA (21:31)
[2020-01-11 21:38] LABS: Mean Corpuscular Hgb Conc 31.6 g/dL (32-36)
--- NOTE | 2020-01-11 22:06 | Procedure Note ---
Procedure Note Date of Service January 11, 2020 Procedure Date: Noted above Procedure: Endotracheal intubation Pre-procedure Diagnosis: Mucous plugging right lung, hypoxic respiratory failure Post-procedure Diagnosis: same as above Prior to Procedure: Informed Consent: emergent Attending Staff: Roxanne Aguayo DO The identity of the patient was confirmed and a bedside time out was performed. Description of Procedure: Patient was evaluated and required intubation for impending respiratory failure. The patient was prepared in the usual fashion. A fiberoptic bronchoscope was used as the patient underwent anterior cervical fixation and was in a [facility] cervical collar. A 8.0 mm inner diameter endotrachial tube was placed endotrac heally to 25 cm at the teeth. The endotracheal tube was noted to pass through the vocal cords via concurrent glide scope visualization. Chest rise was bilateral. Bilateral breath sounds were heard without air sounds in the abdomen. Mist was noted in the endotracheal tube. End-tidal CO2 measurement was positive. Chest x-ray shows proper endotracheal tube placement. And positioning was also confirmed by bronchoscopy Complications: None Findings: Not applicable Specimens: Not applicable Estimated blood loss: Zero Coding CPT Codes Resuscitation - Resuscitation: [id number] Endotracheal Intubation, emergency ([id number]) [facility] [place] Procedure Codes (Charges) Resuscitation Resuscitation: [id number] Endotracheal Intubation, emergency
--- NOTE | 2020-01-11 22:07 | Procedure Note ---
Procedure Note: Bronchoscopy Procedure Procedure date: January 11, 2020 Procedure: fiberoptic bronchoscopy Pre-procedure indication: Complete collapse of right lung Post-procedure Diagnosis: same as above Prior to Procedure: Informed Consent: Emergent consent implied Attending Staff: Roxanne Aguayo DO Resident/APC: Chelsea Arboleda Skin Prep: Not applicable Anesthesia: Fentanyl, ketamine The identity of the patient was confirmed and a bedside time out was performed. Description of Procedure: Fiberoptic bronchoscopy was performed via endotracheal tube. Bronchioalveolar lavage right middle and lower lobes was performed. Findings included: Mucoid impaction from right main extending into all lobes. Appearance of foreign material suspect aspiration of oral secretions versus gastric contents. Complications: None Specimens: Bronchial washings sent for culture and Gram stain, fungal elements, AFB stain and culture, cell count differential. Estimated blood loss: Zero
--- NOTE | 2020-01-11 23:17 | Communication Note ---
Date of Service: January 11, 2020 2310: Spoke with the patient's son, Ferny as promised earlier. Informed him of active transfer to [facility] and room number of 761 at [facility]. Coding Level of Care Code None
[2020-01-11] MEDS ORDERED: MIDAZOLAM HCL 5 MG/ML VIAL IV ONE (23:40)
[2020-01-11] MEDS ORDERED: SUCCINYLCHOLINE CHLORIDE 20 MG/ML 10 ML VIAL IV ONE (23:40)
[2020-01-11] MEDS ORDERED: VECURONIUM BROMIDE 10 MG VIAL IV ONE (23:40)
[2020-01-11] MEDS ORDERED: ETOMIDATE 2 MG/ML 20 ML VIAL IV ONE (23:40)
[2020-01-11] MEDS ORDERED: fentaNYL citrate 100 MCG/2 ML VIAL IV ONE ×2 (23:40)
[2020-01-11] MEDS ORDERED: KETAMINE HCL INJ 50 MG/ML 10 ML VIAL IV ONE (23:40)
[2020-01-11 23:45] LABS: Eosinophil Body Fluid Man 0 %; Fluid Mono/Macrophage 7 %; Lymphocyte Body Fluid Man 2 %; Neutrophil Body Fluid Man 91 %
--- NOTE | 2020-01-12 07:52 | XRay Report ---
XR chest 1V portable HISTORY: post bronch/tube COMPARISON: Chest 01/03/2020. FINDINGS: Endotracheal tube terminates 2.9 cm in the ector. Pneumoperitoneum persists. There is elev ation right hemidiaphragm. Significant improved aeration within the right upper lung zone. Right basi lar density persists and may represent right middle/lower lobe collapse. The left lung is essentially clear. The heart remains mildly enlarged. Cervical spinal fusion hardware is again noted. IMPRESSION: 1. Endotracheal tube terminates 2.9 cm in the ector. 2. Significantly improved aeration within the right upper lung zone. 3. Right basilar density persists and may represent residual right lower lobe/middle lobe collapse. 3. Pneumoperitoneum is again noted. ACT 112: Negative or not required by law. Electronically signed by: Balta Morse M.D. 01/12/2020 7:51 AM
--- NOTE | 2020-01-20 14:28 | Discharge Summary ---
Date of Service January 20, 2020 Admission HPI Per Admitting Provider This is a 64-year-old male known to me that presents with marked decline in neurologic function vertically involving left upper extremity. He is noted changes over the past several weeks but now presents with almost a flaccid left arm. Principal Diagnosis Cervical myelopathy Discharge Data Allergies Allergy/AdvReac Type Severity Reaction Status Date / Time No Known Allergies Allergy Verified 12/24/19 23:06 Consultations 01/01/20 15:47 Consult Internal Medicine Routine 01/02/20 13:00 Consult Hospitalist Routine 01/07/20 14:14 Consult General Surgery Routine 01/11/20 18:25 Consult Smoke Jumper Supervisor Routine 01/11/20 22:26 Burn CD for patient Stat Procedures Performed Operation Date: 01/02/20 07:45 Actual Procedures p C4 Cervical Corpectomy with Spinal Cord Monitoring(Not Applicable) - Francesco Peña DO Ordered Studies 01/07/20 11:06 CT abd pelvis wo con Stat CT chest wo con Stat 01/07/20 15:03 CT abd pelvis oral con only Stat 01/11/20 10:09 CT abd pelvis wo con Routine Hospital Course (1) Myelopathy concurrent with and due to spinal stenosis of cervical region: Patient was admitted secondary to a significant decline in neurologic status and known cervical myelopathy. He was cleared for surgery and underwent anterior cervical corpectomy and fusion. He tolerated this procedure well was taken to orthopedic floor postoperatively. Throughout his postoperative course he did however struggle with significant medical issues including difficulty controlling his oral secretions shortness of breath and ultimately a perforated diverticula resulting in free air in the abdomen. From an orthopedic standpoint his hardware remain in place he was making some modest gains regarding his neurological function comfortably left upper extremity. Nevertheless he was transferred to the ICU with significant hypotension and concerns of infection and ultimately transferred to [facility] [address] on 01/11/2020. Total Time Total Time Spent Total Time Spent (In Minutes): 30 minutes Discharge Plan Discharge Items Patient Disposition: Transfer Inpatient Rehab Fac Reason For Visit: CERVICAL MYELOPATHY Discharge Diagnosis: Cervical myelopathy Activity: As commented below Non-emergency contact: Primary Care Provider Call non-emergency contact if: you have any medication questions Follow-up/Referrals: Ana Iglesias DO [Primary Care Provider] - Diet: Regular Addtl Attending Provider Instructions: ACTIVITY RECOMMENDATIONS: SELF CARE INSTRUCTIONS AFTER CERVICAL FUSIONS 1. No smoking. Smoking drastically decreases the chance of a solid fusion. 2. No bending, lifting more than 5 pounds, or twisting (roll like a log when turning in bed). 3. You may shower 3 days after surgery. Thoroughly dry wound. Do not soak in the tub. 4. Cervical collar: Must be worn at all times including sleeping. You may remove the brace only to bath, eat and if you are sitting in a recliner. 5. Please walk as much as you can for exercise. Gradually increase the distance that you walk as your endurance increases. SPECIAL CARE INSTRUCTIONS: VERY IMPORTANT TO READ AND REVIEW A. Do not take any anti-inflammatory medications (i.e. Indocin, Advil, Aspirin, Naprosyn, Aleve, Motrin, etc.) as these may inhibit the chance of a solid fusion. Tylenol is okay to take. B. Your surgical incision has been closed with a cosmetic suture under the skin that will dissolve in about 6 weeks. In 14 days, you can use a pair of clean scissors and cut the suture that is left outside of the skin at the ends of your incision. C. Complications are uncommon, but please contact us if you have any signs or symptoms of: 1. wound infection (fever higher than 102.5 degrees F, redness, separation of wound, drainage, or increasing pain from the incision) 2. blood clots in legs (pain, swelling, redness and warmth in legs) 3. urinary tract infection (fever higher than 102.5 degrees, burning upon urination or increased frequency of urination) 4. nerve problems (inability to walk on your toes or heels, numbness, loss of bowel or bladder control) 5. any other symptoms that concern you. D. Please call the office at if you have any concerns or questions about your operation or recovery. MANAGING PAIN AFTER SPINAL SURGERY 1. Narcotic medication is intended for short-term use and will be provided for surgical pain. Surgical pain usually lasts for a period of 4-6 weeks. Narcotic medication includes Percocet, Vicodin, Darvocet, Tylenol #3 or Lortab. 2. Longer-term pain is more appropriately treated with non-narcotic medication such as Tylenol ES. 3. Muscle spasm is not appropriately treated with narcotics. Muscle relaxers such as Soma, Flexeril or Skelaxin can be used along with Tylenol ES. 4. Remember that we all live with some "aches and pains". This is not unusual or uncommon after an injury or as we get older. 5. We will provide appropriate medication within the normal guidelines of their prescribed use. We will also be very cautious and aware of potential abuse and extended duration of patients' medication needs. 6. Please allow 2-3 days to process refills. Prescriptions will not be mailed but must be picked up at the office. FOLLOW UP VISIT: Keep your scheduled follow-up appointment. Any questions, please call the office at . Pending Studies at Discharge: No Stand-Alone Forms: [facility] Skilled Items Patient informed of condition?: Yes DNR: No Discharge Level of Care: Acute rehab Communicable Disease: No Discharge Prognosis: Improving Lines: None Urinary Catheter: No Medications and DC Order Prescriptions: New tramadol 50 mg tablet 50 mg PO Q6H PRN (Reason: pain, moderate) Qty: 30 RF: 0 Continued cholecalciferol (vitamin D3) [Vitamin D3] 2,000 unit Tablet 2,000 unit PO QAM RF: 0 ketoconazole 2 % Cream 1 applic TOPICAL QAM RF: 0 halobetasol propionate 0.05 % Ointment 1 applic TOPICAL DIRECTED RF: 0 furosemide 40 mg tablet 40 mg PO QAM RF: 0 bupropion HCl 150 mg tablet sustained-release 12 hr 150 mg PO BID RF: 0 atorvastatin 20 mg tablet 20 mg PO QAM RF: 0 cetirizine 10 mg tablet 10 mg PO QAM RF: 0 aspirin 81 mg tablet,delayed release (DR/EC) 81 mg PO QAM RF: 0 mometasone 50 mcg/actuation spray,non-aerosol 1 spray intranasal HS RF: 0 metformin 750 mg tablet extended release 24 hr 750 mg PO BID RF: 0 pregabalin [Lyrica] 100 mg capsule 100 mg PO BID RF: 0 PreserVision AREDS [id number] Capsule 1 cap PO DAILY RF: 0 armodafinil 150 mg tablet 150 mg PO QAM RF: 0 lisinopril 10 mg tablet 10 mg PO QAM RF: 0 Admission Data Admit Date/Time: 01/01/20 15:42 Attending Provider: Francesco Peña Admit Provider: Francesco Peña Primary Care Provider: Ana Iglesias Other Providers: Erickson Bettencourt ; Pepe Cox ; [facility] ; [facility] ; [facility] ; [place] ; [facility] ; [place] ; Felix Eli ; Denton Aguayo Other Interventions: Discharge Summary Assessment (RN) Last Done: 01/11/20 23:39 DC Date/Time DO NOT enter until pt leaves facility: 01/11/20 23:41
== END 2020-01-11 23:41 | DRG 453 ==
LOC: 2N 15:42 → 3E 17:45 → 1E 01-11 19:18